=== PATIENT | male | born 1975 | race Caucasian/White ===

== ENCOUNTER → 2016-07-12 | Outpatient (CLI) | payer OTHER ==
--- NOTE | 2016-07-15 11:46 | REP ---
MRI of the left shoulder 07/12/2016 Indication: Complete rotator cuff tear or rupture of left shoulder, not specified as traumatic Comparison: Left shoulder series 06/15/2016 Technique: Sagittal oblique, coronal oblique and sagittal images were obtained through the left shoulder in multiple pulse sequences Findings: Mild narrowing of the glenohumeral joint with minimal spurring, subchondral cystic changes within the bony glenoid and the humeral head, as well as greater tuberosity are noted. Moderate hypertrophic and osteoarthritic changes are noted at acromioclavicular joint with extrinsic impression on the myotendinous junction region of the supraspinatus muscle/tendon. Small amount of focal increased signal is seen within few articular surface fibers within the distal posterior supraspinatus tendon, best seen on image 12 series 6. This is most compatible with minimal focal tendinopathy. The bicipital tendon is intact. There is no sub acromial fluid collection. There is a small sub coracoid fluid collection Impression: Mild osteoarthritic changes within the glenoid and acromioclavicular joint. Minimal focal tendinopathy involving articular surface fibers of the distal posterior supraspinatus tendon. No full-thickness supraspinatus tendon tear or retraction of fibers Signed by Carol Manriquez MD 07/15/2016 11:38 A
== END | disposition home or self-care (01) ==
LOC: M RAD 15:08
PROVIDERS: ATTEND Family Medicine Addiction Medicine
DX: M75.122 Complete rotator cuff tear or rupture of left shoulder, not specified as traumatic (principal); M19.012 Primary osteoarthritis, left shoulder

== ENCOUNTER 2016-10-20 13:42 | Emergency (ER) | payer OTHER ==
[~2016-10-20] VITALS: Ht 175.3 cm; Wt 102.1 kg
[2016-10-20] MEDS ORDERED: FLUO20CA8 PO (14:03)
[2016-10-20] MEDS ORDERED: SERO1TAB PO (14:03)
--- NOTE | 2016-10-20 14:36 | REP ---
Left foot four views: Mineralization and joint spaces are normal. There is no fracture or dislocation. There is a calcaneal Achilles spur. There are no calcifications or foreign bodies. Impression: Negative left foot except for a calcaneal Achilles spur. Signed by Robbie Irving MD 10/20/2016 02:27 P
[2016-10-20] MEDS ORDERED: INDOMETHACIN 25 MG CAP PO ONE (14:45)
[2016-10-20 15:08] LABS: BASO # 0.1 K/mm3 (0.0-0.2); BASO % 1.1 % (0.0-1.0); EOS # 0.2 K/mm3 (0.0-0.50); EOS % 2.7 % (0.0-3.0); LARGE UNSTAINED CELL # 0.2 K/mm3 (0.0-0.4); LARGE UNSTAINED CELL % 1.6 % (0.0-4.0); LYMPH # 2.1 K/mm3 (1.5-4.5); LYMPH % 21.4 % (24.0-44.0); MEAN CORPUSCULAR HEMOGLOBIN 30.1 pg (27.0-33.0); MEAN CORPUSCULAR HGB CONC 33.8 g/dl (32.0-36.5); MEAN CORPUSCULAR VOLUME 89.1 fl (80.0-96.0); MONO # 0.6 K/mm3 (0.0-0.8); MONO % 6.8 % (0.0-5.0); NEUTROPHILS % 66.4 % (36.0-66.0); PLATELET COUNT, AUTOMATED 261 k/mm3 (150-450); RED CELL DISTRIBUTION WIDTH 13.8 % (11.5-14.5); WHITE BLOOD COUNT 9.1 K/mm3 (4.0-10.0)
[2016-10-20 15:13] LABS: ANION GAP 6 MEQ/L (8-16); BLOOD UREA NITROGEN 11 MG/DL (7-18); CARBON DIOXIDE LEVEL 27 MEQ/L (21-32); CHLORIDE LEVEL 102 MEQ/L (98-107); CREATININE FOR GFR 0.97 MG/DL (0.70-1.30); GLOMERULAR FILTRATION RATE > 60.0 (>60); POTASSIUM SERUM 4.2 MEQ/L (3.5-5.1); SODIUM LEVEL 135 MEQ/L (136-145)
[2016-10-20 15:27] LABS: URIC ACID 8.5 MG/DL (3.5-7.2)
[2016-10-20 15:32] LABS: GLUCOSE, FASTING 211 MG/DL (70-105)
[2016-10-20 15:44] LABS: ERYTHROCYTE SEDIMENTATION RATE 8 mm/hr (0-15)
[2016-10-20] MEDS ORDERED: NORCO, ANEXSIA 5/325MG TABLET (HYDROcodone/ACETAMINOPHEN) PO ONE (16:30)
[2016-10-20] MEDS ORDERED: COLC1TAB13 PO (17:16)
[2016-10-20] MEDS ORDERED: NORC1TAB4 PO (17:16)
[2016-10-20] MEDS ORDERED: INDO50CA PO (17:16)
[2016-10-20 17:32] VITALS: BP 146/84
== END 2016-10-20 17:35 | disposition home or self-care (01) ==
LOC: M ED 15:18
DX: M10.9 Gout, unspecified (principal); R73.02 Impaired glucose tolerance (oral); M72.2 Plantar fascial fibromatosis; F17.200 Nicotine dependence, unspecified, uncomplicated

== ENCOUNTER 2017-01-05 06:15 | Emergency (ER) | payer OTHER ==
[~2017-01-05] VITALS: Ht 175.3 cm; Wt 109.1 kg
[~2017-01-05 06:15] MED LIST: COLC1TAB13 PO; FLUO20CA8 PO; INDO50CA PO; NORC1TAB4 PO; SERO1TAB PO
[2017-01-05] MEDS ORDERED: KETOROLAC 60 MG/2 ML VIAL (J1885) IM ONE (07:30)
[2017-01-05 07:58] LABS: MEAN CORPUSCULAR HEMOGLOBIN 30.4 pg (27.0-33.0); MEAN CORPUSCULAR HGB CONC 33.9 g/dl (32.0-36.5); MEAN CORPUSCULAR VOLUME 89.8 fl (80.0-96.0); WHITE BLOOD COUNT 12.1 K/mm3 (4.0-10.0)
[2017-01-05] MEDS ORDERED: PERCOCET 5MG/325MG TAB PO ONE (08:15)
--- NOTE | 2017-01-05 08:38 | REP ---
Clinical: Pain inflammatory arthritides. Technique: AP, lateral, bilateral oblique views of the left ankle. Findings: Moderate diffuse soft tissue swelling is appreciated along with cortical irregularity at the fibular and tibial tips. No subchondral lucencies or erosions are appreciated. No significant osteophyte formation noted. Lateral view demonstrates small calcaneal heal spur. No acute fracture dislocation. Impression: Minimal age-related degenerative change. Signed by Henok Shetty MD 01/05/2017 08:30 A
[2017-01-05 08:50] LABS: ANION GAP 6 MEQ/L (8-16); BLOOD UREA NITROGEN 13 MG/DL (7-18); CALCIUM LEVEL 8.3 MG/DL (8.5-10.1); CARBON DIOXIDE LEVEL 25 MEQ/L (21-32); CHLORIDE LEVEL 106 MEQ/L (98-107); CREATININE FOR GFR 0.98 MG/DL (0.70-1.30); GLOMERULAR FILTRATION RATE > 60.0 (>60); GLUCOSE, FASTING 108 MG/DL (70-105); POTASSIUM SERUM 4.2 MEQ/L (3.5-5.1); SODIUM LEVEL 137 MEQ/L (136-145); URIC ACID 8.3 MG/DL (3.5-7.2)
[2017-01-05] MEDS ORDERED: COLC1CAP PO (09:26)
[2017-01-05] MEDS ORDERED: NAPR500T PO (09:26)
[2017-01-05] MEDS ORDERED: COLCHICINE 0.6 MG TAB PO ONE (09:30)
[2017-01-05 09:34] VITALS: BP 122/81
== END 2017-01-05 09:38 | disposition home or self-care (01) ==
LOC: M ED 06:15
DX: M19.072 Primary osteoarthritis, left ankle and foot (principal); M10.072 Idiopathic gout, left ankle and foot; F32.9 Major depressive disorder, single episode, unspecified; F17.200 Nicotine dependence, unspecified, uncomplicated; Z90.49 Acquired absence of other specified parts of digestive tract; Z79.899 Other long term (current) drug therapy

== ENCOUNTER → 2017-09-29 | Outpatient (CLI) | payer OTHER ==
[2017-09-29 18:20] LABS: ESTIMATED AVERAGE GLUCOSE 134 MG/DL (60-110); HEMOGLOBIN A1c 6.3 %
== END ==
LOC: M LAB 15:43
DX: R20.0 Anesthesia of skin (principal); M51.37 Other intervertebral disc degeneration, lumbosacral region
CPT/HCPCS: 71046

== ENCOUNTER 2017-10-13 16:49 | Emergency (ER) | payer OTHER ==
[2017-10-13] MEDS ORDERED: GASTROGRAFIN SOLUTION 30ML (Q9963) As Ordered (19:39)
[2017-10-13] MEDS: NS 1,000 ML IV ×2 (19:50→21:38)
[2017-10-13 19:51] LABS: BASO # 0.1 10^3/uL (0.0-0.2); BASO % 0.8 % (0.0-1.0); EOS # 0.1 10^3/uL (0.0-0.50); EOS % 1.1 % (0.0-3.0); HEMATOCRIT 46.6 % (42.0-52.0); HEMOGLOBIN 15.6 g/dl (13.5-17.5); IMMATURE GRANULOCYTE % 0.4 % (0-3.0); LYMPH # 1.5 10^3/uL (1.5-4.5); LYMPH % 13.8 % (24.0-44.0); MEAN CORPUSCULAR HEMOGLOBIN 29.5 pg (27.0-33.0); MEAN CORPUSCULAR HGB CONC 33.5 g/dl (32.0-36.5); MEAN CORPUSCULAR VOLUME 88.3 fl (80.0-96.0); MONO # 0.9 10^3/uL (0.0-0.8); MONO % 8.2 % (0.0-5.0); NEUTROPHILS % 75.7 % (36.0-66.0); PLATELET COUNT, AUTOMATED 235 10^3/uL (150-450); RED BLOOD COUNT 5.28 10^6/uL (4.30-6.10); RED CELL DISTRIBUTION WIDTH 13.5 % (11.5-14.5); WHITE BLOOD COUNT 10.6 10^3/uL (4.0-10.0)
[2017-10-13] MEDS: MORPHINE 4 MG/ML 1ML VIAL/SYRINGE (J2270) IV ×2 (19:52→20:15)
[2017-10-13] MEDS: GASTROGRAFIN SOLUTION 30ML PO ×2 (19:52→20:19)
[2017-10-13 20:26] LABS: ALBUMIN 3.8 GM/DL (3.2-5.2); ALBUMIN/GLOBULIN RATIO 0.83 (1.00-1.93); ALKALINE PHOSPHATASE 116 U/L (45-117); ALT/SGPT 33 U/L (12-78); ANION GAP 9 MEQ/L (8-16); AST/SGOT 31 U/L (7-37); BILIRUBIN,DIRECT < 0.1 MG/DL (0.0-0.2); BILIRUBIN,TOTAL 0.5 MG/DL (0.2-1.0); BLOOD UREA NITROGEN 10 MG/DL (7-18); CARBON DIOXIDE LEVEL 25 MEQ/L (21-32); CHLORIDE LEVEL 104 MEQ/L (98-107); CREATININE FOR GFR 1.11 MG/DL (0.70-1.30); GLOMERULAR FILTRATION RATE > 60.0 (>60); GLUCOSE, FASTING 98 MG/DL (70-100); LIPASE 116 U/L (73-393); POTASSIUM SERUM 4.3 MEQ/L (3.5-5.1); SODIUM LEVEL 138 MEQ/L (136-145); TOTAL PROTEIN 8.4 GM/DL (6.4-8.2)
[2017-10-13] MEDS ORDERED: ISOVUE-370 76% 100ML VIAL (Q9967) As Ordered (20:45)
[2017-10-13 21:47] LABS: KETONE, URINE AUTO RFX NEGATIVE (NEGATIVE); LEUKOCYTE ESTERASE UR AUTO RFX NEGATIVE (NEGATIVE); MUCUS, URINE RFX SMALL (NEGATIVE); NITRITE, URINE AUTO RFX NEGATIVE (NEGATIVE); RBC, URINE AUTO RFX 1 /HPF (0-3); SPECIFIC GRAVITY UR AUTO RFX 1.024 (1.002-1.035); SQUAM EPITHELIAL CELL UR AURFX 0 /HPF (0-6); WBC, URINE AUTO RFX 0 /HPF (0-3)
[2017-10-13] MEDS: CIPROFLOXACIN 400 MG in APPROPRIATE DILUENT 1 EA IV (22:15)
[2017-10-13] MEDS: OXYCODONE/APAP 5MG/325MG(BULK FOR ED) 1 TABLET PO (23:30)
== END 2017-10-13 23:34 | disposition home or self-care (01) ==
LOC: M ED 16:49
DX: N49.2 Inflammatory disorders of scrotum (principal); M19.90 Unspecified osteoarthritis, unspecified site; M51.9 Unspecified thoracic, thoracolumbar and lumbosacral intervertebral disc disorder; M72.2 Plantar fascial fibromatosis; G62.9 Polyneuropathy, unspecified; F17.200 Nicotine dependence, unspecified, uncomplicated; Z79.899 Other long term (current) drug therapy
CPT/HCPCS: J2270

== ENCOUNTER → 2017-10-28 | Outpatient (CLI) | payer OTHER ==
[2017-10-28 09:45] LABS: ERYTHROCYTE SEDIMENTATION RATE 15 mm/hr (0-15)
[2017-10-28 10:01] LABS: C REACTIVE PROTEIN QUANTITATIV 0.83 MG/DL (0.00-0.30)
[2017-10-28 10:34] LABS: VITAMIN B12 LEVEL 209 PG/ML
[2017-10-28 10:35] LABS: FOLATE 5.4 NG/ML
[2017-10-28 11:51] LABS: CHLAMYDIA DNA AMPLIFICATION NEGATIVE (NEGATIVE); GC DNA AMPLIFICATION NEGATIVE (NEGATIVE)
== END ==
LOC: M LAB 08:46
DX: M46.1 Sacroiliitis, not elsewhere classified (principal); R41.89 Other symptoms and signs involving cognitive functions and awareness
CPT/HCPCS: 82746

== ENCOUNTER → 2017-10-31 | Outpatient (CLI) | payer OTHER, MEDICAID | LOC: M PAIN 09:15 | DX: M53.3 Sacrococcygeal disorders, not elsewhere classified (principal); M79.1 Myalgia; G89.29 Other chronic pain; F41.9 Anxiety disorder, unspecified; F25.9 Schizoaffective disorder, unspecified; R06.83 Snoring; F17.210 Nicotine dependence, cigarettes, uncomplicated; Z79.899 Other long term (current) drug therapy; Z87.820 Personal history of traumatic brain injury | CPT/HCPCS: G0463 ==

== ENCOUNTER → 2017-12-24 | Outpatient (CLI) | payer OTHER ==
[2017-12-24 10:57] LABS: BASO # 0.1 10^3/uL (0.0-0.2); BASO % 1.2 % (0.0-1.0); EOS # 0.2 10^3/uL (0.0-0.50); EOS % 3.1 % (0.0-3.0); HEMOGLOBIN 15.4 g/dl (13.5-17.5); IMMATURE GRANULOCYTE % 0.6 % (0-3.0); LYMPH # 1.8 10^3/uL (1.5-4.5); LYMPH % 22.6 % (24.0-44.0); MEAN CORPUSCULAR HEMOGLOBIN 30.6 pg (27.0-33.0); MEAN CORPUSCULAR VOLUME 87.5 fl (80.0-96.0); MONO # 0.8 10^3/uL (0.0-0.8); MONO % 9.8 % (0.0-5.0); NEUTROPHILS # 4.9 10^3/uL (1.8-7.7); NEUTROPHILS % 62.7 % (36.0-66.0); PLATELET COUNT, AUTOMATED 229 10^3/uL (150-450); RED BLOOD COUNT 5.03 10^6/uL (4.30-6.10); RED CELL DISTRIBUTION WIDTH 14.1 % (11.5-14.5); WHITE BLOOD COUNT 7.8 10^3/uL (4.0-10.0)
[2017-12-24 11:12] LABS: ESTIMATED AVERAGE GLUCOSE 131 MG/DL (60-110); HEMOGLOBIN A1c 6.2 %
[2017-12-24 11:14] LABS: ERYTHROCYTE SEDIMENTATION RATE 5 mm/hr (0-15)
[2017-12-24 11:15] LABS: POS COUNT POS FLAG
[2017-12-24 11:25] LABS: ALBUMIN 3.9 GM/DL (3.2-5.2); ALBUMIN/GLOBULIN RATIO 1.08 (1.00-1.93); ALKALINE PHOSPHATASE 95 U/L (45-117); ALT/SGPT 48 U/L (12-78); ANION GAP 5 MEQ/L (8-16); AST/SGOT 31 U/L (7-37); BILIRUBIN,TOTAL 0.3 MG/DL (0.2-1.0); BLOOD UREA NITROGEN 16 MG/DL (7-18); CALCIUM LEVEL 8.8 MG/DL (8.5-10.1); CARBON DIOXIDE LEVEL 28 MEQ/L (21-32); CHLORIDE LEVEL 105 MEQ/L (98-107); CREATININE FOR GFR 1.06 MG/DL (0.70-1.30); GLOMERULAR FILTRATION RATE > 60.0 (>60); GLUCOSE, FASTING 131 MG/DL (70-100); POTASSIUM SERUM 4.2 MEQ/L (3.5-5.1); RHEUMATOID FACTOR QUANT < 10.0 IU/ML (<15.0); SODIUM LEVEL 138 MEQ/L (136-145); TOTAL PROTEIN 7.5 GM/DL (6.4-8.2)
[2017-12-24 11:34] LABS: VITAMIN B12 LEVEL 195 PG/ML
[2017-12-24 11:46] LABS: FOLATE 9.3 NG/ML
== END ==
LOC: M LAB 09:57
DX: G62.9 Polyneuropathy, unspecified (principal)
CPT/HCPCS: 82525

== ENCOUNTER → 2018-01-01 | Outpatient (CLI) | payer OTHER, MEDICAID | LOC: M PAIN 13:50 | DX: M53.3 Sacrococcygeal disorders, not elsewhere classified (principal); M79.1 Myalgia; G89.29 Other chronic pain; F31.9 Bipolar disorder, unspecified; F41.9 Anxiety disorder, unspecified; F20.9 Schizophrenia, unspecified; F17.210 Nicotine dependence, cigarettes, uncomplicated; Z79.899 Other long term (current) drug therapy; Z91.81 History of falling; Z87.820 Personal history of traumatic brain injury; Z86.79 Personal history of other diseases of the circulatory system | CPT/HCPCS: G0463 ==

== ENCOUNTER → 2018-01-10 | Outpatient (CLI) | payer OTHER | LOC: M RAD 10:27 | DX: M53.3 Sacrococcygeal disorders, not elsewhere classified (principal); M51.26 Other intervertebral disc displacement, lumbar region | CPT/HCPCS: 72148 ==

== ENCOUNTER → 2018-01-29 | Outpatient (CLI) | payer OTHER, MEDICAID | LOC: M PAIN 13:45 | DX: M53.3 Sacrococcygeal disorders, not elsewhere classified (principal); M79.1 Myalgia; F41.9 Anxiety disorder, unspecified; F32.9 Major depressive disorder, single episode, unspecified; F17.210 Nicotine dependence, cigarettes, uncomplicated; Z79.899 Other long term (current) drug therapy | CPT/HCPCS: G0463 ==

== ENCOUNTER → 2018-02-09 | Outpatient (CLI) | payer OTHER, MEDICAID ==
[~2018-02-09] MED LIST changes: +BUPIVACAINE HCL 0.25% 30 ML VIAL As Ordered; -COLC1TAB13 PO; -FLUO20CA8 PO; -INDO50CA PO; +ISOVUE-M 300 61% 15ML VIAL (Q9967) As Ordered; +LIDOCAINE 1% SDV INJ 30 ML VIAL As Ordered; -NORC1TAB4 PO; -SERO1TAB PO; +TRIAMCINOLONE ACETONIDE SUSP 40 MG/ML VIAL (J3301) As Ordered; +diazePAM 5 MG TAB As Ordered; +oxyCODONE 5MG TAB As Ordered
== END ==
LOC: M PAIN 11:30
DX: G89.29 Other chronic pain (principal); M46.1 Sacroiliitis, not elsewhere classified; M53.88 Other specified dorsopathies, sacral and sacrococcygeal region; F31.9 Bipolar disorder, unspecified; F25.9 Schizoaffective disorder, unspecified; F41.9 Anxiety disorder, unspecified; E78.00 Pure hypercholesterolemia, unspecified; F17.200 Nicotine dependence, unspecified, uncomplicated; Z79.899 Other long term (current) drug therapy; Z87.820 Personal history of traumatic brain injury
CPT/HCPCS: J3301

== ENCOUNTER → 2018-02-18 | Outpatient (REF) | payer OTHER | LOC: M LAB REF 12:45 | DX: J02.9 Acute pharyngitis, unspecified (principal) ==

== ENCOUNTER → 2018-03-31 | Outpatient (CLI) | payer OTHER, MEDICAID | LOC: M PAIN 14:00 | DX: M53.3 Sacrococcygeal disorders, not elsewhere classified (principal); M79.18 Myalgia, other site; F31.9 Bipolar disorder, unspecified; F25.9 Schizoaffective disorder, unspecified; F41.9 Anxiety disorder, unspecified; Z79.899 Other long term (current) drug therapy; Z86.79 Personal history of other diseases of the circulatory system; Z87.820 Personal history of traumatic brain injury; Z87.891 Personal history of nicotine dependence | CPT/HCPCS: G0463 ==

== ENCOUNTER → 2018-04-20 | Outpatient (CLI) | payer OTHER, MEDICAID | LOC: M PAIN 10:00 | DX: G89.29 Other chronic pain (principal); M46.1 Sacroiliitis, not elsewhere classified; M53.88 Other specified dorsopathies, sacral and sacrococcygeal region; F31.9 Bipolar disorder, unspecified; F25.9 Schizoaffective disorder, unspecified; F41.9 Anxiety disorder, unspecified; E78.00 Pure hypercholesterolemia, unspecified; Z79.899 Other long term (current) drug therapy; Z87.820 Personal history of traumatic brain injury; Z87.891 Personal history of nicotine dependence | CPT/HCPCS: J3301 ==

== ENCOUNTER → 2018-05-18 | Outpatient (CLI) | payer OTHER, MEDICAID | LOC: M PAIN 15:15 | DX: M53.3 Sacrococcygeal disorders, not elsewhere classified (principal); M47.817 Spondylosis without myelopathy or radiculopathy, lumbosacral region; M79.10 Myalgia, unspecified site; F31.9 Bipolar disorder, unspecified; F41.9 Anxiety disorder, unspecified; Z79.899 Other long term (current) drug therapy; Z87.820 Personal history of traumatic brain injury | CPT/HCPCS: G0463 ==

== ENCOUNTER → 2018-06-16 | Outpatient (CLI) | payer OTHER, MEDICAID ==
[~2018-06-16] MED LIST changes: +BUPIVACAINE HCL 0.25% 10 ML VIAL As Ordered ONE; -BUPIVACAINE HCL 0.25% 30 ML VIAL As Ordered; +BUPIVACAINE HCL 0.25% 30 ML VIAL As Ordered ONE; +CIPR-249 PO; +COLC1CAP PO; +COLC1TAB13 PO; +FLUO20CA8 PO; +GABA-843 PO; +INDO50CA PO; -ISOVUE-M 300 61% 15ML VIAL (Q9967) As Ordered; -LIDOCAINE 1% SDV INJ 30 ML VIAL As Ordered; +MIRA3350 PO; +NAPR-49 PO; +NORC1TAB4 PO; +PROC30SU PR; +SERO1TAB PO; -TRIAMCINOLONE ACETONIDE SUSP 40 MG/ML VIAL (J3301) As Ordered; +TRIAMCINOLONE ACETONIDE SUSP 40 MG/ML VIAL (J3301) As Ordered ONE; -diazePAM 5 MG TAB As Ordered; +diazePAM 5 MG TAB As Ordered ONE; -oxyCODONE 5MG TAB As Ordered; +oxyCODONE 5MG TAB As Ordered ONE
--- NOTE | 2018-06-30 23:44 | ECWPNPC ---
PATIENT NAME: MATT MIRZA : 1975 GENDER: MALE VISIT DATE: 06/16/2018 DISCHARGE DATE: 06/16/18 1156 VISIT LOCKED DATE TIME: PHYSICIAN: WESLY GIRON MD RESOURCE: WESLY GIRON MD REASON FOR APPOINTMENT 1. TPI RIGHT LOW BACK HISTORY OF PRESENT ILLNESS HISTORY OF PRESENT ILLNESS: PAIN THE PATIENT DESCRIBES THE PAIN... FALL RISK SCREENING: SCREENING :NO FALLS IN THE PAST YEAR CURRENT MEDICATIONS TAKING IBUPROFEN 800 MG TABLET 1 TABLET WITH FOOD OR MILK NEEDED ORALLY THREE TIMES A DAY, NOTES: NOT LATELY TAKING GABAPENTIN 300 MG CAPSULE 1 CAPSULE ORALLY TID, NOTES: 06-16-18 0700 TAKING PROZAC 20 MG CAPSULE 1 CAPSULE ORALLY TID, NOTES: 06-16 0700 TAKING SEROQUEL 25 MG TABLET 1 TABLET ORALLY BID, NOTES: 06-16-18 0800 NOT-TAKING TIZANIDINE HCL 4 MG TABLET 1 TABLET NEEDED ORALLY THREE TIMES A DAY MEDICATION LIST REVIEWED AND RECONCILED WITH THE PATIENT PAST MEDICAL HISTORY SCHIZOPHRENIA ANXIETY DEPRESSION DDD BIPOLAR/ STRESS PANCREATITIS CONCUSSION HX HX BROKEN RIBS AND CRUSHED VERTEBRA HIGH CHOLESTEROL HX FRACTURED RIGHT ARM X 3 FRACTURED RIGHT ANKLE X 2 , LEFT X1 SONG BITE LEFT FOOT ALLERGIES N.K.D.A. SURGICAL HISTORY LEFT SHOULDER BROKEN JAW RIGHT WRIST GALLBLADDER REMOVAL RIGHT ANKLE LEFT ANKLE LEFT PECTORAL TISSUE REMOVAL FAMILY HISTORY FATHER: ALIVE, DIAGNOSED WITH HEART DISEASE, OTHER MOTHER: , DIAGNOSED WITH CANCER MATERNAL GRAND MOTHER: DIAGNOSED WITH CANCER 1 SON(S) , 4 DAUGHTER(S) - HEALTHY. FATHER HAS PARKINSONS, ALZHEIMERSMOM--LYMPHOMA. SOCIAL HISTORY GENERAL: TOBACCO USE ARE YOU A:FORMER SMOKER HOW LONG HAS IT BEEN SINCE YOU LAST SMOKED?< 1 MONTH ALCOHOL SCREENING DID YOU HAVE A DRINK CONTAINING ALCOHOL IN THE PAST YEAR?YES HOW OFTEN DID YOU HAVE A DRINK CONTAINING ALCOHOL IN THE PAST YEAR?MONTHLY OR LESS (1 POINT) HOW MANY DRINKS DID YOU HAVE ON A TYPICAL DAY WHEN YOU WERE DRINKING IN THE PAST YEAR?1 OR 2 (0 POINTS) HOW OFTEN DID YOU HAVE SIX OR MORE DRINKS ON ONE OCCASION IN THE PAST YEAR?NEVER (0 POINTS) POINTS1 INTERPRETATIONNEGATIVE RECREATIONAL DRUG USE DRUG USE?NO CAFFEINE CAFFEINE USE?YES SODA DAILY ANGLICAN [id number] NONE LANGUAGE LANGUAGES SPOKEN:IRAQI LEARNING BARRIERS / SPECIAL NEEDS BARRIERS TO LEARNING?NO HEARING IMPAIRED?YES CONSTANT RINGING IN RIGHT EAR VISION IMPAIRED?YES :CORRECTIVE LENSES COGNITIVELY IMPAIRED?NO READINESS TO LEARN?YES LEARNING PREFERENCES?NO LEARNING CAPABILITIES PRESENT?YES EMOTIONAL BARRIERS?NO SPECIAL DEVICES?NO MEMORIAL MARKER DESIGNER NEEDED?NO DOMESTIC VIOLENCE DO YOU FEEL SAFE IN YOUR ENVIRONMENT?YES MARITAL STATUS: . PAIN CLINIC PFS, CLERGY, PUBLIC HEALTH REFERRALS PFS REFERRAL NEEDED?NO CLERGY REFERRAL NEEDED?NO PUBLIC HEALTH REFERRAL NEEDED?NO WAS THE PROVIDER NOTIFIED OF ANY PERTINENT INFO? N/A HAS THE PATIENT BEEN EDUCATED REGARDING HIS/HER PLAN OF CARE?YES HAS THE PATIENT BEEN EDUCATED REGARDING PAIN, THE RISK FOR PAIN, THE IMPORTANCE OF EFFECTIVE PAIN MANAGEMENT, AND THE PAIN ASSESSMENT PROCESS?YES ADVANCE DIRECTIVE ADVANCE DIRECTIVE DISCUSSED WITH PATIENT:YES 04/20/18 PT DOES NOT HAVE ANY ADVANCED DIRECTIVES AND HE DECLINES INFORMATION ON HCP AT THIS TIME. AD 03/31/18 4025 REVIEWED WITH PT. AD. HOSPITALIZATION/MAJOR DIAGNOSTIC PROCEDURE HOSPITALIZED FOR KIDNEY STONES 4 TIMES LEFT PECTORAL TISSUE REMOVAL REVIEW OF SYSTEMS REVIEWED BY: PROVIDER: . CONSTITUTIONAL: ANY CHANGE IN YOUR MEDICAL CONDITION? NO . CHILLS NO . FEVER NO . INFECTION: DO YOU HAVE NEW INFECTIONS? NO . DO YOU HAVE HISTORY OF MRSA? NO . MUSCULOSKELETAL: ANY NEW PATTERNS OF PAIN OR NUMBNESS? NO . GASTROENTEROLOGY: ANY NEW CHANGE IN BOWEL CONTROL? NO . GENITOURINARY: ANY NEW CHANGE IN BLADDER CONTROL? NO . IS THERE A CHANCE YOU COULD BE ? NO . HEMATOLOGY/LYMPH: DO YOU TAKE ANY BLOOD THINNERS? (FOR EXAMPLE- COUMADIN, PLAVIX, AGGRENOX, PLATEL, PRADAXA, OR XARELTO) NO . WHEN WAS YOUR LAST DOSE? DATE: TIME: . NEUROLOGY: HAVE YOU FALLEN IN THE PAST 6 MONTHS? YES . ANY NEW EXTREMITY NUMBNESS OR WEAKNESS? NO . CARDIOLOGY: DO YOU HAVE A PACEMAKER OR DEFIBRILLATOR? NO . RESPIRATORY: HAVE YOU BEEN SICK IN THE PAST WEEK? NO . FEVER NO . FLU LIKE SYMPTOMS? NO . COUGH NO . INTEGUMENTARY: DO YOU HAVE ANY RASHES OR OPEN SORES? NO . ALLERGIC/IMMUNO: ARE YOU ALLERGIC TO SHELLFISH OR IV DYE? NO . ANY NEW ALLERGIES? NO . PSYCHIATRIC: DO YOU HAVE THOUGHTS OF HURTING YOURSELF OR SOMEONE ELSE? NO . ARE YOU ABUSED, NEGLECTED, OR IN AN UNSAFE ENVIRONMENT? NO . ENDOCRINOLOGY: ARE YOU DIABETIC? NO . OTHER: DO YOU NEED ANY PRESCRIPTIONS? NO . IF YES, PLEASE LIST: ____ . ANY NEW PROBLEMS WITH YOUR MEDICATIONS? NO . WHEN DID YOU LAST EAT? ____YESTERDAY . WHEN DID YOU LAST DRINK? ____700 THIS MORNING . WHAT DID YOU LAST DRINK? ____[place] . NAME OF PERSON DRIVING YOU HOME? ____[employer] . DO YOU HAVE ANY OTHER QUESTIONS OR CONCERNS NO . VITAL SIGNS WT 241.2 LBS, HT 69", BMI 35.62 INDEX, BP 130/85 MM HG, HR 86 /MIN, RR 18 /MIN, TEMP 96.7 F, OXYGEN SAT % 97%, NA INITIALS SC 10:25, REVIEWED BY: KG. ASSESSMENTS MYALGIA, OTHER SITE - M79.18 (PRIMARY) PROCEDURES PN TRIGGER POINT INJECTION WITH STEROIDS PRE PROCEDURE DIAGNOSIS 1. MYALGIA 2. PAIN AT BILATERAL LOW BACK AREA POST PROCEDURE DIAGNOSIS 1. MYALGIA 2. PAIN AT BILATERAL LOW BACK AREA PROCEDURE TRIGGER POINT INJECTION AT BILATERAL LOW BACK AREA SURGEON DR. WESLY GIRON MOBILE SECURITY SPECIALIST NONE ANESTHESIA LOCAL PRE PROCEDURE NOTE THE PATIENT HAS A HISTORY OF CHRONIC PAIN AT THE RIGHT AND LEFT LOW BACK AREA. I EVALUATE THE PATIENT AND REVIEWED THE CHART. THERE IS EVIDENCE OF BANDS OF TISSUE WITH RESTRICTION OF MOVEMENT AND PRESENCE OF TRIGGER POINT AT THE AFFECTED AREA. I WENT OVER THE RISKS, ALTERNATIVES, AND BENEFITS ASSOCIATED WITH THIS PROCEDURE. THE PATIENT WOULD LIKE TO PROCEED AND GIVE CONSENT TO PERFORMED THE PROCEDURE. THE PATIENT DENIES UNEXPLAINABLE WEIGHT LOSS, FEVER, CHILLS, OR NEW CHANGES IN URINARY OR BOWEL CONTROL DESCRIPTION OF PROCEDURE THE PATIENT WAS BROUGHT TO THE PROCEDURE ROOM AND PLACED IN THE SITTING POSITION. THE AREA WAS CLEANED WITH ALCOHOL. THE PROCEDURE WAS DONE USING ASEPTIC STERILE TECHNIQUE. I CHECKED LATERALITY AND THE LEVEL WHERE THE PROCEDURE WAS GOING TO BE PERFORMED WITH THE PATIENT AND THE SUPPORTING STAFF AT THE MOMENT OF THE TIME OUT IN THE PROCEDURE ROOM. USING A 25-GAUGE NEEDLE, TRIGGER POINTS WERE INJECTED AT THE RIGHT AND LEFT LOW BACK AREA WITH A TOTAL OF 40 ML OF BUPIVACAINE 0.25% AND KENALOG 40 MG. THERE WAS NO EVIDENCE OF BLOOD, PARESTHESIA OR CEREBROSPINAL FLUID DURING THE PROCEDURE. THE PATIENT WAS SENT TO THE RECOVERY ROOM. THE PATIENT WAS MOVING THE EXTREMITIES AND DOING WELL. THERE WAS NO COMPLICATION DURING THE PROCEDURE POST PROCEDURE NOTE THE PATIENT WILL BE SEEN IN A FOLLOW UP IN THE NEXT FEW WEEKS. INSTRUCTIONS WERE GIVEN, QUESTIONS WERE ANSWERED, AND THE PATIENT EXPRESSED UNDERSTANDING AND AGREES WITH THE PLAN. I, SANDHYA LIEBERMAN, DOCUMENTED THE ABOVE INFORMATION ACTING A SCRIBE FOR DR. GIRON. I HAVE REVIEWED THE ABOVE DOCUMENT, WRITTEN BY SANDHYA LIEBERMAN SCRIBAsuncion AND I VERIFY THAT IT IS ACCURATE PROCEDURE CODES 45510 INJ TRIGGER POINT / MUSCL DISPOSITION & COMMUNICATION FOLLOW UP 3 WEEKS ELECTRONICALLY SIGNED BY WESLY GIRON MD, MD ON 06/30/2018 AT 06:31 PM EST DISCLAIMER : THIS IS A VISIT SUMMARY EXTRACTED FROM THE [employer] CHART. IT IS NOT A COPY OF THE [employer] PROGRESS NOTE. EMILIO
== END ==
LOC: M PAIN 11:15
PROVIDERS: ATTEND Anesthesiology
DX: M79.18 Myalgia, other site (principal); F20.9 Schizophrenia, unspecified; F41.9 Anxiety disorder, unspecified; F31.9 Bipolar disorder, unspecified; Z90.49 Acquired absence of other specified parts of digestive tract; Z87.891 Personal history of nicotine dependence; Z87.81 Personal history of (healed) traumatic fracture; Z79.899 Other long term (current) drug therapy; Z87.442 Personal history of urinary calculi
CPT/HCPCS: 20552; J3301

== ENCOUNTER → 2018-07-16 | Outpatient (CLI) | payer OTHER, MEDICAID ==
[~2018-07-16] MED LIST changes: -BUPIVACAINE HCL 0.25% 10 ML VIAL As Ordered ONE; -BUPIVACAINE HCL 0.25% 30 ML VIAL As Ordered ONE; -NAPR-49 PO; +NAPR-50 PO; -TRIAMCINOLONE ACETONIDE SUSP 40 MG/ML VIAL (J3301) As Ordered ONE; -diazePAM 5 MG TAB As Ordered ONE; -oxyCODONE 5MG TAB As Ordered ONE
--- NOTE | 2018-07-31 01:43 | ECWPNPC ---
PATIENT NAME: MATT MIRZA : 1975 GENDER: MALE VISIT DATE: 07/16/2018 DISCHARGE DATE: 07/16/18 1247 VISIT LOCKED DATE TIME: PHYSICIAN: SHARRON OREILLY RESOURCE: SHARRON OREILLY REASON FOR APPOINTMENT 1. POST PROCEDURE HISTORY OF PRESENT ILLNESS HISTORY OF PRESENT ILLNESS: HERE FOR POST PROCEDURE F/U.HAD TPI LOW BACK ON 06-16-18.REPORTING NO IMPROVEMENT AND SOME AGGREVATION POST PROCEDURE.RATING PAIN VAS 7/10.CHIEF ARE OF PAIN IS RIGHT LOW BACK. PAIN THE PATIENT DESCRIBES THE PAIN... THE PATIENT DESCRIBES THE PAIN... FALL RISK SCREENING: SCREENING :NO FALLS IN THE PAST YEAR CURRENT MEDICATIONS TAKING IBUPROFEN 800 MG TABLET 1 TABLET WITH FOOD OR MILK NEEDED ORALLY THREE TIMES A DAY TAKING GABAPENTIN 300 MG CAPSULE 1 CAPSULE ORALLY TID TAKING PROZAC 20 MG CAPSULE 1 CAPSULE ORALLY TID TAKING SEROQUEL 25 MG TABLET 1 TABLET ORALLY BID NOT-TAKING TIZANIDINE HCL 4 MG TABLET 1 TABLET NEEDED ORALLY THREE TIMES A DAY MEDICATION LIST REVIEWED AND RECONCILED WITH THE PATIENT PAST MEDICAL HISTORY SCHIZOPHRENIA ANXIETY DEPRESSION DDD BIPOLAR/ STRESS PANCREATITIS CONCUSSION HX HX BROKEN RIBS AND CRUSHED VERTEBRA HIGH CHOLESTEROL HX FRACTURED RIGHT ARM X 3 FRACTURED RIGHT ANKLE X 2 , LEFT X1 SONG BITE LEFT FOOT ALLERGIES N.K.D.A. SURGICAL HISTORY LEFT SHOULDER BROKEN JAW RIGHT WRIST GALLBLADDER REMOVAL RIGHT ANKLE LEFT ANKLE LEFT PECTORAL TISSUE REMOVAL FAMILY HISTORY FATHER: ALIVE, DIAGNOSED WITH HEART DISEASE, OTHER MOTHER: , DIAGNOSED WITH CANCER MATERNAL GRAND MOTHER: DIAGNOSED WITH CANCER 1 SON(S) , 4 DAUGHTER(S) - HEALTHY. FATHER HAS PARKINSONS, ALZHEIMERSMOM--LYMPHOMA. SOCIAL HISTORY GENERAL: TOBACCO USE ARE YOU A:FORMER SMOKER HOW LONG HAS IT BEEN SINCE YOU LAST SMOKED?< 1 MONTH ALCOHOL SCREENING DID YOU HAVE A DRINK CONTAINING ALCOHOL IN THE PAST YEAR?YES HOW OFTEN DID YOU HAVE A DRINK CONTAINING ALCOHOL IN THE PAST YEAR?MONTHLY OR LESS (1 POINT) HOW MANY DRINKS DID YOU HAVE ON A TYPICAL DAY WHEN YOU WERE DRINKING IN THE PAST YEAR?1 OR 2 (0 POINTS) HOW OFTEN DID YOU HAVE SIX OR MORE DRINKS ON ONE OCCASION IN THE PAST YEAR?NEVER (0 POINTS) POINTS1 INTERPRETATIONNEGATIVE RECREATIONAL DRUG USE DRUG USE?NO CAFFEINE CAFFEINE USE?YES SODA DAILY PROTESTANT [id number] NONE LANGUAGE LANGUAGES SPOKEN:ROMANIAN LEARNING BARRIERS / SPECIAL NEEDS BARRIERS TO LEARNING?NO HEARING IMPAIRED?YES CONSTANT RINGING IN RIGHT EAR VISION IMPAIRED?YES :CORRECTIVE LENSES COGNITIVELY IMPAIRED?NO READINESS TO LEARN?YES LEARNING PREFERENCES?NO LEARNING CAPABILITIES PRESENT?YES EMOTIONAL BARRIERS?NO SPECIAL DEVICES?NO FACULTY HEAD NEEDED?NO DOMESTIC VIOLENCE DO YOU FEEL SAFE IN YOUR ENVIRONMENT?YES MARITAL STATUS: . PAIN CLINIC PFS, CLERGY, PUBLIC HEALTH REFERRALS PFS REFERRAL NEEDED?NO CLERGY REFERRAL NEEDED?NO PUBLIC HEALTH REFERRAL NEEDED?NO WAS THE PROVIDER NOTIFIED OF ANY PERTINENT INFO? N/A HAS THE PATIENT BEEN EDUCATED REGARDING HIS/HER PLAN OF CARE?YES HAS THE PATIENT BEEN EDUCATED REGARDING PAIN, THE RISK FOR PAIN, THE IMPORTANCE OF EFFECTIVE PAIN MANAGEMENT, AND THE PAIN ASSESSMENT PROCESS?YES ADVANCE DIRECTIVE ADVANCE DIRECTIVE DISCUSSED WITH PATIENT:YES PT DOES NOT HAVE ANY ADVANCED DIRECTIVES AND HE DECLINES INFORMATION ON HCP AT THIS TIME. 03/31/18 2915 REVIEWED WITH PT. AD. HOSPITALIZATION/MAJOR DIAGNOSTIC PROCEDURE HOSPITALIZED FOR KIDNEY STONES 4 TIMES LEFT PECTORAL TISSUE REMOVAL REVIEW OF SYSTEMS REVIEWED BY: PROVIDER: SHARRON RUDD . CONSTITUTIONAL: ANY CHANGE IN YOUR MEDICAL CONDITION? NO . CHILLS NO . FEVER NO . INFECTION: DO YOU HAVE NEW INFECTIONS? NO . DO YOU HAVE HISTORY OF MRSA? NO . MUSCULOSKELETAL: ANY NEW PATTERNS OF PAIN OR NUMBNESS? NO . GASTROENTEROLOGY: ANY NEW CHANGE IN BOWEL CONTROL? NO . GENITOURINARY: ANY NEW CHANGE IN BLADDER CONTROL? NO . IS THERE A CHANCE YOU COULD BE ? NO . HEMATOLOGY/LYMPH: DO YOU TAKE ANY BLOOD THINNERS? (FOR EXAMPLE- COUMADIN, PLAVIX, AGGRENOX, PLATEL, PRADAXA, OR XARELTO) NO . WHEN WAS YOUR LAST DOSE? DATE: TIME: . NEUROLOGY: HAVE YOU FALLEN IN THE PAST 12 MONTHS? NO . ANY NEW EXTREMITY NUMBNESS OR WEAKNESS? NO . CARDIOLOGY: DO YOU HAVE A PACEMAKER OR DEFIBRILLATOR? NO . RESPIRATORY: HAVE YOU BEEN SICK IN THE PAST WEEK? NO . FEVER NO . FLU LIKE SYMPTOMS? NO . COUGH NO . INTEGUMENTARY: DO YOU HAVE ANY RASHES OR OPEN SORES? NO . ALLERGIC/IMMUNO: ARE YOU ALLERGIC TO IV DYE? NO . ANY NEW ALLERGIES? NO . PSYCHIATRIC: DO YOU HAVE THOUGHTS OF HURTING YOURSELF OR SOMEONE ELSE? NO . ARE YOU ABUSED, NEGLECTED, OR IN AN UNSAFE ENVIRONMENT? NO . ENDOCRINOLOGY: ARE YOU DIABETIC? NO . OTHER: DO YOU NEED ANY PRESCRIPTIONS? NO . IF YES, PLEASE LIST: ____ . ANY NEW PROBLEMS WITH YOUR MEDICATIONS? NO . WHEN DID YOU LAST EAT? ____ . WHEN DID YOU LAST DRINK? ____ . WHAT DID YOU LAST DRINK? ____ . NAME OF PERSON DRIVING YOU HOME? ____ . DO YOU HAVE ANY OTHER QUESTIONS OR CONCERNS NO . VITAL SIGNS WT 245 LBS, HT 69", BMI 36.18 INDEX, BP 116/74 MM HG, HR 83 /MIN, RR 16 /MIN, TEMP 97.2 F, OXYGEN SAT % 96, REVIEWED BY: EM. EXAMINATION GENERAL EXAMINATION: GENERAL APPEARANCE:AWAKE,ALERT ,PLEAASANT . PSYCHAFFECT NORMAL . LUNGS:LUNG FRANKLIN ARE CLEAR TO AUSCULTATION BILATERALLY. GOOD MOVEMENT OF AIR . HEART:S1, S2 IN A REGULAR RATE AND RHYTHM. NO SIGNIFICANT MURMURS, RUBS OR GALLOPS NOTED . LUMBAR SACRAL SPINEPALPATION:TENDER OVER RIGHT L3/4-L4/5 LUMBAR FACETS WITH FACET LOADING. . 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 PROCEDURE CODES FA211 ESTABILISHED PATIENT [facility] FACILITY CHARGE DISPOSITION & COMMUNICATION FOLLOW UP POST (REASON: RIGHT L3/4-L4/5 DIAGNOSTIC BLOCK) ELECTRONICALLY SIGNED BY BLAIRE SMITH ON 07/30/2018 AT 03:04 PM EST DISCLAIMER : THIS IS A VISIT SUMMARY EXTRACTED FROM THE [employer] CHART. IT IS NOT A COPY OF THE [employer] PROGRESS NOTE. EMILIO
== END ==
LOC: M PAIN 11:45
PROVIDERS: ATTEND Nurse Practitioner Family
DX: M47.817 Spondylosis without myelopathy or radiculopathy, lumbosacral region (principal); F25.9 Schizoaffective disorder, unspecified; F41.9 Anxiety disorder, unspecified; F31.9 Bipolar disorder, unspecified; E66.01 Morbid (severe) obesity due to excess calories; Z68.36 Body mass index [BMI] 36.0-36.9, adult; Z79.899 Other long term (current) drug therapy; Z87.820 Personal history of traumatic brain injury; Z87.891 Personal history of nicotine dependence

== ENCOUNTER → 2018-07-16 | Outpatient (REF) | payer OTHER, MEDICAID ==
[2018-07-16 18:52] LABS: FOLATE 7.5 NG/ML; TOTAL 25(OH) VITAMIN D 24.8 NG/ML (30.0-100.0)
== END ==
LOC: M LABNEURO 17:19
PROVIDERS: ATTEND Physician Assistant Medical
DX: E55.9 Vitamin D deficiency, unspecified (principal); E53.8 Deficiency of other specified B group vitamins

== ENCOUNTER → 2018-07-17 | Outpatient (CLI) | payer OTHER, MEDICAID ==
[~2018-07-17] MED LIST changes: +BUPIVACAINE HCL 0.25% 30 ML VIAL As Ordered ONE; +ISOVUE-M 300 61% 15ML VIAL (Q9967) As Ordered ONE; +LIDOCAINE 1% SDV INJ 30 ML VIAL As Ordered ONE
--- NOTE | 2018-07-17 15:50 | REP ---
Partial lumbar spine series: Three views . History: Injection procedure for pain. 19 seconds of fluoroscopy time is reported. Findings: A sequence of three fluoroscopically obtained last image hold procedural spot radiographs of the lumbar spine document needle position and contrast injection associated with injection procedure. Electronically Signed by Glen Gonzáles MD 07/17/2018 03:42 P
--- NOTE | 2018-08-02 23:54 | ECWPNPC ---
PATIENT NAME: MATT MIRZA : 1975 GENDER: MALE VISIT DATE: 07/17/2018 DISCHARGE DATE: 07/17/18 1203 VISIT LOCKED DATE TIME: PHYSICIAN: WESLY GIRON MD RESOURCE: WESLY GIRON MD REASON FOR APPOINTMENT 1. RIGHT L5-S1 DIAGNOSTIC BLOCK HISTORY OF PRESENT ILLNESS HISTORY OF PRESENT ILLNESS: PAIN THE PATIENT DESCRIBES THE PAIN... FALL RISK SCREENING: SCREENING :NO FALLS IN THE PAST YEAR CURRENT MEDICATIONS TAKING IBUPROFEN 800 MG TABLET 1 TABLET WITH FOOD OR MILK NEEDED ORALLY THREE TIMES A DAY, NOTES: FEW DAYS AGO TAKING GABAPENTIN 300 MG CAPSULE 1 CAPSULE ORALLY TID, NOTES: 0700 TAKING PROZAC 20 MG CAPSULE 1 CAPSULE ORALLY TID, NOTES: 0700 TAKING SEROQUEL 25 MG TABLET 1 TABLET ORALLY BID, NOTES: 0700 NOT-TAKING TIZANIDINE HCL 4 MG TABLET 1 TABLET NEEDED ORALLY THREE TIMES A DAY MEDICATION LIST REVIEWED AND RECONCILED WITH THE PATIENT PAST MEDICAL HISTORY SCHIZOPHRENIA ANXIETY DEPRESSION DDD BIPOLAR/ STRESS PANCREATITIS CONCUSSION HX HX BROKEN RIBS AND CRUSHED VERTEBRA HIGH CHOLESTEROL HX FRACTURED RIGHT ARM X 3 FRACTURED RIGHT ANKLE X 2 , LEFT X1 SONG BITE LEFT FOOT ALLERGIES N.K.D.A. SURGICAL HISTORY LEFT SHOULDER BROKEN JAW RIGHT WRIST GALLBLADDER REMOVAL RIGHT ANKLE LEFT ANKLE LEFT PECTORAL TISSUE REMOVAL FAMILY HISTORY FATHER: ALIVE, DIAGNOSED WITH HEART DISEASE, OTHER MOTHER: , DIAGNOSED WITH CANCER MATERNAL GRAND MOTHER: DIAGNOSED WITH CANCER 1 SON(S) , 4 DAUGHTER(S) - HEALTHY. FATHER HAS PARKINSONS, ALZHEIMERSMOM--LYMPHOMA. SOCIAL HISTORY GENERAL: TOBACCO USE ARE YOU A:FORMER SMOKER HOW LONG HAS IT BEEN SINCE YOU LAST SMOKED?< 1 MONTH ALCOHOL SCREENING DID YOU HAVE A DRINK CONTAINING ALCOHOL IN THE PAST YEAR?YES HOW OFTEN DID YOU HAVE A DRINK CONTAINING ALCOHOL IN THE PAST YEAR?MONTHLY OR LESS (1 POINT) HOW MANY DRINKS DID YOU HAVE ON A TYPICAL DAY WHEN YOU WERE DRINKING IN THE PAST YEAR?1 OR 2 (0 POINTS) HOW OFTEN DID YOU HAVE SIX OR MORE DRINKS ON ONE OCCASION IN THE PAST YEAR?NEVER (0 POINTS) POINTS1 INTERPRETATIONNEGATIVE RECREATIONAL DRUG USE DRUG USE?NO CAFFEINE CAFFEINE USE?YES SODA DAILY LATTER DAY [id number] NONE LANGUAGE LANGUAGES SPOKEN:[place] LEARNING BARRIERS / SPECIAL NEEDS BARRIERS TO LEARNING?NO HEARING IMPAIRED?YES CONSTANT RINGING IN RIGHT EAR VISION IMPAIRED?YES :CORRECTIVE LENSES COGNITIVELY IMPAIRED?NO READINESS TO LEARN?YES LEARNING PREFERENCES?NO LEARNING CAPABILITIES PRESENT?YES EMOTIONAL BARRIERS?NO SPECIAL DEVICES?NO GRINDER OPERATOR EXTERNAL TOOL NEEDED?NO DOMESTIC VIOLENCE DO YOU FEEL SAFE IN YOUR ENVIRONMENT?YES MARITAL STATUS: . PAIN CLINIC PFS, CLERGY, PUBLIC HEALTH REFERRALS PFS REFERRAL NEEDED?NO CLERGY REFERRAL NEEDED?NO PUBLIC HEALTH REFERRAL NEEDED?NO WAS THE PROVIDER NOTIFIED OF ANY PERTINENT INFO? N/A HAS THE PATIENT BEEN EDUCATED REGARDING HIS/HER PLAN OF CARE?YES HAS THE PATIENT BEEN EDUCATED REGARDING PAIN, THE RISK FOR PAIN, THE IMPORTANCE OF EFFECTIVE PAIN MANAGEMENT, AND THE PAIN ASSESSMENT PROCESS?YES ADVANCE DIRECTIVE ADVANCE DIRECTIVE DISCUSSED WITH PATIENT:YES PT DOES NOT HAVE ANY ADVANCED DIRECTIVES AND HE DECLINES INFORMATION ON HCP AT THIS TIME. 03/31/18 1345 REVIEWED WITH PT. LYLEIEWED WITH PATIENT 07/17/18 1013 JS. HOSPITALIZATION/MAJOR DIAGNOSTIC PROCEDURE HOSPITALIZED FOR KIDNEY STONES 4 TIMES LEFT PECTORAL TISSUE REMOVAL REVIEW OF SYSTEMS REVIEWED BY: PROVIDER: . CONSTITUTIONAL: ANY CHANGE IN YOUR MEDICAL CONDITION? NO . CHILLS NO . FEVER NO . INFECTION: DO YOU HAVE NEW INFECTIONS? NO . DO YOU HAVE HISTORY OF MRSA? NO . MUSCULOSKELETAL: ANY NEW PATTERNS OF PAIN OR NUMBNESS? NO . GASTROENTEROLOGY: ANY NEW CHANGE IN BOWEL CONTROL? NO . GENITOURINARY: ANY NEW CHANGE IN BLADDER CONTROL? NO . IS THERE A CHANCE YOU COULD BE ? NO . HEMATOLOGY/LYMPH: DO YOU TAKE ANY BLOOD THINNERS? (FOR EXAMPLE- COUMADIN, PLAVIX, AGGRENOX, PLATEL, PRADAXA, OR XARELTO) NO . WHEN WAS YOUR LAST DOSE? DATE: TIME: . NEUROLOGY: HAVE YOU FALLEN IN THE PAST 12 MONTHS? NO . ANY NEW EXTREMITY NUMBNESS OR WEAKNESS? NO . CARDIOLOGY: DO YOU HAVE A PACEMAKER OR DEFIBRILLATOR? NO . RESPIRATORY: HAVE YOU BEEN SICK IN THE PAST WEEK? NO . FEVER NO . FLU LIKE SYMPTOMS? NO . COUGH NO . INTEGUMENTARY: DO YOU HAVE ANY RASHES OR OPEN SORES? NO . ALLERGIC/IMMUNO: ARE YOU ALLERGIC TO IV DYE? NO . ANY NEW ALLERGIES? NO . PSYCHIATRIC: DO YOU HAVE THOUGHTS OF HURTING YOURSELF OR SOMEONE ELSE? NO . ARE YOU ABUSED, NEGLECTED, OR IN AN UNSAFE ENVIRONMENT? NO . ENDOCRINOLOGY: ARE YOU DIABETIC? NO . OTHER: DO YOU NEED ANY PRESCRIPTIONS? NO . IF YES, PLEASE LIST: ____ . ANY NEW PROBLEMS WITH YOUR MEDICATIONS? NO . WHEN DID YOU LAST EAT? ____07/16/18 1500 . WHEN DID YOU LAST DRINK? ____07/17/18 0900 . WHAT DID YOU LAST DRINK? ____SPRITE . NAME OF PERSON DRIVING YOU HOME? ____[employer] . DO YOU HAVE ANY OTHER QUESTIONS OR CONCERNS NO . VITAL SIGNS WT 241.8 LBS, HT 69", BMI 35.70 INDEX, BP 116/80 MM HG, HR 99 /MIN, RR 16 /MIN, TEMP 98.7 F, OXYGEN SAT % 94%, SAFE IN ENV? (Y/N) YES, NA INITIALS AW 0932, REVIEWED BY: JS. ASSESSMENTS SPONDYLOSIS OF LUMBOSACRAL REGION WITHOUT MYELOPATHY OR RADICULOPATHY - M47.817 (PRIMARY) PROCEDURES PN LUMBAR FACET BLOCK DIAGNOSTIC PRE PROCEDURE DIAGNOSIS LUMBOSACRAL SPONDYLOSIS POST PROCEDURE DIAGNOSIS LUMBOSACRAL SPONDYLOSIS PROCEDURE RIGHT L5-S1 FACET BLOCK DIAGNOSTIC NUMBER [address] 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 I EVALUATED THE PATIENT AND REVIEWED THE CHART. I WENT OVER THE RISKS, ALTERNATIVES, AND BENEFITS ASSOCIATED WITH THIS PROCEDURE. THE PATIENT WOULD LIKE TO PROCEED AND GAVE CONSENT TO PERFORM THE PROCEDURE. AGREED WITH THE PATIENT WE ARE DOING THIS PROCEDURE TO DETERMINE IF THE PATIENT IS A CANDIDATE FOR A RADIOFREQUENCY ABLATION OF THE FACETS JOINTS. THE PATIENT DENIES UNEXPLAINABLE WEIGHT LOSS, FEVER, CHILLS, OR NEW CHANGES IN URINARY OR BOWEL CONTROL DESCRIPTION OF PROCEDURE THE PATIENT WAS BROUGHT TO THE PROCEDURE ROOM AND PLACED IN THE PRONE POSITION. THE LUMBOSACRAL AREA WAS CLEANED WITH CHLORAPREP SOLUTION AND DRAPED ASEPTICALLY. THE PROCEDURE WAS DONE UNDER STERILE CONDITIONS. I CHECKED LATERALITY AND THE LEVEL WHERE THE PROCEDURE WAS GOING TO BE PERFORMED WITH THE PATIENT AND THE SUPPORTING STAFF AT THE MOMENT OF THE TIME OUT IN THE PROCEDURE ROOM. UNDER FLUOROSCOPIC GUIDANCE, TARGETS WERE SELECTED AT THE INTERSECTION OF THE RIGHT TRANSVERSE PROCESS OF L5 AND ALA OF S1 WITH ITS RESPECTIVE SUPERIOR ARTICULAR PROCESS. LIDOCAINE WAS USED TO NUMB THE SKIN AND THE SUBCUTANEOUS TISSUE BELOW IT. SPINAL NEEDLE, 22-GAUGE WAS ADVANCED UNDER FLUOROSCOPIC GUIDANCE AND FOLLOWING PATIENT FEEDBACK UNTIL THE TARGETS WERE REACHED. POSITION OF THE NEEDLES WAS VERIFIED WITH AP AND LATERAL VIEWS. AFTER PROPER POSITION OF THE NEEDLES WAS ACHIEVED, ISOVUE-M DYE 30% 0.1 ML WAS INJECTED AT EACH SITE SHOWING ADEQUATE SPREAD OF THE DYE. THEN A SOLUTION OF 0.4 ML OF BUPIVACAINE 0.25% WAS INJECTED AT EACH SITE. THERE WAS NO EVIDENCE OF BLOOD, PARESTHESIA OR CEREBROSPINAL FLUID DURING THE PROCEDURE. THE PATIENT WAS SENT TO THE RECOVERY ROOM. THE PATIENT WAS MOVING THE EXTREMITIES AND DOING WELL. THERE WAS NO COMPLICATION DURING THE PROCEDURE. FLUOROSCOPY TIME WAS 19 SECONDS POST PROCEDURE NOTE THE PATIENT WILL DOCUMENT HIS PAIN LEVEL AND RESPONSE TO THIS PROCEDURE EVERY 30 MINUTES. THE PATIENT WILL BE SEEN IN A FOLLOW UP IN THE NEXT FEW WEEKS. FURTHER DETERMINATION FOR HIS CASE WILL BE DONE AT THE NEXT VISIT. INSTRUCTIONS WERE GIVEN, QUESTIONS WERE ANSWERED, AND THE PATIENT EXPRESSED UNDERSTANDING AND AGREED WITH THE PLAN. I, JORGE HATCH, DOCUMENTED THE ABOVE INFORMATION ACTING A SCRIBE FOR DR. GIRON. I HAVE REVIEWED THE ABOVE DOCUMENT, WRITTEN BY JORGE HATCH SCRIBE AND I VERIFY THAT IT IS ACCURATE. PROCEDURE CODES 6045F RADXPS IN END [id number] PXD [id number] INJ PARAVERT F JNT L/S 1 LEV, MODIFIERS: RT DISPOSITION & COMMUNICATION FOLLOW UP 3 WEEKS ELECTRONICALLY SIGNED BY WESLY GIRON MD, MD ON 08/02/2018 AT 05:59 PM EST DISCLAIMER : THIS IS A VISIT SUMMARY EXTRACTED FROM THE [employer] CHART. IT IS NOT A COPY OF THE [employer] PROGRESS NOTE. MTDD
== END ==
LOC: M PAIN 10:00
PROVIDERS: ATTEND Anesthesiology
DX: G89.29 Other chronic pain (principal); M47.817 Spondylosis without myelopathy or radiculopathy, lumbosacral region; F31.9 Bipolar disorder, unspecified; F25.9 Schizoaffective disorder, unspecified; F41.9 Anxiety disorder, unspecified; Z79.899 Other long term (current) drug therapy; Z87.891 Personal history of nicotine dependence; Z87.820 Personal history of traumatic brain injury
CPT/HCPCS: 64493; Q9967

== ENCOUNTER → 2018-08-04 | Outpatient (CLI) | payer OTHER, MEDICAID ==
[~2018-08-04] MED LIST changes: -BUPIVACAINE HCL 0.25% 30 ML VIAL As Ordered ONE; -ISOVUE-M 300 61% 15ML VIAL (Q9967) As Ordered ONE; -LIDOCAINE 1% SDV INJ 30 ML VIAL As Ordered ONE
--- NOTE | 2018-08-20 00:04 | ECWPNPC ---
PATIENT NAME: MATT MIRZA : 1975 GENDER: MALE VISIT DATE: 08/04/2018 DISCHARGE DATE: 08/04/18 1003 VISIT LOCKED DATE TIME: PHYSICIAN: SHARRON OREILLY RESOURCE: SHARRON OREILLY REASON FOR APPOINTMENT 1. POST PROCEDURE HISTORY OF PRESENT ILLNESS HISTORY OF PRESENT ILLNESS: HERE FOR POST PROCEDURE F/U.HAD RIGHT L5/S1 DX #1 ON 07-17-18.HOURLY PAIN DIARY REVIEVED.HAD >50%IMPROVEMENT X24HR POST.DISCUSSED #2DIAGNOSTIC AND RADIOFREQUENCY.RATING PAIN RIGHT LOW BACK 8/10 VAS. PAIN THE PATIENT DESCRIBES THE PAIN... FALL RISK SCREENING: SCREENING :NO FALLS IN THE PAST YEAR CURRENT MEDICATIONS TAKING IBUPROFEN 800 MG TABLET 1 TABLET WITH FOOD OR MILK NEEDED ORALLY THREE TIMES A DAY, NOTES: FEW DAYS AGO TAKING GABAPENTIN 300 MG CAPSULE 1 CAPSULE ORALLY TID, NOTES: 0700 TAKING PROZAC 20 MG CAPSULE 1 CAPSULE ORALLY TID, NOTES: 0700 TAKING SEROQUEL 25 MG TABLET 1 TABLET ORALLY BID, NOTES: 0700 NOT-TAKING TIZANIDINE HCL 4 MG TABLET 1 TABLET NEEDED ORALLY THREE TIMES A DAY MEDICATION LIST REVIEWED AND RECONCILED WITH THE PATIENT PAST MEDICAL HISTORY SCHIZOPHRENIA ANXIETY DEPRESSION DDD BIPOLAR/ STRESS PANCREATITIS CONCUSSION HX HX BROKEN RIBS AND CRUSHED VERTEBRA HIGH CHOLESTEROL HX FRACTURED RIGHT ARM X 3 FRACTURED RIGHT ANKLE X 2 , LEFT X1 SONG BITE LEFT FOOT FRACTURED MANDIBLE DIVERTICULITIS KIDNEY STONES WEST NILE VIRUS ALLERGIES N.K.D.A. SURGICAL HISTORY LEFT SHOULDER BROKEN JAW RIGHT WRIST GALLBLADDER REMOVAL 2014 RIGHT ANKLE LEFT ANKLE LEFT PECTORAL TISSUE REMOVAL FAMILY HISTORY FATHER: ALIVE 65 YRS, DIAGNOSED WITH HEART DISEASE, OTHER MOTHER: 43 YRS, DIAGNOSED WITH CANCER MATERNAL GRAND MOTHER: DIAGNOSED WITH CANCER 1 SON(S) , 4 DAUGHTER(S) - HEALTHY. FATHER HAS PARKINSONS, ALZHEIMERSMOM--LYMPHOMA. SOCIAL HISTORY GENERAL: TOBACCO USE ARE YOU A:FORMER SMOKER HOW LONG HAS IT BEEN SINCE YOU LAST SMOKED?6-12 MONTHS ALCOHOL SCREENING DID YOU HAVE A DRINK CONTAINING ALCOHOL IN THE PAST YEAR?YES HOW OFTEN DID YOU HAVE A DRINK CONTAINING ALCOHOL IN THE PAST YEAR?TWO TO FOUR TIMES A MONTH (2 POINTS) HOW MANY DRINKS DID YOU HAVE ON A TYPICAL DAY WHEN YOU WERE DRINKING IN THE PAST YEAR?3 OR 4 (1 POINT) HOW OFTEN DID YOU HAVE SIX OR MORE DRINKS ON ONE OCCASION IN THE PAST YEAR?NEVER (0 POINTS) POINTS3 INTERPRETATIONNEGATIVE RECREATIONAL DRUG USE DRUG USE?NO CAFFEINE CAFFEINE USE?YES SODA DAILY RESTORATION [id number] NONE LANGUAGE LANGUAGES SPOKEN:[place] LEARNING BARRIERS / SPECIAL NEEDS BARRIERS TO LEARNING?NO HEARING IMPAIRED?YES CONSTANT RINGING IN RIGHT EAR VISION IMPAIRED?YES GLASSES FOR READING :CORRECTIVE LENSES COGNITIVELY IMPAIRED?NO READINESS TO LEARN?YES LEARNING PREFERENCES?NO LEARNING CAPABILITIES PRESENT?YES EMOTIONAL BARRIERS?NO SPECIAL DEVICES?NO CHILD NUTRITION DIRECTOR NEEDED?NO DOMESTIC VIOLENCE DO YOU FEEL SAFE IN YOUR ENVIRONMENT?YES 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 MARITAL STATUS: . PAIN CLINIC PFS, CLERGY, PUBLIC HEALTH REFERRALS PFS REFERRAL NEEDED?NO CLERGY REFERRAL NEEDED?NO PUBLIC HEALTH REFERRAL NEEDED?NO WAS THE PROVIDER NOTIFIED OF ANY PERTINENT INFO? N/A HAS THE PATIENT BEEN EDUCATED REGARDING HIS/HER PLAN OF CARE?YES HAS THE PATIENT BEEN EDUCATED REGARDING PAIN, THE RISK FOR PAIN, THE IMPORTANCE OF EFFECTIVE PAIN MANAGEMENT, AND THE PAIN ASSESSMENT PROCESS?YES ADVANCE DIRECTIVE ADVANCE DIRECTIVE DISCUSSED WITH PATIENT:YES PT DOES NOT HAVE ANY ADVANCED DIRECTIVES AND HE DECLINES INFORMATION ON HCP AT THIS TIME. 03/31/18 1345 REVIEWED WITH PT. ADREVIEWED WITH PATIENT 07/17/18 1013 JS. HOSPITALIZATION/MAJOR DIAGNOSTIC PROCEDURE HOSPITALIZED FOR KIDNEY STONES 4 TIMES LEFT PECTORAL TISSUE REMOVAL DIVERTICULITIS 2011 REVIEW OF SYSTEMS REVIEWED BY: PROVIDER: SHARRON RUDD . CONSTITUTIONAL: ANY CHANGE IN YOUR MEDICAL CONDITION? NO . CHILLS NO . FEVER NO . INFECTION: DO YOU HAVE NEW INFECTIONS? NO . DO YOU HAVE HISTORY OF MRSA? NO . MUSCULOSKELETAL: ANY NEW PATTERNS OF PAIN OR NUMBNESS? NO . GASTROENTEROLOGY: ANY NEW CHANGE IN BOWEL CONTROL? NO . GENITOURINARY: ANY NEW CHANGE IN BLADDER CONTROL? NO . IS THERE A CHANCE YOU COULD BE ? NO . HEMATOLOGY/LYMPH: DO YOU TAKE ANY BLOOD THINNERS? (FOR EXAMPLE- COUMADIN, PLAVIX, AGGRENOX, PLATEL, PRADAXA, OR XARELTO) NO . WHEN WAS YOUR LAST DOSE? DATE: TIME: . NEUROLOGY: HAVE YOU FALLEN IN THE PAST 12 MONTHS? NO . ANY NEW EXTREMITY NUMBNESS OR WEAKNESS? NO . CARDIOLOGY: DO YOU HAVE A PACEMAKER OR DEFIBRILLATOR? NO . RESPIRATORY: HAVE YOU BEEN SICK IN THE PAST WEEK? NO . FEVER NO . FLU LIKE SYMPTOMS? NO . COUGH NO . INTEGUMENTARY: DO YOU HAVE ANY RASHES OR OPEN SORES? NO . ALLERGIC/IMMUNO: ARE YOU ALLERGIC TO IV DYE? NO . ANY NEW ALLERGIES? NO . PSYCHIATRIC: DO YOU HAVE THOUGHTS OF HURTING YOURSELF OR SOMEONE ELSE? NO . ARE YOU ABUSED, NEGLECTED, OR IN AN UNSAFE ENVIRONMENT? NO . ENDOCRINOLOGY: ARE YOU DIABETIC? NO . OTHER: DO YOU NEED ANY PRESCRIPTIONS? NO . IF YES, PLEASE LIST: ____ . ANY NEW PROBLEMS WITH YOUR MEDICATIONS? NO . WHEN DID YOU LAST EAT? ____ . WHEN DID YOU LAST DRINK? ____ . WHAT DID YOU LAST DRINK? ____ . NAME OF PERSON DRIVING YOU HOME? ____ . DO YOU HAVE ANY OTHER QUESTIONS OR CONCERNS NO . VITAL SIGNS WT 244 LBS, HT 69", BMI 36.03 INDEX, BP 116/74 MM HG, HR 82 /MIN, RR 16 /MIN, TEMP 98.7 F, OXYGEN SAT % 95%, NA INITIALS AW 0912, REVIEWED BY: LS. EXAMINATION GENERAL EXAMINATION: GENERAL APPEARANCE:AWAKE,ALERT ,PLEAASANT . PSYCHAFFECT NORMAL . LUNGS:LUNG FRANKLIN ARE CLEAR TO AUSCULTATION BILATERALLY. GOOD MOVEMENT OF AIR . HEART:S1, S2 IN A REGULAR RATE AND RHYTHM. NO SIGNIFICANT MURMURS, RUBS OR GALLOPS NOTED . LUMBAR SACRAL SPINEPALPATION:TENDER OVER RIGHT L3/4-L4/5 LUMBAR FACETS WITH FACET LOADING. . ASSESSMENTS SPONDYLOSIS OF LUMBOSACRAL REGION WITHOUT MYELOPATHY OR RADICULOPATHY - M47.817 (PRIMARY) TREATMENT SPONDYLOSIS OF LUMBOSACRAL REGION WITHOUT MYELOPATHY OR RADICULOPATHY NOTES: RIGHT L5/S1 DIAGNOSTIC #2. PREVENTIVE MEDICINE PAIN CLINIC TEACHING: PROCEDURE TEACHING DIAGNOSTIC FACET PROCEDURE REVIEWED WITH PT, PT REMINDED NOT TO TAKE IBUPROFEN AFTER MIDNIGHT PROCEDURE DAY. PT VERBALIZES UNDERSTANDING. LAS. PROCEDURE CODES [id number] ESTABILISHED PATIENT [facility] FACILITY CHARGE DISPOSITION & COMMUNICATION FOLLOW UP POST (REASON: RIGHT L5/S1 DIAGNOSTIC #2) ELECTRONICALLY SIGNED BY BLAIRE SMITH ON 08/19/2018 AT 02:08 PM EST DISCLAIMER : THIS IS A VISIT SUMMARY EXTRACTED FROM THE [facility] CHART. IT IS NOT A COPY OF THE [facility] PROGRESS NOTE. MTDD
== END ==
LOC: M PAIN 09:00
PROVIDERS: ATTEND Nurse Practitioner Family
DX: M47.817 Spondylosis without myelopathy or radiculopathy, lumbosacral region (principal); F20.9 Schizophrenia, unspecified; F41.9 Anxiety disorder, unspecified; F31.9 Bipolar disorder, unspecified; Z87.81 Personal history of (healed) traumatic fracture; Z87.891 Personal history of nicotine dependence; Z79.899 Other long term (current) drug therapy

== ENCOUNTER → 2018-08-06 | Outpatient (CLI) | payer OTHER, MEDICAID ==
[~2018-08-06] MED LIST changes: +BUPIVACAINE HCL 0.25% 30 ML VIAL As Ordered ONE; +ISOVUE-M 300 61% 15ML VIAL (Q9967) As Ordered ONE; +LIDOCAINE 1% SDV INJ 30 ML VIAL As Ordered ONE
--- NOTE | 2018-08-06 16:27 | REP ---
Partial lumbar spine series: Four views . History: Injection procedure for pain. 15 seconds of fluoroscopy time is reported. Findings: A sequence of four fluoroscopically obtained last image hold procedural spot radiographs of the lumbar spine document needle position and contrast injection associated with injection procedure. Electronically Signed by Glen Gonzáles MD 08/06/2018 04:18 P
--- NOTE | 2018-08-15 23:20 | ECWPNPC ---
PATIENT NAME: MATT MIRZA : 1975 GENDER: MALE VISIT DATE: 08/06/2018 DISCHARGE DATE: 08/06/18 1230 VISIT LOCKED DATE TIME: PHYSICIAN: WESLY GIRON MD RESOURCE: WESLY GIRON MD REASON FOR APPOINTMENT 1. RIGHT L5/S1 DIAGNOSTIC #2 HISTORY OF PRESENT ILLNESS HISTORY OF PRESENT ILLNESS: PAIN THE PATIENT DESCRIBES THE PAIN... FALL RISK SCREENING: SCREENING :NO FALLS IN THE PAST YEAR CURRENT MEDICATIONS TAKING IBUPROFEN 800 MG TABLET 1 TABLET WITH FOOD OR MILK NEEDED ORALLY THREE TIMES A DAY, NOTES: FEW DAYS AGO TAKING GABAPENTIN 300 MG CAPSULE 1 CAPSULE ORALLY TID, NOTES: 69908/06/18 TAKING PROZAC 20 MG CAPSULE 1 CAPSULE ORALLY TID, NOTES: 69908/06/18 TAKING SEROQUEL 25 MG TABLET 1 TABLET ORALLY BID, NOTES: 69908/06/18 NOT-TAKING TIZANIDINE HCL 4 MG TABLET 1 TABLET NEEDED ORALLY THREE TIMES A DAY MEDICATION LIST REVIEWED AND RECONCILED WITH THE PATIENT PAST MEDICAL HISTORY SCHIZOPHRENIA ANXIETY DEPRESSION DDD BIPOLAR/ STRESS PANCREATITIS CONCUSSION HX HX BROKEN RIBS AND CRUSHED VERTEBRA HIGH CHOLESTEROL HX FRACTURED RIGHT ARM X 3 FRACTURED RIGHT ANKLE X 2 , LEFT X1 SONG BITE LEFT FOOT FRACTURED MANDIBLE DIVERTICULITIS KIDNEY STONES WEST NILE VIRUS ALLERGIES N.K.D.A. SURGICAL HISTORY LEFT SHOULDER BROKEN JAW RIGHT WRIST GALLBLADDER REMOVAL 2014 RIGHT ANKLE LEFT ANKLE LEFT PECTORAL TISSUE REMOVAL FAMILY HISTORY FATHER: ALIVE 65 YRS, DIAGNOSED WITH HEART DISEASE, OTHER MOTHER: 43 YRS, DIAGNOSED WITH CANCER MATERNAL GRAND MOTHER: DIAGNOSED WITH CANCER 1 SON(S) , 4 DAUGHTER(S) - HEALTHY. FATHER HAS PARKINSONS, ALZHEIMERSMOM--LYMPHOMA. SOCIAL HISTORY GENERAL: TOBACCO USE ARE YOU A:FORMER SMOKER HOW LONG HAS IT BEEN SINCE YOU LAST SMOKED?6-12 MONTHS ALCOHOL SCREENING DID YOU HAVE A DRINK CONTAINING ALCOHOL IN THE PAST YEAR?YES HOW OFTEN DID YOU HAVE SIX OR MORE DRINKS ON ONE OCCASION IN THE PAST YEAR?NEVER (0 POINTS) POINTS3 INTERPRETATIONNEGATIVE HOW OFTEN DID YOU HAVE A DRINK CONTAINING ALCOHOL IN THE PAST YEAR?TWO TO FOUR TIMES A MONTH (2 POINTS) HOW MANY DRINKS DID YOU HAVE ON A TYPICAL DAY WHEN YOU WERE DRINKING IN THE PAST YEAR?3 OR 4 (1 POINT) RECREATIONAL DRUG USE DRUG USE?NO CAFFEINE CAFFEINE USE?YES SODA DAILY YAZIDI [id number] NONE LANGUAGE LANGUAGES SPOKEN:BANGLADESHI LEARNING BARRIERS / SPECIAL NEEDS BARRIERS TO LEARNING?NO HEARING IMPAIRED?YES CONSTANT RINGING IN RIGHT EAR VISION IMPAIRED?YES GLASSES FOR READING :CORRECTIVE LENSES COGNITIVELY IMPAIRED?NO READINESS TO LEARN?YES LEARNING PREFERENCES?NO LEARNING CAPABILITIES PRESENT?YES EMOTIONAL BARRIERS?NO SPECIAL DEVICES?NO LICENSED REACTOR OPERATOR NEEDED?NO DOMESTIC VIOLENCE DO YOU FEEL SAFE IN YOUR ENVIRONMENT?YES 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 MARITAL STATUS: . PAIN CLINIC PFS, CLERGY, PUBLIC HEALTH REFERRALS PFS REFERRAL NEEDED?NO CLERGY REFERRAL NEEDED?NO PUBLIC HEALTH REFERRAL NEEDED?NO WAS THE PROVIDER NOTIFIED OF ANY PERTINENT INFO? N/A HAS THE PATIENT BEEN EDUCATED REGARDING HIS/HER PLAN OF CARE?YES HAS THE PATIENT BEEN EDUCATED REGARDING PAIN, THE RISK FOR PAIN, THE IMPORTANCE OF EFFECTIVE PAIN MANAGEMENT, AND THE PAIN ASSESSMENT PROCESS?YES ADVANCE DIRECTIVE ADVANCE DIRECTIVE DISCUSSED WITH PATIENT:YES PT DOES NOT HAVE ANY ADVANCED DIRECTIVES AND HE DECLINES INFORMATION ON HCP OR ASSISTANCE AT THIS TIME. 03/31/18 1345 REVIEWED WITH PT. ADREVIEWED WITH PATIENT 07/17/18 1013 JSREVIEWED WITH PATIENT 08/06/18 1107 LAS. HOSPITALIZATION/MAJOR DIAGNOSTIC PROCEDURE HOSPITALIZED FOR KIDNEY STONES 4 TIMES LEFT PECTORAL TISSUE REMOVAL DIVERTICULITIS 2011 REVIEW OF SYSTEMS REVIEWED BY: PROVIDER: . CONSTITUTIONAL: ANY CHANGE IN YOUR MEDICAL CONDITION? NO . CHILLS NO . FEVER NO . INFECTION: DO YOU HAVE NEW INFECTIONS? NO . DO YOU HAVE HISTORY OF MRSA? NO . MUSCULOSKELETAL: ANY NEW PATTERNS OF PAIN OR NUMBNESS? NO . GASTROENTEROLOGY: ANY NEW CHANGE IN BOWEL CONTROL? NO . GENITOURINARY: ANY NEW CHANGE IN BLADDER CONTROL? NO . IS THERE A CHANCE YOU COULD BE ? NO . HEMATOLOGY/LYMPH: DO YOU TAKE ANY BLOOD THINNERS? (FOR EXAMPLE- COUMADIN, PLAVIX, AGGRENOX, PLATEL, PRADAXA, OR XARELTO) NO . WHEN WAS YOUR LAST DOSE? DATE: TIME: . NEUROLOGY: HAVE YOU FALLEN IN THE PAST 12 MONTHS? NO . ANY NEW EXTREMITY NUMBNESS OR WEAKNESS? NO . CARDIOLOGY: DO YOU HAVE A PACEMAKER OR DEFIBRILLATOR? NO . RESPIRATORY: HAVE YOU BEEN SICK IN THE PAST WEEK? NO . FEVER NO . FLU LIKE SYMPTOMS? NO . COUGH NO . INTEGUMENTARY: DO YOU HAVE ANY RASHES OR OPEN SORES? NO . ALLERGIC/IMMUNO: ARE YOU ALLERGIC TO IV DYE? NO . ANY NEW ALLERGIES? NO . PSYCHIATRIC: DO YOU HAVE THOUGHTS OF HURTING YOURSELF OR SOMEONE ELSE? NO . ARE YOU ABUSED, NEGLECTED, OR IN AN UNSAFE ENVIRONMENT? NO . ENDOCRINOLOGY: ARE YOU DIABETIC? NO . OTHER: DO YOU NEED ANY PRESCRIPTIONS? NO . IF YES, PLEASE LIST: ____ . ANY NEW PROBLEMS WITH YOUR MEDICATIONS? NO . WHEN DID YOU LAST EAT? ____08/05/18 1800 . WHEN DID YOU LAST DRINK? ____08/05/18 1800 . WHAT DID YOU LAST DRINK? ____TEA . NAME OF PERSON DRIVING YOU HOME? ____JANINA MIRZA . DO YOU HAVE ANY OTHER QUESTIONS OR CONCERNS NO . VITAL SIGNS WT 239.4 LBS, HT 69", BMI 35.35 INDEX, BP 117/85 MM HG, HR 85 /MIN, RR 18 /MIN, TEMP 97.4 F, OXYGEN SAT % 98%, NA INITIALS SC 11:02. ASSESSMENTS SPONDYLOSIS OF LUMBOSACRAL REGION WITHOUT MYELOPATHY OR RADICULOPATHY - M47.817 (PRIMARY) PROCEDURES PN LUMBAR FACET BLOCK DIAGNOSTIC PRE PROCEDURE DIAGNOSIS LUMBOSACRAL SPONDYLOSIS POST PROCEDURE DIAGNOSIS LUMBOSACRAL SPONDYLOSIS PROCEDURE RIGHT L5-S1 FACET BLOCK DIAGNOSTIC NUMBER [address] WESLY GIRON MINING PROFESSIONALS NONE ANESTHESIA LOCAL PRE PROCEDURE NOTE THE PATIENT WITH HISTORY OF CHRONIC LOW BACK PAIN. I EVALUATED THE PATIENT AND REVIEWED THE CHART. I WENT OVER THE RISKS, ALTERNATIVES, AND BENEFITS ASSOCIATED WITH THIS PROCEDURE. THE PATIENT WOULD LIKE TO PROCEED AND GAVE CONSENT TO PERFORM THE PROCEDURE. AGREED WITH THE PATIENT WE ARE DOING THIS PROCEDURE TO DETERMINE IF THE PATIENT IS A CANDIDATE FOR A RADIOFREQUENCY ABLATION OF THE FACETS JOINTS. THE PATIENT DENIES UNEXPLAINABLE WEIGHT LOSS, FEVER, CHILLS, OR NEW CHANGES IN URINARY OR BOWEL CONTROL DESCRIPTION OF PROCEDURE THE PATIENT WAS BROUGHT TO THE PROCEDURE ROOM AND PLACED IN THE PRONE POSITION. THE LUMBOSACRAL AREA WAS CLEANED WITH CHLORAPREP SOLUTION AND DRAPED ASEPTICALLY. THE PROCEDURE WAS DONE UNDER STERILE CONDITIONS. I CHECKED LATERALITY AND THE LEVEL WHERE THE PROCEDURE WAS GOING TO BE PERFORMED WITH THE PATIENT AND THE SUPPORTING STAFF AT THE MOMENT OF THE TIME OUT IN THE PROCEDURE ROOM. UNDER FLUOROSCOPIC GUIDANCE, TARGETS WERE SELECTED AT THE INTERSECTION OF THE RIGHT TRANSVERSE PROCESS OF L5 AND ALA OF S1 WITH ITS RESPECTIVE SUPERIOR ARTICULAR PROCESS. LIDOCAINE WAS USED TO NUMB THE SKIN AND THE SUBCUTANEOUS TISSUE BELOW IT. SPINAL NEEDLE, 22-GAUGE WAS ADVANCED UNDER FLUOROSCOPIC GUIDANCE AND FOLLOWING PATIENT FEEDBACK UNTIL THE TARGETS WERE REACHED. POSITION OF THE NEEDLES WAS VERIFIED WITH AP AND LATERAL VIEWS. AFTER PROPER POSITION OF THE NEEDLES WAS ACHIEVED, ISOVUE-M DYE 30% 0.1 ML WAS INJECTED AT EACH SITE SHOWING ADEQUATE SPREAD OF THE DYE. THEN A SOLUTION OF 0.4 ML OF BUPIVACAINE 0.25% WAS INJECTED AT EACH SITE. THERE WAS NO EVIDENCE OF BLOOD, PARESTHESIA OR CEREBROSPINAL FLUID DURING THE PROCEDURE. THE PATIENT WAS SENT TO THE RECOVERY ROOM. THE PATIENT WAS MOVING THE EXTREMITIES AND DOING WELL. THERE WAS NO COMPLICATION DURING THE PROCEDURE. FLUOROSCOPY TIME WAS 15 SECONDS POST PROCEDURE NOTE THE PATIENT WILL DOCUMENT HIS PAIN LEVEL AND RESPONSE TO THIS PROCEDURE EVERY 30 MINUTES. THE PATIENT WILL BE SEEN IN A FOLLOW UP IN THE NEXT FEW WEEKS. FURTHER DETERMINATION FOR HIS CASE WILL BE DONE AT THE NEXT VISIT. INSTRUCTIONS WERE GIVEN, QUESTIONS WERE ANSWERED, AND THE PATIENT EXPRESSED UNDERSTANDING AND AGREED WITH THE PLAN. I, JORGE HATCH, DOCUMENTED THE ABOVE INFORMATION ACTING A SCRIBE FOR DR. GIRON. I HAVE REVIEWED THE ABOVE DOCUMENT, WRITTEN BY JORGE HATCH SCRIBAsuncion AND I VERIFY THAT IT IS ACCURATE. DIAGNOSTIC IMAGING [facility] FACET BLOCK (PAIN)[id number] PROCEDURE CODES 6045F RADXPS IN END [id number] PXD 52651 INJ PARAVERT F JNT L/S 1 LEV, MODIFIERS: RT DISPOSITION & COMMUNICATION FOLLOW UP 3 WEEKS ELECTRONICALLY SIGNED BY WESLY GIRON MD, MD ON 08/15/2018 AT 07:31 PM EST DISCLAIMER : THIS IS A VISIT SUMMARY EXTRACTED FROM THE [employer] CHART. IT IS NOT A COPY OF THE [employer] PROGRESS NOTE. MTDD
== END ==
LOC: M PAIN 11:30
PROVIDERS: ATTEND Anesthesiology
DX: M47.817 Spondylosis without myelopathy or radiculopathy, lumbosacral region (principal); F20.9 Schizophrenia, unspecified; F41.9 Anxiety disorder, unspecified; F32.9 Major depressive disorder, single episode, unspecified; K57.90 Diverticulosis of intestine, part unspecified, without perforation or abscess without bleeding; Z87.81 Personal history of (healed) traumatic fracture; Z87.442 Personal history of urinary calculi; Z79.899 Other long term (current) drug therapy
CPT/HCPCS: 64493; Q9967

== ENCOUNTER → 2018-08-26 | Outpatient (REF) | payer OTHER, MEDICAID ==
[~2018-08-26] MED LIST changes: -BUPIVACAINE HCL 0.25% 30 ML VIAL As Ordered ONE; -ISOVUE-M 300 61% 15ML VIAL (Q9967) As Ordered ONE; -LIDOCAINE 1% SDV INJ 30 ML VIAL As Ordered ONE
[2018-08-26 13:32] LABS: FOLATE 7.1 NG/ML (>5.4); TOTAL 25(OH) VITAMIN D 34.2 NG/ML (30.0-100.0)
== END ==
LOC: M LABNEURO 10:22
PROVIDERS: ATTEND Physician Assistant Medical
DX: E55.9 Vitamin D deficiency, unspecified (principal); E53.8 Deficiency of other specified B group vitamins

== ENCOUNTER → 2018-09-29 | Outpatient (CLI) | payer OTHER, MEDICAID ==
[~2018-09-29] MED LIST changes: -NAPR-50 PO; +NAPR-837 PO; -NORC1TAB4 PO; +NORC1TAB7 PO
--- NOTE | 2018-10-09 02:16 | ECWPNPC ---
PATIENT NAME: MATT MIRZA : 1975 GENDER: MALE VISIT DATE: 09/29/2018 DISCHARGE DATE: 09/29/18 1038 VISIT LOCKED DATE TIME: PHYSICIAN: SHARRON OREILLY RESOURCE: SHARRON OREILLY REASON FOR APPOINTMENT 1. POST PROC HISTORY OF PRESENT ILLNESS HISTORY OF PRESENT ILLNESS: HERE FOR POST PROCEDURE F/U.HAD RIGHT L5/S1 DX #2 ON 07-17-18.HOURLY PAIN DIARY REVIEWED.HAD >50%IMPROVEMENT X24HR POST.DISCUSSED RADIOFREQUENCY.RATING PAIN RIGHT LOW BACK 4/10 VAS. PAIN THE PATIENT DESCRIBES THE PAIN... THE PATIENT DESCRIBES THE PAIN... FALL RISK SCREENING: SCREENING :NO FALLS REPORTED IN THE LAST YEAR CURRENT MEDICATIONS TAKING IBUPROFEN 800 MG TABLET 1 TABLET WITH FOOD OR MILK NEEDED ORALLY THREE TIMES A DAY TAKING GABAPENTIN 300 MG CAPSULE 1 CAPSULE ORALLY TID TAKING PROZAC 20 MG CAPSULE 1 CAPSULE ORALLY TID TAKING SEROQUEL 25 MG TABLET 1 TABLET ORALLY BID NOT-TAKING TIZANIDINE HCL 4 MG TABLET 1 TABLET NEEDED ORALLY THREE TIMES A DAY MEDICATION LIST REVIEWED AND RECONCILED WITH THE PATIENT PAST MEDICAL HISTORY SCHIZOPHRENIA ANXIETY DEPRESSION DDD BIPOLAR/ STRESS PANCREATITIS CONCUSSION HX HX BROKEN RIBS AND CRUSHED VERTEBRA HIGH CHOLESTEROL HX FRACTURED RIGHT ARM X 3 FRACTURED RIGHT ANKLE X 2 , LEFT X1 SONG BITE LEFT FOOT FRACTURED MANDIBLE DIVERTICULITIS KIDNEY STONES WEST NILE VIRUS ALLERGIES N.K.D.A. SURGICAL HISTORY LEFT SHOULDER BROKEN JAW RIGHT WRIST GALLBLADDER REMOVAL 2014 RIGHT ANKLE LEFT ANKLE LEFT PECTORAL TISSUE REMOVAL FAMILY HISTORY FATHER: ALIVE 65 YRS, DIAGNOSED WITH HEART DISEASE, OTHER MOTHER: 43 YRS, CANCER MATERNAL GRAND MOTHER: CANCER 1 SON(S) , 4 DAUGHTER(S) - HEALTHY. FATHER HAS PARKINSONS, ALZHEIMERS\\NMOM--LYMPHOMA. SOCIAL HISTORY GENERAL: TOBACCO USE ARE YOU A:FORMER SMOKER HOW LONG HAS IT BEEN SINCE YOU LAST SMOKED?6-12 MONTHS ALCOHOL SCREENING DID YOU HAVE A DRINK CONTAINING ALCOHOL IN THE PAST YEAR?YES HOW OFTEN DID YOU HAVE SIX OR MORE DRINKS ON ONE OCCASION IN THE PAST YEAR?NEVER (0 POINTS) POINTS3 INTERPRETATIONNEGATIVE HOW OFTEN DID YOU HAVE A DRINK CONTAINING ALCOHOL IN THE PAST YEAR?TWO TO FOUR TIMES A MONTH (2 POINTS) HOW MANY DRINKS DID YOU HAVE ON A TYPICAL DAY WHEN YOU WERE DRINKING IN THE PAST YEAR?3 OR 4 (1 POINT) RECREATIONAL DRUG USE DRUG USE?NO CAFFEINE CAFFEINE USE?YES SODA DAILY WORSHIP [id number] NONE LANGUAGE LANGUAGES SPOKEN:MACEDONIAN LEARNING BARRIERS / SPECIAL NEEDS BARRIERS TO LEARNING?NO HEARING IMPAIRED?YES CONSTANT RINGING IN RIGHT EAR VISION IMPAIRED?YES GLASSES FOR READING :CORRECTIVE LENSES COGNITIVELY IMPAIRED?NO READINESS TO LEARN?YES LEARNING PREFERENCES?NO LEARNING CAPABILITIES PRESENT?YES EMOTIONAL BARRIERS?NO SPECIAL DEVICES?NO CASHIER OR CHECKER STOCK CLERK NEEDED?NO DOMESTIC VIOLENCE DO YOU FEEL SAFE IN YOUR ENVIRONMENT?YES 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 MARITAL STATUS: . PAIN CLINIC PFS, CLERGY, PUBLIC HEALTH REFERRALS PFS REFERRAL NEEDED?NO CLERGY REFERRAL NEEDED?NO PUBLIC HEALTH REFERRAL NEEDED?NO WAS THE PROVIDER NOTIFIED OF ANY PERTINENT INFO? N/A HAS THE PATIENT BEEN EDUCATED REGARDING HIS/HER PLAN OF CARE?YES HAS THE PATIENT BEEN EDUCATED REGARDING PAIN, THE RISK FOR PAIN, THE IMPORTANCE OF EFFECTIVE PAIN MANAGEMENT, AND THE PAIN ASSESSMENT PROCESS?YES ADVANCE DIRECTIVE ADVANCE DIRECTIVE DISCUSSED WITH PATIENT:YES PT DOES NOT HAVE ANY ADVANCED DIRECTIVES AND HE DECLINES INFORMATION ON HCP OR ASSISTANCE AT THIS TIME. 03/31/18 1345 REVIEWED WITH PT. ADREVIEWED WITH PATIENT 07/17/18 1013 JSREVIEWED WITH PATIENT 08/06/18 1107 LAS. HOSPITALIZATION/MAJOR DIAGNOSTIC PROCEDURE HOSPITALIZED FOR KIDNEY STONES 4 TIMES LEFT PECTORAL TISSUE REMOVAL DIVERTICULITIS 2011 REVIEW OF SYSTEMS REVIEWED BY: PROVIDER: SHARRON RUDD . CONSTITUTIONAL: ANY CHANGE IN YOUR MEDICAL CONDITION? NO . CHILLS NO . FEVER NO . INFECTION: DO YOU HAVE NEW INFECTIONS? NO . DO YOU HAVE HISTORY OF MRSA? NO . MUSCULOSKELETAL: ANY NEW PATTERNS OF PAIN OR NUMBNESS? NO . GASTROENTEROLOGY: ANY NEW CHANGE IN BOWEL CONTROL? NO . GENITOURINARY: ANY NEW CHANGE IN BLADDER CONTROL? NO . IS THERE A CHANCE YOU COULD BE ? NO . HEMATOLOGY/LYMPH: DO YOU TAKE ANY BLOOD THINNERS? (FOR EXAMPLE- COUMADIN, PLAVIX, AGGRENOX, PLATEL, PRADAXA, OR XARELTO) NO . WHEN WAS YOUR LAST DOSE? DATE: TIME: . NEUROLOGY: HAVE YOU FALLEN IN THE PAST 12 MONTHS? NO . ANY NEW EXTREMITY NUMBNESS OR WEAKNESS? NO . CARDIOLOGY: DO YOU HAVE A PACEMAKER OR DEFIBRILLATOR? NO . RESPIRATORY: HAVE YOU BEEN SICK IN THE PAST WEEK? NO . FEVER NO . FLU LIKE SYMPTOMS? NO . COUGH NO . INTEGUMENTARY: DO YOU HAVE ANY RASHES OR OPEN SORES? NO . ALLERGIC/IMMUNO: ARE YOU ALLERGIC TO IV DYE? NO . ANY NEW ALLERGIES? NO . PSYCHIATRIC: DO YOU HAVE THOUGHTS OF HURTING YOURSELF OR SOMEONE ELSE? NO . ARE YOU ABUSED, NEGLECTED, OR IN AN UNSAFE ENVIRONMENT? NO . ENDOCRINOLOGY: ARE YOU DIABETIC? NO . OTHER: DO YOU NEED ANY PRESCRIPTIONS? NO . IF YES, PLEASE LIST: ____ . ANY NEW PROBLEMS WITH YOUR MEDICATIONS? NO . WHEN DID YOU LAST EAT? ____ . WHEN DID YOU LAST DRINK? ____ . WHAT DID YOU LAST DRINK? ____ . NAME OF PERSON DRIVING YOU HOME? ____ . DO YOU HAVE ANY OTHER QUESTIONS OR CONCERNS NO . VITAL SIGNS WT 247.8 LBS, HT 69", BMI 36.59 INDEX, BP 112/79 MM HG, HR 89 /MIN, RR 18 /MIN, TEMP 97.8 F, OXYGEN SAT % 99%, NA INITIALS AW 1012, REVIEWED BY: EM. EXAMINATION GENERAL EXAMINATION: GENERAL APPEARANCE:AWAKE,ALERT ,PLEAASANT . PSYCHAFFECT NORMAL . LUNGS:LUNG FRANKLIN ARE CLEAR TO AUSCULTATION BILATERALLY. GOOD MOVEMENT OF AIR . HEART:S1, S2 IN A REGULAR RATE AND RHYTHM. NO SIGNIFICANT MURMURS, RUBS OR GALLOPS NOTED . LUMBAR SACRAL SPINEPALPATION:TENDER OVER RIGHT L3/4-L4/5 LUMBAR FACETS WITH FACET LOADING. . 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 09/29/18 VD. DISPOSITION & COMMUNICATION FOLLOW UP POST (REASON: RIGHT L5/S1 RF) ELECTRONICALLY SIGNED BY BLAIRE SMITH ON 10/08/2018 AT 04:12 PM EDT DISCLAIMER : THIS IS A VISIT SUMMARY EXTRACTED FROM THE [facility] CHART. IT IS NOT A COPY OF THE [facility] PROGRESS NOTE. SARAHID
== END ==
LOC: M PAIN 09:30
PROVIDERS: ATTEND Nurse Practitioner Family
DX: M47.817 Spondylosis without myelopathy or radiculopathy, lumbosacral region (principal); F25.9 Schizoaffective disorder, unspecified; F41.9 Anxiety disorder, unspecified; F31.9 Bipolar disorder, unspecified; Z87.81 Personal history of (healed) traumatic fracture; Z87.442 Personal history of urinary calculi; Z87.891 Personal history of nicotine dependence; Z90.49 Acquired absence of other specified parts of digestive tract; Z79.899 Other long term (current) drug therapy; Z86.19 Personal history of other infectious and parasitic diseases

== ENCOUNTER → 2018-10-21 | Outpatient (CLI) | payer OTHER, MEDICAID ==
[~2018-10-21] MED LIST changes: +BUPIVACAINE HCL 0.25% 30 ML VIAL As Ordered ONE; -INDO50CA PO; +INDO50CA11 PO; +LIDOCAINE 1% SDV INJ 30 ML VIAL As Ordered ONE; +TRIAMCINOLONE ACETONIDE SUSP 40 MG/ML VIAL (J3301) As Ordered ONE
--- NOTE | 2018-10-21 15:55 | REP ---
Partial lumbar spine series: Three views . History: Injection procedure for pain. 36 seconds of fluoroscopy time is reported. Findings: A sequence of three fluoroscopically obtained last image hold procedural spot radiographs of the lumbar spine document needle position and contrast injection associated with injection procedure. Electronically Signed by Glen Gonzáles MD 10/21/2018 03:46 P
--- NOTE | 2018-11-09 00:41 | ECWPNPC ---
PATIENT NAME: MATT MIRZA : 1975 GENDER: MALE VISIT DATE: 10/21/2018 DISCHARGE DATE: 10/21/18 1308 VISIT LOCKED DATE TIME: PHYSICIAN: WESLY GIRON MD RESOURCE: WESLY GIRON MD REASON FOR APPOINTMENT 1. RIGHT L5/S1 RF HISTORY OF PRESENT ILLNESS HISTORY OF PRESENT ILLNESS: PAIN THE PATIENT DESCRIBES THE PAIN... FALL RISK SCREENING: SCREENING :NO FALLS REPORTED IN THE LAST YEAR CURRENT MEDICATIONS TAKING IBUPROFEN 800 MG TABLET 1 TABLET WITH FOOD OR MILK NEEDED ORALLY THREE TIMES A DAY, NOTES: 10/19/18 TAKING GABAPENTIN 300 MG CAPSULE 1 CAPSULE ORALLY TID, NOTES: 10/21/18 AM TAKING PROZAC 20 MG CAPSULE 1 CAPSULE ORALLY TID, NOTES: 10/21/18 AM TAKING SEROQUEL 25 MG TABLET 1 TABLET ORALLY BID, NOTES: 10/21/18 AM NOT-TAKING TIZANIDINE HCL 4 MG TABLET 1 TABLET NEEDED ORALLY THREE TIMES A DAY MEDICATION LIST REVIEWED AND RECONCILED WITH THE PATIENT PAST MEDICAL HISTORY SCHIZOPHRENIA ANXIETY DEPRESSION DDD BIPOLAR/ STRESS PANCREATITIS CONCUSSION HX HX BROKEN RIBS AND CRUSHED VERTEBRA HIGH CHOLESTEROL HX FRACTURED RIGHT ARM X 3 FRACTURED RIGHT ANKLE X 2 , LEFT X1 SONG BITE LEFT FOOT FRACTURED MANDIBLE DIVERTICULITIS KIDNEY STONES WEST NILE VIRUS ALLERGIES N.K.D.A. SURGICAL HISTORY LEFT SHOULDER BROKEN JAW RIGHT WRIST GALLBLADDER REMOVAL 2014 RIGHT ANKLE LEFT ANKLE LEFT PECTORAL TISSUE REMOVAL FAMILY HISTORY FATHER: ALIVE 65 YRS, DIAGNOSED WITH HEART DISEASE, OTHER MOTHER: 43 YRS, CANCER MATERNAL GRAND MOTHER: CANCER 1 SON(S) , 4 DAUGHTER(S) - HEALTHY. FATHER HAS PARKINSONS, ALZHEIMERS\\\\NMOM--LYMPHOMA. SOCIAL HISTORY GENERAL: TOBACCO USE ARE YOU A:FORMER SMOKER HOW LONG HAS IT BEEN SINCE YOU LAST SMOKED?6-12 MONTHS DIET: REGULAR. LANGUAGE LANGUAGES SPOKEN:[place]ATVIAN DOMESTIC VIOLENCE DO YOU FEEL SAFE IN YOUR ENVIRONMENT?YES RECREATIONAL DRUG USE DRUG USE?NO EXERCISE: NO REGULAR EXERCISE, DOES CARE FOR WOOD STOVE AND HOUSEWORK. LEARNING BARRIERS / SPECIAL NEEDS BARRIERS TO LEARNING?NO HEARING IMPAIRED?YES CONSTANT RINGING IN RIGHT EAR VISION IMPAIRED?YES GLASSES FOR READING :CORRECTIVE LENSES COGNITIVELY IMPAIRED?NO READINESS TO LEARN?YES LEARNING PREFERENCES?NO LEARNING CAPABILITIES PRESENT?YES EMOTIONAL BARRIERS?NO SPECIAL DEVICES?NO BOARD CERTIFIED FAMILY PHYSICIAN NEEDED?NO PAIN CLINIC PFS, CLERGY, PUBLIC HEALTH REFERRALS PFS REFERRAL NEEDED?NO CLERGY REFERRAL NEEDED?NO PUBLIC HEALTH REFERRAL NEEDED?NO WAS THE PROVIDER NOTIFIED OF ANY PERTINENT INFO? N/A HAS THE PATIENT BEEN EDUCATED REGARDING HIS/HER PLAN OF CARE?YES HAS THE PATIENT BEEN EDUCATED REGARDING PAIN, THE RISK FOR PAIN, THE IMPORTANCE OF EFFECTIVE PAIN MANAGEMENT, AND THE PAIN ASSESSMENT PROCESS?YES CAFFEINE CAFFEINE USE?YES SODA DAILY ADVANCE DIRECTIVE ADVANCE DIRECTIVE DISCUSSED WITH PATIENT:YES PT DOES NOT HAVE ANY ADVANCED DIRECTIVES AND HE DECLINES INFORMATION ON HCP OR ASSISTANCE AT THIS TIME. PENTECOSTAL [id number] NONE MARITAL STATUS: . ALCOHOL SCREENING DID YOU HAVE A DRINK CONTAINING ALCOHOL IN THE PAST YEAR?YES HOW OFTEN DID YOU HAVE SIX OR MORE DRINKS ON ONE OCCASION IN THE PAST YEAR?NEVER (0 POINTS) POINTS3 INTERPRETATIONNEGATIVE HOW OFTEN DID YOU HAVE A DRINK CONTAINING ALCOHOL IN THE PAST YEAR?TWO TO FOUR TIMES A MONTH (2 POINTS) HOW MANY DRINKS DID YOU HAVE ON A TYPICAL DAY WHEN YOU WERE DRINKING IN THE PAST YEAR?3 OR 4 (1 POINT) OCCUPATION: [employer]. 03/31/18 1345 REVIEWED WITH PT. ADREVIEWED WITH PATIENT 07/17/18 1013 JSREVIEWED WITH PATIENT 08/06/18 1107 LAS. HOSPITALIZATION/MAJOR DIAGNOSTIC PROCEDURE HOSPITALIZED FOR KIDNEY STONES 4 TIMES LEFT PECTORAL TISSUE REMOVAL DIVERTICULITIS 2011 REVIEW OF SYSTEMS REVIEWED BY: PROVIDER: . CONSTITUTIONAL: ANY CHANGE IN YOUR MEDICAL CONDITION? NO . CHILLS NO . FEVER NO . INFECTION: DO YOU HAVE NEW INFECTIONS? NO . DO YOU HAVE HISTORY OF MRSA? NO . MUSCULOSKELETAL: ANY NEW PATTERNS OF PAIN OR NUMBNESS? NO . GASTROENTEROLOGY: ANY NEW CHANGE IN BOWEL CONTROL? NO . GENITOURINARY: ANY NEW CHANGE IN BLADDER CONTROL? NO . IS THERE A CHANCE YOU COULD BE ? NO . HEMATOLOGY/LYMPH: DO YOU TAKE ANY BLOOD THINNERS? (FOR EXAMPLE- COUMADIN, PLAVIX, AGGRENOX, PLATEL, PRADAXA, OR XARELTO) NO . WHEN WAS YOUR LAST DOSE? DATE: TIME: . NEUROLOGY: HAVE YOU FALLEN IN THE PAST 12 MONTHS? NO . ANY NEW EXTREMITY NUMBNESS OR WEAKNESS? NO . CARDIOLOGY: DO YOU HAVE A PACEMAKER OR DEFIBRILLATOR? NO . RESPIRATORY: HAVE YOU BEEN SICK IN THE PAST WEEK? NO . FEVER NO . FLU LIKE SYMPTOMS? NO . COUGH NO . INTEGUMENTARY: DO YOU HAVE ANY RASHES OR OPEN SORES? NO . ALLERGIC/IMMUNO: ARE YOU ALLERGIC TO IV DYE? NO . ANY NEW ALLERGIES? NO . PSYCHIATRIC: DO YOU HAVE THOUGHTS OF HURTING YOURSELF OR SOMEONE ELSE? NO . ARE YOU ABUSED, NEGLECTED, OR IN AN UNSAFE ENVIRONMENT? NO . ENDOCRINOLOGY: ARE YOU DIABETIC? NO . OTHER: DO YOU NEED ANY PRESCRIPTIONS? NO . IF YES, PLEASE LIST: ____ . ANY NEW PROBLEMS WITH YOUR MEDICATIONS? NO . WHEN DID YOU LAST EAT? 10/20/18 PM . WHEN DID YOU LAST DRINK? 10/21/18 AM . WHAT DID YOU LAST DRINK? WATER . NAME OF PERSON DRIVING YOU HOME? JANINA . DO YOU HAVE ANY OTHER QUESTIONS OR CONCERNS NO . VITAL SIGNS WT 243 LBS, HT 69", BMI 35.88 INDEX, BP 123/83 MM HG, HR 84 /MIN, RR 18 /MIN, TEMP 96.7 F, OXYGEN SAT % 98%, NA INITIALS AW 0949, REVIEWED BY: EM. ASSESSMENTS SPONDYLOSIS OF LUMBOSACRAL REGION WITHOUT MYELOPATHY OR RADICULOPATHY - M47.817 (PRIMARY) TREATMENT SPONDYLOSIS OF LUMBOSACRAL REGION WITHOUT MYELOPATHY OR RADICULOPATHY SMC FACET BLOCK (PAIN)[id number] PROCEDURES PN RADIOFREQUENCY PRE PROCEDURE DIAGNOSES 1. LUMBAR SPONDYLOSIS. 2. LUMBOSACRAL SPONDYLOSIS POST PROCEDURE DIAGNOSES 1. LUMBAR SPONDYLOSIS. 2. LUMBOSACRAL SPONDYLOSIS PROCEDURE RIGHT L5-S1 LUMBAR FACET RADIOFREQUENCY SURGEON DR. WESLY GIRON TECHNICIAN TEST SYSTEMS NONE ANESTHESIA LOCAL PRE PROCEDURE REPORT THE PATIENT HAS HISTORY OF CHRONIC LOW BACK PAIN. I EVALUATED THE PATIENT AND REVIEWED THE CHART. I WENT OVER THE RISKS, ALTERNATIVES, AND BENEFITS ASSOCIATED WITH THIS PROCEDURE. THE PATIENT WOULD LIKE TO PROCEED AND GIVES CONSENT TO PERFORMED THE PROCEDURE. THE PATIENT DENIES UNEXPLAINABLE WEIGHT LOSS, FEVER, CHILLS, OR NEW CHANGES IN URINARY OR BOWEL CONTROL DESCRIPTION OF PROCEDURE THE PATIENT WAS BROUGHT TO THE PROCEDURE ROOM AND PLACED IN THE PRONE POSITION. THE LUMBOSACRAL AREA WAS CLEANED WITH CHLORAPREP SOLUTION AND DRAPED ASEPTICALLY. THE PROCEDURE WAS DONE UNDER STERILE CONDITIONS. I CHECKED LATERALITY AND THE LEVEL WHERE THE PROCEDURE WAS GOING TO BE PERFORMED WITH THE PATIENT AND THE SUPPORTING STAFF AT THE MOMENT OF THE TIME OUT IN THE PROCEDURE ROOM. UNDER FLUOROSCOPIC GUIDANCE, TARGETS WERE SELECTED AT THE INTERSECTION OF THE RIGHT TRANSVERSE PROCESS OF L5 AND ALA OF S1 WITH ITS RESPECTIVE SUPERIOR ARTICULAR PROCESS. LIDOCAINE WAS USED TO NUMB THE SKIN AND THE SUBCUTANEOUS TISSUE BELOW IT. RADIOFREQUENCY NEEDLES 22-GAUGE 15 CM LONG WITH 10 MM ACTIVE CURVE TIP WERE ADVANCED UNDER FLUOROSCOPIC GUIDANCE AND FOLLOWING PATIENT FEEDBACK UNTIL THE TARGET AREA WAS REACHED. POSITION OF THE NEEDLES WAS VERIFIED WITH AP AND LATERAL VIEWS. AFTER PROPER POSITION OF THE NEEDLE WAS ACHIEVED, WE WORKED WITH THE RIGHT SELECTED MEDIAN BRANCHES OF L4 AND THE DORSAL RAMI OF L5. WE MEASURED THE CORRESPONDING IMPEDANCES, SENSORY STIMULATION AND MOTOR RESPONSES INDICATED IN THE RADIOFREQUENCY WORKSHEET. POSITION OF THE NEEDLES WAS VERIFIED AGAIN WITH AP AND LATERAL VIEWS. LIDOCAINE 1%, 2 ML, WAS INJECTED AT EACH LEVEL. RADIOFREQUENCY WAS DONE AT EACH LEVEL AT 80 DEGREES FOR 90 SECONDS. AFTER RADIOFREQUENCY WAS DONE, THE PATIENT RECEIVED BUPIVACAINE 0.125% 1 CC WITH KENALOG 5 MG AT EACH SITE. THERE WAS NO EVIDENCE OF BLOOD, PARESTHESIA OR CEREBROSPINAL FLUID DURING THE PROCEDURE. THE PATIENT WAS SENT TO THE RECOVERY ROOM. THE PATIENT WAS MOVING THE EXTREMITIES AND DOING WELL. THERE WAS NO COMPLICATION DURING THE PROCEDURE. FLUOROSCOPY TIME WAS 36 SECONDS POST PROCEDURE NOTE THE PATIENT WILL BE SEEN IN A FOLLOW UP IN THE NEXT FEW WEEKS. INSTRUCTIONS WERE GIVEN, QUESTIONS WERE ANSWERED, AND THE PATIENT EXPRESSED UNDERSTANDING AND AGREES WITH THE PLAN. I, YAIR GILES, DOCUMENTED THE ABOVE INFORMATION ACTING A SCRIBE FOR DR. GIRON. I HAVE REVIEWED THE ABOVE DOCUMENT, WRITTEN BY YAIR GILES SCRIBAsuncion AND I VERIFY THAT IT IS ACCURATE. PROCEDURE CODES 6045F RADXPS IN END [id number] PXD [id number] DESTROY LUMB/SAC FACET JNT, MODIFIERS: RT DISPOSITION & COMMUNICATION FOLLOW UP 3 WEEKS ELECTRONICALLY SIGNED BY WESLY GIRON MD, MD ON 11/08/2018 AT 03:28 PM EDT DISCLAIMER : THIS IS A VISIT SUMMARY EXTRACTED FROM THE [facility] CHART. IT IS NOT A COPY OF THE [facility] PROGRESS NOTE. MTDD
== END ==
LOC: M PAIN 10:00
PROVIDERS: ATTEND Anesthesiology
DX: G89.29 Other chronic pain (principal); M47.817 Spondylosis without myelopathy or radiculopathy, lumbosacral region; Z79.899 Other long term (current) drug therapy; Z86.19 Personal history of other infectious and parasitic diseases; Z86.73 Personal history of transient ischemic attack (TIA), and cerebral infarction without residual deficits; Z86.59 Personal history of other mental and behavioral disorders; Z87.891 Personal history of nicotine dependence
CPT/HCPCS: 64635; J3301

== ENCOUNTER → 2018-11-19 | Outpatient (REF) | payer OTHER, MEDICAID ==
[~2018-11-19] MED LIST changes: -BUPIVACAINE HCL 0.25% 30 ML VIAL As Ordered ONE; -LIDOCAINE 1% SDV INJ 30 ML VIAL As Ordered ONE; -TRIAMCINOLONE ACETONIDE SUSP 40 MG/ML VIAL (J3301) As Ordered ONE
[2018-11-19 17:59] LABS: ALBUMIN 3.8 GM/DL (3.2-5.2); ALT/SGPT 66 U/L (12-78); BILIRUBIN,TOTAL 0.7 MG/DL (0.2-1.0); BLOOD UREA NITROGEN 24 MG/DL (7-18); CALCIUM LEVEL 8.5 MG/DL (8.5-10.1); CARBON DIOXIDE LEVEL 27 MEQ/L (21-32); CHLORIDE LEVEL 101 MEQ/L (98-107); CHOLESTEROL LEVEL 341 MG/DL (<200); CHOLESTEROL RISK RATIO 9.742 (<5); CREATININE FOR GFR 1.13 MG/DL (0.70-1.30); GLOMERULAR FILTRATION RATE > 60.0 (>60); GLUCOSE, FASTING 206 MG/DL (70-100); HDL CHOLESTEROL 35 MG/DL (>40); LDL CHOLESTEROL 237 MG/DL (<100); NON-HDL-C 306 MG/DL; POTASSIUM SERUM 3.7 MEQ/L (3.5-5.1); SODIUM LEVEL 135 MEQ/L (136-145); THYROID STIMULATING HORMONE 0.852 uIU/ML (0.358-3.740); TOTAL PROTEIN 7.5 GM/DL (6.4-8.2); TRIGLYCERIDES LEVEL 344 MG/DL (<150)
== END ==
LOC: M LAB REF 16:38
PROVIDERS: ATTEND Family Medicine Addiction Medicine
DX: E66.09 Other obesity due to excess calories (principal); Z68.35 Body mass index [BMI] 35.0-35.9, adult

== ENCOUNTER → 2019-04-27 | Outpatient (REF) | payer OTHER, MEDICAID ==
[~2019-04-27] MED LIST changes: -INDO50CA11 PO; +INDO50CA91 PO
[2019-04-27 13:41] LABS: BASO # 0.1 10^3/uL (0.0-0.2); BASO % 0.9 % (0.0-1.0); EOS # 0.3 10^3/uL (0.0-0.5); EOS % 3.5 % (0.0-3.0); HEMATOCRIT 45.1 % (42.0-52.0); HEMOGLOBIN 14.9 g/dl (13.5-17.5); LYMPH % 22.5 % (24.0-44.0); MEAN CORPUSCULAR HEMOGLOBIN 30.8 pg (27.0-33.0); MEAN CORPUSCULAR VOLUME 93.2 fl (80.0-96.0); MONO # 0.7 10^3/uL (0.0-0.8); MONO % 7.2 % (0.0-5.0); NEUTROPHILS # 5.9 10^3/uL (1.5-8.5); NEUTROPHILS % 65.2 % (36.0-66.0); PLATELET COUNT, AUTOMATED 283 10^3/uL (150-450); RED BLOOD COUNT 4.84 10^6/uL (4.30-6.10)
[2019-04-27 14:10] LABS: ALBUMIN 3.8 GM/DL (3.2-5.2); ALT/SGPT 47 U/L (12-78); BILIRUBIN,TOTAL 0.5 MG/DL (0.2-1.0); BLOOD UREA NITROGEN 13 MG/DL (7-18); CALCIUM LEVEL 8.6 MG/DL (8.5-10.1); CARBON DIOXIDE LEVEL 26 MEQ/L (21-32); CHLORIDE LEVEL 103 MEQ/L (98-107); CHOLESTEROL LEVEL 266 MG/DL (<200); CREATININE FOR GFR 1.07 MG/DL (0.70-1.30); FREE T4 0.83 NG/DL (0.76-1.46); GLOMERULAR FILTRATION RATE > 60.0 (>60); GLUCOSE, FASTING 152 MG/DL (70-100); HDL CHOLESTEROL 33 MG/DL (>40); NON-HDL-C 233 MG/DL; POTASSIUM SERUM 4.3 MEQ/L (3.5-5.1); SODIUM LEVEL 137 MEQ/L (136-145); TOTAL PROTEIN 7.1 GM/DL (6.4-8.2); TRIGLYCERIDES LEVEL 568 MG/DL (<150)
[2019-04-27 14:12] LABS: TOTAL 25(OH) VITAMIN D 23.4 NG/ML (30.0-100.0)
[2019-04-27 15:26] LABS: HEMOGLOBIN A1c 6.2 %
== END ==
LOC: M LAB REF 12:40
PROVIDERS: ATTEND Family Medicine
DX: Z13.228 Encounter for screening for other metabolic disorders (principal); M25.50 Pain in unspecified joint

== ENCOUNTER → 2019-05-03 | Outpatient (CLI) | payer OTHER, MEDICAID ==
--- NOTE | 2019-05-19 01:06 | ECWPNPC ---
PATIENT NAME: MATT MIRZA : 1975 GENDER: MALE VISIT DATE: 05/03/2019 DISCHARGE DATE: 05/03/19 1358 VISIT LOCKED DATE TIME: PHYSICIAN: SHARRON OREILLY RESOURCE: SHARRON OREILLY REASON FOR APPOINTMENT 1. POST RF HISTORY OF PRESENT ILLNESS HISTORY OF PRESENT ILLNESS: HERE FOR POST PROCEDURE F/U .HAD RIGHT RF ON 09/2018.REPORTYING SIGNIFICANT REDUCTION IN PAIN X 3 MONTHS UNTIL PAIN GRADUALLY RETURNED.PAIN IS LOCATED RIGHT LOWER BACK WITH RADIATION INTO RIGHT THIGH.PAIN IN THIS AREA HAS BEEN RANGING 8-10/10 VAS OVER THE PAST MONTH.DISCUSSED TREATMENT OPTIONS. PAIN THE PATIENT DESCRIBES THE PAIN... FALL RISK SCREENING: SCREENING :NO FALLS REPORTED IN THE LAST YEAR CURRENT MEDICATIONS TAKING GABAPENTIN 300 MG CAPSULE 1 CAPSULE ORALLY TID TAKING PROZAC 20 MG CAPSULE 1 CAPSULE ORALLY TID TAKING SEROQUEL 25 MG TABLET 1 TABLET ORALLY BID TAKING IBUPROFEN 600 MG TABLET 1 TABLET WITH FOOD OR MILK NEEDED ORALLY THREE TIMES A DAY NOT-TAKING TIZANIDINE HCL 4 MG TABLET 1 TABLET NEEDED ORALLY THREE TIMES A DAY MEDICATION LIST REVIEWED AND RECONCILED WITH THE PATIENT PAST MEDICAL HISTORY SCHIZOPHRENIA ANXIETY DEPRESSION DDD BIPOLAR/ STRESS PANCREATITIS CONCUSSION HX HX BROKEN RIBS AND CRUSHED VERTEBRA HIGH CHOLESTEROL HX FRACTURED RIGHT ARM X 3 FRACTURED RIGHT ANKLE X 2 , LEFT X1 SONG BITE LEFT FOOT FRACTURED MANDIBLE DIVERTICULITIS KIDNEY STONES WEST NILE VIRUS ALLERGIES N.K.D.A. SURGICAL HISTORY LEFT SHOULDER BROKEN JAW RIGHT WRIST GALLBLADDER REMOVAL 2014 RIGHT ANKLE LEFT ANKLE LEFT PECTORAL TISSUE REMOVAL FAMILY HISTORY FATHER: ALIVE 65 YRS, DIAGNOSED WITH UNSPECIFIED HEART DISEASE, OTHER SPECIFIED CONDITIONS INFLUENCING HEALTH STATUS MOTHER: 43 YRS, OTHER MALIGNANT NEOPLASM OF UNSPECIFIED SITE MATERNAL GRAND MOTHER: OTHER MALIGNANT NEOPLASM OF UNSPECIFIED SITE 1 SON(S) , 4 DAUGHTER(S) - HEALTHY. FATHER HAS PARKINSONS, ALZHEIMERS\\\\NMOM--LYMPHOMA. SOCIAL HISTORY GENERAL: TOBACCO USE ARE YOU A:FORMER SMOKER HOW LONG HAS IT BEEN SINCE YOU LAST SMOKED?6-12 MONTHS DIET: REGULAR. LANGUAGE LANGUAGES SPOKEN:ALBANIAN DOMESTIC VIOLENCE DO YOU FEEL SAFE IN YOUR ENVIRONMENT?YES RECREATIONAL DRUG USE DRUG USE?NO EXERCISE: NO REGULAR EXERCISE, DOES CARE FOR WOOD STOVE AND HOUSEWORK. LEARNING BARRIERS / SPECIAL NEEDS BARRIERS TO LEARNING?NO HEARING IMPAIRED?YES CONSTANT RINGING IN RIGHT EAR VISION IMPAIRED?YES GLASSES FOR READING COGNITIVELY IMPAIRED?NO :CORRECTIVE LENSES READINESS TO LEARN?YES LEARNING PREFERENCES?NO LEARNING CAPABILITIES PRESENT?YES EMOTIONAL BARRIERS?NO SPECIAL DEVICES?NO CORPORATE COMMUNICATIONS SPECIALIST NEEDED?NO PAIN CLINIC PFS, CLERGY, PUBLIC HEALTH REFERRALS PFS REFERRAL NEEDED?NO CLERGY REFERRAL NEEDED?NO PUBLIC HEALTH REFERRAL NEEDED?NO WAS THE PROVIDER NOTIFIED OF ANY PERTINENT INFO? N/A HAS THE PATIENT BEEN EDUCATED REGARDING HIS/HER PLAN OF CARE?YES HAS THE PATIENT BEEN EDUCATED REGARDING PAIN, THE RISK FOR PAIN, THE IMPORTANCE OF EFFECTIVE PAIN MANAGEMENT, AND THE PAIN ASSESSMENT PROCESS?YES LATEX QUESTIONNAIRE LATEX ALLERGY : HAVE YOU EVER DEVELOPED ANY TYPE OF REACTION AFTER HANDLING LATEX PRODUCTS SUCH RUBBER GLOVES, CONDOMS, DIAPHRAGMS, BALLOONS, SOCKS, OR UNDERWEAR?NO LATEX ALLERGY : HAVE YOU EVER DEVELOPED ANY TYPE OF REACTION DURING OR AFTER DENTAL APPOINTMENT, VAGINAL/RECTAL EXAMINATION, SURGICAL PROCEDURE, OR ANY OTHER EXPOSURE?NO LATEX RISK : HAVE YOU EVER HAD ANY DIFFICULTY BREATHING OR HIVES AFTER EATING OR HANDLING ANY FRUITS, OR VEGETABLES; SUCH KIWI, BANANAS, STONE FRUITS, OR CHESTNUTSNO LATEX RISK : DO YOU HAVE A PREVIOUS PERSONAL HISTORY OF MORE THAN NINE SURGERIES, SPINA BIFIDA, OR REPEATED CATHERIZATIONS? NO LATEX RISK : ARE YOU FREQUENTLY EXPOSED TO LATEX PRODUCTS IN YOUR OCCUPATION?NO DATE ASKED : 05/03/2019 CAFFEINE CAFFEINE USE?YES SODA DAILY ADVANCE DIRECTIVE ADVANCE DIRECTIVE DISCUSSED WITH PATIENT:YES PT DOES NOT HAVE ANY ADVANCED DIRECTIVES AND HE DECLINES INFORMATION ON HCP OR ASSISTANCE AT THIS TIME. ISLAM [id number] NONE MARITAL STATUS: . ALCOHOL SCREENING DID YOU HAVE A DRINK CONTAINING ALCOHOL IN THE PAST YEAR?YES HOW OFTEN DID YOU HAVE SIX OR MORE DRINKS ON ONE OCCASION IN THE PAST YEAR?NEVER (0 POINTS) HOW MANY DRINKS DID YOU HAVE ON A TYPICAL DAY WHEN YOU WERE DRINKING IN THE PAST YEAR?3 OR 4 (1 POINT) HOW OFTEN DID YOU HAVE A DRINK CONTAINING ALCOHOL IN THE PAST YEAR?TWO TO FOUR TIMES A MONTH (2 POINTS) POINTS3 INTERPRETATIONNEGATIVE OCCUPATION: [employer], [employer]. 03/31/18 1345 REVIEWED WITH PT. ADREVIEWED WITH PATIENT 07/17/18 1013 JSREVIEWED WITH PATIENT 08/06/18 1107 LASREVIEWED WITH PATIENT 05/03/19 1327 JS. HOSPITALIZATION/MAJOR DIAGNOSTIC PROCEDURE HOSPITALIZED FOR KIDNEY STONES 4 TIMES LEFT PECTORAL TISSUE REMOVAL DIVERTICULITIS 2010, 2011 REVIEW OF SYSTEMS REVIEWED BY: PROVIDER: SHARRON RUDD . CONSTITUTIONAL: ANY CHANGE IN YOUR MEDICAL CONDITION? NO . CHILLS NO . FEVER NO . INFECTION: DO YOU HAVE NEW INFECTIONS? NO . DO YOU HAVE HISTORY OF MRSA? NO . MUSCULOSKELETAL: ANY NEW PATTERNS OF PAIN OR NUMBNESS? NO . GASTROENTEROLOGY: ANY NEW CHANGE IN BOWEL CONTROL? NO . GENITOURINARY: ANY NEW CHANGE IN BLADDER CONTROL? NO . IS THERE A CHANCE YOU COULD BE ? NO . HEMATOLOGY/LYMPH: DO YOU TAKE ANY BLOOD THINNERS? (FOR EXAMPLE- COUMADIN, PLAVIX, AGGRENOX, PLATEL, PRADAXA, OR XARELTO) NO . WHEN WAS YOUR LAST DOSE? DATE: TIME: . NEUROLOGY: HAVE YOU FALLEN IN THE PAST 12 MONTHS? NO . ANY NEW EXTREMITY NUMBNESS OR WEAKNESS? NO . CARDIOLOGY: DO YOU HAVE A PACEMAKER OR DEFIBRILLATOR? NO . RESPIRATORY: HAVE YOU BEEN SICK IN THE PAST WEEK? NO . FEVER NO . FLU LIKE SYMPTOMS? NO . COUGH NO . INTEGUMENTARY: DO YOU HAVE ANY RASHES OR OPEN SORES? NO . ALLERGIC/IMMUNO: ARE YOU ALLERGIC TO IV DYE? NO . ANY NEW ALLERGIES? NO . PSYCHIATRIC: DO YOU HAVE THOUGHTS OF HURTING YOURSELF OR SOMEONE ELSE? NO . ARE YOU ABUSED, NEGLECTED, OR IN AN UNSAFE ENVIRONMENT? NO . ENDOCRINOLOGY: ARE YOU DIABETIC? NO . OTHER: DO YOU NEED ANY PRESCRIPTIONS? NO . IF YES, PLEASE LIST: ____ . ANY NEW PROBLEMS WITH YOUR MEDICATIONS? NO . WHEN DID YOU LAST EAT? ____ . WHEN DID YOU LAST DRINK? ____ . WHAT DID YOU LAST DRINK? ____ . NAME OF PERSON DRIVING YOU HOME? ____ . DO YOU HAVE ANY OTHER QUESTIONS OR CONCERNS NO . VITAL SIGNS WT 232.2 LBS, HT 69", BMI 34.29 INDEX, BP 119/79 MM HG, HR 71 /MIN, RR 18 /MIN, TEMP 97.8 F, OXYGEN SAT % 96%, SAFE IN ENV? (Y/N) YES, NA INITIALS CT 13:26, REVIEWED BY: DEVYN. EXAMINATION GENERAL EXAMINATION: GENERALAWAKE,ALERT ,PLEAASANT . PSYCHAFFECT NORMAL . LUNGS:LUNG FRANKLIN ARE CLEAR TO AUSCULTATION BILATERALLY. GOOD MOVEMENT OF AIR . HEART:S1, S2 IN A REGULAR RATE AND RHYTHM. NO SIGNIFICANT MURMURS, RUBS OR GALLOPS NOTED . LUMBAR SACRAL SPINEPALPATION:TENDER OVER RIGHT L3/4-L4/5 LUMBAR FACETS WITH FACET LOADING. . ASSESSMENTS SPONDYLOSIS OF LUMBOSACRAL REGION WITHOUT MYELOPATHY OR RADICULOPATHY - M47.817 (PRIMARY) TREATMENT SPONDYLOSIS OF LUMBOSACRAL REGION WITHOUT MYELOPATHY OR RADICULOPATHY NOTES: REPEAT RIGHT L3/4-L4/5 RF. PREVENTIVE MEDICINE PAIN CLINIC TEACHING: PROCEDURE TEACHING REVIEWED INFORMATION ON RADIOFREQUENCY PROCEDURE WITH PATIENT. ALSO REVIEWED PRE-RPOCEDURE INSTRUCTIONS. PATIENT VERBALIZED AN UNDERSTANDING. HERIBERTO SOLARES 05/03/2019 1:58:18 PM > . PROCEDURE CODES FA211 ESTABILISHED PATIENT [facility] FACILITY CHARGE DISPOSITION & COMMUNICATION FOLLOW UP POST (REASON: REPEAT RIGHT L3/4-L4/5 RF) ELECTRONICALLY SIGNED BY BLAIRE SMITH ON 05/18/2019 AT 09:20 AM EST DISCLAIMER : THIS IS A VISIT SUMMARY EXTRACTED FROM THE [employer] CHART. IT IS NOT A COPY OF THE [employer] PROGRESS NOTE. EMILIO
== END ==
LOC: M PAIN 13:15
PROVIDERS: ATTEND Nurse Practitioner Family
DX: M47.817 Spondylosis without myelopathy or radiculopathy, lumbosacral region (principal); Z86.59 Personal history of other mental and behavioral disorders; Z87.891 Personal history of nicotine dependence; Z79.899 Other long term (current) drug therapy

== ENCOUNTER → 2019-07-05 | Outpatient (CLI) | payer OTHER, MEDICAID ==
[~2019-07-05] MED LIST changes: +BUPIVACAINE HCL 0.25% 30 ML VIAL As Ordered ONE; +FLUO20CA20 PO; -FLUO20CA8 PO; +ISOVUE-M 300 61% 15ML VIAL (Q9967) As Ordered ONE; +LIDOCAINE 1% SDV INJ 30 ML VIAL As Ordered ONE
--- NOTE | 2019-07-05 16:06 | REP ---
Partial lumbar spine series: To views . History: Injection procedure for pain. 19 seconds of fluoroscopy time is reported. Findings: A sequence of two fluoroscopically obtained last image hold procedural spot radiographs of the lumbar spine document needle position and contrast injection associated with injection procedure. Electronically Signed by Glen Gonzáles MD 07/05/2019 03:58 P
--- NOTE | 2019-07-14 05:00 | ECWPNPC ---
PATIENT NAME: MATT MIRZA : 1975 GENDER: MALE VISIT DATE: 07/05/2019 DISCHARGE DATE: 07/05/19 1606 VISIT LOCKED DATE TIME: PHYSICIAN: WESLY GIRON MD RESOURCE: WESLY GIRON MD REASON FOR APPOINTMENT 1. RIGHT L5-S1 DIAGNOSTIC FACET #2 HISTORY OF PRESENT ILLNESS HISTORY OF PRESENT ILLNESS: PAIN THE PATIENT DESCRIBES THE PAIN... FALL RISK SCREENING: SCREENING :NO FALLS REPORTED IN THE LAST YEAR CURRENT MEDICATIONS TAKING GABAPENTIN 300 MG CAPSULE 1 CAPSULE ORALLY TID, NOTES: 07/05/19629 TAKING PROZAC 20 MG CAPSULE 1 CAPSULE ORALLY TID, NOTES: 07/05/19629 TAKING SEROQUEL 100 MG TABLET 1 TABLET ORALLY BID, NOTES: 07/05/19629 TAKING IBUPROFEN 600 MG TABLET 1 TABLET WITH FOOD OR MILK NEEDED ORALLY THREE TIMES A DAY, NOTES: NONE IN A FEW DAYS NOT-TAKING TIZANIDINE HCL 4 MG TABLET 1 TABLET NEEDED ORALLY THREE TIMES A DAY MEDICATION LIST REVIEWED AND RECONCILED WITH THE PATIENT PAST MEDICAL HISTORY SCHIZOPHRENIA ANXIETY DEPRESSION DDD BIPOLAR/ STRESS PANCREATITIS CONCUSSION HX HX BROKEN RIBS AND CRUSHED VERTEBRA HIGH CHOLESTEROL HX FRACTURED RIGHT ARM X 3 FRACTURED RIGHT ANKLE X 2 , LEFT X1 SONG BITE LEFT FOOT FRACTURED MANDIBLE DIVERTICULITIS KIDNEY STONES WEST NILE VIRUS ALLERGIES N.K.D.A. SURGICAL HISTORY LEFT SHOULDER BROKEN JAW RIGHT WRIST GALLBLADDER REMOVAL 2014 RIGHT ANKLE LEFT ANKLE LEFT PECTORAL TISSUE REMOVAL FAMILY HISTORY FATHER: ALIVE 66 YRS, DIAGNOSED WITH UNSPECIFIED HEART DISEASE, OTHER SPECIFIED CONDITIONS INFLUENCING HEALTH STATUS MOTHER: 43 YRS, OTHER MALIGNANT NEOPLASM OF UNSPECIFIED SITE MATERNAL GRAND MOTHER: OTHER MALIGNANT NEOPLASM OF UNSPECIFIED SITE 1 SON(S) , 4 DAUGHTER(S) - HEALTHY. FATHER HAS PARKINSONS, ALZHEIMERS\\\\NMOM--LYMPHOMA. SOCIAL HISTORY GENERAL: TOBACCO USE ARE YOU A:FORMER SMOKER HOW LONG HAS IT BEEN SINCE YOU LAST SMOKED?6-12 MONTHS DIET: REGULAR. LANGUAGE LANGUAGES SPOKEN:SAMMARINESE DOMESTIC VIOLENCE DO YOU FEEL SAFE IN YOUR ENVIRONMENT?YES RECREATIONAL DRUG USE DRUG USE?NO EXERCISE: NO REGULAR EXERCISE, DOES CARE FOR WOOD STOVE AND HOUSEWORK. LEARNING BARRIERS / SPECIAL NEEDS BARRIERS TO LEARNING?NO HEARING IMPAIRED?YES CONSTANT RINGING IN RIGHT EAR VISION IMPAIRED?YES GLASSES FOR READING COGNITIVELY IMPAIRED?NO :CORRECTIVE LENSES READINESS TO LEARN?YES LEARNING PREFERENCES?NO LEARNING CAPABILITIES PRESENT?YES EMOTIONAL BARRIERS?NO SPECIAL DEVICES?NO STRAPPING MACHINE TENDER NEEDED?NO PAIN CLINIC PFS, CLERGY, PUBLIC HEALTH REFERRALS PFS REFERRAL NEEDED?NO CLERGY REFERRAL NEEDED?NO PUBLIC HEALTH REFERRAL NEEDED?NO WAS THE PROVIDER NOTIFIED OF ANY PERTINENT INFO? N/A HAS THE PATIENT BEEN EDUCATED REGARDING HIS/HER PLAN OF CARE?YES HAS THE PATIENT BEEN EDUCATED REGARDING PAIN, THE RISK FOR PAIN, THE IMPORTANCE OF EFFECTIVE PAIN MANAGEMENT, AND THE PAIN ASSESSMENT PROCESS?YES LATEX QUESTIONNAIRE LATEX ALLERGY : HAVE YOU EVER DEVELOPED ANY TYPE OF REACTION AFTER HANDLING LATEX PRODUCTS SUCH RUBBER GLOVES, CONDOMS, DIAPHRAGMS, BALLOONS, SOCKS, OR UNDERWEAR?NO LATEX ALLERGY : HAVE YOU EVER DEVELOPED ANY TYPE OF REACTION DURING OR AFTER DENTAL APPOINTMENT, VAGINAL/RECTAL EXAMINATION, SURGICAL PROCEDURE, OR ANY OTHER EXPOSURE?NO DATE ASKED : 05/03/2019 LATEX RISK : HAVE YOU EVER HAD ANY DIFFICULTY BREATHING OR HIVES AFTER EATING OR HANDLING ANY FRUITS, OR VEGETABLES; SUCH KIWI, BANANAS, STONE FRUITS, OR CHESTNUTSNO LATEX RISK : DO YOU HAVE A PREVIOUS PERSONAL HISTORY OF MORE THAN NINE SURGERIES, SPINA BIFIDA, OR REPEATED CATHERIZATIONS? NO LATEX RISK : ARE YOU FREQUENTLY EXPOSED TO LATEX PRODUCTS IN YOUR OCCUPATION?NO CAFFEINE CAFFEINE USE?YES SODA DAILY ADVANCE DIRECTIVE ADVANCE DIRECTIVE DISCUSSED WITH PATIENT:YES PT DOES NOT HAVE ANY ADVANCED DIRECTIVES AND HE DECLINES INFORMATION ON HCP OR ASSISTANCE AT THIS TIME. 07/05/19 YAZIDI [id number] NONE MARITAL STATUS: . ALCOHOL SCREENING DID YOU HAVE A DRINK CONTAINING ALCOHOL IN THE PAST YEAR?YES HOW OFTEN DID YOU HAVE SIX OR MORE DRINKS ON ONE OCCASION IN THE PAST YEAR?NEVER (0 POINTS) HOW MANY DRINKS DID YOU HAVE ON A TYPICAL DAY WHEN YOU WERE DRINKING IN THE PAST YEAR?3 OR 4 (1 POINT) HOW OFTEN DID YOU HAVE A DRINK CONTAINING ALCOHOL IN THE PAST YEAR?TWO TO FOUR TIMES A MONTH (2 POINTS) POINTS3 INTERPRETATIONNEGATIVE OCCUPATION: [employer], [employer]. 03/31/18 1345 REVIEWED WITH PT. ADREVIEWED WITH PATIENT 07/17/18 1013 JSREVIEWED WITH PATIENT 08/06/18 1107 LASREVIEWED WITH PATIENT 05/03/19 1327 JSREVIEWED WITH PATIENT 07/05/19 1422 BV. HOSPITALIZATION/MAJOR DIAGNOSTIC PROCEDURE HOSPITALIZED FOR KIDNEY STONES 4 TIMES LEFT PECTORAL TISSUE REMOVAL DIVERTICULITIS 2011, 2012 REVIEW OF SYSTEMS REVIEWED BY: PROVIDER: . CONSTITUTIONAL: ANY CHANGE IN YOUR MEDICAL CONDITION? NO . CHILLS NO . FEVER NO . INFECTION: DO YOU HAVE NEW INFECTIONS? NO . DO YOU HAVE HISTORY OF MRSA? NO . MUSCULOSKELETAL: ANY NEW PATTERNS OF PAIN OR NUMBNESS? NO . GASTROENTEROLOGY: ANY NEW CHANGE IN BOWEL CONTROL? NO . GENITOURINARY: ANY NEW CHANGE IN BLADDER CONTROL? NO . IS THERE A CHANCE YOU COULD BE ? NO . HEMATOLOGY/LYMPH: DO YOU TAKE ANY BLOOD THINNERS? (FOR EXAMPLE- COUMADIN, PLAVIX, AGGRENOX, PLATEL, PRADAXA, OR XARELTO) NO . WHEN WAS YOUR LAST DOSE? DATE: TIME: . NEUROLOGY: HAVE YOU FALLEN IN THE PAST 12 MONTHS? NO . ANY NEW EXTREMITY NUMBNESS OR WEAKNESS? NO . CARDIOLOGY: DO YOU HAVE A PACEMAKER OR DEFIBRILLATOR? NO . RESPIRATORY: HAVE YOU BEEN SICK IN THE PAST WEEK? NO . FEVER NO . FLU LIKE SYMPTOMS? NO . COUGH NO . INTEGUMENTARY: DO YOU HAVE ANY RASHES OR OPEN SORES? NO . ALLERGIC/IMMUNO: ARE YOU ALLERGIC TO IV DYE? NO . ANY NEW ALLERGIES? NO . PSYCHIATRIC: DO YOU HAVE THOUGHTS OF HURTING YOURSELF OR SOMEONE ELSE? NO . ARE YOU ABUSED, NEGLECTED, OR IN AN UNSAFE ENVIRONMENT? NO . ENDOCRINOLOGY: ARE YOU DIABETIC? NO . OTHER: DO YOU NEED ANY PRESCRIPTIONS? NO . IF YES, PLEASE LIST: ____ . ANY NEW PROBLEMS WITH YOUR MEDICATIONS? NO . WHEN DID YOU LAST EAT? 07/05/19629 . WHEN DID YOU LAST DRINK? 07/06/19629 . WHAT DID YOU LAST DRINK? MILK . NAME OF PERSON DRIVING YOU HOME? JANINA . DO YOU HAVE ANY OTHER QUESTIONS OR CONCERNS NO . VITAL SIGNS WT 239.6 LBS, HT 69", BMI 35.38 INDEX, BP 125/81 MM HG, HR 70 /MIN, RR 18 /MIN, TEMP 97.0 F, OXYGEN SAT % 98%, NA INITIALS AW 1321, REVIEWED BY: BV. ASSESSMENTS SPONDYLOSIS OF LUMBOSACRAL REGION WITHOUT MYELOPATHY OR RADICULOPATHY - M47.817 (PRIMARY) TREATMENT SPONDYLOSIS OF LUMBOSACRAL REGION WITHOUT MYELOPATHY OR RADICULOPATHY SMC FACET BLOCK (PAIN)[id number] PROCEDURES PN LUMBAR FACET BLOCK DIAGNOSTIC PRE PROCEDURE DIAGNOSIS LUMBOSACRAL SPONDYLOSIS POST PROCEDURE DIAGNOSIS LUMBOSACRAL SPONDYLOSIS PROCEDURE RIGHT L5-S1 FACET BLOCK DIAGNOSTIC NUMBER [address] WESLY GIRON MANAGER AGRICULTURE NONE ANESTHESIA LOCAL PRE PROCEDURE NOTE THE PATIENT WITH HISTORY OF CHRONIC LOW BACK PAIN. I EVALUATED THE PATIENT AND REVIEWED THE CHART. I WENT OVER THE RISKS, ALTERNATIVES, AND BENEFITS ASSOCIATED WITH THIS PROCEDURE. THE PATIENT WOULD LIKE TO PROCEED AND GAVE CONSENT TO PERFORM THE PROCEDURE. AGREED WITH THE PATIENT WE ARE DOING THIS PROCEDURE TO DETERMINE IF THE PATIENT IS A CANDIDATE FOR A RADIOFREQUENCY ABLATION OF THE FACETS JOINTS. THE PATIENT DENIES UNEXPLAINABLE WEIGHT LOSS, FEVER, CHILLS, OR NEW CHANGES IN URINARY OR BOWEL CONTROL DESCRIPTION OF PROCEDURE THE PATIENT WAS BROUGHT TO THE PROCEDURE ROOM AND PLACED IN THE PRONE POSITION. THE LUMBOSACRAL AREA WAS CLEANED WITH CHLORAPREP SOLUTION AND DRAPED ASEPTICALLY. THE PROCEDURE WAS DONE UNDER STERILE CONDITIONS. I CHECKED LATERALITY AND THE LEVEL WHERE THE PROCEDURE WAS GOING TO BE PERFORMED WITH THE PATIENT AND THE SUPPORTING STAFF AT THE MOMENT OF THE TIME OUT IN THE PROCEDURE ROOM. UNDER FLUOROSCOPIC GUIDANCE, TARGETS WERE SELECTED AT THE INTERSECTION OF THE RIGHT TRANSVERSE PROCESS OF L4, L5 AND ALA OF S1 WITH ITS RESPECTIVE SUPERIOR ARTICULAR PROCESS. LIDOCAINE WAS USED TO NUMB THE SKIN AND THE SUBCUTANEOUS TISSUE BELOW IT. SPINAL NEEDLE, 22-GAUGE WAS ADVANCED UNDER FLUOROSCOPIC GUIDANCE AND FOLLOWING PATIENT FEEDBACK UNTIL THE TARGETS WERE REACHED. POSITION OF THE NEEDLES WAS VERIFIED WITH AP AND LATERAL VIEWS. AFTER PROPER POSITION OF THE NEEDLES WAS ACHIEVED, ISOVUE-M DYE 30% 0.1 ML WAS INJECTED AT EACH SITE SHOWING ADEQUATE SPREAD OF THE DYE. THEN A SOLUTION OF 0.4 ML OF BUPIVACAINE 0.25% WAS INJECTED AT EACH SITE. THERE WAS NO EVIDENCE OF BLOOD, PARESTHESIA OR CEREBROSPINAL FLUID DURING THE PROCEDURE. THE PATIENT WAS SENT TO THE RECOVERY ROOM. THE PATIENT WAS MOVING THE EXTREMITIES AND DOING WELL. THERE WAS NO COMPLICATION DURING THE PROCEDURE. FLUOROSCOPY TIME WAS 19 SECONDS POST PROCEDURE NOTE THE PATIENT WILL DOCUMENT HIS PAIN LEVEL AND RESPONSE TO THIS PROCEDURE EVERY 30 MINUTES. THE PATIENT WILL BE SEEN IN A FOLLOW UP IN THE NEXT FEW WEEKS. FURTHER DETERMINATION FOR HIS CASE WILL BE DONE AT THE NEXT VISIT. INSTRUCTIONS WERE GIVEN, QUESTIONS WERE ANSWERED, AND THE PATIENT EXPRESSED UNDERSTANDING AND AGREED WITH THE PLAN. I, YAIR GILES, DOCUMENTED THE ABOVE INFORMATION ACTING A SCRIBE FOR DR. GIRON. I HAVE REVIEWED THE ABOVE DOCUMENT, WRITTEN BY YAIR VIGIL AND I VERIFY THAT IT IS ACCURATE. PROCEDURE CODES 25853 INJ PARAVERT F JNT L/S 1 LEV, MODIFIERS: RT 6045F RADXPS IN END [id number] PXD DISPOSITION & COMMUNICATION FOLLOW UP 3 WEEKS ELECTRONICALLY SIGNED BY WESLY GIRON MD, ON 07/13/2019 AT 09:23 AM EST DISCLAIMER : THIS IS A VISIT SUMMARY EXTRACTED FROM THE [employer] CHART. IT IS NOT A COPY OF THE [employer] PROGRESS NOTE. SARAHID
== END ==
LOC: M PAIN 13:00
PROVIDERS: ATTEND Anesthesiology
DX: M47.817 Spondylosis without myelopathy or radiculopathy, lumbosacral region (principal); Z86.59 Personal history of other mental and behavioral disorders; Z87.891 Personal history of nicotine dependence; Z79.899 Other long term (current) drug therapy
CPT/HCPCS: 64493; Q9967

== ENCOUNTER → 2019-07-19 | Outpatient (CLI) | payer OTHER, MEDICAID ==
[~2019-07-19] MED LIST changes: -BUPIVACAINE HCL 0.25% 30 ML VIAL As Ordered ONE; -ISOVUE-M 300 61% 15ML VIAL (Q9967) As Ordered ONE; -LIDOCAINE 1% SDV INJ 30 ML VIAL As Ordered ONE
--- NOTE | 2019-08-04 02:14 | ECWPNPC ---
PATIENT NAME: MATT MIRZA : 1975 GENDER: MALE VISIT DATE: 07/19/2019 DISCHARGE DATE: 07/19/19 1136 VISIT LOCKED DATE TIME: PHYSICIAN: SHARRON OREILLY RESOURCE: SHARRON OREILLY REASON FOR APPOINTMENT 1. POST DIAGNOSTIC #2 HISTORY OF PRESENT ILLNESS HISTORY OF PRESENT ILLNESS: HERE FOR POST PROCEDURE FOLLOW-UP. HAD RIGHT L5-S1 DIAGNOSTIC FACET #2 ON 07/05/2019. REPORTING 80% REDUCTION IN RIGHT LOW BACK PAIN FOR 6-10 HOURS POSTPROCEDURE. TODAY HE IS COMPLAINING OF SIGNIFICANT RIGHT LOW BACK PAIN. RATING PAIN INTENSITY 7/10 VAS. DESCRIBES PAIN CONTINUOUS, ACHING AND TENDER. REPORTING EPISODES OF NIGHTTIME AWAKENING DUE TO PAIN. PAIN THE PATIENT DESCRIBES THE PAIN... FALL RISK SCREENING: SCREENING :NO FALLS REPORTED IN THE LAST YEAR CURRENT MEDICATIONS TAKING GABAPENTIN 300 MG CAPSULE 1 CAPSULE ORALLY TID TAKING PROZAC 20 MG CAPSULE 1 CAPSULE ORALLY TID TAKING SEROQUEL 100 MG TABLET 1 TABLET ORALLY BID TAKING IBUPROFEN 600 MG TABLET 1 TABLET WITH FOOD OR MILK NEEDED ORALLY THREE TIMES A DAY TAKING TIZANIDINE HCL 4 MG TABLET 1 TABLET NEEDED ORALLY THREE TIMES A DAY MEDICATION LIST REVIEWED AND RECONCILED WITH THE PATIENT PAST MEDICAL HISTORY SCHIZOPHRENIA ANXIETY DEPRESSION DDD BIPOLAR/ STRESS PANCREATITIS CONCUSSION HX HX BROKEN RIBS AND CRUSHED VERTEBRA HIGH CHOLESTEROL HX FRACTURED RIGHT ARM X 3 FRACTURED RIGHT ANKLE X 2 , LEFT X1 SONG BITE LEFT FOOT FRACTURED MANDIBLE DIVERTICULITIS KIDNEY STONES WEST NILE VIRUS ALLERGIES N.K.D.A. SURGICAL HISTORY LEFT SHOULDER BROKEN JAW RIGHT WRIST GALLBLADDER REMOVAL 2014 RIGHT ANKLE LEFT ANKLE LEFT PECTORAL TISSUE REMOVAL FAMILY HISTORY FATHER: ALIVE 66 YRS, DIAGNOSED WITH UNSPECIFIED HEART DISEASE, OTHER SPECIFIED CONDITIONS INFLUENCING HEALTH STATUS MOTHER: 43 YRS, OTHER MALIGNANT NEOPLASM OF UNSPECIFIED SITE MATERNAL GRAND MOTHER: OTHER MALIGNANT NEOPLASM OF UNSPECIFIED SITE 1 SON(S) , 4 DAUGHTER(S) - HEALTHY. FATHER HAS PARKINSONS, ALZHEIMERS\\\\NMOM--LYMPHOMA. SOCIAL HISTORY GENERAL: TOBACCO USE ARE YOU A:FORMER SMOKER HOW LONG HAS IT BEEN SINCE YOU LAST SMOKED?6-12 MONTHS DIET: REGULAR. LANGUAGE LANGUAGES SPOKEN:[place]ELUGU DOMESTIC VIOLENCE DO YOU FEEL SAFE IN YOUR ENVIRONMENT?YES RECREATIONAL DRUG USE DRUG USE?NO EXERCISE: NO REGULAR EXERCISE, DOES CARE FOR WOOD STOVE AND HOUSEWORK. LEARNING BARRIERS / SPECIAL NEEDS BARRIERS TO LEARNING?NO HEARING IMPAIRED?YES CONSTANT RINGING IN RIGHT EAR VISION IMPAIRED?YES GLASSES FOR READING COGNITIVELY IMPAIRED?NO :CORRECTIVE LENSES READINESS TO LEARN?YES LEARNING PREFERENCES?NO LEARNING CAPABILITIES PRESENT?YES EMOTIONAL BARRIERS?NO SPECIAL DEVICES?NO FINANCIAL AGENT NEEDED?NO PAIN CLINIC PFS, CLERGY, PUBLIC HEALTH REFERRALS PFS REFERRAL NEEDED?NO CLERGY REFERRAL NEEDED?NO PUBLIC HEALTH REFERRAL NEEDED?NO WAS THE PROVIDER NOTIFIED OF ANY PERTINENT INFO? N/A HAS THE PATIENT BEEN EDUCATED REGARDING HIS/HER PLAN OF CARE?YES HAS THE PATIENT BEEN EDUCATED REGARDING PAIN, THE RISK FOR PAIN, THE IMPORTANCE OF EFFECTIVE PAIN MANAGEMENT, AND THE PAIN ASSESSMENT PROCESS?YES LATEX QUESTIONNAIRE LATEX ALLERGY : HAVE YOU EVER DEVELOPED ANY TYPE OF REACTION AFTER HANDLING LATEX PRODUCTS SUCH RUBBER GLOVES, CONDOMS, DIAPHRAGMS, BALLOONS, SOCKS, OR UNDERWEAR?NO LATEX ALLERGY : HAVE YOU EVER DEVELOPED ANY TYPE OF REACTION DURING OR AFTER DENTAL APPOINTMENT, VAGINAL/RECTAL EXAMINATION, SURGICAL PROCEDURE, OR ANY OTHER EXPOSURE?NO LATEX RISK : HAVE YOU EVER HAD ANY DIFFICULTY BREATHING OR HIVES AFTER EATING OR HANDLING ANY FRUITS, OR VEGETABLES; SUCH KIWI, BANANAS, STONE FRUITS, OR CHESTNUTSNO LATEX RISK : DO YOU HAVE A PREVIOUS PERSONAL HISTORY OF MORE THAN NINE SURGERIES, SPINA BIFIDA, OR REPEATED CATHERIZATIONS? NO LATEX RISK : ARE YOU FREQUENTLY EXPOSED TO LATEX PRODUCTS IN YOUR OCCUPATION?NO DATE ASKED : 05/03/2019 CAFFEINE CAFFEINE USE?YES SODA DAILY ADVANCE DIRECTIVE ADVANCE DIRECTIVE DISCUSSED WITH PATIENT:YES 07/19/2019 PT DOES NOT HAVE ANY ADVANCED DIRECTIVES AND HE DECLINES INFORMATION ON HCP OR ASSISTANCE AT THIS TIME. JS WORSHIP [id number] NONE MARITAL STATUS: . ALCOHOL SCREENING DID YOU HAVE A DRINK CONTAINING ALCOHOL IN THE PAST YEAR?YES HOW OFTEN DID YOU HAVE SIX OR MORE DRINKS ON ONE OCCASION IN THE PAST YEAR?NEVER (0 POINTS) HOW MANY DRINKS DID YOU HAVE ON A TYPICAL DAY WHEN YOU WERE DRINKING IN THE PAST YEAR?3 OR 4 (1 POINT) HOW OFTEN DID YOU HAVE A DRINK CONTAINING ALCOHOL IN THE PAST YEAR?TWO TO FOUR TIMES A MONTH (2 POINTS) POINTS3 INTERPRETATIONNEGATIVE OCCUPATION: [employer], [employer]. 03/31/18 1345 REVIEWED WITH PT. ADREVIEWED WITH PATIENT 07/17/18 1013 JSREVIEWED WITH PATIENT 08/06/18 1107 LASREVIEWED WITH PATIENT 05/03/19 1327 JSREVIEWED WITH PATIENT 07/05/19 1422 BVREVIEWED WITH PATIENT 07/19/2019 1034 JS. HOSPITALIZATION/MAJOR DIAGNOSTIC PROCEDURE HOSPITALIZED FOR KIDNEY STONES 4 TIMES LEFT PECTORAL TISSUE REMOVAL DIVERTICULITIS 2010, 2011 REVIEW OF SYSTEMS REVIEWED BY: PROVIDER: SHARRON RUDD . CONSTITUTIONAL: ANY CHANGE IN YOUR MEDICAL CONDITION? NO . CHILLS NO . FEVER NO . INFECTION: DO YOU HAVE NEW INFECTIONS? NO . DO YOU HAVE HISTORY OF MRSA? NO . MUSCULOSKELETAL: ANY NEW PATTERNS OF PAIN OR NUMBNESS? NO . GASTROENTEROLOGY: ANY NEW CHANGE IN BOWEL CONTROL? NO . GENITOURINARY: ANY NEW CHANGE IN BLADDER CONTROL? NO . IS THERE A CHANCE YOU COULD BE ? NO . HEMATOLOGY/LYMPH: DO YOU TAKE ANY BLOOD THINNERS? (FOR EXAMPLE- COUMADIN, PLAVIX, AGGRENOX, PLATEL, PRADAXA, OR XARELTO) NO . WHEN WAS YOUR LAST DOSE? DATE: TIME: . NEUROLOGY: HAVE YOU FALLEN IN THE PAST 12 MONTHS? YES, STATES FALL DUE TO SLIPPING ON THE ICE, PATIENT SORE AFTER. STATES NO MAJOR INJURIES, NO ED VISIT . ANY NEW EXTREMITY NUMBNESS OR WEAKNESS? NO . CARDIOLOGY: DO YOU HAVE A PACEMAKER OR DEFIBRILLATOR? NO . RESPIRATORY: HAVE YOU BEEN SICK IN THE PAST WEEK? NO . FEVER NO . FLU LIKE SYMPTOMS? NO . COUGH NO . INTEGUMENTARY: DO YOU HAVE ANY RASHES OR OPEN SORES? NO . ALLERGIC/IMMUNO: ARE YOU ALLERGIC TO IV DYE? NO . ANY NEW ALLERGIES? NO . PSYCHIATRIC: DO YOU HAVE THOUGHTS OF HURTING YOURSELF OR SOMEONE ELSE? NO . ARE YOU ABUSED, NEGLECTED, OR IN AN UNSAFE ENVIRONMENT? NO . ENDOCRINOLOGY: ARE YOU DIABETIC? NO . OTHER: DO YOU NEED ANY PRESCRIPTIONS? NO . IF YES, PLEASE LIST: ____ . ANY NEW PROBLEMS WITH YOUR MEDICATIONS? NO . WHEN DID YOU LAST EAT? ____ . WHEN DID YOU LAST DRINK? ____ . WHAT DID YOU LAST DRINK? ____ . NAME OF PERSON DRIVING YOU HOME? ____ . DO YOU HAVE ANY OTHER QUESTIONS OR CONCERNS NO . VITAL SIGNS WT 248.8 LBS, HT 69", BMI 36.74 INDEX, BP 112/74 MM HG, HR 78 /MIN, RR 18 /MIN, TEMP 97.1 F, OXYGEN SAT % 98%, SAFE IN ENV? (Y/N) YES, REVIEWED BY: DEVYN. EXAMINATION GENERAL EXAMINATION: GENERALAWAKE,ALERT ,PLEAASANT . PSYCHAFFECT NORMAL . LUNGS:LUNG FRANKLIN ARE CLEAR TO AUSCULTATION BILATERALLY. GOOD MOVEMENT OF AIR . HEART:S1, S2 IN A REGULAR RATE AND RHYTHM. NO SIGNIFICANT MURMURS, RUBS OR GALLOPS NOTED . LUMBAR:PALPATION:TENDER OVER RIGHT L3/4-L4/5 LUMBAR FACETS WITH FACET LOADING. . ASSESSMENTS SPONDYLOSIS OF LUMBOSACRAL REGION WITHOUT MYELOPATHY OR RADICULOPATHY - M47.817 (PRIMARY) TREATMENT SPONDYLOSIS OF LUMBOSACRAL REGION WITHOUT MYELOPATHY OR RADICULOPATHY NOTES: RIGHT L5-S1 RADIOFREQUENCY. PREVENTIVE MEDICINE PAIN CLINIC TEACHING: PROCEDURE TEACHING REVIEWED INFORMATION ON RADIOFREQUENCY PROCEDURE WITH PATIENT. ALSO REVIEWED PRE-PROCEDURE INSTRUCTIONS. PATIENT VERBALIZED AN UNDERSTANDING. HERIBERTO SOLARES 07/19/2019 3:15:34 PM > . PROCEDURE CODES FA211 ESTABILISHED PATIENT [facility] FAC[facility] CHARGE DISPOSITION & COMMUNICATION FOLLOW UP POSTPROCEDURE (REASON: RIGHT L5-S1 RADIOFREQUENCY) ELECTRONICALLY SIGNED BY BLAIRE SMITH ON 08/03/2019 AT 08:52 AM EST DISCLAIMER : THIS IS A VISIT SUMMARY EXTRACTED FROM THE [employer] CHART. IT IS NOT A COPY OF THE [employer] PROGRESS NOTE. EMILIO
== END ==
LOC: M PAIN 10:15
PROVIDERS: ATTEND Nurse Practitioner Family
DX: M47.817 Spondylosis without myelopathy or radiculopathy, lumbosacral region (principal); Z86.59 Personal history of other mental and behavioral disorders; Z87.891 Personal history of nicotine dependence; Z79.899 Other long term (current) drug therapy

== ENCOUNTER → 2019-07-23 | Outpatient (REF) | payer OTHER, MEDICAID ==
[2019-07-23 13:47] LABS: HEMOGLOBIN A1c 6.7 %
[2019-07-23 13:57] LABS: ALBUMIN 3.8 GM/DL (3.2-5.2); ALT/SGPT 112 U/L (12-78); BILIRUBIN,TOTAL 0.3 MG/DL (0.2-1.0); BLOOD UREA NITROGEN 8 MG/DL (7-18); CALCIUM LEVEL 8.6 MG/DL (8.5-10.1); CARBON DIOXIDE LEVEL 29 MEQ/L (21-32); CHLORIDE LEVEL 103 MEQ/L (98-107); CHOLESTEROL LEVEL 366 MG/DL (<200); CHOLESTEROL RISK RATIO 11.806 (<5); CREATININE FOR GFR 0.95 MG/DL (0.70-1.30); GLOMERULAR FILTRATION RATE > 60.0 (>60); GLUCOSE, FASTING 146 MG/DL (70-100); HDL CHOLESTEROL 31 MG/DL (>40); NON-HDL-C 335 MG/DL; POTASSIUM SERUM 4.3 MEQ/L (3.5-5.1); SODIUM LEVEL 138 MEQ/L (136-145); TOTAL PROTEIN 7.3 GM/DL (6.4-8.2); TRIGLYCERIDES LEVEL 888 MG/DL (<150)
== END ==
LOC: M LAB REF 12:17
PROVIDERS: ATTEND Family Medicine
DX: R73.03 Prediabetes (principal)

== ENCOUNTER → 2019-08-04 | Outpatient (REF) | payer OTHER, MEDICAID ==
[2019-08-04 14:13] LABS: RHEUMATOID FACTOR QUANT < 10.0 IU/ML (<15.0)
[2019-08-04 14:25] LABS: TOTAL 25(OH) VITAMIN D 18.4 NG/ML (30.0-100.0)
[2019-08-05 14:07] LABS: ANTINUCLEAR ANTIBODIES DIRECT Negative (Negative)
== END ==
LOC: M LABDRAW1 11:10
PROVIDERS: ATTEND Physician Assistant Medical
DX: E55.9 Vitamin D deficiency, unspecified (principal); M25.539 Pain in unspecified wrist

== ENCOUNTER → 2019-09-15 | Outpatient (CLI) | payer OTHER, MEDICAID ==
[~2019-09-15] MED LIST changes: +BUPIVACAINE HCL 0.25% 30 ML VIAL As Ordered ONE; +ISOVUE-M 300 61% 15ML VIAL (Q9967) As Ordered ONE; +LIDOCAINE 1% SDV INJ 30 ML VIAL As Ordered ONE; +TRIAMCINOLONE ACETONIDE SUSP 40 MG/ML VIAL (J3301) As Ordered ONE
--- NOTE | 2019-09-15 12:14 | REP ---
C-ARM VIEWS LUMBOSACRAL JUNCTION: Three C-arm views of the lumbosacral junction performed during injection performed by Dr. Balderrama. [place] are seen along the lumbosacral junction region. 50 seconds of fluoroscopy time utilized. Electronically Signed by Robbie Aguilar MD 09/15/2019 03:19 P
--- NOTE | 2019-09-24 04:13 | ECWPNPC ---
PATIENT NAME: MATT MIRZA : 1975 GENDER: MALE VISIT DATE: 09/15/2019 DISCHARGE DATE: 09/15/19 1204 VISIT LOCKED DATE TIME: PHYSICIAN: WESLY GIRON MD RESOURCE: WESLY GIRON MD REASON FOR APPOINTMENT 1. RIGHT L5-S1 RADIOFREQUENCY HISTORY OF PRESENT ILLNESS HISTORY OF PRESENT ILLNESS: PAIN THE PATIENT DESCRIBES THE PAIN... FALL RISK SCREENING: SCREENING :NO FALLS REPORTED IN THE LAST YEAR CURRENT MEDICATIONS TAKING GABAPENTIN 300 MG CAPSULE 1 CAPSULE ORALLY TID, NOTES: 09-15-19699 TAKING PROZAC 20 MG CAPSULE 1 CAPSULE ORALLY TID, NOTES: 09-15-19699 TAKING SEROQUEL 100 MG TABLET 1 TABLET ORALLY BID, NOTES: 09-14-192099 TAKING IBUPROFEN 600 MG TABLET 1 TABLET WITH FOOD OR MILK NEEDED ORALLY THREE TIMES A DAY, NOTES: NOT LATELY TAKING TIZANIDINE HCL 4 MG TABLET 1 TABLET NEEDED ORALLY THREE TIMES A DAY, NOTES: NEEDED 09-15-19699 MEDICATION LIST REVIEWED AND RECONCILED WITH THE PATIENT PAST MEDICAL HISTORY SCHIZOPHRENIA ANXIETY DEPRESSION DDD BIPOLAR/ STRESS PANCREATITIS CONCUSSION HX HX BROKEN RIBS AND CRUSHED VERTEBRA HIGH CHOLESTEROL HX FRACTURED RIGHT ARM X 3 FRACTURED RIGHT ANKLE X 2 , LEFT X1 SONG BITE LEFT FOOT FRACTURED MANDIBLE DIVERTICULITIS KIDNEY STONES WEST NILE VIRUS ALLERGIES N.K.D.A. SURGICAL HISTORY LEFT SHOULDER BROKEN JAW RIGHT WRIST GALLBLADDER REMOVAL 2015 RIGHT ANKLE LEFT ANKLE LEFT PECTORAL TISSUE REMOVAL FAMILY HISTORY FATHER: ALIVE 66 YRS, DIAGNOSED WITH UNSPECIFIED HEART DISEASE, OTHER SPECIFIED CONDITIONS INFLUENCING HEALTH STATUS MOTHER: 43 YRS, OTHER MALIGNANT NEOPLASM OF UNSPECIFIED SITE MATERNAL GRAND MOTHER: OTHER MALIGNANT NEOPLASM OF UNSPECIFIED SITE 1 SON(S) , 4 DAUGHTER(S) - HEALTHY. FATHER HAS PARKINSONS, ALZHEIMERS\\\\NMOM--LYMPHOMA. SOCIAL HISTORY GENERAL: TOBACCO USE ARE YOU A:FORMER SMOKER HOW LONG HAS IT BEEN SINCE YOU LAST SMOKED?6-12 MONTHS DIET: REGULAR. 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 LEARNING BARRIERS / SPECIAL NEEDS BARRIERS TO LEARNING?NO HEARING IMPAIRED?YES CONSTANT RINGING IN RIGHT EAR VISION IMPAIRED?YES GLASSES FOR READING COGNITIVELY IMPAIRED?NO :CORRECTIVE LENSES READINESS TO LEARN?YES LEARNING PREFERENCES?NO LEARNING CAPABILITIES PRESENT?YES EMOTIONAL BARRIERS?NO SPECIAL DEVICES?NO HEAD OF QUALITY NEEDED?NO PAIN CLINIC PFS, CLERGY, PUBLIC HEALTH REFERRALS PFS REFERRAL NEEDED?NO CLERGY REFERRAL NEEDED?NO PUBLIC HEALTH REFERRAL NEEDED?NO WAS THE PROVIDER NOTIFIED OF ANY PERTINENT INFO? N/A HAS THE PATIENT BEEN EDUCATED REGARDING HIS/HER PLAN OF CARE?YES HAS THE PATIENT BEEN EDUCATED REGARDING PAIN, THE RISK FOR PAIN, THE IMPORTANCE OF EFFECTIVE PAIN MANAGEMENT, AND THE PAIN ASSESSMENT PROCESS?YES LATEX QUESTIONNAIRE LATEX ALLERGY : HAVE YOU EVER DEVELOPED ANY TYPE OF REACTION AFTER HANDLING LATEX PRODUCTS SUCH RUBBER GLOVES, CONDOMS, DIAPHRAGMS, BALLOONS, SOCKS, OR UNDERWEAR?NO LATEX ALLERGY : HAVE YOU EVER DEVELOPED ANY TYPE OF REACTION DURING OR AFTER DENTAL APPOINTMENT, VAGINAL/RECTAL EXAMINATION, SURGICAL PROCEDURE, OR ANY OTHER EXPOSURE?NO DATE ASKED : 05/03/2019 LATEX RISK : HAVE YOU EVER HAD ANY DIFFICULTY BREATHING OR HIVES AFTER EATING OR HANDLING ANY FRUITS, OR VEGETABLES; SUCH KIWI, BANANAS, STONE FRUITS, OR CHESTNUTSNO LATEX RISK : DO YOU HAVE A PREVIOUS PERSONAL HISTORY OF MORE THAN NINE SURGERIES, SPINA BIFIDA, OR REPEATED CATHERIZATIONS? NO LATEX RISK : ARE YOU FREQUENTLY EXPOSED TO LATEX PRODUCTS IN YOUR OCCUPATION?NO CAFFEINE CAFFEINE USE?YES SODA DAILY ADVANCE DIRECTIVE ADVANCE DIRECTIVE DISCUSSED WITH PATIENT:YES 07/19/2019 PT DOES NOT HAVE ANY ADVANCED DIRECTIVES AND HE DECLINES INFORMATION ON HCP OR ASSISTANCE AT THIS TIME. JS BUDDHISM [id number] NONE MARITAL STATUS: . 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 03/31/18 1345 REVIEWED WITH PT. ADREVIEWED WITH PATIENT 07/17/18 1013 JSREVIEWED WITH PATIENT 08/06/18 1107 LASREVIEWED WITH PATIENT 05/03/19 1327 JSREVIEWED WITH PATIENT 07/05/19 1422 BVREVIEWED WITH PATIENT 07/19/2019 1034 JS. HOSPITALIZATION/MAJOR DIAGNOSTIC PROCEDURE HOSPITALIZED FOR KIDNEY STONES 4 TIMES LEFT PECTORAL TISSUE REMOVAL DIVERTICULITIS 2010, 2011 REVIEW OF SYSTEMS REVIEWED BY: PROVIDER: . CONSTITUTIONAL: ANY CHANGE IN YOUR MEDICAL CONDITION? NO . CHILLS NO . FEVER NO . INFECTION: DO YOU HAVE NEW INFECTIONS? NO . DO YOU HAVE HISTORY OF MRSA? NO . MUSCULOSKELETAL: ANY NEW PATTERNS OF PAIN OR NUMBNESS? NO . GASTROENTEROLOGY: ANY NEW CHANGE IN BOWEL CONTROL? NO . GENITOURINARY: ANY NEW CHANGE IN BLADDER CONTROL? NO . IS THERE A CHANCE YOU COULD BE ? NO . HEMATOLOGY/LYMPH: DO YOU TAKE ANY BLOOD THINNERS? (FOR EXAMPLE- COUMADIN, PLAVIX, AGGRENOX, PLATEL, PRADAXA, OR XARELTO) NO . WHEN WAS YOUR LAST DOSE? DATE: TIME: . NEUROLOGY: HAVE YOU FALLEN IN THE PAST 12 MONTHS? NO . ANY NEW EXTREMITY NUMBNESS OR WEAKNESS? NO . CARDIOLOGY: DO YOU HAVE A PACEMAKER OR DEFIBRILLATOR? NO . RESPIRATORY: HAVE YOU BEEN SICK IN THE PAST WEEK? NO . FEVER NO . FLU LIKE SYMPTOMS? NO . COUGH NO . INTEGUMENTARY: DO YOU HAVE ANY RASHES OR OPEN SORES? NO . ALLERGIC/IMMUNO: ARE YOU ALLERGIC TO IV DYE? NO . ANY NEW ALLERGIES? NO . PSYCHIATRIC: DO YOU HAVE THOUGHTS OF HURTING YOURSELF OR SOMEONE ELSE? NO . ARE YOU ABUSED, NEGLECTED, OR IN AN UNSAFE ENVIRONMENT? NO . ENDOCRINOLOGY: ARE YOU DIABETIC? NO . OTHER: DO YOU NEED ANY PRESCRIPTIONS? NO . IF YES, PLEASE LIST: ____ . ANY NEW PROBLEMS WITH YOUR MEDICATIONS? NO . WHEN DID YOU LAST EAT? 09/14/19 . WHEN DID YOU LAST DRINK? 09/14/19 . WHAT DID YOU LAST DRINK? [place] . NAME OF PERSON DRIVING YOU HOME? JANINA YUKI . DO YOU HAVE ANY OTHER QUESTIONS OR CONCERNS NO . VITAL SIGNS WT 238 LBS, HT 69", BMI 35.14 INDEX, BP 118/81 MM HG, HR 88 /MIN, RR 16 /MIN, TEMP 97.5 F, OXYGEN SAT % 95, SAFE IN ENV? (Y/N) Y, REVIEWED BY: EM. ASSESSMENTS SPONDYLOSIS OF LUMBOSACRAL REGION WITHOUT MYELOPATHY OR RADICULOPATHY - M47.817 (PRIMARY) TREATMENT SPONDYLOSIS OF LUMBOSACRAL REGION WITHOUT MYELOPATHY OR RADICULOPATHY SMC FACET BLOCK (PAIN)[id number] PROCEDURES PN RADIOFREQUENCY PRE PROCEDURE DIAGNOSES 1. LUMBAR SPONDYLOSIS. 2. LUMBOSACRAL SPONDYLOSIS POST PROCEDURE DIAGNOSES 1. LUMBAR SPONDYLOSIS. 2. LUMBOSACRAL SPONDYLOSIS PROCEDURE RIGHT L5-S1 LUMBAR FACET RADIOFREQUENCY SURGEON DR. WESLY GIRON CANDY MAKER NONE ANESTHESIA LOCAL PRE PROCEDURE REPORT THE PATIENT HAS HISTORY OF CHRONIC LOW BACK PAIN. I EVALUATED THE PATIENT AND REVIEWED THE CHART. I WENT OVER THE RISKS, ALTERNATIVES, AND BENEFITS ASSOCIATED WITH THIS PROCEDURE. THE PATIENT WOULD LIKE TO PROCEED AND GIVE CONSENT TO PERFORMED THE PROCEDURE. THE PATIENT DENIES UNEXPLAINABLE WEIGHT LOSS, FEVER, CHILLS, OR NEW CHANGES IN URINARY OR BOWEL CONTROL DESCRIPTION OF PROCEDURE THE PATIENT WAS BROUGHT TO THE PROCEDURE ROOM AND PLACED IN THE PRONE POSITION. THE LUMBOSACRAL AREA WAS CLEANED WITH CHLORAPREP SOLUTION AND DRAPED ASEPTICALLY. THE PROCEDURE WAS DONE UNDER STERILE CONDITIONS. I CHECKED LATERALITY AND THE LEVEL WHERE THE PROCEDURE WAS GOING TO BE PERFORMED WITH THE PATIENT AND THE SUPPORTING STAFF AT THE MOMENT OF THE TIME OUT IN THE PROCEDURE ROOM. UNDER FLUOROSCOPIC GUIDANCE, TARGETS WERE SELECTED AT THE INTERSECTION OF THE RIGHT TRANSVERSE PROCESS OF L4, L5 AND ALA OF S1 WITH ITS RESPECTIVE SUPERIOR ARTICULAR PROCESS. LIDOCAINE WAS USED TO NUMB THE SKIN AND THE SUBCUTANEOUS TISSUE BELOW IT. RADIOFREQUENCY NEEDLES 22-GAUGE 15 CM LONG WITH 10 MM ACTIVE CURVE TIP WERE ADVANCED UNDER FLUOROSCOPIC GUIDANCE AND FOLLOWING PATIENT FEEDBACK UNTIL THE TARGET AREA WAS REACHED. POSITION OF THE NEEDLES WAS VERIFIED WITH AP AND LATERAL VIEWS. AFTER PROPER POSITION OF THE NEEDLE WAS ACHIEVED, WE WORKED WITH THE RIGHT SELECTED MEDIAN BRANCHES OF L3, L4 AND THE DORSAL RAMI OF L5. WE MEASURED THE CORRESPONDING IMPEDANCES, SENSORY STIMULATION AND MOTOR RESPONSES INDICATED IN THE RADIOFREQUENCY WORKSHEET. POSITION OF THE NEEDLES WAS VERIFIED AGAIN WITH AP AND LATERAL VIEWS. LIDOCAINE 1%, 2 ML, WAS INJECTED AT EACH LEVEL. RADIOFREQUENCY WAS DONE AT EACH LEVEL AT 80 DEGREES FOR 90 SECONDS. AFTER RADIOFREQUENCY WAS DONE, THE PATIENT RECEIVED BUPIVACAINE 0.125% 1 CC WITH KENALOG 5 MG AT EACH SITE. THERE WAS NO EVIDENCE OF BLOOD, PARESTHESIA OR CEREBROSPINAL FLUID DURING THE PROCEDURE. THE PATIENT WAS SENT TO THE RECOVERY ROOM. THE PATIENT WAS MOVING THE EXTREMITIES AND DOING WELL. THERE WAS NO COMPLICATION DURING THE PROCEDURE. FLUOROSCOPY TIME WAS 52 SECONDS POST PROCEDURE NOTE THE PATIENT WILL BE SEEN IN A FOLLOW UP IN THE NEXT FEW WEEKS. I AM LOOKING FOR LONG LASTING PAIN RELIEF FOR THE PATIENT WITH THIS PROCEDURE. INSTRUCTIONS WERE GIVEN, QUESTIONS WERE ANSWERED, AND THE PATIENT EXPRESSED UNDERSTANDING AND AGREES WITH THE PLAN. I, YAIR GILES, DOCUMENTED THE ABOVE INFORMATION ACTING A SCRIBE FOR DR. GIRON. I HAVE REVIEWED THE ABOVE DOCUMENT, WRITTEN BY YAIR GILES SCRIBE AND I VERIFY THAT IT IS ACCURATE. PROCEDURE CODES 34845 DESTROY LUMB/SAC FACET JNT, MODIFIERS: RT 6045F RADXPS IN END [id number] PXD DISPOSITION & COMMUNICATION FOLLOW UP 3 WEEKS ELECTRONICALLY SIGNED BY WESLY GIRON MD, MD ON 09/23/2019 AT 12:38 PM EDT DISCLAIMER : THIS IS A VISIT SUMMARY EXTRACTED FROM THE [employer] CHART. IT IS NOT A COPY OF THE [employer] PROGRESS NOTE. EMILIO
== END ==
LOC: M PAIN 10:00
PROVIDERS: ATTEND Anesthesiology
DX: M47.817 Spondylosis without myelopathy or radiculopathy, lumbosacral region (principal)
CPT/HCPCS: 64635; J3301; Q9967

== ENCOUNTER → 2019-09-30 | Outpatient (CLI) | payer OTHER ==
[~2019-09-30] MED LIST changes: -BUPIVACAINE HCL 0.25% 30 ML VIAL As Ordered ONE; -ISOVUE-M 300 61% 15ML VIAL (Q9967) As Ordered ONE; -LIDOCAINE 1% SDV INJ 30 ML VIAL As Ordered ONE; -TRIAMCINOLONE ACETONIDE SUSP 40 MG/ML VIAL (J3301) As Ordered ONE
--- NOTE | 2019-09-30 16:55 | REP ---
RIGHT WRIST, FOUR VIEWS: There is no evidence of an acute fracture, dislocation or intrinsic bone disease. The joint spaces are unremarkable. IMPRESSION: No fracture or dislocation. Electronically Signed by Robbie Aguilar MD 10/01/2019 09:35 A
== END ==
LOC: M RAD 14:53
PROVIDERS: ATTEND Physician Assistant
DX: M25.531 Pain in right wrist (principal)

== ENCOUNTER → 2019-10-01 | Outpatient (CLI) | payer OTHER, MEDICAID ==
[~2019-10-01] MED LIST changes: +ESCI10TA2; +METF-791 PO; +NORT10CA2; +ROPI0.5T3; +TIZA2TA
== END ==
LOC: M PAIN 11:00
PROVIDERS: ATTEND Nurse Practitioner Family
DX: M47.817 Spondylosis without myelopathy or radiculopathy, lumbosacral region (principal); Z79.899 Other long term (current) drug therapy; Z87.891 Personal history of nicotine dependence

== ENCOUNTER 2019-10-05 18:18 | Emergency (ER) | payer MEDICAID, OTHER ==
[~2019-10-05] VITALS: Ht 175.3 cm; Wt 102.3 kg
[~2019-10-05 18:18] MED LIST changes: -ESCI10TA2; -METF-791 PO; -NORT10CA2; -ROPI0.5T3; -TIZA2TA
[2019-10-05 19:24] LABS: BASO # 0.1 10^3/uL (0.0-0.2); BASO % 0.9 % (0.0-1.0); EOS # 0.2 10^3/uL (0.0-0.5); EOS % 2.3 % (0.0-3.0); HEMATOCRIT 46.5 % (42.0-52.0); HEMOGLOBIN 16.5 g/dl (13.5-17.5); LYMPH # 2.2 10^3/uL (1.5-5.0); LYMPH % 24.7 % (24.0-44.0); MEAN CORPUSCULAR HEMOGLOBIN 30.7 pg (27.0-33.0); MEAN CORPUSCULAR HGB CONC 35.5 g/dl (32.0-36.5); MEAN CORPUSCULAR VOLUME 86.6 fl (80.0-96.0); MONO # 0.5 10^3/uL (0.0-0.8); MONO % 5.9 % (0.0-5.0); NEUTROPHILS # 5.8 10^3/uL (1.5-8.5); PLATELET COUNT, AUTOMATED 289 10^3/uL (150-450); RED BLOOD COUNT 5.37 10^6/uL (4.30-6.10); WHITE BLOOD COUNT 8.8 10^3/uL (4.0-10.0)
[2019-10-05 19:43] LABS: HEMOGLOBIN A1c 11.9 %
[2019-10-05 19:45] LABS: OSMOLALITY SERUM 297 MOSM/KG (275-295)
[2019-10-05 19:51] LABS: ACETONE/KETONE 13.72 MG/DL (<2.81); ALT/SGPT 107 U/L (12-78); BILIRUBIN,DIRECT < 0.1 MG/DL (0.0-0.2); BILIRUBIN,TOTAL 0.5 MG/DL (0.2-1.0); BLOOD UREA NITROGEN 18 MG/DL (7-18); CALCIUM LEVEL 9.1 MG/DL (8.5-10.1); CARBON DIOXIDE LEVEL 26 MEQ/L (21-32); CHLORIDE LEVEL 97 MEQ/L (98-107); CREATININE FOR GFR 0.91 MG/DL (0.70-1.30); GLOMERULAR FILTRATION RATE > 60.0 (>60); GLUCOSE, FASTING 343 MG/DL (70-100); LIPASE 145 U/L (73-393); MAGNESIUM LEVEL 2.5 MG/DL (1.8-2.4); POTASSIUM SERUM 4.3 MEQ/L (3.5-5.1); SODIUM LEVEL 130 MEQ/L (136-145); TOTAL PROTEIN 7.9 GM/DL (6.4-8.2)
[2019-10-05] MEDS ORDERED: NORT10CA2 (19:51)
[2019-10-05] MEDS ORDERED: ESCI10TA2 (19:51)
[2019-10-05] MEDS ORDERED: ROPI0.5T3 (19:51)
[2019-10-05] MEDS ORDERED: TIZA2TA (19:51)
[2019-10-05] MEDS ORDERED: METF-791 PO (20:15)
[2019-10-05 20:24] VITALS: BP 132/92
--- NOTE | 2019-10-06 10:37 | ECGEPIP ---
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
== END 2019-10-05 20:31 | disposition home or self-care (01) ==
LOC: M ED 18:18
DX: E11.65 Type 2 diabetes mellitus with hyperglycemia (principal); M45.9 Ankylosing spondylitis of unspecified sites in spine; M10.9 Gout, unspecified; F32.9 Major depressive disorder, single episode, unspecified; Z83.3 Family history of diabetes mellitus; Z79.899 Other long term (current) drug therapy

== ENCOUNTER → 2019-11-11 | Outpatient (REF) | payer OTHER ==
[~2019-11-11] MED LIST changes: +COLC0.6T47 PO; -COLC1TAB13 PO; +EPIP0.3I2 IM; +ESCI10TA16; +ESCI20TA16; +FLOM0.4C39 PO; +GABA-282 PO; -GABA-843 PO; +GABA800T4; +KETO10TAB PO; +KLON0.5T PO; +METF-838 PO; +NORT10CA2; +PRED20TA PO; +ROPI0.5T3; +TIZA2TA; +VITA50005
[2019-11-11 14:40] LABS: HEMOGLOBIN A1c 10.2 %
== END ==
LOC: M LAB REF 12:05
PROVIDERS: ATTEND Physician Assistant
DX: E11.9 Type 2 diabetes mellitus without complications (principal)

== ENCOUNTER 2020-01-12 23:11 | Emergency (ER) | payer MEDICAID, OTHER ==
[~2020-01-12] VITALS: Ht 175.3 cm; Wt 104.5 kg
[~2020-01-12 23:11] MED LIST changes: -COLC0.6T47 PO; +COLC1TAB13 PO; -EPIP0.3I2 IM; -ESCI10TA16; +ESCI10TA2; -ESCI20TA16; -FLOM0.4C39 PO; -GABA-282 PO; +GABA-843 PO; -GABA800T4; -KETO10TAB PO; -KLON0.5T PO; -PRED20TA PO; -VITA50005
[2020-01-12] MEDS ORDERED: NS 1,000 ML IV ONE (23:30)
[2020-01-12] MEDS ORDERED: KETOROLAC 30 MG/ML 1ML VIAL IV ONE (23:30)
[2020-01-13 00:08] LABS: BASO # 0.1 10^3/uL (0.0-0.2); BASO % 0.9 % (0.0-1.0); EOS # 0.2 10^3/uL (0.0-0.5); EOS % 1.9 % (0.0-3.0); HEMATOCRIT 44.5 % (42.0-52.0); HEMOGLOBIN 14.8 g/dl (13.5-17.5); LYMPH # 2.3 10^3/uL (1.5-5.0); LYMPH % 23.5 % (24.0-44.0); MEAN CORPUSCULAR HEMOGLOBIN 30.3 pg (27.0-33.0); MEAN CORPUSCULAR HGB CONC 33.3 g/dl (32.0-36.5); MONO # 0.8 10^3/uL (0.0-0.8); MONO % 7.8 % (0.0-5.0); NEUTROPHILS # 6.3 10^3/uL (1.5-8.5); NEUTROPHILS % 64.8 % (36.0-66.0); PLATELET COUNT, AUTOMATED 316 10^3/uL (150-450); RED BLOOD COUNT 4.89 10^6/uL (4.30-6.10); WHITE BLOOD COUNT 9.7 10^3/uL (4.0-10.0)
[2020-01-13 00:45] LABS: ALBUMIN 4.1 GM/DL (3.2-5.2); ALT/SGPT 101 U/L (12-78); BILIRUBIN,DIRECT < 0.1 MG/DL (0.0-0.2); BILIRUBIN,TOTAL 0.4 MG/DL (0.2-1.0); LIPASE 108 U/L (73-393); TOTAL PROTEIN 8.1 GM/DL (6.4-8.2)
[2020-01-13 01:28] LABS: BLOOD UREA NITROGEN 17 MG/DL (7-18); CALCIUM LEVEL 9.6 MG/DL (8.5-10.1); CARBON DIOXIDE LEVEL 25 MEQ/L (21-32); CHLORIDE LEVEL 106 MEQ/L (98-107); CREATININE FOR GFR 1.22 MG/DL (0.70-1.30); GLOMERULAR FILTRATION RATE > 60.0 (>60); GLUCOSE, FASTING 120 MG/DL (70-100); POTASSIUM SERUM 3.7 MEQ/L (3.5-5.1); SODIUM LEVEL 141 MEQ/L (136-145)
--- NOTE | 2020-01-13 01:57 | REPVR ---
PROCEDURE INFORMATION: Exam: CT Abdomen And Pelvis Without Contrast Exam date and time: 01/13/2020 1:09 AM Age: 44 years old Clinical indication: Abdominal pain; Flank; Right; Additional info: R flank pain HX of kidney stone TECHNIQUE: Imaging protocol: Computed tomography of the abdomen and pelvis without contrast. Radiation optimization: All CT scans at this facility use at least one of these dose optimization techniques: automated exposure control; mA and/or kV adjustment per patient size (includes targeted exams where dose is matched to clinical indication); or iterative reconstruction. COMPARISON: CT ABD/PEL W/IV ORAL CONTRAS 10/13/2017 9:03 PM FINDINGS: Liver: Normal. No mass. Gallbladder and bile ducts: There has been prior cholecystectomy. No biliary duct dilation. Pancreas: Normal. No ductal dilation. Spleen: Normal. No splenomegaly. Adrenals: Normal. No mass. Kidneys and ureters: Mild right hydronephrosis with obstructing 2 mm distal right ureteral stone approximately 1 cm above the ureterovesical junction. No hydronephrosis on the left. Nonobstructing calyceal stone in the right kidney. No renal masses. Stomach and bowel: There is colonic diverticulosis without evidence of diverticulitis. The small bowel is unremarkable. Appendix: No evidence of appendicitis. Intraperitoneal space: Unremarkable. No free air. No significant fluid collection. Vasculature: Unremarkable. No abdominal aortic aneurysm. Lymph nodes: Unremarkable. No enlarged lymph nodes. Bladder: Unremarkable as visualized. Reproductive: Unremarkable as visualized. Bones/joints: There are degenerative changes in the spine and pelvis. Soft tissues: Unremarkable. IMPRESSION: 1. Mild right hydronephrosis with obstructing 2 mm distal right ureteral calculus. 2. Nonobstructing calyceal stone in the right kidney. 3. Colonic diverticulosis without evidence of diverticulitis. Electronically signed by: Armin Villarreal On 01/13/2020 01:57:38 AM
[2020-01-13] MEDS ORDERED: KETO10TAB PO (02:00)
[2020-01-13] MEDS ORDERED: FLOM0.4C39 PO (02:00)
[2020-01-13 02:17] VITALS: BP 128/78
== END 2020-01-13 02:50 | disposition home or self-care (01) ==
LOC: M ED 23:11
DX: N20.1 Calculus of ureter (principal); N20.0 Calculus of kidney; N13.39 Other hydronephrosis; E11.9 Type 2 diabetes mellitus without complications; Z79.84 Long term (current) use of oral hypoglycemic drugs; Z79.899 Other long term (current) drug therapy
CPT/HCPCS: 74176; 80048; 80076; 81001; 83690; 85025; 96361; 96374; 99284; J1885

== ENCOUNTER 2020-04-12 20:26 | Emergency (ER) | payer OTHER ==
[~2020-04-12] VITALS: Ht 175.3 cm; Wt 100.2 kg
[~2020-04-12 20:26] MED LIST changes: +FLOM0.4C39 PO; +KETO10TAB PO
[2020-04-12] MEDS ORDERED: NORT10CA2 (20:36)
[2020-04-12] MEDS ORDERED: GABA800T4 (20:36)
[2020-04-12] MEDS ORDERED: ACETAMINOPHEN 500 MG TAB PO ONE (22:30)
[2020-04-12] MEDS ORDERED: predniSONE 20 MG TAB PO ONE (22:30)
[2020-04-12] MEDS ORDERED: PRED20TA PO (22:42)
[2020-04-12] MEDS ORDERED: EPIP0.3I2 IM (22:45)
[2020-04-12 22:50] VITALS: BP 149/75
== END 2020-04-12 22:59 | disposition home or self-care (01) ==
LOC: M ED 20:26
DX: T63.441A Toxic effect of venom of bees, accidental (unintentional), initial encounter (principal); Y92.89 Other specified places as the place of occurrence of the external cause; L29.9 Pruritus, unspecified; R21 Rash and other nonspecific skin eruption; E11.9 Type 2 diabetes mellitus without complications; F32.9 Major depressive disorder, single episode, unspecified; F41.9 Anxiety disorder, unspecified; F20.9 Schizophrenia, unspecified; M72.2 Plantar fascial fibromatosis; Z79.899 Other long term (current) drug therapy; Z91.030 Bee allergy status

== ENCOUNTER → 2020-04-20 | Outpatient (REF) | payer OTHER, MEDICAID ==
[~2020-04-20] MED LIST changes: +EPIP0.3I2 IM; +GABA800T4; +PRED20TA PO
[2020-04-20 12:22] LABS: BASO # 0.1 10^3/uL (0.0-0.2); BASO % 0.9 % (0.0-1.0); EOS # 0.3 10^3/uL (0.0-0.5); EOS % 2.8 % (0.0-3.0); HEMATOCRIT 47.5 % (42.0-52.0); LYMPH # 2.8 10^3/uL (1.5-5.0); LYMPH % 25.6 % (24.0-44.0); MEAN CORPUSCULAR HEMOGLOBIN 31.3 pg (27.0-33.0); MEAN CORPUSCULAR HGB CONC 33.7 g/dl (32.0-36.5); MEAN CORPUSCULAR VOLUME 92.8 fl (80.0-96.0); MONO % 9.4 % (0.0-5.0); NEUTROPHILS # 6.5 10^3/uL (1.5-8.5); NEUTROPHILS % 59.3 % (36.0-66.0); PLATELET COUNT, AUTOMATED 309 10^3/uL (150-450); RED BLOOD COUNT 5.12 10^6/uL (4.30-6.10)
[2020-04-20 12:50] LABS: ALT/SGPT 60 U/L (12-78); BILIRUBIN,TOTAL 0.4 MG/DL (0.2-1.0); BLOOD UREA NITROGEN 12 MG/DL (7-18); CALCIUM LEVEL 9.3 MG/DL (8.5-10.1); CARBON DIOXIDE LEVEL 29 MEQ/L (21-32); CHLORIDE LEVEL 102 MEQ/L (98-107); CHOLESTEROL LEVEL 309 MG/DL (<200); CHOLESTEROL RISK RATIO 6.306 (<5); CREATININE FOR GFR 1.04 MG/DL (0.70-1.30); FREE T4 0.85 NG/DL (0.76-1.46); GLOMERULAR FILTRATION RATE > 60.0 (>60); GLUCOSE, FASTING 145 MG/DL (70-100); HDL CHOLESTEROL 49 MG/DL (>40); NON-HDL-C 260 MG/DL; POTASSIUM SERUM 5.5 MEQ/L (3.5-5.1); SODIUM LEVEL 137 MEQ/L (136-145); TOTAL PROTEIN 7.3 GM/DL (6.4-8.2); TRIGLYCERIDES LEVEL 1092 MG/DL (<150)
[2020-04-20 13:04] LABS: HEMOGLOBIN A1c 5.8 %
== END ==
LOC: M LAB REF 11:29
PROVIDERS: ATTEND Physician Assistant
DX: F41.1 Generalized anxiety disorder (principal); E11.9 Type 2 diabetes mellitus without complications; E78.1 Pure hyperglyceridemia

== ENCOUNTER → 2020-05-02 | Outpatient (CLI) | payer OTHER ==
[~2020-05-02] MED LIST changes: +ISOVUE-370 76% 100ML VIAL As Ordered ONE; +PROHANCE 279.3MG/ML 15ML VIAL As Ordered ONE
--- NOTE | 2020-05-02 10:59 | REP ---
INDICATION: RT MEDIAL ANKLE PAIN FILE ROOM. COMPARISON: 12/13/2015 TECHNIQUE: Four views FINDINGS: There are small ossific densities adjacent to distal tip of the lateral malleolus that are smoothly marginated, consistent with old avulsion. No talar dome osteochondral defect. Mortise joint preserved. The distal tibia and fibular without fracture focal lesion or plantar and Achilles insertional spurs unchanged. Subtalar joints intact. Talonavicular and calcaneocuboid joints normal. Visualized tarsal bones and articulations unremarkable. Minor soft tissue swelling anterior to the ankle on the lateral view IMPRESSION: 1. A small ossific densities with sharply marginated appearance consistent with old avulsions at the inferior margin ankle mortise joint laterally near the distal fibula. 2. Plantar and Achilles insertional spurs. 3. No fracture, acute avulsion or focal bone lesion. <Electronically signed by Roger Suárez > 05/02/20 1053
== END ==
LOC: M RAD 09:37
PROVIDERS: ATTEND Physician Assistant Medical
DX: M25.572 Pain in left ankle and joints of left foot (principal); M77.32 Calcaneal spur, left foot

== ENCOUNTER → 2020-05-12 | Outpatient (REF) | payer OTHER ==
[~2020-05-12] MED LIST changes: -ISOVUE-370 76% 100ML VIAL As Ordered ONE; -PROHANCE 279.3MG/ML 15ML VIAL As Ordered ONE
[2020-05-12 18:46] LABS: MAU/CREAT RATIO 9.3 MCG/MG (0.0-30.0)
== END ==
LOC: M LAB REF 16:57
PROVIDERS: ATTEND Physician Assistant
DX: E87.5 Hyperkalemia (principal)

== ENCOUNTER 2020-06-21 16:04 | Emergency (ER) | payer OTHER ==
[~2020-06-21] VITALS: Ht 175.3 cm; Wt 105.0 kg
[~2020-06-21 16:04] MED LIST changes: +COLC0.6T47 PO; -COLC1TAB13 PO
[2020-06-21] MEDS ORDERED: ESCI20TA (16:12)
[2020-06-21] MEDS ORDERED: MORPHINE 4 MG/ML 1ML VIAL/SYRINGE (J2270) IV ONE ×2 (16:30→20:15)
[2020-06-21 16:51] LABS: BASO # 0.1 10^3/uL (0.0-0.2); BASO % 0.8 % (0.0-1.0); EOS # 0.2 10^3/uL (0.0-0.5); EOS % 2.1 % (0.0-3.0); HEMATOCRIT 44.4 % (42.0-52.0); HEMOGLOBIN 14.5 g/dl (13.5-17.5); LYMPH # 1.9 10^3/uL (1.5-5.0); LYMPH % 20.8 % (24.0-44.0); MEAN CORPUSCULAR HEMOGLOBIN 30.5 pg (27.0-33.0); MEAN CORPUSCULAR HGB CONC 32.7 g/dl (32.0-36.5); MEAN CORPUSCULAR VOLUME 93.3 fl (80.0-96.0); MONO # 0.8 10^3/uL (0.0-0.8); MONO % 8.8 % (0.0-5.0); NEUTROPHILS # 6.1 10^3/uL (1.5-8.5); NEUTROPHILS % 67.1 % (36.0-66.0); PLATELET COUNT, AUTOMATED 265 10^3/uL (150-450); RED BLOOD COUNT 4.76 10^6/uL (4.30-6.10)
[2020-06-21 17:26] LABS: BLOOD UREA NITROGEN 13 MG/DL (7-18); CALCIUM LEVEL 9.7 MG/DL (8.5-10.1); CARBON DIOXIDE LEVEL 27 MEQ/L (21-32); CHLORIDE LEVEL 103 MEQ/L (98-107); CREATININE FOR GFR 1.13 MG/DL (0.70-1.30); GLOMERULAR FILTRATION RATE > 60.0 (>60); GLUCOSE, FASTING 98 MG/DL (70-100); POTASSIUM SERUM 4.5 MEQ/L (3.5-5.1); SODIUM LEVEL 137 MEQ/L (136-145)
[2020-06-21 17:27] LABS: ALBUMIN 4.3 GM/DL (3.2-5.2); ALT/SGPT 94 U/L (12-78); BILIRUBIN,DIRECT < 0.1 MG/DL (0.0-0.2); BILIRUBIN,TOTAL 0.3 MG/DL (0.2-1.0); LIPASE 79 U/L (73-393); TOTAL PROTEIN 7.9 GM/DL (6.4-8.2)
[2020-06-21] MEDS ORDERED: KETOROLAC 30 MG/ML 1ML VIAL IV ONE (17:30)
--- NOTE | 2020-06-21 17:33 | REPVR ---
PROCEDURE INFORMATION: Exam: CT Abdomen And Pelvis Without Contrast Exam date and time: 06/21/2020 5:06 PM Age: 44 years old Clinical indication: Abdominal pain; Additional info: R flank pain, urinary retention, HX stones TECHNIQUE: Imaging protocol: Computed tomography of the abdomen and pelvis without contrast. Radiation optimization: All CT scans at this facility use at least one of these dose optimization techniques: automated exposure control; mA and/or kV adjustment per patient size (includes targeted exams where dose is matched to clinical indication); or iterative reconstruction. COMPARISON: CT ABD PELVIS W/O CONTRAST 01/13/2020 1:11 AM FINDINGS: Liver: Unremarkable. No mass. Gallbladder and bile ducts: Status post cholecystectomy. Normal caliber common bile duct. Pancreas: Unremarkable. No ductal dilation. Spleen: Unremarkable. No splenomegaly. Adrenal glands: Normal. No mass. Kidneys and ureters: Nonobstructing stone measuring 6 mm within the right kidney upper pole. The right and left kidneys are otherwise unremarkable. No stone within either ureter. No hydronephrosis. Stomach and bowel: Mild diverticulosis of the sigmoid colon. No diverticulitis. The stomach and small bowel are unremarkable. Appendix: No evidence of appendicitis. Intraperitoneal space: No free air. No significant fluid collection. Vasculature: Unremarkable. No abdominal aortic aneurysm. Lymph nodes: No enlarged lymph nodes. Urinary bladder: Unremarkable as visualized. Reproductive: Unremarkable as visualized. Bones/joints: Bilateral femoral head osteonecrosis without subchondral bone collapse. Osteoarthritis of both hip joints. Mild degenerative spondylosis of the lower thoracic and lumbar spine. Soft tissues: Unremarkable. IMPRESSION: 1. Right nephrolithiasis. 2. Mild diverticulosis of the sigmoid colon. 3. 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 Electronically signed by: Shawn Delgadillo On 06/21/2020 17:33:16 PM
[2020-06-21] MEDS ORDERED: NS 1,000 ML IV ONE (17:45)
[2020-06-21] MEDS ORDERED: CIPROFLOXACIN 500MG TABLET PO ONE (20:15)
[2020-06-21] MEDS ORDERED: CIPR-249 PO (20:27)
[2020-06-21 20:32] VITALS: BP 148/99
--- NOTE | 2020-06-23 14:07 | ED PDOC ---
Post-Departure Follow-Up radiology repor tfaxed to Kristy Ramirez MD Jun 23, 2020 14:07
== END 2020-06-21 21:00 | disposition home or self-care (01) ==
LOC: M ED 16:04
DX: N41.0 Acute prostatitis (principal); R10.9 Unspecified abdominal pain; N48.89 Other specified disorders of penis; R30.0 Dysuria; E11.9 Type 2 diabetes mellitus without complications; M10.9 Gout, unspecified; Z79.899 Other long term (current) drug therapy; Z79.84 Long term (current) use of oral hypoglycemic drugs; Z91.030 Bee allergy status; Z87.39 Personal history of other diseases of the musculoskeletal system and connective tissue
CPT/HCPCS: 74176; 80048; 80076; 81001; 83690; 84153; 85025; 96374; 96375; 96376; 99284; J1885; J2270

== ENCOUNTER 2020-07-11 13:24 | Emergency (ER) | payer OTHER ==
[~2020-07-11] VITALS: Ht 175.3 cm; Wt 104.4 kg
[~2020-07-11 13:24] MED LIST changes: +ESCI10TA16; -ESCI10TA2; +ESCI20TA16; +GABA-282 PO; -GABA-843 PO
--- OUTSIDE RECORDS SUMMARY | 2020-07-11 13:31 | CCD | Continuity of Care Document ---
Author Author Rodolfo LINK MD Organization Unknown Address [address] [place] [id number] Phone [phone] Care Team Providers Care Clinical Resource Nurse Name Role Phone Beverly Rogers RPA AUTM [phone] Rosalba Ramirez PSYCHIATRIC TECH AUTM Problems Active Problems Provider Date Adult health examination Onset: 09/23/19 19 Bilateral inflammation of sacroiliac joint Onset: 10/27/2017 Bilateral plantar fasciitis Onset: 09/29 Body mass index 30+ - obesity Onset: 08/2018 Carious exposure of pulp Onset: 06/10/20 18 Chronic back pain Onset: 09/29/2017 Degeneration of intervertebral disc Onse t: 03/13/2016 Adult health examination Onset: 08/30/19 16 Full thickness rotator cuff tear Onset: 06/18/2016 Generalized anxiety disorder Onset: 07/2015 Impaired cognition Onset: 10/27/2017 Loss of teeth due to extraction Onset: 0 07/22/2016 Moderate recurrent major depression Onse t: 08/30/2015 Numbness of toe Onset: 09/29/2017 Obesity Onset: 10/30/2018 Olecranon bursitis Onset: 08/30/2015 Passive smoker Onset: 09/17/2016 Peripheral nerve disease Onset: 10/28/19 18 Pleuritic pain Onset: 09/29/2017 Preventive procedure Onset: 08/30/2015 Schizophrenia Onset: 08/30/2015 Shoulder pain Onset: 07/16/2016 Tobacco user Onset: 08/30/2015 Injury of tendon of the rotator cuff of shoulder Onset: 10/10/2015 Social History Type Date Description Comments Sex Unknown ETOH Use Denies alcohol use Tobacco Use Start: Unknown End: Unknown Patient is a former smoker Allergies, Adverse Reactions, Alerts Active Allergies Reaction Severity Comments Date Tramadol 06/26/2016 Tramadol Hydrochloride Hives Mild 11/24 Inactive Allergies NKDA 06/26/2016 Medications Active Medications SIG Qnty Indications Ordering Provide r Date Gabapentin 800mg Tablets Gabapentin 800 MG Caps Unknown 09/22/2018 Prozac Capsules 1 by mouth e very day Unknown Seroquel 100mg Tablets Unknown Immunizations CPT Code Status Date Vaccine Lot # [id number] Refused 08/30/2015 Tetanus, Diphthe lissette Toxoids/Acellular Pertussis Vaccine 7 Or > [id number] Refused 08/30/2015 Influenza Virus Split 3 Yrs And Above Dosage Vital Signs Date Vital Result Comment 05/20/2019 1:20pm Body Temperature 98.7 F Height 69 inches 5'9" Weight 230.00 lb BMI (Body Mass Index) 34.0 kg/m2 11/19/2018 10:35am Height 70 inches Weight 246.12 lb BMI (Body Mass Index) 35.44 kg/m2 Results Description No Information Available Procedures Date Code Description Status 07/06/2020 24933 X-Ray Foot Complete Completed 07/06/2020 44237 X-Ray Foot Complete Completed 07/06/2020 45237 X-Ray Ankle Complete Completed Medical Devices Description No Information Available Encounters Description No Information Available Assessments Date Code Description Provider 07/06/2020 M72.2 Plantar fascial fibromatosis Ning ally Link MD 07/06/2020 M76.61 Achilles tendinitis, right leg N kendall Link MD 07/06/2020 M76.62 Achilles tendinitis, left leg Na catalina Link MD 07/06/2020 S90.01xA Contusion of right ankle, initia l encounter Bibi Link MD Plan of Treatment 07/06/2020 - Bibi Link MD* M72.2 Plantar fascial fibromatosis * M76.61 Achilles tendinitis, right leg * M76.62 Achilles tendinitis, left leg * S90.01xA Contusion of right ankle, initial encounter* New Xrays:* Right Ankle MRI, Ordered: 07/06/20 * Follow up:* with [facility] for rt ankle mri results [facility] BOOK IT Functional Status Description No Information Available Mental Status Description No Information Available Referrals Description No Information Available
--- OUTSIDE RECORDS SUMMARY | 2020-07-11 13:32 | CCD ---
Author Author [facility] Address Unknown Phone Unavailable Support Name Relationship Address Phone [employer] Next Of Kin [address] [place] [address] Shen FATIMA, Shanon Next Of Kin [address] [place] [address] Aviva FATIMA, Kobi Next Of Kin [address] [place] [address] REQUESTED, NONE Next Of Kin [address] [place] [address] JEFFCONCRT Next Of Kin [address] [place] [address] ISIS CONCRETE Next Of Kin [address] [address] Ric FATIMA, Courtney Next Of Kin [address] [place], [place] [phone] Gus RUDD, Brianne Next Of Kin [address] [place] [address] [address] [place] [address] NAVEED[employer] PAVING EXCAVATING Next Of Kin [address] [place] [address] UE Next Of Kin Unknown Unavailable JANINA MIRZA Next Of Kin [address] [place] [address] ALICIA U[place] [address] REQUESTED, NONE ECON [address] [place] [address] Unavailable Care Team Providers Care Explosives Engineer Name Role Phone SERGIO NASHIN RPA-C Unavailable Unavailable NASH, SERGIO BINH RPA-C Unavailable Unavailable NSAH, SERGIO BINH RPA-C Unavailable Unavailable NASH, SERGIO BINH RPA-C Unavailable Unavailable NASH, SERGIO BINH RPA-C Unavailable Unavailable NASH, SERGIO BINH RPA-C Unavailable Unavailable NASH, SERGIO BINH RPA-C Unavailable Unavailable NASH, SERGIO BINH RPA-C Unavailable Unavailable NASH, SERGIO BINH RPA-C Unavailable Unavailable NASH, SERGIO BINH RPA-C Unavailable Unavailable NASH, SERGIO BINH RPA-C Unavailable Unavailable NASH, SERGIO BINH RPA-C Unavailable Unavailable NASH, SERGIO BINH RPA-C Unavailable Unavailable NASH, SERGIO BINH RPA-C Unavailable Unavailable NASH, SERGIO BINH RPA-C Unavailable Unavailable NASH, SERGIO BINH RPA-C Unavailable Unavailable NASH, SERGIO BINH RPA-C Unavailable Unavailable NASH, SERGIO BINH RPA-C Unavailable Unavailable NASH, SERGIO BINH RPA-C Unavailable Unavailable NASH, SERGIO BINH RPA-C Unavailable Unavailable NASH, SERGIO BINH RPA-C Unavailable Unavailable NASH, SERGIO BINH RPA-C Unavailable Unavailable NASH, SERGIO BINH RPA-C Unavailable Unavailable NASH, SERGIO BINH RPA-C Unavailable Unavailable NASH, SERGIO BINH RPA-C Unavailable Unavailable NASH, SERGIO BINH RPA-C Unavailable Unavailable NASH, SERGIO BINH RPA-C Unavailable Unavailable NASH, SERGIO BINH RPA-C Unavailable Unavailable NASH, SERGIO BINH RPA-C Unavailable Unavailable NASH, SERGIO BINH RPA-C Unavailable Unavailable NASH, SERGIO BINH RPA-C Unavailable Unavailable NASH, SERGIO BINH RPA-C Unavailable Unavailable NASH, SERGIO BINH RPA-C Unavailable Unavailable NASH, SERGIO BINH RPA-C Unavailable Unavailable NASH, SERGIO BINH RPA-C Unavailable Unavailable NASH, SERGIO BINH RPA-C Unavailable Unavailable NASH, SERGIO BINH RPA-C Unavailable Unavailable NASH, SERGIO BINH RPA-C Unavailable Unavailable Juan Carlos Chicas MD Unavailable Unavailable Juan Carlos Chicas MD Unavailable Unavailable Juan Carlos Chicas MD Unavailable Unavailable Juan Carlos Chicas MD Unavailable Unavailable Juan Carlos Chicas MD Unavailable Unavailable Juan Carlos Chicas MD Unavailable Unavailable Juan Carlos Chicas MD Unavailable Unavailable Juan Carlos Chicas MD Unavailable Unavailable Juan Carlos Chicas MD Unavailable Unavailable Juan Carlos Chicas MD Unavailable Unavailable Juan Carlos Chicas MD Unavailable Unavailable Juan Carlos Chicas MD Unavailable Unavailable Juan Carlos Chicas MD Unavailable Unavailable Juan Carlos Chicas MD Unavailable Unavailable Juan Carlos Chicas MD Unavailable Unavailable Juan Carlos Chicas MD Unavailable Unavailable Juan Carlos Chicas MD Unavailable Unavailable Juan Carlos Chicas MD Unavailable Unavailable Juan Carlos Chicas MD Unavailable Unavailable Juan Carlos Chicas MD Unavailable Unavailable Juan Carlos Chicas MD Unavailable Unavailable Juan Carlos Chicas MD Unavailable Unavailable Juan Carlos Chicas MD Unavailable Unavailable Juan Cralos Chicas MD Unavailable Unavailable Juan Carlos Chicas MD Unavailable Unavailable Juan Carlos Chicas MD Unavailable Unavailable Juan Carlos Chicas MD Unavailable Unavailable Juan Carlos Chicas MD Unavailable Unavailable Juan Carlos Chicas MD Unavailable Unavailable Juan Carlos Chicas MD Unavailable Unavailable Juan Carlos Chicas MD Unavailable Unavailable Juan Carlos Chicas MD Unavailable Unavailable Juan Carlos Chicas MD Unavailable Unavailable Juan Carlos Chicas MD Unavailable Unavailable Juan Carlos Chicas MD Unavailable Unavailable Juan Carlos Chicas MD Unavailable Unavailable Juan Carlos Chicas MD Unavailable Unavailable Juan Carlos Chicas MD Unavailable Unavailable Juan Carlos Chicas MD Unavailable Unavailable Juan Carlos Chicas MD Unavailable Unavailable Juan Carlos Chicas MD Unavailable Unavailable Juan Carlos Chicas MD Unavailable Unavailable Juan Carlos Chicas MD Unavailable Unavailable Juan Carlos Chicas MD Unavailable Unavailable Juan Carlos Chicas MD Unavailable Unavailable Juan Carlos Chicas MD Unavailable Unavailable Juan Carlos Chicas MD Unavailable Unavailable Juan Carlos Chicas MD Unavailable Unavailable Juan Carlos Chicas MD Unavailable Unavailable Juan Carlos Chicas MD Unavailable Unavailable Juan Carlos Chicas MD Unavailable Unavailable Juan Carlos Chicas MD Unavailable Unavailable Juan Carlos Chicas MD Unavailable Unavailable Juan Carlos Chicas MD Unavailable Unavailable Juan Carlos Chicas MD Unavailable Unavailable Juan Carlos Chicas MD Unavailable Unavailable Juan Carlos Chicas MD Unavailable Unavailable Juan Carlos Chicas MD Unavailable Unavailable Juan Carlos Chicas MD Unavailable Unavailable Juan Carlos Chicas MD Unavailable Unavailable Juan Carlos Chicas MD Unavailable Unavailable Juan Carlos Chicas MD Unavailable Unavailable Juan Carlos Chicas MD Unavailable Unavailable Juan Carlos Chicas MD Unavailable Unavailable Juan Carlos Chicas MD Unavailable Unavailable Juan Carlos Chicas MD Unavailable Unavailable Juan Carlos Chicas MD Unavailable Unavailable Juan Carlos Chicas MD Unavailable Unavailable Juan Carlos Chicas MD Unavailable Unavailable Juan Carlos Chicas MD Unavailable Unavailable Juan Carlos Chicas MD Unavailable Unavailable Juan Carlos Chicas MD Unavailable Unavailable Juan Carlos Chicas MD Unavailable Unavailable Juan Carlos Chicas MD Unavailable Unavailable Juan Carlos Chicas MD Unavailable Unavailable Juan Carlos Chicas MD Unavailable Unavailable Juan Carlos Chicas MD Unavailable Unavailable Juan Carlos Chicas MD Unavailable Unavailable Juan Carlos Chicas MD Unavailable Unavailable Juan Carlos Chicas MD Unavailable Unavailable Juan Carlos Chicas MD Unavailable Unavailable Juan Carlos Chicas MD Unavailable Unavailable Juan Carlos Chicas MD Unavailable Unavailable Juan Carlos Chicas MD Unavailable Unavailable Juan Carlos Chicas MD Unavailable Unavailable Juan Carlos Chicas MD Unavailable Unavailable Juan Carlos Chicas MD Unavailable Unavailable Juan Carlos Chicas MD Unavailable Unavailable Juan Carlos Chicas MD Unavailable Unavailable Trickey, J Beverly PA Unavailable Unavailable Trickey, J Beverly PA Unavailable Unavailable Trickey, J Beverly PA Unavailable Unavailable Trickey, J Beverly PA Unavailable Unavailable Trickey, J Beverly PA Unavailable Unavailable Trickey, J Beverly PA Unavailable Unavailable Trickey, J Beverly PA Unavailable Unavailable Trickey, J Beverly PA Unavailable Unavailable Trickey, J Beverly PA Unavailable Unavailable Trickey, J Beverly PA Unavailable Unavailable Trickey, J Beverly PA Unavailable Unavailable Trickey, J Beverly PA Unavailable Unavailable Trickey, J Beverly PA Unavailable Unavailable Trickey, J Beverly PA Unavailable Unavailable Trickey, J Beverly PA Unavailable Unavailable Trickey, J Beverly PA Unavailable Unavailable Trickey, J Beverly PA Unavailable Unavailable Trickey, J Beverly PA Unavailable Unavailable Trickey, J Beverly PA Unavailable Unavailable Trickey, J Beverly PA Unavailable Unavailable Trickey, J Beverly PA Unavailable Unavailable Trickey, J Beverly PA Unavailable Unavailable Trickey, J Beverly PA Unavailable Unavailable Trickey, J Beverly PA Unavailable Unavailable Trickey, J Beverly PA Unavailable Unavailable Trickey, J Beverly PA Unavailable Unavailable Trickey, J Beverly PA Unavailable Unavailable Trickey, J Beverly PA Unavailable Unavailable Trickey, J Beverly PA Unavailable Unavailable Trickey, J Beverly PA Unavailable Unavailable Trickey, J Beverly PA Unavailable Unavailable Trickey, J Beverly PA Unavailable Unavailable Trickey, J Beverly PA Unavailable Unavailable Trickey, J Beverly PA Unavailable Unavailable Trickey, J Beverly PA Unavailable Unavailable Trickey, J Beverly PA Unavailable Unavailable Trickey, J Beverly PA Unavailable Unavailable Trickey, J Beverly PA Unavailable Unavailable Trickey, J Beverly PA Unavailable Unavailable Trickey, J Beverly PA Unavailable Unavailable Trickey, J Beverly PA Unavailable Unavailable Trickey, J Beverly PA Unavailable Unavailable Trickey, J Beverly PA Unavailable Unavailable Trickey, J Beverly PA Unavailable Unavailable Trickey, J Beverly PA Unavailable Unavailable Trickey, J Beverly PA Unavailable Unavailable Trickey, J Beverly PA Unavailable Unavailable Trickey, J Beverly PA Unavailable Unavailable Trickey, J Beverly PA Unavailable Unavailable Trickey, J Beverly PA Unavailable Unavailable Trickey, J Beverly PA Unavailable Unavailable Trickey, J Beverly PA Unavailable Unavailable Brittney GOTTI MD Unavailable Unavailable Brittney GOTTI MD Unavailable Unavailable Brittney GOTTI MD Unavailable Unavailable Brittney GOTTI MD Unavailable Unavailable Brittney GOTTI MD Unavailable Unavailable Brittney GOTTI MD Unavailable Unavailable Brittney GOTTI MD Unavailable Unavailable Brittney GOTTI MD Unavailable Unavailable Brittney GOTTI MD Unavailable Unavailable Brittney GOTTI MD Unavailable Unavailable Brittney GOTTI MD Unavailable Unavailable Brittney GOTTI MD Unavailable Unavailable Brittney GOTTI MD Unavailable Unavailable Brittney GOTTI MD Unavailable Unavailable Brittney GOTTI MD Unavailable Unavailable Brittney GOTTI MD Unavailable Unavailable Brittney GOTTI MD Unavailable Unavailable Brittney GOTTI MD Unavailable Unavailable Brittney GOTTI MD Unavailable Unavailable Brittney GOTTI MD Unavailable Unavailable Brittney GOTTI MD Unavailable Unavailable Brittney GOTTI MD Unavailable Unavailable Brittney GOTTI MD Unavailable Unavailable Brittney GOTTI MD Unavailable Unavailable Brittney GOTTI MD Unavailable Unavailable Brittney GOTTI MD Unavailable Unavailable Brittney GOTTI MD Unavailable Unavailable Brittney GOTTI MD Unavailable Unavailable Brittney GOTTI MD Unavailable Unavailable Brittney GOTTI MD Unavailable Unavailable Brittney GOTTI MD Unavailable Unavailable Brittney GOTTI MD Unavailable Unavailable Brittney GOTTI MD Unavailable Unavailable Brittney GOTTI MD Unavailable Unavailable Brittney GOTTI MD Unavailable Unavailable Brittney GOTTI MD Unavailable Unavailable Brittney GOTTI MD Unavailable Unavailable Brittney GOTTI MD Unavailable Unavailable Brittney GOTTI MD Unavailable Unavailable Brittney GOTTI MD Unavailable Unavailable Brittney GOTTI MD Unavailable Unavailable Brittney GOTTI MD Unavailable Unavailable Brittney GOTTI MD Unavailable Unavailable Brittney GOTTI MD Unavailable Unavailable Brittney GOTTI MD Unavailable Unavailable Brittney GOTTI MD Unavailable Unavailable Brittney GOTTI MD Unavailable Unavailable Brittney GOTTI MD Unavailable Unavailable Brittney GOTTI MD Unavailable Unavailable Brittney GOTTI MD Unavailable Unavailable Brittney GOTTI MD Unavailable Unavailable Brittney GOTTI MD Unavailable Unavailable Brittney GOTTI MD Unavailable Unavailable Brittney GOTTI MD Unavailable Unavailable Brittney GOTTI MD Unavailable Unavailable Brittney GOTTI MD Unavailable Unavailable Brittney GOTTI MD Unavailable Unavailable Brittney GOTTI MD Unavailable Unavailable Brittney GOTTI MD Unavailable Unavailable Brittney GOTTI MD Unavailable Unavailable Brittney GOTTI MD Unavailable Unavailable Brittney GOTTI MD Unavailable Unavailable Brittney GOTTI MD Unavailable Unavailable Brittney GOTTI MD Unavailable Unavailable Brittney GOTTI MD Unavailable Unavailable Brittney GOTTI MD Unavailable Unavailable Brittney GOTTI MD Unavailable Unavailable Brittney GOTTI MD Unavailable Unavailable Brittney GOTTI MD Unavailable Unavailable Brittney GOTTI MD Unavailable Unavailable Brittney GOTTI MD Unavailable Unavailable Brittney GOTTI MD Unavailable Unavailable Brittney GOTTI MD Unavailable Unavailable Brittney GOTTI MD Unavailable Unavailable Brittney GOTTI MD Unavailable Unavailable Brittney GOTTI MD Unavailable Unavailable Brittney GOTTI MD Unavailable Unavailable Brittney GOTTI MD Unavailable Unavailable Brittney GOTTI MD Unavailable Unavailable Brittney GOTTI MD Unavailable Unavailable Brittney GOTTI MD Unavailable Unavailable Brittney GOTTI MD Unavailable Unavailable Brittney GOTTI MD Unavailable Unavailable NASH, SERGIO BINH RPA-C Unavailable Unavailable NASH, SERGIO BINH RPA-C Unavailable Unavailable NASH, SERGIO BINH RPA-C Unavailable Unavailable NASH, SERGIO BINH RPA-C Unavailable Unavailable NASH, SERGIO BINH RPA-C Unavailable Unavailable NASH, SERGIO BINH RPA-C Unavailable Unavailable NASH, SERGIO BINH RPA-C Unavailable Unavailable NASH, SERGIO BINH RPA-C Unavailable Unavailable NASH, SERGIO BINH RPA-C Unavailable Unavailable NASH, SERGOI BINH RPA-C Unavailable Unavailable NASH, SERGIO BINH RPA-C Unavailable Unavailable NASH, SERGIO BINH RPA-C Unavailable Unavailable NASH, SERGIO BINH RPA-C Unavailable Unavailable NASH, SERGIO BINH RPA-C Unavailable Unavailable NASH, SERGIO BINH RPA-C Unavailable Unavailable NASH, SERGIO BINH RPA-C Unavailable Unavailable NASH, SERGIO BINH RPA-C Unavailable Unavailable NASH, SERGIO BINH RPA-C Unavailable Unavailable NASH, SERGIO BINH RPA-C Unavailable Unavailable NASH, SERGIO BINH RPA-C Unavailable Unavailable NASH, SERGIO BINH RPA-C Unavailable Unavailable NASH, SERGIO BINH RPA-C Unavailable Unavailable NASH, SERGIO BINH RPA-C Unavailable Unavailable NASH, SERGIO BINH RPA-C Unavailable Unavailable NASH, SERIGO BINH RPA-C Unavailable Unavailable NASH, SERGIO BINH RPA-C Unavailable Unavailable NASH, SERGIO BINH RPA-C Unavailable Unavailable NASH, SERGIO BINH RPA-C Unavailable Unavailable NASH, SERGIO BINH RPA-C Unavailable Unavailable NASH, SERGIO BINH RPA-C Unavailable Unavailable NASH, SERGIO BINH RPA-C Unavailable Unavailable NASH, SERGIO BINH RPA-C Unavailable Unavailable NASH, SERGIO BINH RPA-C Unavailable Unavailable NASH, SERGIO BINH RPA-C Unavailable Unavailable NASH, SERGIO BINH RPA-C Unavailable Unavailable NASH, SERGIO BINH RPA-C Unavailable Unavailable NASH, SERGIO BINH RPA-C Unavailable Unavailable NASH, SERGIO BINH RPA-C Unavailable Unavailable Chan, Bonnie MACHINE PLASTER MIXER Unavailable Unavailable Chan, Bonnie MACHINE PLASTER MIXER Unavailable Unavailable Chan, Bonnie MACHINE PLASTER MIXER Unavailable Unavailable Chan, Bonnie MACHINE PLASTER MIXER Unavailable Unavailable Chan, Bonnie MACHINE PLASTER MIXER Unavailable Unavailable Chan, Bonnie MACHINE PLASTER MIXER Unavailable Unavailable Chan, Bonnie MACHINE PLASTER MIXER Unavailable Unavailable Chan, Bonnie MACHINE PLASTER MIXER Unavailable Unavailable Chan, Bonnie MACHINE PLASTER MIXER Unavailable Unavailable Chan, Bonnie MACHINE PLASTER MIXER Unavailable Unavailable Chan, Bonnie MACHINE PLASTER MIXER Unavailable Unavailable [facility], RFROST NASH PA BINH Unavailable Unavailable Re-disclosure Warning The records that you are about to access may contain information from federally-assisted alcohol or drug abuse programs. If such information is present, then the following federally mandated warning applies: This information has been disclosed to you from records protected by federal confidentiality rules (42 CFR part 2). The federal rules prohibit you from making any further disclosure of this information unless further disclosure is expressly permitted by the written consent of the person to whom it pertains or as otherwise permitted by 42 CFR part 2. A general authorization for the release of medical or other information is NOT sufficient for this purpose. The Federal rules restrict any use of the information to criminally investigate or prosecute any alcohol or drug abuse patient.The records that you are about to access may contain highly sensitive health information, the redisclosure of which is protected by Article 27-F of the [facility] Public Health law. If you continue you may have access to information: Regarding HIV / AIDS; Provided by facilities licensed or operated by the [facility] Office of Mental Health; or Provided by the [facility] Office for People With Developmental Disabilities. If such information is present, then the following [facility] mandated warning applies: This information has been disclosed to you from confidential records which are protected by state law. State law prohibits you from making any further disclosure of this information without the specific written consent of the person to whom it pertains, or as otherwise permitted by law. Any unauthorized further disclosure in violation of state law may result in a fine or long-term sentence or both. A general authorization for the release of medical or other information is NOT sufficient authorization for further disc losure. Allergies and Adverse Reactions Type Description Substance Reaction Status Data Source(s ) Drug Allergy NKDA NKDA MEDENT ([facility], [facility]) Family History Family Member Name Family Member Gender Family Member Status Date o f Status Description Data Source(s) Unknown Unknown Problem [facility] ([facility] Unknown Unknown Problem [facility] ([facility]) Unknown Female Problem [facility]ENT ([facility] ) Encounters Encounter Providers Location Date Indications Data Source(s ) NIC Sandy: [address], [place] [address], Ph. Attender: BINH LUCERO [facility] Medical 06/12/2020 12:00:00 AM EST [facility] ([facility]) KIRAN SandyC: [address], [place] [address], Ph. Attender: BINH LUCERO [facility] Medical 06/12/2020 12:00:00 AM EST SAM[facility]THA ([facility]) KIRAN SandyC: [address], [place] [address], Ph. Attender: BINH BECKC [facility] Medical 05/12/2020 12:00:00 AM EST SAM[facility]THA ([facility]) Binh Nash RPA-C: [address], [place] [address], Ph. Attender: BINH NASH RPA-C [facility] Medical 05/12/2020 12:00:00 AM EST [facility]TH[facility] ([facility]) Binh Nash RPA-C: [address], [place] [address], Ph. Attender: BINH NASH RPA-C [facility] Medical 05/12/2020 12:00:00 AM EST [facility]TH[facility] ([facility]) Outpatient Attender: Beverly Rogers [place] Main office - [facility] 05/02/2020 08:00:00 AM EST MEDENT ([facility], ) Binh Nash RPA-C: [address], [address], [place] [address], Ph. Attender: BINH NASH RPA-C [facility] Medical 04/27/2020 12:00:00 AM EDT SAMANTHA ([facility]) Binh Nash RPA-C: [address], [place] [address], Ph. Attender: BINH NASH RPA-C [facility] Medical 04/27/2020 12:00:00 AM EDT SAMANTHA ([facility]) Binh Nash RPA-C: [address], [place] [address], Ph. Attender: BINH NASH RPA-C [facility] Medical 04/27/2020 12:00:00 AM EDT SAMANTHA ([facility]) Binh Nash RPA-C: [address], [place] [address], Ph. Attender: BINH NASH RPA-C [facility] Medical 04/27/2020 12:00:00 AM EDT [facility]THA ([facility]) Kobi Chicas MD: [address] [place] [address], Ph. Attender: Kobi Chicas MD [facility] Medical 04/20/2020 12:00:00 AM EDT SAMANTHA ([facility]) Kobi Chicas MD: [address] [place] [address], Ph. Attender: Kobi Chicas MD [facility] Medical 04/20/2020 12:00:00 AM EDT SAMANTHA ([facility]) Kobi Chicas MD: [address] [place] [address], Ph. Attender: Kobi Chicas MD [facility] Medical 04/20/2020 12:00:00 AM EDT SAMANTHA ([facility]) Kobi Chicas MD: [address] [place] [address], Ph. Attender: Kobi Chicas MD [facility] Medical 04/20/2020 12:00:00 AM EDT SAMANTHA ([facility]) Outpatient Attender: OVIDIO LOUISE [facility] 03/30 12:27:01 PM EDT [facility] Outpatient Attender: OVIDIO LOU[facility] 09/2019 08:31:00 AM EDT [facility] Outpatient Attender: Beverly ELDER Main [facility] 01/31/2020 02:00:00 PM EDT [facility] Outpatient Attender: BINH BECKC [facility] 01/18/2020 12:00:35 AM EDT [facility] Outpatient Attender: BINH DUNCAN LUCERO [facility] 01/17/2020 09:34:02 AM EDT [facility] Outpatient Attender: OVIDIO NASH [facility] 12/29 09:09:02 AM EDT [facility] Outpatient Attender: BINH DUNCAN LUCERO [facility] 01/17/2020 09:09:01 AM EDT [facility] Outpatient Attender: OVIDIO NASH JAEL BINH [facility] 12/28 11:12:00 AM EDT [facility] Outpatient Attender: [facility]IO NASH [facility] 12/28 04:53:01 PM EDT [facility] Outpatient Attender: OVIDIO NASH [facility] 06/2019 03:31:00 PM EDT [facility] Outpatient Attender: OVIDIO NASH JAEL LOU[facility] 11/28 11:39:59 AM EDT [facility] Outpatient Attender: BINH DUNCAN LUCERO [facility] 12/07/2019 05:08:00 PM EDT [facility] Outpatient Attender: OVIDIO NASH JAEL BINH [facility] 02/2020 05:08:00 PM EDT [facility] [address] [address] 12/01/2019 12:00:00 AM EDT eC ([facility]) Outpatient Attender: OVIDIO NASH JAEL BINH [facility] 10/28 09:06:01 AM EDT [facility] Outpatient Attender: OVIDIO NASH JAEL LOUISE [facility] 09/29 09:59:02 AM EDT [facility]patient 10/13/2019 04:43:00 AM EDT Replaced By [facility] Outpatient Attender: SHANON GOTTI MD 10/08/2019 08:55:59 A M EDT [facility] Outpatient Attender: SHANON GOTTI MD 10/06/2019 04:02:01 P M EDT [facility] [address] [place] [address] 10/01/2019 12:00:00 AM EDT eCW1 ([facility]) Outpatient Attender: SHANON GOTTI MD 09/30/2019 02:26:01 P M EDT [facility] Outpatient Attender: SHANON GOTTI MD FP 09/30/2019 02:25:00 P M EDT [facility] Outpatient Attender: SHANON GOTTI MD 09/24/2019 04:35:00 P M EDT [facility] Outpatient Attender: Bonnie farmer 09/23/2019 10:45:00 AM EDT MEDENT ([facility], [facility]) [facility] [address] [place] [id number] 09/15/2019 12:00:00 AM EDT eCW1 ([facility]) Outpatient Attender: SHANON GOTTI MD 09/06/2019 12:11:00 P [facility] Outpatient Attender: SHANON GOTTI MD FP 2019 02:07:00 P [facility] Outpatient Attender: SHANON GOTTI MD FP 08/26/2019 01:44:02 P [facility] Outpatient Attender: SHANON GOTTI MD 08/23/2019 04:02:00 P [facility] Outpatient Attender: SHANON GOTTI MD FP 08/18/2019 10:34:03 [facility] [facility] Outpatient Attender: SHANON GOTTI MD FP 08/18/2019 10:34:01 A [facility] Outpatient Attender: SHANON GOTTI MD FP 08/11/2019 12:50:01 P [facility] Outpatient Attender: SHANON GOTTI MD FP 08/10/2019 09:12:00 A [facility] Outpatient Attender: SHANON GOTTI MD FP 08/10/2019 09:11:02 A [facility] Outpatient Attender: SHANON GOTTI MD FP 08/05/2019 11:36:06 A [facility] Outpatient Attender: SHANON GOTTI MD FP 08/05/2019 11:36:03 A [facility] Outpatient Attender: SHANON GOTTI MD FP 08/05/2019 11:12:01 A [facility] Outpatient Attender: SHANON GOTTI MD FP 08/04/2019 01:06:00 P [facility] Outpatient Attender: Beverly ELDER [facility] 08/04/2019 09:30:00 AM EST MEDENT ([facility], ) Outpatient Attender: SHANON GOTTI MD FP 08/04/2019 09:23:01 A [facility] Outpatient Attender: SHANON GOTTI MD 07/23/2019 09:29:47 A [facility] Outpatient Attender: SHANON GOTTI MD 07/21/2019 03:18:03 P [facility] [address] [place] [id number] 07/19/2019 12:00:00 AM EST [facility]CW[facility] Outpatient 07/18/2019 09:01:00 PM EST Replaced By [facility] [address] [place] [phone] 07/05/2019 12:00:00 AM EST eCW1 ([facility] [address] [place] [phone] 06/28/2019 12:00:00 AM EST eCW1 [facility] Outpatient Attender: SHANON GOTTI MD 06/19/2019 06:10:16 A [facility] Outpatient Attender: SHANON GOTTI MD 06/19/2019 06:10:12 A [facility] Outpatient Attender: SHANON GOTTI MD FP 06/18/2019 05:02:00 P [facility] Outpatient Attender: SHANON GOTTI MD FP 06/18/2019 01:57:00 P [facility] Outpatient Attender: SHANON GOTTI MD FP 06/18/2019 01:56:01 P [facility] Outpatient Attender: SHANON GOTTI MD FP 06/04/2019 09:40:21 A [facility] Immunizations Vaccine Date Status Description Data Source(s) New in 2011. IIV4 04/27/2020 10:30:00 AM EDT completed 0.5 mL [facility] ([facility]) New in 2011. IIV4 04/27/2020 10:30:00 AM EDT completed 0.5 mL [facility] ([facility]) New in 2011. IIV4 04/27/2020 10:30:00 AM EDT completed 0.5 mL [facility] ([facility]) New in 2011. IIV4 04/27/2020 10:30:00 AM EDT completed 0.5 mL [facility] ([facility]) Medications Medication Brand Name Start Date Product Form Dose Route Admi nistrative Instructions Pharmacy Instructions Status Indications Reaction Description Data Source(s) Gemfibrozil 600 MG Oral Tablet gemfibrozil 600 mg tabl et gemfibrozil 600 mg tablet 06/12/2020 12:00:00 AM EST completed gemfibrozil 600 MG Oral Tablet [facility] ([facility]) Gemfibrozil 600 MG Oral Tablet gemfibrozil 600 mg tabl et gemfibrozil 600 mg tablet 06/12/2020 12:00:00 AM EST completed gemfibrozil 600 MG Oral Tablet [facility] ([facility]) Xray Right Ankle 05/02/2020 12:00:00 AM EST a ctive MEDENT ([facility]) Xray Right Ankle 05/02/2020 12:00:00 AM EST a ctive [facility] ([facility]) Nortriptyline 10 MG Oral Capsule Nortriptyline HCL 02/20/2020 12:00 :00 AM EDT active [facility] ([facility]) 10 mg 12/15/2019 12:00:00 AM EDT capsule 60 TAKE ONE CAPSULE BY MOUTH TWICE A DAY TAKE ONE CAPSULE BY MOUTH TWICE A DAY SOLD: 12/15/2019 [facility] Nystatin 644220 UNT/ML Oral Suspension Nystatin 09/23/2019 12:00:00 AM EDT active MEDENT ([facility]) Nortriptyline 10 MG Oral Capsule [Pamelor] Pamelor 08/05/2019 12:00:00 AM EST ORAL active MEDENT ([facility]) ropinirole 0.5 MG Oral Tablet Ropinirole HCL 08/04/2019 12:00:[address] ORAL active MED[facility] ([facility] ropinirole 0.25 MG Oral Tablet Ropinirole HCL 05/04/2019 12:00:00 AM EST ORAL completed [facility] ([facility]) Acetaminophen 325 MG / Oxycodone Hydroch loride 5 MG Oral Tablet oxycodone- acetaminophen 5 mg-325 mg tablet oxycodone-acetaminophen 5 mg-325 mg tablet completed acetaminop hen 325 MG / oxycodone hydrochloride 5 MG Oral Tablet [facility] ([facility]) Ciprofloxacin 500 MG Oral Tablet ciprofl oxacin 500 mg tablet TAKE ONE TABLET BY MOUTH EVERY 12 HOURS FOR 7 DAYS ciprofloxacin 500 mg tablet TAKE ONE TAB LET BY MOUTH EVERY 12 HOURS FOR 7 DAYS comple efrain ciprofloxacin 500 MG Oral Tablet [facility] ([facility]) Prednisone 20 MG Oral Tablet prednisone 20 mg tablet prednisone 20 mg tablet completed prednisone 20 MG Oral Tablet [facility] ([facility]) ropinirole 0.25 MG Oral Tablet ropinirole 0.25 mg tabl et ropinirole 0.25 mg tablet completed ropinirole 0.25 MG Oral Tablet [facility] ([facility]) Acetaminophen 325 MG / Oxycodone Hydroch loride 5 MG Oral Tablet oxycodone- acetaminophen 5 mg-325 mg tablet oxycodone-acetaminophen 5 mg-325 mg tablet completed acetaminop hen 325 MG / oxycodone hydrochloride 5 MG Oral Tablet [facility] ([facility]) Tamsulosin hydrochloride 0.4 MG Oral Capsule tamsulosi n 0.4 mg capsule tamsulosin 0.4 mg capsule completed tamsulosin hydrochloride 0.4 MG Oral Capsule [facility] ([facility]) ropinirole 0.25 MG Oral Tablet ropinirole 0.25 mg tabl et ropinirole 0.25 mg tablet completed ropinirole 0.25 MG Oral Tablet [facility] ([facility]) Nystatin [id number] UNT/ML Oral Suspension nystatin 100,00 0 unit/mL oral suspension nystatin 100,000 unit/mL oral suspension completed nystatin 738319 UNT/ML Oral Suspension [facility] ([facility]) Ketorolac Tromethamine 10 MG Oral Tablet ketorolac 10 mg tablet ketorolac 10 mg tablet completed ketorolac trome thamine 10 MG Oral Tablet [facility] ([facility]) Chantix Starting Month Box 0.5 mg (11)-1 mg (42) tablets in dose pack [id number] completed Chantix Starti ng Month Box 0.5 mg (11)-1 mg (42) tablets in dose pack [facility] ([facility]) Ergocalciferol 76223 UNT Oral Capsule Vi tamin D2 1,250 mcg (50,000 unit) capsule Vitamin D2 1,250 mcg (50,000 unit) capsule completed ergocalciferol 1.25 MG Oral Capsule [facility] ([facility]) Prednisone 10 MG Oral Tablet prednisone 10 mg tablet prednisone 10 mg tablet completed prednisone 10 MG Oral Tablet [facility] ([facility]) Escitalopram 10 MG Oral Tablet escitalop kennedi 10 mg tablet TAKE ONE TABLET BY MOUTH EVERY DAY escitalopram 10 mg tablet TAKE ONE TABLET BY MOUTH EVERY DAY completed escitalopram 1 0 MG Oral Tablet [facility] ([facility]) Prednisone 20 MG Oral Tablet prednisone 20 mg tablet prednisone 20 mg tablet completed prednisone 20 MG Oral Tablet [facility] ([facility]) Prednisone 10 MG Oral Tablet prednisone 10 mg tablet prednisone 10 mg tablet completed prednisone 10 MG Oral Tablet [facility] ([facility]) Prednisone 20 MG Oral Tablet prednisone 20 mg tablet prednisone 20 mg tablet completed prednisone 20 MG Oral Tablet [facility] ([facility]) Chantix Starting Month Box 0.5 mg (11)-1 mg (42) tablets in dose pack 126257 completed Chantix Starti ng Month Box 0.5 mg (11)-1 mg (42) tablets in dose pack [facility] ([facility]) Metronidazole 500 MG Oral Tablet metronidazole 500 mg tablet metronidazole 500 mg tablet completed metronidazol e 500 MG Oral Tablet [facility] ([facility]) Acetaminophen 325 MG / Oxycodone Hydroch loride 5 MG Oral Tablet oxycodone- acetaminophen 5 mg-325 mg tablet oxycodone-acetaminophen 5 mg-325 mg tablet completed acetaminop hen 325 MG / oxycodone hydrochloride 5 MG Oral Tablet [facility] ([facility]) Chantix Starting Month Box 0.5 mg (11)-1 mg (42) tablets in dose pack 441686 completed Chantix Starti ng Month Box 0.5 mg (11)-1 mg (42) tablets in dose pack [facility] ([facility]) Ergocalciferol 03196 UNT Oral Capsule Vi tamin D2 1,250 mcg (50,000 unit) capsule Vitamin D2 1,250 mcg (50,000 unit) capsule completed ergocalciferol 1.25 MG Oral Capsule [facility] ([facility]) Fluoxetine 20 MG Oral Capsule fluoxetine 20 mg capsule fluox etine 20 mg capsule completed fluoxetine 20 MG Oral Capsule [facility] ([facility]) Escitalopram 10 MG Oral Tablet escitalop kennedi 10 mg tablet Take 1 tablet every day by oral route for 30 days. escitalopram 10 mg tablet Take 1 tablet every day by oral route for 30 days. 1 completed escitalopram 10 MG Oral Tablet [facility] ([facility]) Prednisone 10 MG Oral Tablet prednisone 10 mg tablet prednisone 10 mg tablet completed prednisone 10 MG Oral Tablet [facility] ([facility]) Fluoxetine 20 MG Oral Capsule fluoxetine 20 mg capsule fluox etine 20 mg capsule completed fluoxetine 20 MG Oral Capsule [facility] ([facility]) Fluoxetine 20 MG Oral Capsule fluoxetine 20 mg capsule fluox etine 20 mg capsule completed fluoxetine 20 MG Oral Capsule [facility] ([facility]) Metronidazole 500 MG Oral Tablet metronidazole 500 mg tablet metronidazole 500 mg tablet completed metronidazol e 500 MG Oral Tablet [facility] ([facility]) varenicline 1 MG Oral Tablet Chantix Continuing Month Box 1 mg tablet Chantix Continuing Month Box 1 mg tablet compl eted varenicline 1 MG Oral Tablet [facility] ([facility]) Fluoxetine 20 MG Oral Capsule fluoxetine 20 mg capsule fluox etine 20 mg capsule completed fluoxetine 20 MG Oral Capsule [facility] ([facility]) Ergocalciferol 76790 UNT Oral Capsule Vi tamin D2 1,250 mcg (50,000 unit) capsule Vitamin D2 1,250 mcg (50,000 unit) capsule completed ergocalciferol 1.25 MG Oral Capsule [facility] ([facility]) Nystatin 821057 UNT/ML Oral Suspension nystatin 100,00 0 unit/mL oral suspension nystatin 100,000 unit/mL oral suspension completed nystatin 730263 UNT/ML Oral Suspension [facility] ([facility]) Nystatin 008203 UNT/ML Oral Suspension nystatin 100,00 0 unit/mL oral suspension nystatin 100,000 unit/mL oral suspension completed nystatin 758112 UNT/ML Oral Suspension [facility] ([facility]) Chantix Starting Month Box 0.5 mg (11)-1 mg (42) tablets in dose pack 297396 completed Chantix Starti ng Month Box 0.5 mg (11)-1 mg (42) tablets in dose pack [facility] ([facility]) Prednisone 10 MG Oral Tablet prednisone 10 mg tablet prednisone 10 mg tablet completed prednisone 10 MG Oral Tablet [place] ([facility]) ropinirole 0.25 MG Oral Tablet ropinirole 0.25 mg tabl et ropinirole 0.25 mg tablet completed ropinirole 0.25 MG Oral Tablet [place] ([facility]) gabapentin 600 MG Oral Tablet gabapentin 600 mg tablet gabap entin 600 mg tablet completed gabapentin 600 MG Oral Tablet [place] ([facility]) Ergocalciferol 99672 UNT Oral Capsule Vi tamin D2 1,250 mcg (50,000 unit) capsule Vitamin D2 1,250 mcg (50,000 unit) capsule completed ergocalciferol 1.25 MG Oral Capsule [place] ([facility]) gabapentin 600 MG Oral Tablet gabapentin 600 mg tablet gabap entin 600 mg tablet completed gabapentin 600 MG Oral Tablet [place] ([facility]) Escitalopram 10 MG Oral Tablet escitalop kennedi 10 mg tablet TAKE ONE TABLET BY MOUTH EVERY DAY escitalopram 10 mg tablet TAKE ONE TABLET BY MOUTH EVERY DAY completed escitalopram 1 0 MG Oral Tablet [place] ([facility]) ropinirole 0.25 MG Oral Tablet ropinirole 0.25 mg tabl et ropinirole 0.25 mg tablet completed ropinirole 0.25 MG Oral Tablet [place] ([facility]) Prednisone 20 MG Oral Tablet prednisone 20 mg tablet prednisone 20 mg tablet completed prednisone 20 MG Oral Tablet [place] ([facility]) Gemfibrozil 600 MG Oral Tablet gemfibrozil 600 mg tabl et gemfibrozil 600 mg tablet completed gemfibrozil 600 MG Oral Tablet [place] ([facility]) gabapentin 600 MG Oral Tablet gabapentin 600 mg tablet gabap entin 600 mg tablet completed gabapentin 600 MG Oral Tablet [facility] ([facility]) varenicline 1 MG Oral Tablet Chantix Continuing Month Box 1 mg tablet Chantix Continuing Month Box 1 mg tablet compl eted varenicline 1 MG Oral Tablet [facility] ([facility]) varenicline 1 MG Oral Tablet Chantix Continuing Month Box 1 mg tablet Chantix Continuing Month Box 1 mg tablet compl eted varenicline 1 MG Oral Tablet [facility] ([facility]) Nystatin 311656 UNT/ML Oral Suspension nystatin 100,00 0 unit/mL oral suspension nystatin 100,000 unit/mL oral suspension completed nystatin 110799 UNT/ML Oral Suspension [facility] ([facility]) Gemfibrozil 600 MG Oral Tablet gemfibrozil 600 mg tabl et gemfibrozil 600 mg tablet completed gemfibrozil 600 MG Oral Tablet [facility] ([facility]) Ketorolac Tromethamine 10 MG Oral Tablet ketorolac 10 mg tablet ketorolac 10 mg tablet completed ketorolac trome thamine 10 MG Oral Tablet [facility] ([facility]) gabapentin 600 MG Oral Tablet gabapentin 600 mg tablet gabap entin 600 mg tablet completed gabapentin 600 MG Oral Tablet [facility] ([facility]) Ciprofloxacin 500 MG Oral Tablet ciprofl oxacin 500 mg tablet TAKE ONE TABLET BY MOUTH EVERY 12 HOURS FOR 7 DAYS ciprofloxacin 500 mg tablet TAKE ONE TAB LET BY MOUTH EVERY 12 HOURS FOR 7 DAYS comple efrain ciprofloxacin 500 MG Oral Tablet [facility] ([facility]) varenicline 1 MG Oral Tablet Chantix Continuing Month Box 1 mg tablet Chantix Continuing Month Box 1 mg tablet compl eted varenicline 1 MG Oral Tablet [facility] ([facility]) Tamsulosin hydrochloride 0.4 MG Oral Capsule tamsulosi n 0.4 mg capsule tamsulosin 0.4 mg capsule completed tamsulosin hydrochloride 0.4 MG Oral Capsule [facility] ([facility]) Acetaminophen 325 MG / Oxycodone Hydroch loride 5 MG Oral Tablet oxycodone- acetaminophen 5 mg-325 mg tablet oxycodone-acetaminophen 5 mg-325 mg tablet completed acetaminop hen 325 MG / oxycodone hydrochloride 5 MG Oral Tablet [facility] ([facility]) Insurance Providers Payer name Policy type / Coverage type Policy ID Covered alliance party ID Covered alliance party's relationship to masters Policy Masters Plan Information [facility] MCDO [id number] SP [id number] [facility] O [id number] S [id number] EMEDNY [id number] SP [id number] [employer] COMMUNITY PLAN MCDHMO [id number] SP [id number] MEDICAID [id number] SP [id number] Medicaid S [id number] S [id number] Managed Care - [facility] Community Plan P [id number] S [id number] Medicaid S [id number] S [id number] MEDICAID M [id number] S [id number] Managed Care - [facility] Community Plan P [id number] S [id number] [facility] Organization (HMO) [id number] Self [id number] [facility]-Medicaid [id number] ANS-Medicaid [id number] Managed Care - Community Plan [facility] P [id number] S [id number] ANSI-Medicaid [id number] ANSI-Medicaid [id number] ANSI-Medicaid [id number] ANSI-Medicaid [id number] Medicaid S [id number] S [id number] [facility] Plan [facility] Commercial [id number] Self [id number] ANSI-Medicaid [id number] ANSI-Medicaid [id number] ANSI-Medicaid [id number] ANSI-Medicaid [id number] ANSI-Medicaid [id number] ANSI-Medicaid [id number] Managed Care - Community Plan [facility] [id number] S [id number] ANSI-Medicaid [id number] ANSI-Medicaid [id number] ANSI-Medicaid [id number] ANSI-Medicaid [id number] [facility] Commercial [id number] Self [id number] ANSI-Medicaid [id number] ANSI-Medicaid [id number] ANSI-Medicaid [id number] ANSI-Medicaid [id number] ANSI-Medicaid [id number] ANSI-Medicaid [id number] ANSI-Medicaid [id number] ANSI-Medicaid [id number] [facility] Organization (HMO) [id number] Self [id number] ANSI-Medicaid [id number] ANSI-Medicaid [id number] ANSI-Medicaid [id number] ANSI-Medicaid [id number] ANSI-Medicaid [id number] ANSI-Medicaid [id number] ANSI-Medicaid [id number] ANSI-Medicaid [id number] [facility] Health Maintenance Organization (HMO) [id number] Self [id number] Community Plan - [facility] Commercial [id number] Self [id number] [facility] [id number] SP [id number] [facility] [id number] SP [id number] Managed Care - Community Plan [facility] P [id number] S [id number] Medicaid S [id number] S [id number] [facility] Health Maintenance Organization (HMO) [id number] Self [id number] [employer] [facility] Maintenance Organization (HMO) [id number] Self [id number] [facility] Health Maintenance Organization (HMO) [id number] Self [id number] [facility] Organization (HMO) Self [facility] Community Plan Commercial Self [employer] COMMUNITY PLAN MCDO [id number] SP [id number] [employer] COMMUNITY PLAN MCDO [id number] SP [id number] [facility] O [id number] S [id number] Medicaid Dental P [id number] S [id number] Problems, Conditions, and Diagnoses Code Display Name Description Problem Type Effective Dates Data Source(s) 592.0 Calculus of kidney Calculus of kidney 0 09:32:28 AM EDT [facility] 68571628 Kidney stone Kidney Stone Problem 01/17/2020 12:00:00 A M EDT [place] ([facility]) 42737964 Kidney stone Kidney Stone Problem 01/17/2020 12:00:00 A M EDT [place] ([facility]) 025690712 Clinical finding Clinical Finding Problem 01/17/2020 12 :00:00 AM EDT [place] ([facility]) 171187106 Clinical finding Clinical Finding Problem 01/17/2020 12 :00:00 AM EDT [place] ([facility]) G54.0 Brachial plexus disorders Left thoracic outlet syndrom e 09/30/2019 02:24:08 PM EDT [facility] 719.43 Pain in right wrist Pain in right wrist 020 01:42:43 PM [facility] E78.1 Pure hyperglyceridemia Familial hypertriglyceridemia 08/26/2019 01:42:43 PM [facility] 82779727 Type 2 diabetes mellitus without complic ations Type 2 diabetes mellitus without complications 08/26/2019 01:42:43 PM EST [facility] 922507810 Pure hyperglyceridemia Pure Hyperglyceridemia Problem 08/26/2019 12:00:00 AM EST [facility] ([facility]) 135282008 Pure hyperglyceridemia Pure Hyperglyceridemia Problem 08/26/2019 12:00:00 AM LESLEI [facility] ([facility]) 728797441 Pure hyperglyceridemia Pure Hyperglyceridemia Problem 08/26/2019 12:00:00 AM EST [facility] ([facility]) 085909343 Pure hyperglyceridemia Pure Hyperglyceridemia Problem 08/26/2019 12:00:00 AM EST [facility] ([facility]) 521.00 Dental caries Dental caries 08/05/2019 11:35:20 AM EST [facility] 252766791 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 Secondary to Dental Caries Problem 08/05/2019 12:00:00 AM EST A [facility] ([facility]) 977334531 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 Secondary to Dental Caries Problem 08/05/2019 12:00:00 AM EST A [facility] ([facility]) 804648116 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 Secondary to Dental Caries Problem 08/05/2019 12:00:00 AM EST [facility] ([facility]) 747503177 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 Secondary to Dental Caries Problem 08/05/2019 12:00:00 AM EST [facility] ([facility]) 907235265 Type 2 diabetes mellitus without complic ation Type 2 Diabetes Mellitus without Complication Problem 06/18/2019 12:00:00 AM EST [facility] ([facility]) 204213834 Type 2 diabetes mellitus without complic ation Type 2 Diabetes Mellitus without Complication Problem 06/18/2019 12:00:00 AM EST [facility] ([facility]) 896035682 Type 2 diabetes mellitus without complic ation Type 2 Diabetes Mellitus without Complication Problem 06/18/2019 12:00:00 AM EST [facility] ([facility]) 535888613 Type 2 diabetes mellitus without complic ation Type 2 Diabetes Mellitus without Complication Problem 06/18/2019 12:00:00 AM EST [facility] ([facility]) [id number] Influenza vaccine needed Influenza Vaccine Needed Pro blem 05/04/2019 12:00:00 AM EST - 06/12/2020 12:00:00 AM EST [facility] ([facility]) [id number] Influenza vaccine needed Influenza Vaccine Needed Pro blem 05/04/2019 12:00:00 AM EST - 06/12/2020 12:00:00 AM EST [facility] ([facility]) 717244780 SNOMED CT Concept SNOMED CT Concept Problem 08/29 12:00:00 AM EST - 04/27/2020 12:00:00 AM EDT [facility] System er) [id number] Procedure by method Procedure by Method Problem 0 08/30/2015 12:00:00 AM EST - 04/27/2020 12:00:00 AM EDT SAMANTHA ([facility] er) [id number] Tobacco user Tobacco User Problem 08/30/2015 12:0 0:00 AM EST - 06/12/2020 12:00:00 AM EST SAMANTHA ([facility] er) [id number] SNOMED CT Concept SNOMED CT Concept Problem 08/29 12:00:00 AM EST - 04/27/2020 12:00:00 AM EDT SAMANTHA ([facility] er) [id number] Procedure by method Procedure by Method Problem 0 08/30/2015 12:00:00 AM EST - 04/27/2020 12:00:00 AM EDT SAMANTHA ([facility] er) [id number] Tobacco user Tobacco User Problem 08/30/2015 12:0 0:00 AM EST - 06/12/2020 12:00:00 AM EST SAMANTHA ([facility] er) [id number] SNOMED CT Concept SNOMED CT Concept Problem 08/29 12:00:00 AM EST - 04/27/2020 12:00:00 AM EDT SAMANTHA ([facility] er) [id number] Procedure by method Procedure by Method Problem 0 08/30/2015 12:00:00 AM EST - 04/27/2020 12:00:00 AM EDT SAMANTHA ([facility] er) [id number] SNOMED CT Concept SNOMED CT Concept Problem 08/29 12:00:00 AM EST - 04/27/2020 12:00:00 AM EDT SAMANTHA ([facility] er) [id number] Procedure by method Procedure by Method Problem 0 08/30/2015 12:00:00 AM EST - 04/27/2020 12:00:00 AM EDT SAMANTHA ([facility] er) Surgeries/Procedures Procedure Description Date Indications Data Source(s) RADEX ANKLE COMPLETE MINIMUM 3 VIEWS 07/06/2020 12:00: 00 AM EST MEDENT ([facility] ) RADEX FOOT COMPLETE MINIMUM 3 VIEWS 07/06/2020 12:00:0 0 AM EST MEDENT ([facility] ) RADEX FOOT COMPLETE MINIMUM 3 VIEWS 07/06/2020 12:00:0 0 AM EST [facility] ([facility] ) MRI SPINAL CANAL LUMBAR W/O CONTRAST MATERIAL 02/05/20 12:00:00 AM EDT MEDENT ([facility], ) MRI SPINAL CANAL LUMBAR W/O CONTRAST MATERIAL 02/05/20 12:00:00 AM EDT MEDENT ([facility], ) PHYSICIAN TELEPHONE EVALUATION 11-20 MIN 10/01/2019 12 :00:00 AM EDT eCW1 ([facility]) DESTROY LUMB/SAC FACET JNT 09/15/2019 12:00:00 AM EDT eCW1 ([facility]) RADXPS IN END [id number] 09/15/2019 12:00:00 AM ED T eCW1 ([facility]) Needle electromyography, each extremity, with related paraspinal areas, when performed, done with nerve conduction, amplitude and latency/velocity study; complete, five or more muscles studied, innervated by three or more nerves or four or more spinal levels (list separately in addition to the code for primary procedure). 08/05/2019 12:00:00 AM EST MEDEN T ([facility], ) Needle electromyography, each extremity, with related paraspinal areas, when performed, done with nerve conduction, amplitude and latency/velocity study; complete, five or more muscles studied, innervated by three or more nerves or four or more spinal levels (list separately in addition to the code for primary procedure). 08/05/2019 12:00:00 AM EST MEDEN T ([facility], ) [id number] Nerve conduction studies 13 or more studies NEW 201208/05/2019 12:00:00 AM EST MEDENT ([facility], ) ESTABILISHED PATIENT [facility] FACILITY CHARGE 020 12:00:00 AM EST eCW1 ([facility]) INJ PARAVERT F JNT L/S 1 LEV 07/05/2019 12:00:00 AM ES T eCW1 ([facility]) RADEX FOOT COMPLETE MINIMUM 3 VIEWS 05/20/2019 12:00:0 0 AM EST MEDENT ([facility] ) Results ID Date Data Source [id number] 05/12/2020 10:05:00 AM EST SAMANTHA ([facility]) Name Value Range Interpretation Code Description Data Shannon rce(s) Supporting Document(s) creatinine, urine 225.0 mg/dL normal Creatinine, Urine SAMANTHA ([facility]) sohail/creat ratio 9.3 mcg/mg 0.0-30.0 normal Sohail/creat Ratio ATHE NA ([facility]) malb urine siemens 21.0 mg/L normal Malb Urine Martin SINGH ([facility]) ID Date Data Source [id number] 05/12/2020 10:05:00 AM EST SAMANTHA ([facility]) Name Value Range Interpretation Code Description Data Shannon rce(s) Supporting Document(s) creatinine, urine 225.0 mg/dL normal Creatinine, Urine SAMANTHA ([facility]) malb urine siemens 21.0 mg/L normal Malb Urine Siemen s SAMANTHA ([facility]) sohail/creat ratio 9.3 mcg/mg 0.0-30.0 normal Sohail/creat Ratio ATHE NA ([facility]) ID Date Data Source [id number] 05/12/2020 10:02:00 AM EST SAMANTHA ([facility]) Name Value Range Interpretation Code Description Data Shannon rce(s) Supporting Document(s) potassium serum 4.8 mEq/L 3.5-5.1 normal Potassium Serum ATHE NA ([facility]) ID Date Data Source [id number] 05/12/2020 10:02:00 AM EST SAMANTHA ([facility]) Name Value Range Interpretation Code Description Data Shannon rce(s) Supporting Document(s) potassium serum 4.8 mEq/L 3.5-5.1 normal Potassium Serum ATHE ([facility]) ID Date Data Source [id number] 04/20/2020 09:10:00 AM EDT SAMANTHA ([facility]) Name Value Range Interpretation Code Description Data Shannon rce(s) Supporting Document(s) estimated average glucose 120 mg/dL 60-110 Above high norm al Estimated Average Glucose SAMANTHA ([facility]) Hemoglobin A1c/Hemoglobin.total in Blood 5.8 % normal Hemoglobin a1C SAMANTHA ([facility]) ID Date Data Source [id number] 04/20/2020 09:10:00 AM EDT SAMANTHA ([facility]) Name Value Range Interpretation Code Description Data Shannon rce(s) Supporting Document(s) thyroid stimulating hormone 1.560 uIU/mL 0.358-3.740 normal Thyroid Stimulating Hormone SAMANTHA ([facility]) free T4 0.85 NG/dL 0.76-1.46 normal Free T4 SAMANTHA ([facility]) ID Date Data Source [id number] 04/20/2020 09:10:00 AM EDT SAMANTHA ([facility]) Name Value Range Interpretation Code Description Data Shannon rce(s) Supporting Document(s) triglycerides level 1092 mg/dL <150 Above high normal Triglycer ides Level SAMANTHA ([facility]) cholesterol risk ratio <5 Above high normal Choles terol Risk Ratio SAMANTHA ([facility]) cholesterol level 309 mg/dL <200 Above high normal Cholesterol Level SAMANTHA ([facility]) non-HDL-C 260 mg/dL normal Non-hdl-c SAMANTHA ([facility]) HDL cholesterol 49 mg/dL >40 normal HDL Cholesterol ATHE NA ([facility]) ID Date Data Source [id number] 04/20/2020 09:10:00 AM EDT SAMANTHA ([facility]) Name Value Range Interpretation Code Description Data Shannon rce(s) Supporting Document(s) blood urea nitrogen 12 mg/dL 7-18 normal Blood Urea Nitro gen SAMANTHA ([facility]) glucose, fasting 145 mg/dL 70-100 Above high normal Glucose, Fas ting SAMANTHA ([facility]) glomerular filtration rate > 60.0 >60 normal Glomerula r Filtration Rate SAMANTHA ([facility]) potassium serum 5.5 mEq/L 3.5-5.1 Above high normal Potassium Ser um SAMANTHA ([facility]) sodium level 137 mEq/L 136-145 normal Sodium Level SAMANTHA (No [facility]) creatinine for GFR 1.04 mg/dL 0.70-1.30 normal Creatinine for GF R SAMANTHA ([facility]) carbon dioxide level 29 mEq/L 21-32 normal Carbon Dioxide Level [place] ([facility]) chloride level 102 mEq/L 98-107 normal Chloride Level [place] ([facility]) anion gap 6 mEq/L 8-16 Below low normal Anion Gap [place] ( [facility]) calcium level 9.3 mg/dL 8.5-10.1 normal Calcium Level SAMANTHA ( [facility]) alkaline phosphatase 79 U/L 45-117 normal Alkaline Phosph atase SAMANTHA ([facility]) total protein 7.3 gm/dL 6.4-8.2 normal Total Protein SAMANTHA ( [facility]) AST/SGOT 32 U/L 7-37 normal AST/SGOT [place] ([facility]) bilirubin,total 0.4 mg/dL 0.2-1.0 normal Bilirubin,total ATHE NA ([facility]) ALT/SGPT 60 U/L 12-78 normal ALT/SGPT SAMANTHA ([facility]) albumin 4.0 gm/dL 3.2-5.2 normal Albumin SAMANTHA ([facility]) albumin/globulin ratio normal Albumin/globu andria Ratio [place] ([facility]) ID Date Data Source [id number] 04/20/2020 09:10:00 AM EDT [facility]) Name Value Range Interpretation Code Description Data Shannon rce(s) Supporting Document(s) white blood count 11.0 10 4.0-10.0 Above high normal White Blood Count SAMANTHA ([facility]) hematocrit 47.5 % 42.0-52.0 normal Hematocrit SAMANTHA ([facility]) red blood count 5.12 10 4.30-6.10 normal Red Blood Count ATHE ([facility]) hemoglobin 16.0 g/dL 13.5-17.5 normal Hemoglobin SAMANTHA ([facility]) mean corpuscular hemoglobin 31.3 pg 27.0-33.0 normal Mean Corpuscular Hemoglobin SAMANTHA ([facility]) mean corpuscular HGB conc 33.7 g/dL 32.0-36.5 normal Mean Corpu scular HGB Conc SAMANTHA ([facility]) mean corpuscular volume 92.8 fL 80.0-96.0 normal Mean Corpusc ular Volume SAMANTHA ([facility]) red cell distribution width 13.4 % 11.5-14.5 normal Red Cell Distribution Width SAMANTAH ([facility]) platelet count, automated 309 10 150-450 normal Platelet C ount, Automated SAMANTHA ([facility]) lymph % 25.6 % 24.0-44.0 normal Lymph % [place] ([facility]) neutrophils % 59.3 % 36.0-66.0 normal Neutrophils % [place] ( [facility]) immature granulocyte % 2.0 % 0-3.0 normal Immature Gran ulocyte % SAMANHTA ([facility]) eos % 2.8 % 0.0-3.0 normal Eos % SAMANTHA ([facility]) baso % 0.9 % 0.0-1.0 normal Baso % [place] ([facility]) mono % 9.4 % 0.0-5.0 Above high normal Sanders % SAMANTHA ([facility]) neutrophils # 6.5 10 1.5-8.5 normal Neutrophils # SAMANTHA ( [facility]) nucleated red blood cell % 0.0 % 0-0 normal Nucleated Red Blood Cell % SAMANTHA ([facility]) lymph # 2.8 10 1.5-5.0 normal Lymph # SAMANTHA ([facility]) mono # 1.0 10 0.0-0.8 Above high normal Sanders # SAMANTHA ([facility]) baso # 0.1 10 0.0-0.2 normal Baso # SAMANTHA ([facility]) eos # 0.3 10 0.0-0.5 normal Eos # SAMANTHA ([facility]) ID Date Data Source [id number] 04/20/2020 09:10:00 AM EDT SAMANTHA ([facility]) Name Value Range Interpretation Code Description Data Shannon rce(s) Supporting Document(s) Hemoglobin A1c/Hemoglobin.total in Blood 5.8 % normal Hemoglobin a1C SAMANTHA ([facility]) estimated average glucose 120 mg/dL 60-110 Above high norm al Estimated Average Glucose [place] ([facility]) ID Date Data Source [id number] 04/20/2020 09:10:00 AM EDT SAMANTHA ([facility]) Name Value Range Interpretation Code Description Data Shannon rce(s) Supporting Document(s) thyroid stimulating hormone 1.560 uIU/mL 0.358-3.740 normal Thyroid Stimulating Hormone SAMANTHA ([facility]) free T4 0.85 NG/dL 0.76-1.46 normal Free T4 [place] ([facility]) ID Date Data Source [id number] 04/20/2020 09:10:00 AM EDT SAMANTHA ([facility]) Name Value Range Interpretation Code Description Data Shannon rce(s) Supporting Document(s) triglycerides level 1092 mg/dL <150 Above high normal Triglycer ides Level SAMANTHA ([facility]) cholesterol risk ratio <5 Above high normal Choles terol Risk Ratio SAMANTHA ([facility]) cholesterol level 309 mg/dL <200 Above high normal Cholesterol Level SAMANTHA ([facility]) non-HDL-C 260 mg/dL normal Non-hdl-c SAMANTHA ([facility]) HDL cholesterol 49 mg/dL >40 normal HDL Cholesterol ATHE NA ([facility]) ID Date Data Source [id number] 04/20/2020 09:10:00 AM EDT SAMANTHA ([facility]) Name Value Range Interpretation Code Description Data Shannon rce(s) Supporting Document(s) blood urea nitrogen 12 mg/dL 7-18 normal Blood Urea Nitro gen SAMANTHA ([facility]) glucose, fasting 145 mg/dL 70-100 Above high normal Glucose, Fas ting SAMANTHA ([facility]) sodium level 137 mEq/L 136-145 normal Sodium Level SAMANHTA (No [facility]) creatinine for GFR 1.04 mg/dL 0.70-1.30 normal Creatinine for GF R [place] ([facility]) glomerular filtration rate > 60.0 >60 normal Glomerula r Filtration Rate SAMANTHA ([facility]) chloride level 102 mEq/L 98-107 normal Chloride Level [place] ([facility]) potassium serum 5.5 mEq/L 3.5-5.1 Above high normal Potassium Ser um SAMANTHA ([facility]) carbon dioxide level 29 mEq/L 21-32 normal Carbon Dioxide Level SAMANTHA ([facility]) anion gap 6 mEq/L 8-16 Below low normal Anion Gap SAMANTHA ( [facility]) ALT/SGPT 60 U/L 12-78 normal ALT/SGPT [place] ([facility]) calcium level 9.3 mg/dL 8.5-10.1 normal Calcium Level SAMANTHA ( [facility]) AST/SGOT 32 U/L 7-37 normal AST/SGOT SAMANTHA ([facility]) alkaline phosphatase 79 U/L 45-117 normal Alkaline Phosph atase SAMANTHA ([facility]) bilirubin,total 0.4 mg/dL 0.2-1.0 normal Bilirubin,total ATHE ([facility]) total protein 7.3 gm/dL 6.4-8.2 normal Total Protein SAMANTHA ( [facility]) albumin 4.0 gm/dL 3.2-5.2 normal Albumin SAMANTHA ([facility]) albumin/globulin ratio normal Albumin/globu andria Ratio SAMANTHA ([facility]) ID Date Data Source [id number] 04/20/2020 09:10:00 AM EDT SAMANTHA ([facility]) Name Value Range Interpretation Code Description Data Shannon rce(s) Supporting Document(s) white blood count 11.0 10 4.0-10.0 Above high normal White Blood Count SAMANTHA ([facility]) hemoglobin 16.0 g/dL 13.5-17.5 normal Hemoglobin SAMANTHA ([facility]) hematocrit 47.5 % 42.0-52.0 normal Hematocrit SAMANTHA ([facility]) red blood count 5.12 10 4.30-6.10 normal Red Blood Count ATHE ([facility]) mean corpuscular volume 92.8 fL 80.0-96.0 normal Mean Corpusc ular Volume SAMANTHA ([facility]) mean corpuscular hemoglobin 31.3 pg 27.0-33.0 normal Mean Corpuscular Hemoglobin SAMANTHA ([facility]) mean corpuscular HGB conc 33.7 g/dL 32.0-36.5 normal Mean Corpu scular HGB Conc SAMANTHA ([facility]) neutrophils % 59.3 % 36.0-66.0 normal Neutrophils % SAMANTHA ( [facility]) platelet count, automated 309 10 150-450 normal Platelet C ount, Automated SAMANTHA ([facility]) red cell distribution width 13.4 % 11.5-14.5 normal Red Cell Distribution Width SAMANTHA ([facility]) lymph % 25.6 % 24.0-44.0 normal Lymph % SAMANTHA ([facility]) mono % 9.4 % 0.0-5.0 Above high normal [place] % SAMANTHA ([facility]) eos % 2.8 % 0.0-3.0 normal Eos % SAMANTHA ([facility]) baso % 0.9 % 0.0-1.0 normal Baso % SAMANTHA ([facility]) neutrophils # 6.5 10 1.5-8.5 normal Neutrophils # SAMANTHA ( [facility]) immature granulocyte % 2.0 % 0-3.0 normal Immature Gran ulocyte % SAMANTHA ([facility]) nucleated red blood cell % 0.0 % 0-0 normal Nucleated Red Blood Cell % SAMANTHA ([facility]) lymph # 2.8 10 1.5-5.0 normal Lymph # SAMANTHA ([facility]) eos # 0.3 10 0.0-0.5 normal Eos # SAMANTHA ([facility]) baso # 0.1 10 0.0-0.2 normal Baso # SAMANTHA ([facility]) mono # 1.0 10 0.0-0.8 Above high normal [place] # SAMANTHA ([facility]) ID Date Data Source [id number] 04/20/2020 09:10:00 AM EDT [facility]) Name Value Range Interpretation Code Description Data Shannon rce(s) Supporting Document(s) Hemoglobin A1c/Hemoglobin.total in Blood 5.8 % normal Hemoglobin a1C SAMANTHA ([facility]) estimated average glucose 120 mg/dL 60-110 Above high norm al Estimated Average Glucose [place] ([facility]) ID Date Data Source [id number] 04/20/2020 09:10:00 AM EDT [facility]) Name Value Range Interpretation Code Description Data Shannon rce(s) Supporting Document(s) thyroid stimulating hormone 1.560 uIU/mL 0.358-3.740 normal Thyroid Stimulating Hormone [place] ([facility]) free T4 0.85 NG/dL 0.76-1.46 normal Free T4 [place] ([facility]) ID Date Data Source [id number] 04/20/2020 09:10:00 AM EDT [facility]) Name Value Range Interpretation Code Description Data Shannon rce(s) Supporting Document(s) cholesterol level 309 mg/dL <200 Above high normal Cholesterol Level SAMANTHA ([facility]) triglycerides level 1092 mg/dL <150 Above high normal Triglycer ides Level [place] ([facility]) non-HDL-C 260 mg/dL normal Non-hdl-c SAMANTHA ([facility]) HDL cholesterol 49 mg/dL >40 normal HDL Cholesterol ATHE NA ([facility]) cholesterol risk ratio <5 Above high normal Choles terol Risk Ratio SAMANTHA ([facility]) ID Date Data Source [id number] 04/20/2020 09:10:00 AM EDT SAMANTHA ([facility]) Name Value Range Interpretation Code Description Data Shannon rce(s) Supporting Document(s) creatinine for GFR 1.04 mg/dL 0.70-1.30 normal Creatinine for GF R SAMANTHA ([facility]) blood urea nitrogen 12 mg/dL 7-18 normal Blood Urea Nitro gen SAMANTHA ([facility]) glucose, fasting 145 mg/dL 70-100 Above high normal Glucose, Fas ting SAMANTHA ([facility]) glomerular filtration rate > 60.0 >60 normal Glomerula r Filtration Rate SAMANTHA ([facility]) sodium level 137 mEq/L 136-145 normal Sodium Level SAMANTHA (No [facility]) chloride level 102 mEq/L 98-107 normal Chloride Level SAMANTHA ([facility]) carbon dioxide level 29 mEq/L 21-32 normal Carbon Dioxide Level [place] ([facility]) potassium serum 5.5 mEq/L 3.5-5.1 Above high normal Potassium Ser um SAMANTHA ([facility]) anion gap 6 mEq/L 8-16 Below low normal Anion Gap SAMANTHA ( [facility]) AST/SGOT 32 U/L 7-37 normal AST/SGOT SAMANTHA ([facility]) calcium level 9.3 mg/dL 8.5-10.1 normal Calcium Level SAMANTHA ( [facility]) ALT/SGPT 60 U/L 12-78 normal ALT/SGPT [place] ([facility]) total protein 7.3 gm/dL 6.4-8.2 normal Total Protein SAMANTHA ( [facility]) alkaline phosphatase 79 U/L 45-117 normal Alkaline Phosph atase [place] ([facility]) bilirubin,total 0.4 mg/dL 0.2-1.0 normal Bilirubin,total ATHE ([facility]) albumin 4.0 gm/dL 3.2-5.2 normal Albumin SAMANTHA ([facility]) albumin/globulin ratio normal Albumin/globu andria Ratio [place] ([facility]) ID Date Data Source [id number] 04/20/2020 09:10:00 AM EDT [place] ([facility]) Name Value Range Interpretation Code Description Data Shannon rce(s) Supporting Document(s) red blood count 5.12 10 4.30-6.10 normal Red Blood Count ATHE ([facility]) white blood count 11.0 10 4.0-10.0 Above high normal White Blood Count [place] ([facility]) hematocrit 47.5 % 42.0-52.0 normal Hematocrit [place] ([facility]) hemoglobin 16.0 g/dL 13.5-17.5 normal Hemoglobin [place] ([facility]) mean corpuscular volume 92.8 fL 80.0-96.0 normal Mean Corpusc ular Volume [place] ([facility]) mean corpuscular hemoglobin 31.3 pg 27.0-33.0 normal Mean Corpuscular Hemoglobin [place] ([facility]) platelet count, automated 309 10 150-450 normal Platelet C ount, Automated [place] ([facility]) red cell distribution width 13.4 % 11.5-14.5 normal Red Cell Distribution Width SAMANTHA ([facility]) mean corpuscular HGB conc 33.7 g/dL 32.0-36.5 normal Mean Corpu scular HGB Conc SAMANTHA ([facility]) lymph % 25.6 % 24.0-44.0 normal Lymph % [place] ([facility]) mono % 9.4 % 0.0-5.0 Above high normal [place] % [place] ([facility]) neutrophils % 59.3 % 36.0-66.0 normal Neutrophils % [facility]) eos % 2.8 % 0.0-3.0 normal Eos % SAMANTHA ([facility]) neutrophils # 6.5 10 1.5-8.5 normal Neutrophils # SAMANTHA ( [facility]) nucleated red blood cell % 0.0 % 0-0 normal Nucleated Red Blood Cell % SAMANTHA ([facility]) immature granulocyte % 2.0 % 0-3.0 normal Immature Gran ulocyte % SAMANTHA ([facility]) baso % 0.9 % 0.0-1.0 normal Baso % SAMANTHA ([facility]) lymph # 2.8 10 1.5-5.0 normal Lymph # SAMANTHA ([facility]) mono # 1.0 10 0.0-0.8 Above high normal [place] # SAMANTHA ([facility]) baso # 0.1 10 0.0-0.2 normal Baso # [facility]ANTHA ([facility]) eos # 0.3 10 0.0-0.5 normal Eos # SAMANTHA ([facility]) ID Date Data Source [id number] 04/20/2020 09:10:00 AM EDT SAMANTHA ([facility]) Name Value Range Interpretation Code Description Data Shannon rce(s) Supporting Document(s) estimated average glucose 120 mg/dL 60-110 Above high norm al Estimated Average Glucose [place] ([facility]) Hemoglobin A1c/Hemoglobin.total in Blood 5.8 % normal Hemoglobin a1C [place] ([facility]) ID Date Data Source [id number] 04/20/2020 09:10:00 AM EDT SAMANTHA ([facility]) Name Value Range Interpretation Code Description Data Shannon rce(s) Supporting Document(s) free T4 0.85 NG/dL 0.76-1.46 normal Free T4 SAMANTHA ([facility]) thyroid stimulating hormone 1.560 uIU/mL 0.358-3.740 normal Thyroid Stimulating Hormone [place] ([facility]) ID Date Data Source [id number] 04/20/2020 09:10:00 AM EDT SAMANTHA ([facility]) Name Value Range Interpretation Code Description Data Shannon rce(s) Supporting Document(s) non-HDL-C 260 mg/dL normal Non-hdl-c SAMANTHA ([facility]) cholesterol level 309 mg/dL <200 Above high normal Cholesterol Level SAMANTHA ([facility]) HDL cholesterol 49 mg/dL >40 normal HDL Cholesterol ATHE NA ([facility]) triglycerides level 1092 mg/dL <150 Above high normal Triglycer ides Level SAMANTHA ([facility]) cholesterol risk ratio <5 Above high normal Choles terol Risk Ratio SAMANTHA ([facility]) ID Date Data Source [id number] 04/20/2020 09:10:00 AM EDT [place] ([facility]) Name Value Range Interpretation Code Description Data Shannon rce(s) Supporting Document(s) glucose, fasting 145 mg/dL 70-100 Above high normal Glucose, Fas ting SAMANTHA ([facility]) sodium level 137 mEq/L 136-145 normal Sodium Level SAMANTHA (No [facility]) glomerular filtration rate > 60.0 >60 normal Glomerula r Filtration Rate SAMANTHA ([facility]) blood urea nitrogen 12 mg/dL 7-18 normal Blood Urea Nitro gen SAMANTHA ([facility]) creatinine for GFR 1.04 mg/dL 0.70-1.30 normal Creatinine for GF R SAMANTHA ([facility]) potassium serum 5.5 mEq/L 3.5-5.1 Above high normal Potassium Ser um SAMANTHA ([facility]) chloride level 102 mEq/L 98-107 normal Chloride Level SAMANTHA ([facility]) anion gap 6 mEq/L 8-16 Below low normal Anion Gap SAMANTHA ( [facility]) carbon dioxide level 29 mEq/L 21-32 normal Carbon Dioxide Level SAMANTHA ([facility]) calcium level 9.3 mg/dL 8.5-10.1 normal Calcium Level SAMANTHA ( [facility]) ALT/SGPT 60 U/L 12-78 normal ALT/SGPT SAMANTHA ([facility]) AST/SGOT 32 U/L 7-37 normal AST/SGOT SAMANTHA ([facility]) bilirubin,total 0.4 mg/dL 0.2-1.0 normal Bilirubin,total ATHE NA ([facility]) alkaline phosphatase 79 U/L 45-117 normal Alkaline Phosph atase SAMANTHA ([facility]) albumin 4.0 gm/dL 3.2-5.2 normal Albumin SAMANTHA ([facility]) albumin/globulin ratio normal Albumin/globu andria Ratio SAMANTHA ([facility]) total protein 7.3 gm/dL 6.4-8.2 normal Total Protein SAMANTHA ( [facility]) ID Date Data Source [id number] 04/20/2020 09:10:00 AM EDT [place] ([facility]) Name Value Range Interpretation Code Description Data Shannon rce(s) Supporting Document(s) white blood count 11.0 10 4.0-10.0 Above high normal White Blood Count SAMANTHA ([facility]) red blood count 5.12 10 4.30-6.10 normal Red Blood Count ATHE ([facility]) hematocrit 47.5 % 42.0-52.0 normal Hematocrit SAMANTHA ([facility]) mean corpuscular volume 92.8 fL 80.0-96.0 normal Mean Corpusc ular Volume SAMANTHA ([facility]) hemoglobin 16.0 g/dL 13.5-17.5 normal Hemoglobin SAMANTHA ([facility]) mean corpuscular hemoglobin 31.3 pg 27.0-33.0 normal Mean Corpuscular Hemoglobin SAMANTHA ([facility]) platelet count, automated 309 10 150-450 normal Platelet C ount, Automated SAMANTHA ([facility]) red cell distribution width 13.4 % 11.5-14.5 normal Red Cell Distribution Width SAMANTHA ([facility]) mean corpuscular HGB conc 33.7 g/dL 32.0-36.5 normal Mean Corpu scular HGB Conc SAMANTHA ([facility]) eos % 2.8 % 0.0-3.0 normal Eos % SAMANTHA ([facility]) neutrophils % 59.3 % 36.0-66.0 normal Neutrophils % SAMANTHA ( [facility]) lymph % 25.6 % 24.0-44.0 normal Lymph % [place] ([facility]) mono % 9.4 % 0.0-5.0 Above high normal Sanders % [place] ([facility]) immature granulocyte % 2.0 % 0-3.0 normal Immature Gran ulocyte % [place] ([facility]) neutrophils # 6.5 10 1.5-8.5 normal Neutrophils # [place] ( [facility]) baso % 0.9 % 0.0-1.0 normal Baso % [place] ([facility]) nucleated red blood cell % 0.0 % 0-0 normal Nucleated Red Blood Cell % [place] ([facility]) baso # 0.1 10 0.0-0.2 normal Baso # [place] ([facility]) lymph # 2.8 10 1.5-5.0 normal Lymph # [place] ([facility]) eos # 0.3 10 0.0-0.5 normal Eos # [place] ([facility]) mono # 1.0 10 0.0-0.8 Above high normal Sanders # [place] ([facility]) ID Date Data Source [id number] 01/17/2020 08:53:33 AM EDT [facility] Measurements & CalculationsHeight: 70 inches (5 ft. 10 in.) 177.80 cm Weight: 222 pounds 100.91 kg Body Mass Index (BMI): 31.97BMI Interpretation: ObeseBody Surface Area (BSA): 2.18Weight Management Education Done (Nutrition/Physical Activity)Vital SignsTemperature: 97.4F 36.33C tympanic Pulse Rate: 65 beats/minuteRespiratory Rate: 18 respirations/minuteBlood Pressure: 131/85 left arm sitting automaticO2 Saturation: 99% Vital Signs performed by: Cris Rebollar LPN, January 17, 2020 8:53 AMInitial Intake Information From: patientRoom #: 2Smoking, Tobacco, Vaping or Smoke Exposure StatusSmoke Status: former smokerTobacco Use: NoDo you vape? NoPassive Smoke Exposure: YesPassive Smoke Exposure comments: outsideHealthcare HistorySince your last office visit...Have you been admitted to the hospital? NoHave you been to an emergency room (ER) or urgent care clinic? Yes - Kidney stones- SMCEmergency room (ER) or urgent care date reported today: 01/13/2020Have you seen another healthcare provider? Yes - pain clinicHave you seen a dentist? Yes - NCFHCIntake performed by: Cris Rebollar LPN, January 17, 2020 8:56 AMRate Your HealthIn general, would you say your health is? GoodPain AssessmentAre you currently having any pain which... You would like your provider to address? No Affects your activity level? NoDepression Screening - PHQ-2Over the last two weeks, have you... Had little interest or pleasure in doing things? Not at all Been feeling down, depressed, or hopeless? Not at all PHQ-2 Score: 0Anxiety Screening - ROMÁN-2Over the last two weeks, have you been... Feeling nervous, anxious, or on edge? Not at all Unable to stop or control worrying? Not at all ROMÁN-2 Score: 0Food InsecurityWithin the past year...Did you worry whether your food would run out before you got money to buy more? NoWas there a time when the food you bought didn't last and you didn't have money to get more? NoPRAPARE Sociodemographic Characteristics Race: White Ethnicity: Not or Preferred Language: EnglishFamily and Home Address: [address] [place] [address] What is your housing situation today? I have housing Are you worried about losing your housing? NoMoney and Resources What is the highest level of school that you have finished? high school graduate Employed? Yes Your current work situation? [employer] Insurance: Managed Care - [facility] Community PlanIn the past year, have you or any family members you live with been unable to get any of the following when it was really needed? Denies Insecurity: food, utilities, clothing, director child development center, phone, legal services, otherWithin the past year did you worry whether your food would run out before you got money to buy more? NoWithin the past year was there a time when the food you bought didn't last and you didn't have money to get more? NoIn the past year, have you had trouble affording costs associated with health insurance (such as deductibles, co-payments, etc.)? NoScreening, Brief Intervention, & Referral to Treatment (SBIRT)Pre-Screening Questions How many times have you have 5 or more drinks in a day? 0How many times have you used an illegal drug or used a prescription medication for a non-medical reason? 0Performed by: Cris Rebollar LPN, January 17, 2020 8:57 AMPatient History Medical History:Bipolar disorder/stressSchizophreniaAnxietyDepressionBlack spot on brainDDDPancreatitisConcussion hx (13)Broken ribs (3)Crushed vertabrae (3)Surgical History:Left shoulder rotator cuff2 broken jawRight armGallbladderRight AnkleLeft AnkleFamily History:Father- ParkinsonsFH- MIFH- CAMother- Lymphoma CACancer - Breast (Maternal Grandmother)MD - male - under age 55 (Father)Social/Personal History: Chief Complaintannual examHistory of Present Illness (HPI)44 yo male pt presents for an annual exam. Pt was seen at [facility] ER 4 days ago for kidney stones. Feels no relief from Ketorolac from the ER, has been taking every 6 hrs. No other complaints. Hasn't seen any stone passage, but can't strain his urine at work. HPI performed by: Binh ELDER, January 17, 2020 9:13 AMTransitions of Care InboundProblem ReviewProblem List was reviewed and/or updated during this visit.Medication Reconciliation & ReviewMedication List was reviewed and/or updated during this visit, including review of any pnln-qif-pnqndkz medications, herbal therapies, and/or supplements.Allergy ReviewAllergy List was reviewed and/or updated during this visit.Adult Preventive CareLabs/Meds/Other Counseling-Nutrition and Physical Activity:BMI Interpretation: Obese (01/17/2020) Counseling: Done (01/17/2020) Physical Activity: Done (01/17/2020)Review of Systems General: Denies chills, dizziness, fatigue, fever, headache. Eyes: Denies blurring of vision, double vision. Ears/Nose/Throat: Denies earache, decreased hearing, nasal congestion, sore throat, swollen glands. Cardiovascular: Denies chest pain, palpitations, feeling faint. Respiratory: Denies cough, difficulty breathing, shortness of breath. Gastrointestinal: Complains of pain or discomfort. Denies nausea, vomiting, diarrhea, constipation, blood in stool, black or tarry stools. Genitourinary: Complains of see HPI. Denies urinary incontinence, pain with urination, burning with urination, urinary frequency, incomplete emptying, blood in urine. Musculoskeletal: Complains of see HPI, back pain. Denies recent injury. Skin: Denies rash, redness, suspicious lesions. Neurologic: Denies weakness, numbness/tingling, feeling faint. Psychiatric: Denies depression, anxiety. Physical ExamGeneral Appearance: well nourished, well hydrated, no acute distress, appears uncomfortable due to pain, frequently shifting position in chair and on exam tableEyes, External: conjunctivae and lids normal, EOMIExternal Ears: normal, no lesions or deformitiesHearing: grossly intactOtoscopy: canals clear, tympanic membranes intact, no fluid, light reflex intact bilaterallyExternal Nose: normal, no lesions or deformitiesNasal: mucosa, septum, and turbinates normal, nares patentLips/Teeth/Gums: no gingival inflammation, no labial lesionsPharynx: tongue normal, posterior pharynx without erythema or exudate, no thrush/aphthous ulcerNeck: supple, no masses, trachea midline, full range of motion of neckThyroid: no nodules, masses, tenderness, or enlargementRespiratory, Auscultation: clear to auscultation bilaterally; no rales, rhonchi, or wheezesCardiovascular, Auscultation: S1, S2 audible; no murmur, rub, or gallop; RRRPeripheral Circulation: no clubbing, cyanosis, edema, or varicositiesAbdomen: soft, generalized b/l flank wrapping toward RLQ/LLQ pain, no rebound or guarding, no masses, bowel sounds normalGait & Station: normalBack: limited ROM secondary to painSkin, Inspection: no rashes, lesions, or ulcerationsOrientation: oriented to time, place, and personMood & Affect: no depression, anxiety, or agitationJudgment & Insight: intactCare Management Plan Transitions of CareInboundRate Your HealthIn general, would you say your health is? GoodAssessment & Plan Problems:Added: Calculus of kidney (ICD-592.0) (ICD10- N20.0) Assessment: Instructions: Contiue Flomax, refill sent. Call your urologist today to schedule an ER follow-up. Short course or narcotic pain medication sent today and written off work for 3 days. The medication you were prescribed today is a controlled substance. We have reviewed alternative treatment options and agree this is the most appropriate treatment at this time. We reviewed risks of taking this medication, including but not limited to: addiction, sedation, overdose. Taking more than prescribed or taking with another controlled substance can result in overdose or , no drinking alcohol, no driving/operating heavy machinery while taking this medication. Keep out of the reach of childrenAssessed:Type 2 diabetes mellitus without complications (GIR31-V67.9) Assessment: Instructions: Significantly improved with an A1c of 6.6, great control and currently at goal. Keep up the same management and great effort! Continue current Metformin, call when you need refills.Other specified polyneuropathies (IBJ47-Z13.89) Assessment: Instructions: Continue gabapentin as prescribed.Familial hypertriglyceridemia (ICD-272.1) (DSD48-H66.1) Assessment: Instructions: Significant improvement with Gemfibrozil, remains elevated and LDL above goal. Continue low fat diet, avoid fried and greasy food. Repeat fasting labs in 3 months.Schizophrenia (ICD- 295.90) (FTZ01-T15.9) Assessment: Instructions: Continue current Seroquel, moods stable and controlled. Refills sent today.Encounter for general adult medical examination with abnormal findings (ICD-V70.0) (BBD34-B38.01) Assessment: Instructions: Recommend annual medical appointments. Recommend routine dental and vision care. Recommend influenza vaccines annually and tetanus boosters every 10 years.Removed:Pain in right wrist (ICD-719.43) (UQI93-B67.531), Left thoracic outlet syndrome (PWF20-X71.0), Pleuritic pain (ICD-786.52) (JJV58-I61.1)Patient Instructions/Care Plan: Type 2 diabetes mellitus without complications: Significantly improved with an A1c of 6.6, great control and currently at goal. Keep up the same management and great effort! Continue current Metformin, call when you need refills.Other specified polyneuropathies: Continue gabapentin as prescribed.Familial hypertriglyceridemia: Significant improvement with Gemfibrozil, remains elevated and LDL above goal. Continue low fat diet, avoid fried and greasy food. Repeat fasting labs in 3 months.Calculus of kidney: Contiue Flomax, refill sent. Call your urologist today to schedule an ER follow-up. Short course or narcotic pain medication sent today and written off work for 3 days. The medication you were prescribed today is a controlled substance. We have reviewed alternative treatment options and agree this is the most appropriate treatment at this time. We reviewed risks of taking this medication, including but not limited to: addiction, sedation, overdose. Taking more than prescribed or taking with another controlled substance can result in overdose or , no drinking alcohol, no driving/operating heavy machinery while taking this medication. Keep out of the reach of childrenSchizophrenia: Continue current Seroquel, moods stable and controlled. Refills sent today.Encounter for general adult medical examination with abnormal findings: Recommend annual medical appointments. Recommend routine dental and vision care. Recommend influenza vaccines annually and tetanus boosters every 10 years. Plan developed in collaboration with patient and/or familyMedications:PERCOCET 5-325 MG ORAL TABLETFLOMAX 0.4 MG ORAL CAPSULEMETFORMIN HCL ER 500 MG ORAL TABLET EXTENDED RELEASE 24 HOURALCOHOL PREP 70 % PADGEMFIBROZIL 600 MG ORAL TABLETLEXAPRO 10 MG ORAL TABLETGABAPENTIN 600 MG ORAL TABLETSEROQUEL 100 MG ORAL TABLETMedication Changes:Refilled:METFOR MIN HCL ER 500 MG ORAL TABLET EXTENDED RELEASE 24 HOUR-Take 2 tablets po BID Qty: 120[Tablet] Refills: 5 Method: ElectronicGEMFIBROZIL 600 MG ORAL TABLET-Take 1 tablet by mouth twice daily, 30 minutes before breakfast and dinner Qty: 60[Tablet] Refills: 5 Method: ElectronicSEROQUEL 100 MG ORAL TABLET-One po bid. Qty: 60[Tablet] Refills: 3 Method: ElectronicNew Prescription:FLOMAX 0.4 MG ORAL CAPSULE-one tablet by mouth daily Qty: 14[Capsule] Refills: 0 Method: ElectronicPERCOCET 5-325 MG ORAL TABLET-Take 1 tablet po q 6 hrs prn severe pain; MDD 4 tablets Qty: 12[Tablet] Refills: 0 Method: ElectronicRemoved:PREGABALIN 50 MG ORAL CAPSULE-1 po tid prn nerve pain- may increase weekly by 50 mg to max of 300 mg per day, IBUPROFEN 800 MG ORAL TABLETAllergies:* BEE STINGS (Critical)TRAMADOL HCL (TRAMADOL HCL TABS) (Mild)* GARLIC (Mild)Orders:COMP METABOLIC PANEL [CPT-72688] CBC W/DIFF [CPT- 69393] HgBA1c [CPT-44862] LIPID PANEL [CPT-97576] Vitamin D 250H Unspecified [CPT-78517] URINE MICROALBUMIN - QUANTIATIVE [CPT-80855] Preventive, Est, (40- 64) [CPT-77400] Follow-Up Return to clinic: in 90 days for follow upAdditional Follow-Up: T2DM, lipidsClinical Visit Summary CompletedMedications:PERCOCET 5- 325 MG ORAL TABLET (OXYCODONE-ACETAMINOPHEN) Take 1 tablet po q 6 hrs prn severe pain; MDD 4 tablets #12[Tablet] x 0 Route:ORAL Entered and Authorized by: Binh ELDER Method used: Electronically to [facility] (retail) [address] [place] [address] Note to Pharmacy: Route: ORAL; Indications: CALCULUS OF KIDNEY RxID: [id number] 100 MG ORAL TABLET (QUETIAPINE FUMARATE) One po bid. #60[Tablet] x 3 Route:ORAL Entered and Authorized by: Binh ELDER Method used: Electronically to [facility] (retail) [address] [place] [address] Note to Pharmacy: Route: ORAL; Indications: SCHIZOPHRENIA RxID: [id number] 600 MG ORAL TABLET (GEMFIBROZIL) Take 1 tablet by mouth twice daily, 30 minutes before breakfast and dinner #60[Tablet] x 5 Route:ORAL Entered and Authorized by: Binh ELDER Method used: Electronically to [facility] (retail) [address] [place] [address] Fax: Note to Pharmacy: Route: ORAL; Indications: FAMILIAL HYPERTRIGLYCERIDEMIA RxID: [id number] HCL ER 500 MG ORAL TABLET EXTENDED RELEASE 24 HOUR (METFORMIN HCL) Take 2 tablets po BID #120[Tablet] x 5 Route:ORAL Entered and Authorized by: Binh ELDER Method used: Electronically to [facility] (retail) [address] [place] [address] Note to Pharmacy: Route: ORAL; RxID: [id number] 0.4 MG ORAL CAPSULE (TAMSULOSIN HCL) one tablet by mouth daily #14[Capsule] x 0 Entered and Authorized by: Binh ELDER Method used: Electronically to [facility] (retail) [address] [place] [address] Note to Pharmacy: Route: ORAL; RxID: [id number] signed by Binh ELDER on 02/01/2020 at 8:30 AM Name Value Range Interpretation Code Description Data Shannon rce(s) Supporting Document(s) ID Date Data Source [id number] 01/10/2020 04:34:30 PM EDT [facility] Labs In-House Blood TestsDate/Time Colle cted: January 10, 2020 4:35 PMDate/Time Received: January 10, 2020 4:35 PMTest Result Reference Range Normal ValueComments: collected blood from patient left Paul Hernandez LPN, January 10, 2020 4:37 PMAssessment & Plan Orders:[id number] - Venipuncture [CPT- 16075] [id number] Vst-Est Level I [CPT-35417] Name Value Range Interpretation Code Description Data Shannon rce(s) Supporting Document(s) ID Date Data Source [id number] 01/10/2020 04:15:00 PM EDT [facility] Name Value Range Interpretation Code Description Data Shannon rce(s) Supporting Document(s) BG FASTING 94 mg/dL 70-100 N [facility] ID Date Data Source [id number] 01/10/2020 04:15:00 PM EDT [facility] Name Value Range Interpretation Code Description Data Shannon rce(s) Supporting Document(s) HCT 44.8 % 42.0-52.0 N [facility] HGB 14.5 g/dL 13.5-17.5 [facility] MCH 32.4 G/DL pg 32.0-36.5 [facility] MCHC 30.3 PG % 27.0-33.0 [facility] PLATELETS 312 10 10*3/mm3 150-450 N [facility] RBC 4.79 10 10*6/mm3 4.30-6.10 [facility] RDW 14.3 % 11.5-14.5 [facility] WBC TOTAL 9.4 4.0-10.0 N [facility] ID Date Data Source [id number] 01/10/2020 04:15:00 PM EDT [facility] Name Value Range Interpretation Code Description Data Shannon rce(s) Supporting Document(s) HGBA1C 6.6 % N [facility] ID Date Data Source [id number] 11/11/2019 08:00:41 AM EDT [facility] In-House Blood TestsDate/Time Colle cted: November 11, 2019 8:01 AMTest Result Reference Range Normal ValueComments: blood draw done in office, taken from left ac, tolerated well.Dinora Karma, November 11, 2019 8:01 AMAssessment & Plan Orders:[id number] Vst-Est Level I [CPT-31821] [id number] - Venipuncture [CPT-36873] Name Value Range Interpretation Code Description Data Shannon rce(s) Supporting Document(s) ID Date Data Source [id number] 11/11/2019 07:55:00 AM EDT [facility] Name Value Range Interpretation Code Description Data Shannon rce(s) Supporting Document(s) HGBA1C 10.2 % N [facility] ID Date Data Source [id number] 10/21/2019 12:49:13 PM EDT [facility] Measurements & CalculationsHeight: 70 inches (5 ft. 10 in.) 177.80 cm Weight: 226 pounds 6 oz. 102.90 kg Body Mass Index (BMI): 32.60BMI Interpretation: ObeseBody Surface Area (BSA): 2.20Weight Management Education Done (Nutrition/Physical Activity)Vital SignsTemperature: 96.0F tympanic Pulse Rate: 96 beats/minuteRespiratory Rate: 18 respirations/minuteBlood Pressure: 131/85 left arm sitting automaticO2 Saturation: 97% room airVital Signs performed by: Loren Pennington LPN, October 21, 2019 12:57 PMInitial Intake Information from: patientRoom #: 1Smoking, Tobacco, Vaping or Smoke Exposure StatusSmoke Status: former smokerTobacco Use: NoDo you vape? NoPassive Smoke Exposure: YesPassive Smoke Exposure comments: outsideHealthcare HistorySince your last office visit...Have you been admitted to the hospital? NoHave you been to an emergency room (ER) or urgent care clinic? Yes - ER DMEmergency room (ER) or urgent care date reported today: 10/05/2019Have you seen another healthcare provider? Yes - Pain clinicHave you seen a dentist? Yes - NCFHDRate Your HealthIn general, would you say your health is? FairPain AssessmentAre you currently having any pain which... You would like your provider to address? Yes Affects your activity level? NoDepression Screening - PHQ-2Over the last two weeks, have you... Had little interest or pleasure in doing things? Not at all Been feeling down, depressed, or hopeless? Not at all PHQ-2 Score: 0Infectious Disease / Travel ScreeningRecent travel for you or any close contacts? NoHave you had any close contact with anyone diagnosed with or under investigation for COVID-19 (coronavirus)? NoHave you had any of the following symptoms recently? Fever? NoRespiratory symptoms: cough, cold, congestion, shortness of breath, difficulty breathing? NoPain AssessmentPain ScaleNumeric Rating Scale: 6 / 10Location: left shoulderDuration: monthCha racter/Quality: aching, sharp and dullIs the pain radiating? NoScreening, Brief Intervention, & Referral to Treatment (SBIRT)Pre-Screening Questions How many times have you have 5 or more drinks in a day? 0How many times have you used an illegal drug or used a prescription medication for a non-medical reason? 0Performed by: Loren Pennington LPN, October 21, 2019 12:53 PMPatient History Medical History:Bipolar disorder/stressSchizophreniaAnxietyDepressionBlack spot on brainDDDPancreatitisConcussion hx (13)Broken ribs (3)Crushed vertabrae (3)Surgical History:Left shoulder rotator cuff2 broken jawRight armGallbladderRight AnkleLeft AnkleFamily History:Father- ParkinsonsFH- MIFH- CAMother- Lymphoma CACancer - Breast (Maternal Grandmother)MD - male - under age 55 (Father)Social/Personal History: Chief ComplaintDM follow upHistory of Present Illness (HPI)44 yo male here for T2DM follow up.Pt has gone from Mountain Dew to Mountain Dew Zero. Has a small bowl of Honey Nut Cheerios, has significantly cut his portion sizes down. PT reports he is checking his sugars intermittently but not consistently. Due for diabetic foot exam today. Retinavue at last visit was negative for diabetic retinopathy b/l.HPI performed by: Binh ELDER, October 21, 2019 1:01 PMTransitions of Care InboundProblem ReviewProblem List was reviewed and/or updated during this visit.Medication Reconciliation & ReviewMedication List was reviewed and/or updated during this visit, including review of any eejg-llj-jprymse medications, herbal therapies, and/or supplements.Allergy ReviewAllergy List was reviewed and/or updated during this visit.Adult Preventive CareProvider Calculated and Reviewed all Clinical Protocols for patient today. Labs/Meds/Other Counseling-Nutrition and Physical Activity:BMI Interpretation: Obese (10/21/2019) Counseling: Done (10/21/2019) Physical Activity: Done (10/21/2019)Review of Systems General: Denies loss of appetite, chills, dizziness, fatigue, fever. Cardiovascular: Denies chest pain, palpitations, feeling faint. Respiratory: Denies cough, difficulty breathing, shortness of breath. Gastrointestinal: Denies nausea, vomiting, diarrhea, pain or discomfort. Skin: Denies rash, redness, itching. Neurologic: Denies weakness, numbness/tingling, feeling faint. Endocrine: Denies excessive thirst, excessive hunger, excessive urination. Physical ExamGeneral Appearance: well nourished, well hydrated, no acute distressEyes, External: conjunctivae and lids normal, EOMIRespiratory, Auscultation: clear to auscultation bilaterally; no rales, rhonchi, or wheezesCardiovascular, Auscultation: S1, S2 audible; no murmur, rub, or gallop; RRRDorsalis Pedis Pulse, Right: 2+Dorsalis Pedis Pulse, Left: 2+Peripheral Circulation: no clubbing, cyanosis, edema, or varicositiesAbdomen: soft, non-tender, no masses, bowel sounds normalGait & Station: normalFoot Inspection, Right: normal examFoot Inspection, Left: normal examSkin, Inspection: no rashes, lesions, or ulcerationsMonofilament, Right: sensory intactMonofilament, Left: sensory intactOrientation: oriented to time, place, and personMood & Affect: no depression, anxiety, or agitationJudgment & Insight: intactCare Management Plan Transitions of CareInboundRate Your HealthIn general, would you say your health is? FairAssessment & Plan Problems:Assessed:Type 2 diabetes mellitus without complications (QCB43-Y21.9) Assessment: Given A1c order for today at outside facility. Instructions: Continue Metformin as prescribed. Recommend low carbohydrate diet: reduce pasta, bread, potatoes, rice. If you do eat carbohydrates, better choices are whole wheat and brown rice products. Recommend portion control and avoidance of soda and sugary foods. Increase physical activity and monitor weight. Recommend annual evaluation of eye and foot health, either here or with a specialist office. Monitor blood sugars at home and call with any concerns.Familial hypertriglyceridemia (ICD-272.1) (JQU79-G98.1) Assessment: Instructions: Fasting labs have been ordered for you today. When labs are drawn, please ensure that you have had nothing to eat or drink for 8-10 hours prior to the blood drawn. Water or black coffee is OK to have before the blood draw.Patient Instructions/Care Plan: Type 2 diabetes mellitus without complications: Continue Metformin as prescribed. Recommend low carbohydrate diet: reduce pasta, bread, potatoes, rice. If you do eat carbohydrates, better choices are whole wheat and brown rice products. Recommend portion control and avoidance of soda and sugary foods. Increase physical activity and monitor weig ht. Recommend annual evaluation of eye and foot health, either here or with a specialist office. Monitor blood sugars at home and call with any concerns.Familial hypertriglyceridemia: Fasting labs have been ordered for you today. When labs are drawn, please ensure that you have had nothing to eat or drink for 8-10 hours prior to the blood drawn. Water or black coffee is OK to have before the blood draw. Plan developed in collaboration with patient and/or familyMedications:METFORMIN HCL ER 500 MG ORAL TABLET EXTENDED RELEASE 24 HOURALCOHOL PREP 70 % PADBLOOD GLUCOSE TEST IN VITRO STRIPLANC ETSBLOOD GLUCOSE MONITOR SYSTEM W/DEVICE KITGEMFIBROZIL 600 MG ORAL TABLETLEXAPRO 10 MG ORAL TABLETPREGABALIN 50 MG ORAL CAPSULEIBUPROFEN 800 MG ORAL TABLETGABAPENTIN 600 MG ORAL TABLETSEROQUEL 100 MG ORAL TABLETMedication Changes:New Prescription:METFORMIN HCL ER 500 MG ORAL TABLET EXTENDED RELEASE 24 HOUR-Take 2 tablets po BID Qty: 120[Tablet] Refills: 2 Method: ElectronicRemoved:PREDNISONE 10 MG ORAL TABLET-40mg po QD, decrease by 10mg q3d Qty: 30[Tablet] Refills: 0, CHANTIX CONTINUING MONTH JEFF 1 MG ORAL TABLET-uad- begin after starter pack completedAllergies:* BEE STINGS (Critical)TRAMADOL HCL (TRAMADOL HCL TABS) (Mild)* GARLIC (Mild)Orders:HgBA1c [CPT-93978] COMP METABOLIC PANEL [CPT-59300] CBC W/DIFF [CPT-36360] HgBA1c [CPT-14603] LIPID PANEL [CPT-40049] Adult - Ofc Vst, EST, Level III [CPT-93525] Follow-Up Return to clinic: in 90 days for follow upAdditional Follow-Up: [id number] Visit Summary Completed Name Value Range Interpretation Code Description Data Shannon rce(s) Supporting Document(s) ID Date Data Source [id number] 09/30/2019 01:25:37 PM EDT [facility] Measurements & CalculationsHeight: 70 inches (5 ft. 10 in.) 177.80 cm Weight: 243 pounds 110.45 kg Body Mass Index (BMI): 34.99BMI Interpretation: ObeseBody Surface Area (BSA): 2.27Weight Management Education Done (Nutrition/Physical Activity)Vital SignsTemperature: 97.9F oral Pulse Rate: 87 beats/minuteRespiratory Rate: 18 respirations/minuteBlood Pressure: 129/95 left arm sitting automaticO2 Saturation: 97% room airVital Signs performed by: Will Peter MA, September 30, 2019 1:39 PMInitial Intake Information from: patientRoom #: 13Smoking, Tobacco, Vaping or Smoke Exposure StatusSmoke Status: former smokerTobacco Use: NoDo you vape? NoPassive Smoke Exposure: YesHealthcare HistorySince your last office visit...Have you been admitted to the hospital? NoHave you been to an emergency room (ER) or urgent care clinic? [facility] re date reported today: 09/21/2019Have you seen another healthcare provider? Yes - pain clinicHave you seen a dentist? Yes - NCFHDIntake performed by: Will Peter MA, September 30, 2019 1:29 PMRate Your HealthIn general, would you say your health is? FairPain AssessmentAre you currently having any pain which... You would like your provider to address? Yes Affects your activity level? YesDepression Screening - PHQ-2Over the last two weeks, have you... Had little interest or pleasure in doing things? Not at all Been feeling down, depressed, or hopeless? Not at all PHQ-2 Score: 0Anxiety Screening - ROMÁN-2Over the last two weeks, have you been... Feeling nervous, anxious, or on edge? Not at all Unable to stop or control worrying? Not at all ROMÁN-2 Score: 0Food InsecurityWithin the past year...Did you worry whether your food would run out before you got money to buy more? NoWas there a time when the food you bought didn't last and you didn't have money to get more? NoInfectious Disease / Travel ScreeningRecent travel for you or any close contacts? NoHave you had any close contact with anyone diagnosed with or under investigation for COVID-19 (coronavirus)? NoHave you had any of the following symptoms recently? Fever? NoRespiratory symptoms: cough, cold, congestion, shortness of breath, difficulty breathing? NoPain AssessmentPain ScaleNumeric Rating Scale: 6 / 10Location: left shoulder Duration: 4-7 daysFrequency: DailyCharacter/Quality: aching, sharp and dullIs the pain radiating? NoScreening, Brief Intervention, & Referral to Treatment (SBIRT)Pre-Screening Questions How many times have you have 5 or more drinks in a day? 0How many times have you used an illegal drug or used a prescription medication for a non-medical reason? 0Performed by: Will Peter MA, September 30, 2019 1:31 PMPatient History Medical History:Bipolar disorder/stressSchizophreniaAnxietyDepressionBlack spot on brainDDDPancreatitisConcussion hx (13)Broken ribs (3)Crushed vertabrae (3)Surgical History:Left shoulder rotator cuff2 broken jawRight armGallbladderRight AnkleLeft AnkleFamily History:Father- ParkinsonsFH- MIFH- CAMother- Lymphoma CACancer - Breast (Maternal Grandmother)MD - male - under age 55 (Father)Social/Personal History: Chief Complaintleft shoulder pain RM 13History of Present Illness (HPI)44 yr old male Pt here today with complaints of left shoulder pain. Pt states that he has had issues with this shoulder in the past. Pt states that his pain is localized in the shouder only. Pt states that he see's pain managment for back and hip pain. I, Travis Ji MA, am scribing for, and in the presence of, Cleveland Harrison, DO pt has shoulder pain for four days. pt tried to move a refridgerator about four days ago, pt tried to carry it down stairs and across the drivewayDO manipulated pt's shoulder.. DO will send in prednisone to knock out inflamation in pt's shoulder. Transitions of Care InboundProblem ReviewProblem List was reviewed and/or updated during this visit.Medication Reconciliation & ReviewMedication List was reviewed and/or updated during this visit, including review of any jfms-ykt-kanbmml medications, herbal therapies, and/or supplements.Allergy ReviewAllergy List was reviewed and/or updated during this visit.Adult Preventive CareProvider Calculated and Reviewed all Clinical Protocols for patient today. Labs/Meds/Other Counseling-Nutrition and Physical Activity:BMI Interpretation: Obese (09/30/2019) Counseling: Done (09/30/2019) Physical Activity: Done (09/30/2019)Review of Systems General: Denies loss of appetite, chills, dizziness, fatigue, fever, continued fever, headache, feeling ill, sweats, night sweats, sleep disturbances, weight loss. Cardiovascular: Denies chest pain, palpitations, feeling faint, trouble breathing w/exertion, SOB upon lying down, SOB at night, peripheral edema, elevated blood pressure, decreased heart rate. Respiratory: Denies cough, difficulty breathing, shortness of breath, excessive sputum, coughing up blood, wheezing, chest pain. Musculoskeletal: Complains of back pain, joint pain, muscle cramps. Physical ExamGeneral Appearance: well nourished, well hydrated, no acute distressRespiratory, Auscultation: clear to auscultation bilaterally; no rales, rhonchi, or wheezesRespiratory, Effort: no intercostal retractions or use of accessory musclesCardiovascular, Auscultation: S1, S2 audible; no murmur, rub, or gallop; RRRGait & Station: normalUpper Extremity, Left: spasm left 1st rib, severlely limited ROM, yash in abduction, neg straight arm testOrientation: oriented to time, place, and personMood & Affect: no depression, anxiety, or agitationJudgment & Insight: intactCare Management Plan Transitions of CareInboundRate Your HealthIn general, would you say your health is? FairAssessment & Plan Problems:Added: Left thoracic outlet syndrome (THU91-Q66.0)Assessment not SavedLeft thoracic outlet syndrome (ICD10- G54.0): OMT done w/reliefstart steroid pulsecont. tizanidineMedications:PREDNISONE 10 MG ORAL TABLETGEMFIBROZIL 600 MG ORAL TABLETCHANTIX CONTINUING MONTH JEFF 1 MG ORAL TABLETLEXAPRO 10 MG ORAL TABLETPREGABALIN 50 MG ORAL CAPSULEIBUPROFEN 800 MG ORAL TABLETGABAPENTIN 600 MG ORAL TABLETSEROQUEL 100 MG ORAL TABLETMedication Changes:New Prescription:PREDNISONE 10 MG ORAL TABLET-40mg po QD, decrease by 10mg q3d Qty: 30[Tablet] Refills: 0 Method: ElectronicAllergies:* BEE STINGS (Critical)TRAMADOL HCL (TRAMADOL HCL TABS) (Mild)* GARLIC (Mild)Orders:Adult - Ofc Vst, EST, Level III [CPT-89784] Medications:PREDNISONE 10 MG ORAL TABLET (PREDNISONE) 40mg po QD, decrease by 10mg q3d #30[Tablet] x 0 Route:ORAL Entered and Authorized by: Cleveland Harrison DO Method used: Electronically to [facility] (retail) [address] [place] [address] Note to Pharmacy: Route: ORAL; RxID: [id number] signed by Cleveland Harrison DO on 09/30/2019 at 2:24 PM Name Value Range Interpretation Code Description Data Shannon rce(s) Supporting Document(s) ID Date Data Source [id number] 08/26/2019 12:55:10 PM EST [facility] Measurements & CalculationsHeight: 70 inches (5 ft. 10 in.) 177.80 cm Weight: 251 pounds 114.09 kg Body Mass Index (BMI): 36.14BMI Interpretation: ObeseBody Surface Area (BSA): 2.30Vital SignsTemperature: 97.8FPulse Rate: 81 beats/minuteRespiratory Rate: 18 respirations/minuteBlood Pressure: 124/85 right arm sitting automaticO2 Saturation: 98% room airVital Signs performed by: Loren Pennington LPN, August 26, 2019 1:02 PMVital Signs performed by: Binh ELDER, August 26, 2019 1:17 PMInitial Intake Information from: patientRoom #: 8Smoking, Tobacco, Vaping or Smoke Exposure StatusSmoke Status: former smokerTobacco Use: NoDo you vape? NoPassive Smoke Exposure: YesPassive Smoke Exposure comments: outsideHealthcare HistorySince your last office visit...Have you been admitted to the hospital? NoHave you been to an emergency room (ER) or urgent care clinic? NoHave you seen another healthcare provider? Yes - pain clinicHave you seen a dentist? Yes - NCFHDRate Your HealthIn general, would you say your health is? GoodPain AssessmentAre you currently having any pain which... You would like your provider to address? Yes Affects your activity level? YesDepression Screening - PHQ-2Over the last two weeks, have you... Had little interest or pleasure in doing things? Not at all Been feeling down, depressed, or hopeless? Not at all PHQ-2 Score: 0Anxiety Screening - ROMÁN-2Over the last two weeks, have you been... Feeling nervous, anxious, or on edge? Not at all Unable to stop or control worrying? Not at all ROMÁN-2 Score: 0Infectious Disease / Travel ScreeningRecent travel for you, your family, and/or any sexual partners? NoPain AssessmentPain ScaleNumeric Rating Scale: 7 / 10Location: hip and backDuration: 3 daysCharacter/Quality: sharp. hard sharpIs the pain radiating? NoScreening, Brief Intervention, & Referral to Treatment (SBIRT)Pre-Screening Questions How many times have you have 5 or more drinks in a day? 0How many times have you used an illegal drug or used a prescription medication for a non-medical reason? 0Performed by: Loren Pennington LPN, August 26, 2019 12:58 PMPatient History Medical History:Bipolar disorder/stressSchizophreniaAnxietyDepressionBlack spot on brainDDDPancreatitisConcussion hx (13)Broken ribs (3)Crushed vertabrae (3)Surgical History:Left shoulder rotator cuff2 broken jawRight armGallbladderRight AnkleLeft AnkleFamily History:Father- ParkinsonsFH- MIFH- CAMother- Lymphoma CACancer - Breast (Maternal Grandmother)MD - male - under age 55 (Father)Social/Personal History: Chief ComplaintlabsHistory of Present Illness (HPI)43 yo male here to review labs. Pt had labs drawn 07/23/19. Pt is a new type 2 diiabetic with an A1c of 6.7. Pt also has significantly elevated triglycerides and somewhat elevated ALT/AST. Pt states his right wrist has been broken 4 times and about a week ago his wrist started aching and swelling. Pt states he can hear it popping.HPI performed by: Binh ELDER, August 26, 2019 1:17 PMTransitions of Care InboundProvider Calculated and Reviewed all Clinical Protocols for patient today. Review of Systems General: Denies chills, dizziness, fatigue, fever, feeling ill. Cardiovascular: Denies chest pain, palpitations, feeling faint. Respiratory: Denies cough, difficulty breathing, shortness of breath. Gastrointestinal: Denies nausea, vomiting, diarrhea, pain or discomfort. Musculoskeletal: Complains of see HPI, joint pain, joint swelling, muscle aches. Denies recent injury. Neurologic: Denies weakness, num bness/tingling, feeling faint. Physical ExamGeneral Appearance: well nourished, well hydrated, no acute distress, obese maleEyes, External: conjunctivae and lids normal, EOMIRespiratory, Auscultation: clear to auscultation bilaterally; no rales, rhonchi, or wheezesCardiovascular, Auscultation: S1, S2 audible; no murmur, rub, or gallop; RRRPeripheral Circulation: no clubbing, cyanosis, edema, or varicositiesAbdomen: soft, non-tender, no masses, bowel sounds normalGait & Station: normalUpper Extremity, Right: normal ROM and strength, no joint enlargement or tenderness, no notable bony abnormalityUpper Extremity, Left: normal ROM and strength, no joint enlargement or tendernessSkin, Inspection: no rashes, lesions, or ulcerationsOrientation: oriented to time, place, and personMood & Affect: no depression, anxiety, or agitationJudgment & Insight: intactCare Management Plan Transitions of CareInboundRate Your HealthIn general, would you say your health is? GoodAssessment & Plan Problems:Added: Familial hypertriglyceridemia (ICD-272.1) (WWO09-R73.1) Assessment: Instructions: Start gemfibrozil once daily. Low fat diet. Recommend healthy lifestyle modification. Encourage portion control, healthy food choices, and increasing routine physical activity. Recommendation is for 150 minutes throughout the week of cardiovascular exercise.Pain in right wrist (ICD-719.43) (ZGE39-Z00.531) Assessment: Instructions: Xray and ortho referral. Recommend wrist brace when active to prevent further injury.Changed:From: Dx of Prediabetes (ICD- 790.29) (FRV36-X49.03) To: Type 2 diabetes mellitus without complications (UBC09-D23.9)Assessed:Type 2 diabetes mellitus without complications (ICD10- E11.9) Assessment: Eye exam done today, defer foot exam until next visit. Instructions: New diagnosis. Recommend low carbohydrate diet: reduce pasta, bread, potatoes, rice. If you do eat carbohydrates, better choices are whole wheat and brown rice products. Recommend portion control and avoidance of soda and sugary foods. Increase physical activity and monitor weight. Recommend annual evaluation of eye and foot health, either here or with a specialist office. Monitor blood sugars at home and call with any concerns.Removed:Pain in unspecified joint (NGL07-C73.50), Encounter for screening for other metabolic disorders (AIH14-X82.228), Metabolic syndrome X (ICD-277.7) (XEJ80-Y59.81)Ass essment not Saved Type 2 diabetes mellitus without complications (ICD10- E11.9): Patient Instructions/Care Plan: Type 2 diabetes mellitus without complications: New diagnosis. Recommend low carbohydrate diet: reduce pasta, bread, potatoes, rice. If you do eat carbohydrates, better choices are whole wheat and brown rice products. Recommend portion control and avoidance of soda and sugary foods. Increase physical activity and monitor weight. Recommend annual evaluation of eye and foot health, either here or with a specialist office. Monitor blood sugars at home and call with any concerns.Familial hypertriglyceridemia: Start gemfibrozil once daily. Low fat diet. Recommend healthy lifestyle modification. Encourage portion control, healthy food choices, and increasing routine physical activity. Recommendation is for 150 minutes throughout the week of cardiovascular exercise.Pain in right wrist: Xray and ortho referral. Recommend wrist brace when active to prevent further injury. Plan developed in collaboration with patient and/or familyMedication Changes:New Prescription:GEMFIBROZIL 600 MG ORAL TABLET-Take 1 tablet by mouth twice daily, 30 minutes before breakfast and dinner Qty: 60[Tablet] Refills: 5 Method: ElectronicRemoved:CHANTIX STARTING MONTH JEFF 0.5 MG X 11 & 1 MG X 42 ORAL TABLET-uad Qty: 1[Tablet] Refills: 0Orders:X-Ray - Wrist, complete, minimum of 3 views [CPT-97895] Adult - Ofc Vst, EST, Level III [CPT-00722] Follow-Up Return to clinic: in 90 days for follow upAdditional Follow-Up: T2DM, lipidsClinical Visit Summary CompletedMedications:GEMFIBROZIL 600 MG ORAL TABLET (GEMFIBROZIL) Take 1 tablet by mouth twice daily, 30 minutes before breakfast and dinner #60[Tablet] x 5 Route:ORAL Entered and Authorized by: Binh ELDER Method used: Electronically to [facility] (retail) [address] [place] [address] Note to Pharmacy: Route: ORAL; Indications: FAMILIAL HYPERTRIGLYCERIDEMIA RxID: [id number] CHANTIX STARTING MONTH JEFF 0.5 MG X 11 & 1 MG X 42 ORAL TABLET (VARENICLINE TARTRATE) uad #1[Tablet] x 0 Route:ORAL Entered by: Binh ELDER Authorized by: Shanon Gotti MD Method used: Electronically to [facility] (retail) [address] [place] [address] Fax: RxID: [id number]] Name Value Range Interpretation Code Description Data Shannon rce(s) Supporting Document(s) ID Date Data Source [id number] 08/05/2019 10:33:49 AM [facility] Current Problems: Dental caries (ICD-521 .00) (EFY34-G81.9)Prediabetes (ICD- 790.29) (IBM97-A82.03)Vaccination (ICD-V05.9) (XZB04-Q16)Other specified polyneuropathies (UBZ19-V07.89)Pain in unspecified joint (TIU75-C71.50)Encounter for screening for other metabolic disorders (FDS33-Q72.228)Metabolic syndrome X (ICD-277.7) (PHE19-O97.81)BMI 35.0-35.9 (ICD-V85.35) (DYU07-F13.35)Obesity (ICD- 278.00) (QPF83-A24.09)Encounter for general adult medical examination with abnormal findings (ICD-V70.0) (MYT07-R60.01)DENTAL CARIES EXTENDING INTO PULP (ICD-521.03) (SCT54-Q82.63)Peripheral neuropathy (ICD-356.9) (ICD10- G60.9)Impaired cognition (ICD-294.9) (KGN77-P62.89)Bilateral inflammation of sacroiliac joint (QAU12-E64.1)Bilateral plantar fasciitis (EFL46-L13.2)Chronic back pain (ICD-724.5) (KUJ33-D32.9)Pleuritic pain (ICD-786.52) (ICD10- R07.1)Numbness of toe (ICD-782.0) (XSY26-G41.0)Passive smoke exposure (ICD- V15.89) (ZLV88-W89.22)Teeth extraction (ICD-525.10) (TCB82-F78.499)Shoulder pain, left (ICD-719.41) (WXT46-P91.512)Complete rotator cuff tear or rupture of left shoulder, not specified as traumatic (ICD-727.61) (ICD10- M75.122)Degenerative disc disease (ICD-722.6) (JZK17-S63.80)Unspecified injury of muscle(s) and tendon(s) of the rotator cuff of right shoulder, initial encounter (ICD-959.2) (WJN68-X62.001A)Preventative health care (ICD-V70.0) (DSO38-O14.00)General Adult Medical Exam WITH Abnormal Findings (over 18) (ICD- V70.0) (DLQ07-W22.01)Bursitis of left olecranon bursa (ICD-726.33) (ICD10- M70.22)ANXIETY DISORDER, GENERALIZED (ICD-300.02) (ZBA83-W18.1)Depression, major, recurrent, moderate (ICD-296.32) (BBP88-I35.1)Schizophrenia (ICD-295.90) (GMH48-X06.9)Tobacco use (ICD-305.1) (XRC08-O88.0)Problem list reviewed during this update.Current Medications: CHANTIX STARTING MONTH JEFF 0.5 MG X 11 & 1 MG X 42 ORAL TABLET (VARENICLINE TARTRATE) uad; Route: ORALCHANTIX CONTINUING MONTH JEFF 1 MG ORAL TABLET (VARENICLINE TARTRATE) uad- begin after starter pack completed; Route: ORALLEXAPRO 10 MG ORAL TABLET (ESCITALOPRAM OXALATE) 1 po qday; Route: ORALPREGABALIN 50 MG ORAL CAPSULE (PREGABALIN) 1 po tid prn nerve pain- may increase weekly by 50 mg to max of 300 mg per day; Route: ORALIBUPROFEN 800 MG ORAL TABLET (IBUPROFEN) ; Route: ORALGABAPENTIN 600 MG ORAL TABLET (GABAPENTIN) 1 po qid prn severe neuropathic pain; Route: ORALSEROQUEL 100 MG ORAL TABLET (QUETIAPINE FUMARATE) One po bid.; Route: ORALMedication list reviewed during this update.Current Allergies: * BEE STINGS (Critical)TRAMADOL HCL (TRAMADOL HCL TABS) (Mild)* GARLIC (Mild)Allergy list reviewed during this update. Dental Chart: Procedures:Type - CDT Code - Description B - (D0220) Intraoral, periapical, first radiographic image on Tooth # 3 (Performed by Ada Vasquez DMD) B - (D0140) Limited oral evaluation - problem focused on Tooth # 3 (Performed by Ada Vasquez DMD) [facility] no historyProphy 1 per 6 month periodchild through age 12adult 13+next availExam 1 per 6 month periodnext availFl2 1 per 6 month periodthrough age 20next availBwx 4 films per 6 month periodnext availPanorex 1 every 3 yearsnext avail Sealants every 5 yearsage 5-15Pre authorization needed for perio with charting and fmx Chart Notes:shreyas (Aug 05 2019 11:35AM): S: CC:I need to get a referral for a tooth to be pulled. It is infected pretty good, Giving me a head ache"O: RMHx (- ) Per pt. HPI: [address]: 8 BP: 127/86 P:81 Pa of #3, BWX of 3A: DDS recommends , Try Filling , RCT or EXT. , DX: POOR [place] caries, gingavitis, perio Pt doesn't brush due to the well water he doesn't trust the water so mainly just mouthw ashP:Refer to Os . Patient wants the tooth pulled.Informed Pt about new pain management policy of the clinic regarding about narcotic,told pt to alternate Ibuprophen 600- 800mg and tylenol 500mg every 4 to 6 hrs for pain when neededAssisted By:PD NV: P/Ada Garner DMD by shreyas (08/05/2019 11:35 AM): Tooth Notes and Watches:- Tooth 3 Note: Referred to Ada Yeager DMD by jaydon (08/05/2019 11:03 AM): Assessment & Plan Problems:Added: Dental caries (ICD- 521.00) (IGB74-F69.9)Medications:CHANTIX STARTING MONTH JEFF 0.5 MG X 11 & 1 MG X 42 ORAL TABLETCHANTIX CONTINUING MONTH JEFF 1 MG ORAL TABLETLEXAPRO 10 MG ORAL TABLETPREGABALIN 50 MG ORAL CAPSULEIBUPROFEN 800 MG ORAL TABLETGABAPENTIN 600 MG ORAL TABLETSEROQUEL 100 MG ORAL TABLETAllergies:* BEE STINGS (Critical)TRAMADOL HCL (TRAMADOL HCL TABS) (Mild)* GARLIC (Mild)Orders:Oral Surgery Referral [CPT- 92245] Name Value Range Interpretation Code Description Data Shannon rce(s) Supporting Document(s) ID Date Data Source [id number] 08/04/2019 11:11:00 AM EST MEDENT ([facility], ) Name Value Range Interpretation Code Description Data Shannon rce(s) Supporting Document(s) Antinuclear Antibodies Direct Laboratory test result MEDENT ([facility], ) Performed at: [facility] [id number] [place]ach[place] Marker: Lesley Martinez MD, Phone: [phone] ID Date Data Source [id number] 08/04/2019 11:11:00 AM EST MEDENT ([facility], ) Name Value Range Interpretation Code Description Data Shannon rce(s) Supporting Document(s) Calcidiol [Mass/volume] in Serum or Plasma 18.4 ng/mL 30.0-100.0 MEDENT ([facility], ) Erythrocyte sedimentation rate by 2H Westergren method 17 mm/hr 0-1 5 MEDENT ([facility], ) Rheumatoid factor [Units/volume] in Serum or Plasma Laboratory test result MEDENT ([facility], ) ID Date Data Source [id number] 07/23/2019 08:07:[address] [facility] In-House Blood TestsDate/Time Colle cted: July 23, 2019 8:07 AMTest Result Reference Range Normal ValueComments: blood draw done in offcie done in the right ac tolertaed well Tarik Arana MA, July 23, 2019 8:07 AMAssessment & Plan Orders:[id number] Vst-Est Level I [CPT-53360] 24000 - Venipuncture [CPT-48439] Name Value Range Interpretation Code Description Data Shannon rce(s) Supporting Document(s) ID Date Data Source [id number] 07/23/2019 08:05:00 AM EST [facility] Name Value Range Interpretation Code Description Data Shannon rce(s) Supporting Document(s) HGBA1C 6.7 % N [facility] ID Date Data Source [id number] 07/23/2019 08:05:00 AM [facility] Name Value Range Interpretation Code Description Data Shannon rce(s) Supporting Document(s) BG FASTING 146 mg/dL 70-100 H [facility] ID Date Data Source [id number] 06/18/2019 05:08:28 PM [facility] Measurements & CalculationsHeight: 70 inches (5 ft. 10 in.) 177.80 cm Weight: 244 pounds 6 oz. 111.08 kg Body Mass Index (BMI): 35.19BMI Interpretation: ObeseBody Surface Area (BSA): 2.27Weight Management Education Done (Nutrition/Physical Activity)Vital SignsTemperature: 96.6FPulse Rate: 106 beats/minuteRespiratory Rate: 17 respirations/minuteBlood Pressure: 111/70 O2 Saturation: 96% Vital Signs performed by: Mariama Spring MA, June 18, 2019 5:15 PMInitial Intake Information from: patientRoom #: 13Infectious Disease- Travel Have you or your sexual partner travelled outside of the country recently? NoSmoking, Tobacco or Smoke Exposure StatusSmoke Status: former smokerTobacco Use: NoPassive Smoke Exposure: YesHealthcare HistorySince your last office visit...Have you been admitted to the hospital? NoHave you been to an emergency room (ER) or urgent care clinic? NoHave you seen another healthcare provider? Yes - paiin clinicHave you seen a dentist? YesIntake performed by: Mariama Spring MA, June 18, 2019 5:10 PMRate Your HealthIn general, would you say your health is? GoodPain AssessmentAre you currently having any pain which... You would like your provider to address? Yes Affects your activity level? YesPain AssessmentPain ScaleNumeric Rating Scale: 3 / 10Location: feetFrequency: DailyCharacter/Quality: burningIs the pain radiating? NoScreening, Brief Intervention, & Referral to Treatment (SBIRT)Pre-Screening Questions How many times have you have 5 or more drinks in a day? 0How many times have you used an illegal drug or used a prescription medication for a non- medical reason? 0Performed by: Mariama Spring MA, June 18, 2019 5:11 PMPatient History Medical History:Bipolar disorder/stressSchizophreniaAnxietyDepressionBlack spot on brainDDDPancreatitisConcussion hx (13)Broken ribs (3)Crushed vertabrae (3)Surgical History:Left shoulder rotator cuff2 broken jawRight armGal lbladderRight AnkleLeft AnkleFamily History:Father- ParkinsonsFH- MIFH- CAMother- Lymphoma CACancer - Breast (Maternal Grandmother)MD - male - under age 55 (Father)Social/Personal History: Smoking Status: former smokerChief Complaintfeet painHistory of Present Illness (HPI)pt states Rx has improved his foot pain 4/10 pain level, 8/10 in severity, worse with Lyrica for neuropathic pain, better with rest, non- radiating not asocieated with weaknees.+ anxiety,shizophrenia, interested in seeing Dr.. Enrique- 8/10 in severity, worse wtih stress, better with rest, non- radiaitng, not assoc with SI/ HI/ d eluiions+ tobcco use- wants to try ChantixWants flu vaccine+ prediabetes, 8/10 in severity, worse with poor diet, better with compliance, non- radiating not associated with cardiac sx'sTransitions of Care InboundProblem ReviewProblem List was reviewed and/or updated during this visit.Medication Reconciliation & ReviewMedication List was reviewed and/or updated during this visit, including review of any mvzg-sin-orwibha medications, herbal therapies, and/or supplements.Allergy ReviewAllergy List was reviewed and/or updated during this visit.Adult Preventive CareProvider Calculated and Reviewed all Clinical Protocols for patient today. Labs/Meds/Other Counseling-Nutrition and Physical Activity:BMI Interpretation: Obese (06/18/2019) Counseling: Done (06/18/2019) Physical Activity: Done (06/18/2019)Review of Systems General: GEN: No night sweats, weight loss, fevers, chillsEyes: No vision changesEars: No hearing lossNose: No sinus painThroat: No sore throatResp: No sob, wheezingCV: No c hest painGI: No abdominal painGU: No dysuria, urinary frequencyMusculoskeletal: + myalgias, arthralgiasNeuro: No BLANDON, unilateral paresthesias, weaknessLympatics: No Lymph node swellingEndocrine: No polydipsia, polyuriaPhysical ExamGeneral Appearance: well nourished, well hydrated, no acute distressEyes, External: conjunctivae and lids normal, EOMIExternal Ears: normal, no lesions or deformitiesHearing: grossly intactOtoscopy: canals clear, tympanic membranes intact, no fluid, light reflex intact bilaterallyExternal Nose: normal, no lesions or deformitiesNasal: mucosa, septum, and turbinates normal, nares patentLips/Teeth/Gums: normal dentition, no gingival inflammation, no labial lesionsPharynx: tongue normal, posterior pharynx without erythema or exudate, no thrush/aphthous ulcerRespiratory, Auscultation: clear to auscultation bilaterally; no rales, rhonchi, or wheezesRespiratory, Effort: no intercostal retractions or use of accessory musclesCardiovascular, Auscultation: S1, S2 audible; no murmur, rub, or gallop; RRRPeripheral Circulation: no clubbing, cyanosis, edema, or varicositiesAbdomen: soft, non-tender, no masses, bowel sounds normalGait & Station: normalSkin, Inspection: no rashes, lesions, or ulcerationsOrientation: oriented to time, place, and personMood & Affect: Psychiatric exam: Appearance: Neat, well groomed, tiredAffect: WorriedMood: AnxiousThought content: No SI/ HI/ delusionThought processes: Organized,Judgement: FairInsight: FairJudgment & Insight: intactCare Management Plan Transitions of CareInboundRate Your HealthIn general, would you say your health is? GoodAssessment & Plan Problems:Added: Prediabetes (ICD-790.29) (USX09-T82.03) Assessment: Instructions: Counseled on 1800 nicole ADA, low cholesterol, low salt diets,exercise. Counseled on GLP-1 medication, risks and benefits. Patient has no family hisotry of medullary thyroid cancer/ MEN syndromes and wishes to proceed. Patient education and training completed/ scheduled. All questions answeredAssessed:Other specified polyneuropathies (YKU89-F92.89) Assessment: Instructions: Counseled patient on all diagnoses/ treatments. Return to clinic/ ER for any worsening symptoms o r concernsLyrica working well at 3 a dayANXIETY DISORDER, GENERALIZED (ICD- 300.02) (YGH80-Q02.1) Assessment: Instructions: Counseled patient on all diagnoses/ treatments. Return to clinic/ ER for any worsening symptoms or concernsbegin LexaproTobacco use (ICD-305.1) (BEA06-H90.0) Assessment: Instructions: Counseled on tobacco cessation for 10 min.Begin ChantixSchizophrenia (ICD-295.90) (BBP58-B60.9) Assessment: Instructions: Counseled patient on all diagnoses/ treatments. Return to clinic/ ER for any worsening symptoms or concernsRef to TelepsychiatryVaccination (ICD-V05.9) ([id number]) Assessment: Instructions: Counseled patient on all diagnoses/ treatments. Return to clinic/ ER for any worsening symptoms or concernsflu vaccine givenPatient Instructions/Care Plan: Other specified polyneuropathies: Counseled patient on all diagnoses/ treatments. Return to clinic/ ER for any worsening symptoms or concernsLyrica working well at 3 a dayANXIETY DISORDER- GENERALIZED: Counseled patient on all diagnoses/ treatments. Return to clinic/ ER for any worsening symptoms or concernsbegin LexaproTobacco use: Counseled on tobacco cessation for 10 min.Begin ChantixSchizophrenia: Counseled patient on all diagnoses/ treatments. Return to clinic/ ER for any worsening symptoms or concernsRef to TelepsychiatryVaccination: Counseled patient on all diagnoses/ treatments. Return to clinic/ ER for any worsening symptoms or concernsflu vaccine givenPrediabetes: Counseled on 1800 nicole ADA, low cholesterol, low salt diets,exercise. Counseled on GLP-1 medication, risks and benefits. Patient has no family hisotry of medullary thyroid cancer/ MEN syndromes and wishes to proceed. Patient education and training completed/ scheduled. All questions answered Plan developed in collaboration with patient and/or familyMedications:CHANTIX STARTING MONTH JEFF 0.5 MG X 11 & 1 MG X 42 ORAL TABLETCHANTIX CONTINUING MONTH JEFF 1 MG ORAL TABLETLEXAPRO 10 MG ORAL TABLETPREGABALIN 50 MG ORAL CAPSULEIBUPROFEN 800 MG ORAL TABLETGABAPENTIN 600 MG ORAL TABLETSEROQUEL 100 MG ORAL TABLETMedication Changes:New Prescription:LEXAPRO 10 MG ORAL TABLET-1 po qday Qty: 30[Tablet] Refills: 5 Method: ElectronicCHANTIX CONTINUING MONTH JEFF 1 MG ORAL TABLET-uad- begin after starter pack completed Qty: 1[Tablet] Refills: 5 Method: ElectronicCHANTIX STARTING MONTH JEFF 0.5 MG X 11 & 1 MG X 42 ORAL TABLET-uad Qty: 1[Tablet] Refills: 0 Method: ElectronicRemoved:FLUOXETINE HCL 60 MG ORAL TABLET-take one tablet once daily Qty: 30[Tablet] Refills: 5Allergies:* BEE STINGS (Critical)TRAMADOL HCL (TRAMADOL HCL TABS) (Mild)* GARLIC (Mild)Orders:Adult - Ofc Vst, EST, Level IV [CPT-86777] Telepsychiatry Consult [CPT-67346] LIPID PANEL [CPT-13237] HgBA1c [CPT-82867] COMP METABOLIC PANEL [CPT-26038] Follow-Up Return to clinic: in 30 days for f/uAdditional Follow-Up: Counseled patient on all diagnoses/ treatments. Return to clinic/ ER for any worsening symptoms or concernsClinical Visit Summary Declined Name Value Range Interpretation Code Description Data Shannon rce(s) Supporting Document(s) Procedure Vital Signs ID Date Data Source UNK Name Value Range Interpretation Code Description Data Source(s) Body height 70 [in_i] 70 [in_i] SAMANTHA ([facility]) Body height 70 [in_i] 70 [in_i] SAMANTHA ([facility]) Body weight 3602 [oz_av] 3602 [oz_av] SAMANTHA ([facility]) Systolic blood pressure 119 mm[Hg] 119 mm[Hg] [facility] ([facility]) Body mass index (BMI) [Ratio] 32.3 kg/m2 32.3 k g/m2 SAMANTHA ([facility]) Body height 70 [in_i] 70 [in_i] SAMANTHA ([facility]) Diastolic blood pressure 80 mm[Hg] 80 mm[Hg] SAMANTHA ([facility]) Body weight 3602 [oz_av] 3602 [oz_av] SAMANTHA ([facility]) Systolic blood pressure 119 mm[Hg] 119 mm[Hg] [facility] ([facility]) Body mass index (BMI) [Ratio] 32.3 kg/m2 32.3 k g/m2 SAMANTHA ([facility]) Body height 70 [in_i] 70 [in_i] SAMANTHA ([facility]) Diastolic blood pressure 80 mm[Hg] 80 mm[Hg] SAMANTHA ([facility]) Body weight 3602 [oz_av] 3602 [oz_av] SAMANTHA ([facility]) Systolic blood pressure 119 mm[Hg] 119 mm[Hg] [facility] ([facility]) Body mass index (BMI) [Ratio] 32.3 kg/m2 32.3 k g/m2 SAMANTHA ([facility]) Body height 70 [in_i] 70 [in_i] SAMANTHA ([facility]) Diastolic blood pressure 80 mm[Hg] 80 mm[Hg] SAMANTHA ([facility]) Body weight 3602 [oz_av] 3602 [oz_av] SAMANTHA ([facility]) Systolic blood pressure 119 mm[Hg] 119 mm[Hg] [facility] Body mass index (BMI) [Ratio] 32.3 kg/m2 32.3 k g/m2 SAMANTHA ([facility]) Body height 70 [in_i] 70 [in_i] SAMANTHA ([facility]) Diastolic blood pressure 80 mm[Hg] 80 mm[Hg] SAMANTHA ([facility]) Respiratory rate 16 /min 16 /min MED[facility] ( [facility] ) Heart rate 80 /min 80 /min MED[facility] ([facility] ) Diastolic blood pressure 84 mm[Hg] 84 mm[Hg] MED[facility] ([facility] ) Systolic blood pressure 120 mm[Hg] 120 mm[Hg] M EDENT ([facility] ) Body weight 220.00 [lb_av] 220.00 [lb_av] MEDEN T ([facility] ) Respiratory rate 16 /min 16 /min MED[facility] ( [facility] ) Heart rate 80 /min 80 /min MED[facility] ([facility] ) Diastolic blood pressure 84 mm[Hg] 84 mm[Hg] MED[facility] ([facility] ) Systolic blood pressure 120 mm[Hg] 120 mm[Hg] M EDENT ([facility] ) Body weight 3552 [oz_av] 3552 [oz_av] SAMANTHA ([facility]) Systolic blood pressure 131 mm[Hg] 131 mm[Hg] A THENA ([facility]) Body height 70 [in_i] 70 [in_i] SAMANTHA ([facility]) Diastolic blood pressure 85 mm[Hg] 85 mm[Hg] SAMANTHA ([facility]) Body weight 3552 [oz_av] 3552 [oz_av] SAMANTHA ([facility]) Systolic blood pressure 131 mm[Hg] 131 mm[Hg] A THENA ([facility]) Body height 70 [in_i] 70 [in_i] SAMANTHA ([facility]) Diastolic blood pressure 85 mm[Hg] 85 mm[Hg] SAMANTHA ([facility]) Systolic blood pressure 131 mm[Hg] 131 mm[Hg] [facility] ([facility]) Body height 70 [in_i] 70 [in_i] SAMANTHA ([facility]) Diastolic blood pressure 85 mm[Hg] 85 mm[Hg] SAMANTHA ([facility]) Body weight 3552 [oz_av] 3552 [oz_av] SAMANTHA ([facility]) Systolic blood pressure 131 mm[Hg] 131 mm[Hg] A THENA ([facility]) Body height 70 [in_i] 70 [in_i] SAMANTHA ([facility]) Diastolic blood pressure 85 mm[Hg] 85 mm[Hg] SAMANTHA ([facility]) Body weight 3552 [oz_av] 3552 [oz_av] SAMANTHA ([facility]) Body weight 3622.08 [oz_av] 3622.08 [oz_av] ATH NIKOLAS ([facility]) Systolic blood pressure 131 mm[Hg] 131 mm[Hg] [facility] Body height 70 [in_i] 70 [in_i] SAMANTHA ([facility]) Diastolic blood pressure 85 mm[Hg] 85 mm[Hg] SAMANTHA ([facility]) Body weight 3622.08 [oz_av] 3622.08 [oz_av] ATH NIKOLAS ([facility]) Systolic blood pressure 131 mm[Hg] 131 mm[Hg] [facility] Body height 70 [in_i] 70 [in_i] SAMANTHA ([facility]) Diastolic blood pressure 85 mm[Hg] 85 mm[Hg] SAMANTHA ([facility]) Body weight 3622.08 [oz_av] 3622.08 [oz_av] ATH NIKOLAS ([facility]) Systolic blood pressure 131 mm[Hg] 131 mm[Hg] [facility] ([facility]) Body height 70 [in_i] 70 [in_i] SAMANTHA ([facility]) Diastolic blood pressure 85 mm[Hg] 85 mm[Hg] SAMANTHA ([facility]) Body weight 3622.08 [oz_av] 3622.08 [oz_av] ATH NIKOLAS ([facility]) Systolic blood pressure 131 mm[Hg] 131 mm[Hg] [facility] Body height 70 [in_i] 70 [in_i] SAMANTHA ([facility]) Diastolic blood pressure 85 mm[Hg] 85 mm[Hg] SAMANTHA ([facility]) Body temperature [degF] eCW1 ([facility]) Respiratory rate /min eCW1 ([facility]) Heart rate /min eCW1 ([facility]) Body mass index (BMI) [Ratio] 35.14 kg/m2 35.14 kg/m2 eCW1 ([facility]) Body height [in_us] eCW1 ([facility]) Body weight Measured [lb_av] eCW1 ([facility]) Body weight 3888 [oz_av] 3888 [oz_av] SAMANTHA ([facility]) Systolic blood pressure 129 mm[Hg] 129 mm[Hg] [facility] ([facility]) Body height 70 [in_i] 70 [in_i] SAMANTHA ([facility]) Diastolic blood pressure 95 mm[Hg] 95 mm[Hg] SAMANTHA ([facility]) Body weight 3888 [oz_av] 3888 [oz_av] SAMANTHA ([facility]) Systolic blood pressure 129 mm[Hg] 129 mm[Hg] [facility] ([facility]) Body height 70 [in_i] 70 [in_i] SAMANTHA ([facility]) Diastolic blood pressure 95 mm[Hg] 95 mm[Hg] SAMANTHA ([facility]) Body weight 3888 [oz_av] 3888 [oz_av] SAMANTHA ([facility]) Systolic blood pressure 129 mm[Hg] 129 mm[Hg] [facility] ([facility]) Body height 70 [in_i] 70 [in_i] SAMANTHA ([facility]) Diastolic blood pressure 95 mm[Hg] 95 mm[Hg] SAMANTHA ([facility]) Body weight 3888 [oz_av] 3888 [oz_av] SAMANTHA ([facility]) Systolic blood pressure 129 mm[Hg] 129 mm[Hg] A THENA ([facility]) Body height 70 [in_i] 70 [in_i] SAMANTHA ([facility]) Diastolic blood pressure 95 mm[Hg] 95 mm[Hg] SAMANTHA ([facility]) Body mass index (BMI) [Ratio] 34.7 kg/m2 34.7 k g/m2 MEDENT ([facility]) Body height 69 [in_i] 69 [in_i] MEDENT ([facility], [facility]) 5'9" Body weight 235.00 [lb_av] 235.00 [lb_av] MEDEN T ([facility], [facility]) Body temperature 98.9 [degF] 98.9 [degF] MEDENT ([facility], [facility]) Oxygen saturation in Arterial blood by Pulse oximetry 97 % 97 % MEDENT ([facility], [facility]) Respiratory rate 14 /min 14 /min MEDENT ( [facility], [facility]) Heart rate 100 /min 100 /min MEDENT ([facility], [facility]) Diastolic blood pressure 90 mm[Hg] 90 mm[Hg] MEDENT ([facility], [facility]) Systolic blood pressure 118 mm[Hg] 118 mm[Hg] M EDENT ([facility], [facility]) Diastolic blood pressure 81 mm[Hg] 81 mm[Hg] eCW1 ([facility]) Systolic blood pressure 118 mm[Hg] 118 mm[Hg] e CW1 ([facility]) Body temperature 97.5 [degF] 97.5 [degF] eCW1 ( [facility]) Respiratory rate 16 /min 16 /min eCW1 ([facility]) Heart rate 88 /min 88 /min eCW1 ([facility]) Body mass index (BMI) [Ratio] 35.14 kg/m2 35.14 kg/m2 [facility] ([facility]) Body height [in_us] eCW1 ([facility]) Body weight Measured 238 [lb_av] 238 [lb_av] eC W1 ([facility]) Body weight 4016 [oz_av] 4016 [oz_av] SAMANTHA ([facility]) Systolic blood pressure 124 mm[Hg] 124 mm[Hg] A THENA ([facility]) Body height 70 [in_i] 70 [in_i] SAMANTHA ([facility]) Diastolic blood pressure 85 mm[Hg] 85 mm[Hg] SAMANTHA ([facility]) Body weight 4016 [oz_av] 4016 [oz_av] SAMANTHA ([facility]) Systolic blood pressure 124 mm[Hg] 124 mm[Hg] A THENA ([facility]) Body height 70 [in_i] 70 [in_i] SAMANTHA ([facility]) Diastolic blood pressure 85 mm[Hg] 85 mm[Hg] SAMANTHA ([facility]) Body weight 4016 [oz_av] 4016 [oz_av] SAMANTHA ([facility]) Systolic blood pressure 124 mm[Hg] 124 mm[Hg] A THENA ([facility]) Body height 70 [in_i] 70 [in_i] SAMANTHA ([facility]) Diastolic blood pressure 85 mm[Hg] 85 mm[Hg] SAMANTHA ([facility]) Body weight 4016 [oz_av] 4016 [oz_av] SAMANTHA ([facility]) Systolic blood pressure 124 mm[Hg] 124 mm[Hg] A THENA ([facility]) Body height 70 [in_i] 70 [in_i] SAMANTHA ([facility]) Diastolic blood pressure 85 mm[Hg] 85 mm[Hg] SAMANTHA ([facility]) Respiratory rate 16 /min 16 /min MEDENT ( [facility]) Heart rate 76 /min 76 /min MEDENT ([facility]) Diastolic blood pressure 80 mm[Hg] 80 mm[Hg] MEDENT ([facility]) Systolic blood pressure 110 mm[Hg] 110 mm[Hg] M EDENT ([facility]) Diastolic blood pressure 74 mm[Hg] 74 mm[Hg] eCW1 ([facility]) Systolic blood pressure 112 mm[Hg] 112 mm[Hg] e CW1 ([facility]) Body temperature 97.1 [degF] 97.1 [degF] eCW1 ( [facility]) Respiratory rate 18 /min 18 /min eCW1 ([facility]) Heart rate 78 /min 78 /min eCW1 ([facility]) Body mass index (BMI) [Ratio] 36.74 kg/m2 36.74 kg/m2 eCW1 ([facility]) Body height [in_us] eCW1 ([facility]) Body weight Measured 248.8 [lb_av] 248.8 [lb_av ] eCW1 ([facility]) Diastolic blood pressure 81 mm[Hg] 81 mm[Hg] eCW1 ([facility]) Systolic blood pressure 125 mm[Hg] 125 mm[Hg] e CW1 ([facility]) Body temperature 97.0 [degF] 97.0 [degF] eCW1 ( [facility]) Respiratory rate 18 /min 18 /min eCW1 ([facility]) Heart rate 70 /min 70 /min eCW1 ([facility]) Body mass index (BMI) [Ratio] 35.38 kg/m2 35.38 kg/m2 W1 ([facility]) Body height [in_us] eCW1 ([facility]) Body weight Measured 239.6 [lb_av] 239.6 [lb_av ] eCW1 ([facility]) Body weight 3910.08 [oz_av] 3910.08 [oz_av] ATH NIKOLAS ([facility]) Systolic blood pressure 111 mm[Hg] 111 mm[Hg] A THENA ([facility]) Body height 70 [in_i] 70 [in_i] SAMANTHA ([facility]) Diastolic blood pressure 70 mm[Hg] 70 mm[Hg] SAMANTHA ([facility]) Body weight 3910.08 [oz_av] 3910.08 [oz_av] ATH NIKOLAS ([facility]) Systolic blood pressure 111 mm[Hg] 111 mm[Hg] [facility] Body height 70 [in_i] 70 [in_i] SAMANTHA ([facility]) Diastolic blood pressure 70 mm[Hg] 70 mm[Hg] SAMANTHA ([facility]) Body weight 3910.08 [oz_av] 3910.08 [oz_av] ATH NIKOLAS ([facility]) Systolic blood pressure 111 mm[Hg] 111 mm[Hg] [facility] Body height 70 [in_i] 70 [in_i] SAMANTHA ([facility]) Diastolic blood pressure 70 mm[Hg] 70 mm[Hg] SAMANTHA ([facility]) Body weight 3910.08 [oz_av] 3910.08 [oz_av] ATH NIKOLAS ([facility]) Systolic blood pressure 111 mm[Hg] 111 mm[Hg] [facility] Body height 70 [in_i] 70 [in_i] SAMANTHA ([facility]) Diastolic blood pressure 70 mm[Hg] 70 mm[Hg] SAMANTHA ([facility]) Body mass index (BMI) [Ratio] 34.0 kg/m2 34.0 k g/m2 [facility] ([facility] ) Body weight 230.00 [lb_av] 230.00 [lb_av] MEDEN T ([facility] ) Body height 69 [in_i] 69 [in_i] [facility] ([facility] ) 5'9" Body temperature 98.7 [degF] 98.7 [degF] [facility] ([facility] ) Patient Treatment Plan of Care Planned Activity Planned Date Details Description Data Source (s) Gemfibrozil 600 MG Oral Tablet 06/12/2020 12:00:00 AM EST SAMANTHA ([facility]) Gemfibrozil 600 MG Oral Tablet 06/12/2020 12:00:00 AM EST SAMANTHA ([facility]) Ergocalciferol 73974 UNT Oral Capsule SAMANTHA ([facility]) ropinirole 0.25 MG Oral Tablet SAMANTHA ([facility]) Prednisone 20 MG Oral Tablet SAMANTHA ([facility]) Prednisone 10 MG Oral Tablet SAMANTHA ([facility]) Acetaminophen 325 MG / Oxycodone Hydrochloride 5 MG Oral Tablet SAMANTHA ([facility]) Nystatin 746006 UNT/ML Oral Suspension SAMANTHA ([facility]) Metronidazole 500 MG Oral Tablet SAMANTHA ([facility]) gabapentin 600 MG Oral Tablet SAMANTHA ([facility]) Fluoxetine 20 MG Oral Capsule SAMANTHA ([facility]) Escitalopram 10 MG Oral Tablet SAMANTHA ([facility]) Ciprofloxacin 500 MG Oral Tablet SAMANTHA ([facility]) Chantix Starting Month Box 0.5 mg (11)-1 mg (42) tablets in dose pa ck SAMANTHA ([facility]) varenicline 1 MG Oral Tablet SAMANTHA ([facility]) Ergocalciferol 56622 UNT Oral Capsule SAMANTHA ([facility]) ropinirole 0.25 MG Oral Tablet SAMANTHA ([facility]) Prednisone 20 MG Oral Tablet SAMANTHA ([facility]) Prednisone 10 MG Oral Tablet SAMANTHA ([facility]) Acetaminophen 325 MG / Oxycodone Hydrochloride 5 MG Oral Tablet SAMANTHA ([facility]) Nystatin 496422 UNT/ML Oral Suspension SAMANTHA ([facility]) Metronidazole 500 MG Oral Tablet SAMANTHA ([facility]) gabapentin 600 MG Oral Tablet SAMANTHA ([facility]) Fluoxetine 20 MG Oral Capsule SAMANTHA ([facility]) Escitalopram 10 MG Oral Tablet SAMANTHA ([facility]) Ciprofloxacin 500 MG Oral Tablet SAMANTHA ([facility]) Chantix Starting Month Box 0.5 mg (11)-1 mg (42) tablets in dose pa ck SAMANTHA ([facility]) varenicline 1 MG Oral Tablet SAMANTHA ([facility]) Chantix Starting Month Box 0.5 mg (11)-1 mg (42) tablets in dose pa ck SAMANTHA ([facility]) varenicline 1 MG Oral Tablet SAMANTHA ([facility]) Ergocalciferol 12836 UNT Oral Capsule SAMANTHA ([facility]) Tamsulosin hydrochloride 0.4 MG Oral Capsule SAMANTHA ([facility]) ropinirole 0.25 MG Oral Tablet SAMANTHA ([facility]) Prednisone 20 MG Oral Tablet SAMANTHA ([facility]) Prednisone 10 MG Oral Tablet SAMANTHA ([facility]) Acetaminophen 325 MG / Oxycodone Hydrochloride 5 MG Oral Tablet SAMANTHA ([facility]) Nystatin 443506 UNT/ML Oral Suspension SAMANTHA ([facility]) Ketorolac Tromethamine 10 MG Oral Tablet SAMANTHA ([facility]) Gemfibrozil 600 MG Oral Tablet SAMANTHA ([facility]) gabapentin 600 MG Oral Tablet SAMANTHA ([facility]) Fluoxetine 20 MG Oral Capsule SAMANTHA ([facility]) Escitalopram 10 MG Oral Tablet SAMANTHA ([facility]) Chantix Starting Month Box 0.5 mg (11)-1 mg (42) tablets in dose pa ck SAMANTHA ([facility]) varenicline 1 MG Oral Tablet SAMANTHA ([facility]) Ergocalciferol 39987 UNT Oral Capsule SAMANTHA ([facility]) Tamsulosin hydrochloride 0.4 MG Oral Capsule SAMANTHA ([facility]) ropinirole 0.25 MG Oral Tablet SAMANTHA ([facility]) Prednisone 20 MG Oral Tablet SAMANTHA ([facility]) Prednisone 10 MG Oral Tablet SAMANTHA ([facility]) Acetaminophen 325 MG / Oxycodone Hydrochloride 5 MG Oral Tablet SAMANTHA ([facility]) Nystatin [id number] UNT/ML Oral Suspension SAMANTHA ([facility]) Ketorolac Tromethamine 10 MG Oral Tablet SAMANTHA ([facility]) Gemfibrozil 600 MG Oral Tablet SAMANTHA ([facility]) gabapentin 600 MG Oral Tablet SAMANTHA ([facility]) Fluoxetine 20 MG Oral Capsule SAMANTHA ([facility])
[2020-07-11] MEDS ORDERED: KETOROLAC 60MG 2ML VIAL IM ONE (14:15)
--- OUTSIDE RECORDS SUMMARY | 2020-07-11 14:33 | CCD ---
Author Author [facility] Address Unknown Phone Unavailable Support Name Relationship Address Phone [employer] Next Of Kin [address] [place] [address] Shen FATIMA, Shanon Next Of Kin [address] [place] [address] Aviva FATIMA, Kobi Next Of Kin [address] [place] [address] REQUESTED, NONE Next Of Kin [address] [place] [address] JEFFCONCRT Next Of Kin [address] [place] [address] ISIS CONCRETE Next Of Kin [id number] [address] Ric FATIMA, Courtney Next Of Kin [address] [place], [place] [id number] Gus RUDD, Brianne Next Of Kin [address] [place] [address] [address] [place] [address] [employer] Next Of Kin [address] [place] [address] UE Next Of Kin Unknown Unavailable JANINA MIRZA Next Of Kin [address] [place] [address] ALICIA U[place] [address] REQUESTED, NONE ECON [address] [place] [address] Unavailable Care Team Providers Care Die Reamer Name Role Phone SERGIO NASHIN RPA-C Unavailable [...] SERGIO BINH RPA-C Unavailable Unavailable Chan, Bonnie TELEGRAPH MECHANIC Unavailable Unavailable Chan, Bonnie TELEGRAPH MECHANIC Unavailable Unavailable Chan, Bonnie TELEGRAPH MECHANIC Unavailable Unavailable Chan, Bonnie TELEGRAPH MECHANIC Unavailable Unavailable Chan, Bonnie TELEGRAPH MECHANIC Unavailable Unavailable Chan, Bonnie TELEGRAPH MECHANIC Unavailable Unavailable Chan, Bonnie TELEGRAPH MECHANIC Unavailable Unavailable Chan, Bonnie TELEGRAPH MECHANIC Unavailable Unavailable Chan, Bonnie TELEGRAPH MECHANIC Unavailable Unavailable Chan, Bonnie TELEGRAPH MECHANIC Unavailable Unavailable Chan, Bonnie TELEGRAPH MECHANIC Unavailable Unavailable [facility], RFROST NASH PA BINH [...] is protected by Article 27-F of the [facility] Public Health law. If you continue you may have access to information: Regarding HIV / AIDS; Provided by facilities licensed or operated by the [facility] Office of Mental Health; or Provided by the [facility] Office for People With Developmental Disabilities. If such information is present, then the following [facility] mandated warning applies: This information [...] law may result in a fine or [place] health [place] sentence or both. A general authorization for the release of medical or other information is NOT sufficient authorization for further disc losure. Allergies and Adverse Reactions Type Description Substance Reaction Status Data Source(s ) Drug Allergy NKDA NKDA [facility] ([facility]) Family History Family Member Name Family Member Gender Family Member Status Date o f Status Description Data Source(s) Unknown Unknown Problem [facility] ([facility]) Unknown Unknown Problem MEDENT ([facility]) Unknown Female Problem MEDENT ([facility] ) Encounters Encounter Providers Location Date Indications Data Source(s ) NIC Sandy: [address], [place] [address], Ph. Attender: BINH LUCERO [facility] Medical 06/12/2020 12:00:00 AM EST SAMANTHA ([facility]) KIRAN SandyC: [address], [place] [address], Ph. Attender: BINH LUCERO [facility] Medical 06/12/2020 12:00:00 AM EST SAMANTHA ([facility]) KIRAN SandyC: [address], [place] [address], Ph. Attender: BINH BECKC [facility] Medical 05/12/2020 12:00:00 AM EST SAMANTHA ([facility]) Binh Nash RPA-C: [address], [place] [address], Ph. Attender: BINH NASH RPA-C [facility] Medical 05/12/2020 12:00:00 AM EST SAMANTHA ([facility]) Binh Nash RPA-C: [address], [place] [address], Ph. Attender: BINH NASH RPA-C [facility] Medical 05/12/2020 12:00:00 AM EST SAMANTHA ([facility]) Outpatient Attender: Beverly Rogers [place] Main office - [facility] 05/02/2020 08:00:00 AM EST MEDENT ([facility], ) Binh Nash RPA-C: [address], [place] [address], Ph. Attender: BINH NASH RPA-C [facility] Medical 04/27/2020 12:00:00 AM EDT SAMANTHA ([facility]) Binh Nash RPA-C: [address], [place] [address], Ph. Attender: BINH NASH RPA-C [facility] Medical 04/27/2020 12:00:00 AM EDT SAMANTHA ([facility]) Binh Nash RPA-C: [address], [place] [address], Ph. Attender: BINH NASH RPA-C [facility] Medical 04/27/2020 12:00:00 AM EDT SAMANTHA ([facility]) Binh Nash RPA-C: [address], [place] [address], Ph. Attender: BINH NASH RPA-C [facility] Medical 04/27/2020 12:00:00 AM EDT SAMANTHA ([facility]) Kobi Chicas MD: [address] [place] [address], Ph. Attender: Kobi Chicas MD [facility] Medical 04/20/2020 12:00:00 AM EDT SAMANTHA ([facility]) Kobi Chicas MD: [address] [place] [address], Ph. Attender: Kobi Chicas MD [facility] Medical 04/20/2020 12:00:00 AM EDT SAMANTHA ([facility]) Kobi Chicas MD: [address] [place] [address], Ph. Attender: Kobi Chicas MD [facility] Medical 04/20/2020 12:00:00 AM EDT SAMANTHA ([facility]) Kobi Chicas MD: [address] [place] [address], Ph. Attender: Kobi Chicas MD [facility] Medical 04/20/2020 12:00:00 AM EDT SAMANTHA ([facility]) Outpatient Attender: OVIDIO LOUISE [facility] 03/30 12:27:01 PM EDT [facility] Outpatient Attender: OVIDIO L[facility] 09/2019 08:31:00 AM EDT [facility] Outpatient Attender: Beverly ELDER Main [facility] 01/31/2020 02:00:00 PM EDT MEDENT ([facility] ogTERESITA tsang) Outpatient Attender: BINH BECKC [facility] 01/18/2020 12:00:35 AM EDT [facility] Outpatient Attender: BINH DUNCAN LUCERO [facility] 01/17/2020 09:34:02 AM EDT [facility] Outpatient Attender: OVIDIO NASH [facility] 12/29 09:09:02 AM EDT [facility] Outpatient Attender: BINH DUNCAN LUCERO [facility] 01/17/2020 09:09:01 AM EDT [facility] Outpatient Attender: OVIDIO NASH JAEL BINH [facility] 12/28 11:12:00 AM EDT [facility] Outpatient Attender: OVIDIO NASH [facility] 12/28 04:53:01 PM EDT [facility] Outpatient Attender: OVIDIO NASH [facility] 06/2019 03:31:00 PM EDT [facility] Outpatient Attender: OVIDIO NASH JAEL L[facility] 11/28 11:39:59 AM EDT [facility] Outpatient Attender: BINH DUNCAN LUCERO [facility] 12/07/2019 05:08:00 PM EDT [facility] Outpatient Attender: OVIDIO NASH JAEL BINH [facility] 02/2020 05:08:00 PM EDT [facility] Pain [address] [address] 12/01/2019 12:00:00 AM EDT eC ([facility]) Outpatient Attender: OVIDIO NASH JAEL BINH [facility] 10/28 09:06:01 AM EDT [facility] Outpatient Attender: OVIDIO NASH JAEL LOU[facility] 09/29 09:59:02 AM EDT [facility] Outpatient 10/13/2019 04:43:00 AM EDT [facility] Outpatient Attender: SHANON GOTTI MD 10/08/2019 08:55:59 A M EDT [facility] Outpatient Attender: SHANON GOTTI MD 10/06/2019 04:02:01 P M EDT [facility] Center [address] [place] [address] 10/01/2019 12:00:00 AM EDT eCW1 ([facility]) Outpatient Attender: SHANON GOTTI MD 09/30/2019 02:26:01 P M EDT [facility] Outpatient Attender: SHANON GOTTI MD FP 09/30/2019 02:25:00 P M EDT [facility] Outpatient Attender: SHANON GOTTI MD 09/24/2019 04:35:00 P M EDT [facility] Outpatient Attender: Bonnie farmer 09/23/2019 10:45:00 AM EDT MEDENT ([facility], [facility]) [facility] Pain Center [address] [place] [phone] 09/15/2019 12:00:00 AM EDT eCW1 ([facility]) Outpatient Attender: SHANON GOTTI MD 09/06/2019 12:11:00 P [facility] Outpatient Attender: SHANON GOTTI MD FP 2019 02:07:00 P [facility] Outpatient Attender: SHANON GOTTI MD FP 08/26/2019 01:44:02 P [facility] Outpatient Attender: SHANON GOTTI MD 08/23/2019 04:02:00 P [facility] Outpatient Attender: SHANON GOTTI MD FP 08/18/2019 10:34:03 A [facility] Outpatient Attender: SHANON GOTTI MD FP 08/18/2019 10:34:01 A [facility] Outpatient Attender: SHANON GOTTI MD FP 08/11/2019 12:50:01 P [facility] Outpatient Attender: SHANON GOTTI MD FP 08/10/2019 09:12:00 A [facility] Outpatient Attender: SHANON GOTTI MD FP 08/10/2019 09:11:02 A [facility] Outpatient Attender: SHANON GOTTI MD FP 08/05/2019 11:36:06 A [facility] Outpatient Attender: SHANON GOTTI MD FP 08/05/2019 11:36:03 A [facility] Outpatient Attender: SHANON GOTTI MD FP 08/05/2019 11:12:01 A [facility] Outpatient Attender: SHANON GOTTI MD FP 08/04/2019 01:06:00 P [facility] Outpatient Attender: Beverly ELDER [facility] 08/04/2019 09:30:00 AM EST MEDENT ([facility], ) Outpatient Attender: SHANON GOTTI MD FP 08/04/2019 09:23:01 A [facility] Outpatient Attender: SHANON GOTTI MD 07/23/2019 09:29:47 A [facility] Outpatient Attender: SHANON GOTTI MD 07/21/2019 03:18:03 P [facility] Center [address] [place] [phone] 07/19/2019 12:00:00 AM EST eCW1 ([facility] Outpatient 07/18/2019 09:01:00 PM EST [facility] Pain Center [address] [place] [phone] 07/05/2019 12:00:00 AM EST eCW1 [facility] Pain Center [address] [place] [phone] 06/28/2019 12:00:00 AM EST eCW1 ([facility] Outpatient Attender: SHANON GOTTI MD 06/19/2019 06:10:16 A [facility] Outpatient Attender: SHANON GOTTI MD 06/19/2019 06:10:12 A [facility] Outpatient Attender: SHANON GOTTI MD FP 06/18/2019 05:02:00 P [facility] Outpatient Attender: SHANON GOTTI MD FP 06/18/2019 01:57:00 P [facility] Outpatient Attender: SHANON GOTTI MD FP 06/18/2019 01:56:01 P [facility] Outpatient Attender: SHANON GOTTI MD FP 06/04/2019 09:40:21 A [facility] Immunizations Vaccine Date Status Description Data Source(s) New in 2011. IIV4 04/27/2020 10:30:00 AM EDT completed 0.5 mL SAMANTHA ([facility]) New in 2011. IIV4 04/27/2020 10:30:00 AM EDT completed 0.5 mL SAMANTHA ([facility]) New in 2011. IIV4 04/27/2020 10:30:00 AM EDT completed 0.5 mL SAMANTHA ([facility]) New in 2011. IIV4 04/27/2020 10:30:00 AM EDT completed 0.5 mL SAMANTHA ([facility]) Medications Medication Brand Name Start Date Product Form Dose Route Admi nistrative Instructions Pharmacy Instructions Status Indications Reaction Description Data Source(s) Gemfibrozil 600 MG Oral Tablet gemfibrozil 600 mg tabl et gemfibrozil 600 mg tablet 06/12/2020 12:00:00 AM EST completed gemfibrozil 600 MG Oral Tablet SAMANTHA ([facility]) Gemfibrozil 600 MG Oral Tablet gemfibrozil 600 mg tabl et gemfibrozil 600 mg tablet 06/12/2020 12:00:00 AM EST completed gemfibrozil 600 MG Oral Tablet SAMANTHA ([facility]) Xray Right Ankle 05/02/2020 12:00:00 AM EST a ctive MEDENT ([facility]) Xray Right Ankle 05/02/2020 12:00:00 AM EST a ctive MEDENT ([facility]) Nortriptyline 10 MG Oral Capsule Nortriptyline HCL 02/20/2020 12:00 :00 AM EDT active MEDENT ([facility]) 10 mg 12/15/2019 12:00:00 AM EDT capsule 60 TAKE ONE CAPSULE BY MOUTH TWICE A DAY TAKE ONE CAPSULE BY MOUTH TWICE A DAY SOLD: 12/15/2019 [facility] Nystatin 849572 UNT/ML Oral Suspension Nystatin 09/23/2019 12:00:00 AM EDT active MEDENT ([facility]) Nortriptyline 10 MG Oral Capsule [Pamelor] Pamelor 08/05/2019 12:00:00 AM EST ORAL active MEDENT ([facility]) ropinirole 0.5 MG Oral Tablet Ropinirole HCL 08/04/2019 12:00:[address] ORAL active MEDENT ([facility]) ropinirole 0.25 MG Oral Tablet Ropinirole HCL 05/04/2019 12:00:00 AM EST ORAL completed [facility]ENT ([facility]) Acetaminophen 325 MG / Oxycodone Hydroch loride 5 MG Oral Tablet oxycodone- acetaminophen 5 mg-325 mg tablet oxycodone-acetaminophen 5 mg-325 mg tablet completed acetaminop hen 325 MG / oxycodone hydrochloride 5 MG Oral Tablet SAMANTHA ([facility]) Ciprofloxacin 500 MG Oral Tablet ciprofl oxacin 500 mg tablet TAKE ONE TABLET BY MOUTH EVERY 12 HOURS FOR 7 DAYS ciprofloxacin 500 mg tablet TAKE ONE TAB LET BY MOUTH EVERY 12 HOURS FOR 7 DAYS comple efrain ciprofloxacin 500 MG Oral Tablet SAMANTHA ([facility]) Prednisone 20 MG Oral Tablet prednisone 20 mg tablet prednisone 20 mg tablet completed prednisone 20 MG Oral Tablet SAMANTHA ([facility]) ropinirole 0.25 MG Oral Tablet ropinirole 0.25 mg tabl et ropinirole 0.25 mg tablet completed ropinirole 0.25 MG Oral Tablet SAMANTHA ([facility]) Acetaminophen 325 MG / Oxycodone Hydroch loride 5 MG Oral Tablet oxycodone- acetaminophen 5 mg-325 mg tablet oxycodone-acetaminophen 5 mg-325 mg tablet completed acetaminop hen 325 MG / oxycodone hydrochloride 5 MG Oral Tablet SAMANTHA ([facility]) Tamsulosin hydrochloride 0.4 MG Oral Capsule tamsulosi n 0.4 mg capsule tamsulosin 0.4 mg capsule completed tamsulosin hydrochloride 0.4 MG Oral Capsule SAMANTHA ([facility]) ropinirole 0.25 MG Oral Tablet ropinirole 0.25 mg tabl et ropinirole 0.25 mg tablet completed ropinirole 0.25 MG Oral Tablet SAMANTHA ([facility]) Nystatin 006574 UNT/ML Oral Suspension nystatin 100,00 0 unit/mL oral suspension nystatin 100,000 unit/mL oral suspension completed nystatin 729519 UNT/ML Oral Suspension SAMANTHA ([facility]) Ketorolac Tromethamine 10 MG Oral Tablet ketorolac 10 mg tablet ketorolac 10 mg tablet completed ketorolac trome thamine 10 MG Oral Tablet SAMANTHA ([facility]) Chantix Starting Month Box 0.5 mg (11)-1 mg (42) tablets in dose pack 086934 completed Chantix Starti ng Month Box 0.5 mg (11)-1 mg (42) tablets in dose pack SAMANTHA ([facility]) Ergocalciferol 66512 UNT Oral Capsule Vi tamin D2 1,250 mcg (50,000 unit) capsule Vitamin D2 1,250 mcg (50,000 unit) capsule completed ergocalciferol 1.25 MG Oral Capsule SAMANTHA ([facility]) Prednisone 10 MG Oral Tablet prednisone 10 mg tablet prednisone 10 mg tablet completed prednisone 10 MG Oral Tablet SAMANTHA ([facility]) Escitalopram 10 MG Oral Tablet escitalop kennedi 10 mg tablet TAKE ONE TABLET BY MOUTH EVERY DAY escitalopram 10 mg tablet TAKE ONE TABLET BY MOUTH EVERY DAY completed escitalopram 1 0 MG Oral Tablet SAMANTHA ([facility]) Prednisone 20 MG Oral Tablet prednisone 20 mg tablet prednisone 20 mg tablet completed prednisone 20 MG Oral Tablet SAMANTHA ([facility]) Prednisone 10 MG Oral Tablet prednisone 10 mg tablet prednisone 10 mg tablet completed prednisone 10 MG Oral Tablet SAMANTHA ([facility]) Prednisone 20 MG Oral Tablet prednisone 20 mg tablet prednisone 20 mg tablet completed prednisone 20 MG Oral Tablet SAMANTHA ([facility]) Chantix Starting Month Box 0.5 mg (11)-1 mg (42) tablets in dose pack [id number] completed Chantix Starti ng Month Box 0.5 mg (11)-1 mg (42) tablets in dose pack SAMANTHA ([facility]) Metronidazole 500 MG Oral Tablet metronidazole 500 mg tablet metronidazole 500 mg tablet completed metronidazol e 500 MG Oral Tablet SAMANTHA ([facility]) Acetaminophen 325 MG / Oxycodone Hydroch loride 5 MG Oral Tablet oxycodone- acetaminophen 5 mg-325 mg tablet oxycodone-acetaminophen 5 mg-325 mg tablet completed acetaminop hen 325 MG / oxycodone hydrochloride 5 MG Oral Tablet SAMANTHA ([facility]) Chantix Starting Month Box 0.5 mg (11)-1 mg (42) tablets in dose pack 301898 completed Chantix Starti ng Month Box 0.5 mg (11)-1 mg (42) tablets in dose pack SAMANTHA ([facility]) Ergocalciferol 52819 UNT Oral Capsule Vi tamin D2 1,250 mcg (50,000 unit) capsule Vitamin D2 1,250 mcg (50,000 unit) capsule completed ergocalciferol 1.25 MG Oral Capsule SAMANTHA ([facility]) Fluoxetine 20 MG Oral Capsule fluoxetine 20 mg capsule fluox etine 20 mg capsule completed fluoxetine 20 MG Oral Capsule SAMANTHA ([facility]) Escitalopram 10 MG Oral Tablet escitalop kennedi 10 mg tablet Take 1 tablet every day by oral route for 30 days. escitalopram 10 mg tablet Take 1 tablet every day by oral route for 30 days. 1 completed escitalopram 10 MG Oral Tablet SAMANTHA ([facility]) Prednisone 10 MG Oral Tablet prednisone 10 mg tablet prednisone 10 mg tablet completed prednisone 10 MG Oral Tablet SAMANTHA ([facility]) Fluoxetine 20 MG Oral Capsule fluoxetine 20 mg capsule fluox etine 20 mg capsule completed fluoxetine 20 MG Oral Capsule SAMANTHA ([facility]) Fluoxetine 20 MG Oral Capsule fluoxetine 20 mg capsule fluox etine 20 mg capsule completed fluoxetine 20 MG Oral Capsule SAMANTHA ([facility]) Metronidazole 500 MG Oral Tablet metronidazole 500 mg tablet metronidazole 500 mg tablet completed metronidazol e 500 MG Oral Tablet SAMANTHA ([facility]) varenicline 1 MG Oral Tablet Chantix Continuing Month Box 1 mg tablet Chantix Continuing Month Box 1 mg tablet compl eted varenicline 1 MG Oral Tablet SAMANTHA ([facility]) Fluoxetine 20 MG Oral Capsule fluoxetine 20 mg capsule fluox etine 20 mg capsule completed fluoxetine 20 MG Oral Capsule SAMANTHA ([facility]) Ergocalciferol 53271 UNT Oral Capsule Vi tamin D2 1,250 mcg (50,000 unit) capsule Vitamin D2 1,250 mcg (50,000 unit) capsule completed ergocalciferol 1.25 MG Oral Capsule SAMANTAH ([facility]) Nystatin 559611 UNT/ML Oral Suspension nystatin 100,00 0 unit/mL oral suspension nystatin 100,000 unit/mL oral suspension completed nystatin 855330 UNT/ML Oral Suspension SAMANTHA ([facility]) Nystatin 217416 UNT/ML Oral Suspension nystatin 100,00 0 unit/mL oral suspension nystatin 100,000 unit/mL oral suspension completed nystatin 218529 UNT/ML Oral Suspension SAMANTHA ([facility]) Chantix Starting Month Box 0.5 mg (11)-1 mg (42) tablets in dose pack 287438 completed Chantix Starti ng Month Box 0.5 mg (11)-1 mg (42) tablets in dose pack SAMANTHA ([facility]) Prednisone 10 MG Oral Tablet prednisone 10 mg tablet prednisone 10 mg tablet completed prednisone 10 MG Oral Tablet [place] ([facility]) ropinirole 0.25 MG Oral Tablet ropinirole 0.25 mg tabl et ropinirole 0.25 mg tablet completed ropinirole 0.25 MG Oral Tablet [place] ([facility]) gabapentin 600 MG Oral Tablet gabapentin 600 mg tablet gabap entin 600 mg tablet completed gabapentin 600 MG Oral Tablet [place] ([facility]) Ergocalciferol 46695 UNT Oral Capsule Vi tamin D2 1,250 mcg (50,000 unit) capsule Vitamin D2 1,250 mcg (50,000 unit) capsule completed ergocalciferol 1.25 MG Oral Capsule [place] ([facility]) gabapentin 600 MG Oral Tablet gabapentin 600 mg tablet gabap entin 600 mg tablet completed gabapentin 600 MG Oral Tablet [place] ([facility]) Escitalopram 10 MG Oral Tablet escitalop kennedi 10 mg tablet TAKE ONE TABLET BY MOUTH EVERY DAY escitalopram 10 mg tablet TAKE ONE TABLET BY MOUTH EVERY DAY completed escitalopram 1 0 MG Oral Tablet [place] ([facility]) ropinirole 0.25 MG Oral Tablet ropinirole 0.25 mg tabl et ropinirole 0.25 mg tablet completed ropinirole 0.25 MG Oral Tablet [place] ([facility]) Prednisone 20 MG Oral Tablet prednisone 20 mg tablet prednisone 20 mg tablet completed prednisone 20 MG Oral Tablet [place] ([facility]) Gemfibrozil 600 MG Oral Tablet gemfibrozil 600 mg tabl et gemfibrozil 600 mg tablet completed gemfibrozil 600 MG Oral Tablet [place] ([facility]) gabapentin 600 MG Oral Tablet gabapentin 600 mg tablet gabap entin 600 mg tablet completed gabapentin 600 MG Oral Tablet SAMANTHA ([facility]) varenicline 1 MG Oral Tablet Chantix Continuing Month Box 1 mg tablet Chantix Continuing Month Box 1 mg tablet compl eted varenicline 1 MG Oral Tablet SAMANTHA ([facility]) varenicline 1 MG Oral Tablet Chantix Continuing Month Box 1 mg tablet Chantix Continuing Month Box 1 mg tablet compl eted varenicline 1 MG Oral Tablet SAMANTHA ([facility]) Nystatin 721272 UNT/ML Oral Suspension nystatin 100,00 0 unit/mL oral suspension nystatin 100,000 unit/mL oral suspension completed nystatin 119358 UNT/ML Oral Suspension SAMANTHA ([facility]) Gemfibrozil 600 MG Oral Tablet gemfibrozil 600 mg tabl et gemfibrozil 600 mg tablet completed gemfibrozil 600 MG Oral Tablet SAMANTHA ([facility]) Ketorolac Tromethamine 10 MG Oral Tablet ketorolac 10 mg tablet ketorolac 10 mg tablet completed ketorolac trome thamine 10 MG Oral Tablet SAMANTHA ([facility]) gabapentin 600 MG Oral Tablet gabapentin 600 mg tablet gabap entin 600 mg tablet completed gabapentin 600 MG Oral Tablet SAMANTHA ([facility]) Ciprofloxacin 500 MG Oral Tablet ciprofl oxacin 500 mg tablet TAKE ONE TABLET BY MOUTH EVERY 12 HOURS FOR 7 DAYS ciprofloxacin 500 mg tablet TAKE ONE TAB LET BY MOUTH EVERY 12 HOURS FOR 7 DAYS comple efrain ciprofloxacin 500 MG Oral Tablet SAMANTHA ([facility]) varenicline 1 MG Oral Tablet Chantix Continuing Month Box 1 mg tablet Chantix Continuing Month Box 1 mg tablet compl eted varenicline 1 MG Oral Tablet SAMANTHA ([facility]) Tamsulosin hydrochloride 0.4 MG Oral Capsule tamsulosi n 0.4 mg capsule tamsulosin 0.4 mg capsule completed tamsulosin hydrochloride 0.4 MG Oral Capsule SAMANTHA ([facility]) Acetaminophen 325 MG / Oxycodone Hydroch loride 5 MG Oral Tablet oxycodone- acetaminophen 5 mg-325 mg tablet oxycodone-acetaminophen 5 mg-325 mg tablet completed acetaminop hen 325 MG / oxycodone hydrochloride 5 MG Oral Tablet SAMANTHA ([facility]) Insurance Providers Payer name Policy type / Coverage type Policy ID Covered libertarian ID Covered libertarian's relationship to masters Policy Masters Plan Information [facility] COMMUNITY PLAN MCDO [id number] SP [id number] [facility] O [id number] S [id number] [place] [id number] SP [id number] UN[employer] COMMUNITY PLAN MCDHMO [id number] SP [id number] MEDICAID [id number] SP [id number] Medicaid S [id number] S [id number] Managed Care - [facility] Community Plan P [id number] S [id number] Medicaid S [id number] S [id number] MEDICAID M [id number] S [id number] Managed Care - [facility] Community Plan P [id number] S [id number] [facility] Health Maintenance Organization (HMO) [id number] [facility]-Medicaid [id number] ANS-Medicaid [id number] Managed Care - Community Plan [facility] P [id number] S [id number] ANSI-Medicaid [id number] ANSI-Medicaid [id number] ANSI-Medicaid [id number] ANSI-Medicaid [id number] Medicaid S [id number] S [id number] [facility]ly [facility] Plan [facility] Commercial [id number] Self [id number] ANSI-Medicaid [id number] ANSI-Medicaid [id number] ANSI-Medicaid [id number] ANSI-Medicaid [id number] ANSI-Medicaid [id number] ANSI-Medicaid [id number] Managed Care - Community Plan [facility] [id number] S [id number] ANSI-Medicaid [id number] ANSI-Medicaid [id number] ANSI-Medicaid [id number] ANSI-Medicaid [id number] [facility] Commercial [id number] Self [id number] ANSI-Medicaid [id number] ANSI-Medicaid [id number] ANSI-Medicaid [id number] ANSI-Medicaid [id number] ANSI-Medicaid [id number] ANSI-Medicaid [id number] ANSI-Medicaid [id number] ANSI-Medicaid [id number] [facility] Health Maintenance Organization (HMO) [id number] Self [id number] ANSI-Medicaid [id number] ANSI-Medicaid [id number] ANSI-Medicaid [id number] ANSI-Medicaid [id number] ANSI-Medicaid [id number] ANSI-Medicaid [id number] ANSI-Medicaid [id number] ANSI-Medicaid [id number] [facility] Health Maintenance Organization (HMO) [id number] Self [id number] Community Plan - [facility] Commercial [id number] Self [id number] [facility]ITY [id number] SP [id number] [facility] COMMUNITY PLAN [facility] [id number] SP [id number] Managed Care - Community Plan [facility] P [id number] S [id number] Medicaid S [id number] S [id number] [facility] Health Maintenance Organization (HMO) [id number] Self [id number] [facility] [place] Health Maintenance Organization (HMO) [id number] Self [id number] [facility] [place] Health Maintenance Organization (HMO) [id number] Self [id number] [facility] Health Maintenance Organization (HMO) Self [facility] Community Plan Commercial Self [employer] COMMUNITY PLAN MCDO [id number] SP [id number] UN[employer] COMMUNITY PLAN MCDO [id number] SP [id number] [facility] O [id number] S [id number] Medicaid Dental P [id number] S [id number] Problems, Conditions, and Diagnoses Code Display Name Description Problem Type Effective Dates Data Source(s) 592.0 Calculus of kidney Calculus of kidney 0 09:32:28 AM EDT [facility] 07199556 Kidney stone Kidney Stone Problem 01/17/2020 12:00:00 A M EDT [place] ([facility]) 77412249 Kidney stone Kidney Stone Problem 01/17/2020 12:00:00 A M EDT [place] ([facility]) [id number] Clinical finding Clinical Finding Problem 01/17/2020 12 :00:00 AM EDT [place] ([facility]) 469581984 Clinical finding Clinical Finding Problem 01/17/2020 12 :00:00 AM EDT [place] ([facility]) G54.0 Brachial plexus disorders Left thoracic outlet syndrom e 09/30/2019 02:24:08 PM EDT [facility] 719.43 Pain in right wrist Pain in right wrist 020 01:42:43 PM [facility] E78.1 Pure hyperglyceridemia Familial hypertriglyceridemia 08/26/2019 01:42:43 PM [facility] 49760001 Type 2 diabetes mellitus without complic ations Type 2 diabetes mellitus without complications 08/26/2019 01:42:43 PM EST [facility] 372868420 Pure hyperglyceridemia Pure Hyperglyceridemia Problem 08/26/2019 12:00:00 AM EST SAMANTHA ([facility]) 428726630 Pure hyperglyceridemia Pure Hyperglyceridemia Problem 08/26/2019 12:00:00 AM LESLIE SAMANTHA ([facility]) 843485514 Pure hyperglyceridemia Pure Hyperglyceridemia Problem 08/26/2019 12:00:00 AM EST SAMANTHA ([facility]) 823685803 Pure hyperglyceridemia Pure Hyperglyceridemia Problem 08/26/2019 12:00:00 AM EST SAMANTHA ([facility]) 521.00 Dental caries Dental caries 08/05/2019 11:35:20 AM EST [facility] 922657458 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 Secondary to Dental Caries Problem 08/05/2019 12:00:00 AM EST A [place] ([facility]) 621584974 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 Secondary to Dental Caries Problem 08/05/2019 12:00:00 AM EST A [place] ([facility]) 564348440 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 Secondary to Dental Caries Problem 08/05/2019 12:00:00 AM EST [place] ([facility]) 226744710 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 Secondary to Dental Caries Problem 08/05/2019 12:00:00 AM EST [place] ([facility]) 648377859 Type 2 diabetes mellitus without complic ation Type 2 Diabetes Mellitus without Complication Problem 06/18/2019 12:00:00 AM EST SAMANTHA ([facility]) 744096024 Type 2 diabetes mellitus without complic ation Type 2 Diabetes Mellitus without Complication Problem 06/18/2019 12:00:00 AM EST SAMANTHA ([facility]) 898113632 Type 2 diabetes mellitus without complic ation Type 2 Diabetes Mellitus without Complication Problem 06/18/2019 12:00:00 AM EST SAMANTHA ([facility]) 645733606 Type 2 diabetes mellitus without complic ation Type 2 Diabetes Mellitus without Complication Problem 06/18/2019 12:00:00 AM EST SAMANTHA ([facility]) [id number] Influenza vaccine needed Influenza Vaccine Needed Pro blem 05/04/2019 12:00:00 AM EST - 06/12/2020 12:00:00 AM EST SAMANTHA ([facility]) [id number] Influenza vaccine needed Influenza Vaccine Needed Pro blem 05/04/2019 12:00:00 AM EST - 06/12/2020 12:00:00 AM EST SAMANTHA ([facility]) 675943101 SNOMED CT Concept SNOMED CT Concept Problem 08/29 12:00:00 AM EST - 04/27/2020 12:00:00 AM EDT SAMANTHA ([facility]) 305485300 Procedure by method Procedure by Method Problem 0 08/30/2015 12:00:00 AM EST - 04/27/2020 12:00:00 AM EDT SAMANTHA ([facility]) 543664794 Tobacco user Tobacco User Problem 08/30/2015 12:0 0:00 AM EST - 06/12/2020 12:00:00 AM EST SAMANTHA ([facility]) 483323715 SNOMED CT Concept SNOMED CT Concept Problem 08/29 12:00:00 AM EST - 04/27/2020 12:00:00 AM EDT SAMANTHA ([facility]) 428898531 Procedure by method Procedure by Method Problem 0 08/30/2015 12:00:00 AM EST - 04/27/2020 12:00:00 AM EDT SAMANTHA ([facility]) 605154916 Tobacco user Tobacco User Problem 08/30/2015 12:0 0:00 AM EST - 06/12/2020 12:00:00 AM EST SAMANTHA ([facility]) 399581824 SNOMED CT Concept SNOMED CT Concept Problem 08/29 12:00:00 AM EST - 04/27/2020 12:00:00 AM EDT SAMANTHA ([facility]) 510533429 Procedure by method Procedure by Method Problem 0 08/30/2015 12:00:00 AM EST - 04/27/2020 12:00:00 AM EDT SAMANTHA ([facility]) 941983250 SNOMED CT Concept SNOMED CT Concept Problem 08/29 12:00:00 AM EST - 04/27/2020 12:00:00 AM EDT SAMANTHA ([facility]) 889167075 Procedure by method Procedure by Method Problem 0 08/30/2015 12:00:00 AM EST - 04/27/2020 12:00:00 AM EDT SAMANTHA ([facility]) Surgeries/Procedures Procedure Description Date Indications Data Source(s) RADEX ANKLE COMPLETE MINIMUM 3 VIEWS 07/06/2020 12:00: 00 AM EST [facility] ([facility] ) RADEX FOOT COMPLETE MINIMUM 3 VIEWS 07/06/2020 12:00:0 0 AM EST [facility] ([facility] ) RADEX FOOT COMPLETE MINIMUM 3 VIEWS 07/06/2020 12:00:0 0 AM EST [facility] ([facility] ) MRI SPINAL CANAL LUMBAR W/O CONTRAST MATERIAL 02/05/20 12:00:00 AM EDT [facility] ([facility] ) MRI SPINAL CANAL LUMBAR W/O CONTRAST MATERIAL 02/05/20 12:00:00 AM EDT [facility] ([facility] ) PHYSICIAN TELEPHONE EVALUATION 11-20 MIN 10/01/2019 12 :00:00 AM EDT eCW1 ([facility]) DESTROY LUMB/SAC FACET JNT 09/15/2019 12:00:00 AM EDT eCW1 ([facility]) RADXPS IN END [id number] PXD 09/15/2019 12:00:00 AM ED T eCW1 ([facility]) Needle electromyography, each extremity, with related paraspinal areas, when performed, done with nerve conduction, amplitude and latency/velocity study; complete, five or more muscles studied, innervated by three or more nerves or four or more spinal levels (list separately in addition to the code for primary procedure). 08/05/2019 12:00:00 AM EST MEDEN T ([facility], ) Needle electromyography, each extremity, with related paraspinal areas, when performed, done with nerve conduction, amplitude and latency/velocity study; complete, five or more muscles studied, innervated by three or more nerves or four or more spinal levels (list separately in addition to the code for primary procedure). 08/05/2019 12:00:00 AM EST MEDEN T ([facility], ) 96387 Nerve conduction studies 13 or more studies NEW 201208/05/2019 12:00:00 AM EST [facility] ([facility] ) ESTABILISHED PATIENT [facility] FACILITY CHARGE 020 12:00:00 AM EST eCW1 ([facility]) INJ PARAVERT F JNT L/S 1 LEV 07/05/2019 12:00:00 AM ES T eCW1 ([facility]) RADEX FOOT COMPLETE MINIMUM 3 VIEWS 05/20/2019 12:00:0 0 AM EST [facility] ([facility] ) Results ID Date Data Source [id number] 05/12/2020 10:05:00 AM EST SAMANTHA ([facility]) Name Value Range Interpretation Code Description Data Shannon rce(s) Supporting Document(s) creatinine, urine 225.0 mg/dL normal Creatinine, Urine SAMANTHA ([facility]) sohail/creat ratio 9.3 mcg/mg 0.0-30.0 normal Sohail/creat Ratio ATHE NA ([facility]) malb urine siemens 21.0 mg/L normal Malb Urine Martin SINGH ([facility]) ID Date Data Source [id number] 05/12/2020 10:05:00 AM EST SAMANTHA ([facility]) Name Value Range Interpretation Code Description Data Shannon rce(s) Supporting Document(s) creatinine, urine 225.0 mg/dL normal Creatinine, Urine SAMANTHA ([facility]) malb urine siemens 21.0 mg/L normal Malb Urine Siemen s SAMANTHA ([facility]) sohail/creat ratio 9.3 mcg/mg 0.0-30.0 normal Sohail/creat Ratio ATHE NA ([facility]) ID Date Data Source [id number] 05/12/2020 10:02:00 AM EST [facility] ([facility]) Name Value Range Interpretation Code Description Data Shannon rce(s) Supporting Document(s) potassium serum 4.8 mEq/L 3.5-5.1 normal Potassium Serum [facility] NA ([facility]) ID Date Data Source [id number] 05/12/2020 10:02:00 AM EST SAMANTH[facility] ([facility]) Name Value Range Interpretation Code Description Data Shannon rce(s) Supporting Document(s) potassium serum 4.8 mEq/L 3.5-5.1 normal Potassium Serum [facility] ([facility]) ID Date Data Source [id number] 04/20/2020 09:10:00 AM EDT [facility] ([facility]) Name Value Range Interpretation Code Description Data Shannon rce(s) Supporting Document(s) estimated average glucose 120 mg/dL 60-110 Above high norm al Estimated Average Glucose SAMANTHA ([facility]) Hemoglobin A1c/Hemoglobin.total in Blood 5.8 % normal Hemoglobin a1C SAM[facility]THA ([facility]) ID Date Data Source [id number] 04/20/2020 09:10:00 AM EDT [place] ([facility]) Name Value Range Interpretation Code Description Data Shannon rce(s) Supporting Document(s) thyroid stimulating hormone 1.560 uIU/mL 0.358-3.740 normal Thyroid Stimulating Hormone [facility] ([facility]) free T4 0.85 NG/dL 0.76-1.46 normal Free T4 [facility] ([facility]) ID Date Data Source [id number] 04/20/2020 09:10:00 AM EDT [place] ([facility]) Name Value Range Interpretation Code Description Data Shannon rce(s) Supporting Document(s) triglycerides level 1092 mg/dL <150 Above high normal Triglycer ides Level SAMANTH[facility] ([facility]) cholesterol risk ratio <5 Above high normal Choles terol Risk Ratio SAM[facility]TH[facility] ([facility]) cholesterol level 309 mg/dL <200 Above high normal Cholesterol Level SAM[facility]TH[facility] ([facility]) non-HDL-C 260 mg/dL normal Non-hdl-c SAM[facility]TH[facility] ([facility]) HDL cholesterol 49 mg/dL >40 normal HDL Cholesterol ATHE NA ([facility]) ID Date Data Source [id number] 04/20/2020 09:10:00 AM EDT SAMANTHA ([facility]) Name Value Range Interpretation Code Description Data Shannon rce(s) Supporting Document(s) blood urea nitrogen 12 mg/dL 7-18 normal Blood Urea Nitro gen SAMANTHA ([facility]) glucose, fasting 145 mg/dL 70-100 Above high normal Glucose, Fas ting SAMANTHA ([facility]) glomerular filtration rate > 60.0 >60 normal Glomerula r Filtration Rate SAMANTHA ([facility]) potassium serum 5.5 mEq/L 3.5-5.1 Above high normal Potassium Ser um SAMANTHA ([facility]) sodium level 137 mEq/L 136-145 normal Sodium Level SAMANTHA ([facility]) creatinine for GFR 1.04 mg/dL 0.70-1.30 normal Creatinine for GF R SAMANTHA ([facility]) carbon dioxide level 29 mEq/L 21-32 normal Carbon Dioxide Level [place] ([facility]) chloride level 102 mEq/L 98-107 normal Chloride Level [place] ([facility]) anion gap 6 mEq/L 8-16 Below low normal Anion Gap [place] ( [facility]) calcium level 9.3 mg/dL 8.5-10.1 normal Calcium Level SAMANTHA ( [facility]) alkaline phosphatase 79 U/L 45-117 normal Alkaline Phosph atase SAMANTHA ([facility]) total protein 7.3 gm/dL 6.4-8.2 normal Total Protein SAMANTHA ( [facility]) AST/SGOT 32 U/L 7-37 normal AST/SGOT [place] ([facility]) bilirubin,total 0.4 mg/dL 0.2-1.0 normal Bilirubin,total [facility] NA ([facility]) ALT/SGPT 60 U/L 12-78 normal ALT/SGPT [facility] ([facility]) albumin 4.0 gm/dL 3.2-5.2 normal Albumin [facility] ([facility]) albumin/globulin ratio normal Albumin/globu andria Ratio [place] ([facility]) ID Date Data Source [id number] 04/20/2020 09:10:00 AM EDT [facility]) Name Value Range Interpretation Code Description Data Shannon rce(s) Supporting Document(s) white blood count 11.0 10 4.0-10.0 Above high normal White Blood Count SAMANTHA ([facility]) hematocrit 47.5 % 42.0-52.0 normal Hematocrit [facility] ([facility]) red blood count 5.12 10 4.30-6.10 normal Red Blood Count [facility] ([facility]) hemoglobin 16.0 g/dL 13.5-17.5 normal Hemoglobin [facility]TH[facility] ([facility]) mean corpuscular hemoglobin 31.3 pg 27.0-33.0 normal Mean Corpuscular Hemoglobin [facility]TH[facility] ([facility]) mean corpuscular HGB conc 33.7 g/dL 32.0-36.5 normal Mean Corpu scular HGB Conc [facility] ([facility]) mean corpuscular volume 92.8 fL 80.0-96.0 normal Mean Corpusc ular Volume [facility] ([facility]) red cell distribution width 13.4 % 11.5-14.5 normal Red Cell Distribution Width [facility] ([facility]) platelet count, automated 309 10 150-450 normal Platelet C ount, Automated [facility] ([facility]) lymph % 25.6 % 24.0-44.0 normal Lymph % [place] ([facility]) neutrophils % 59.3 % 36.0-66.0 normal Neutrophils % [place] ( [facility]) immature granulocyte % 2.0 % 0-3.0 normal Immature Gran ulocyte % [place] ([facility]) eos % 2.8 % 0.0-3.0 normal Eos % [facility] ([facility]) baso % 0.9 % 0.0-1.0 normal Baso % [place] ([facility]) mono % 9.4 % 0.0-5.0 Above high normal [place] % [facility] ([facility]) neutrophils # 6.5 10 1.5-8.5 normal Neutrophils # [place] ( [facility]) nucleated red blood cell % 0.0 % 0-0 normal Nucleated Red Blood Cell % [facility] ([facility]) lymph # 2.8 10 1.5-5.0 normal Lymph # [facility] ([facility]) mono # 1.0 10 0.0-0.8 Above high normal [place] # [facility] ([facility]) baso # 0.1 10 0.0-0.2 normal Baso # [facility] ([facility]) eos # 0.3 10 0.0-0.5 normal Eos # [facility] ([facility]) ID Date Data Source [id number] 04/20/2020 09:10:00 AM EDT [place] ([facility]) Name Value Range Interpretation Code Description Data Shannon rce(s) Supporting Document(s) Hemoglobin A1c/Hemoglobin.total in Blood 5.8 % normal Hemoglobin a1C [facility] ([facility]) estimated average glucose 120 mg/dL 60-110 Above high norm al Estimated Average Glucose [place] ([facility]) ID Date Data Source [id number] 04/20/2020 09:10:00 AM EDT [facility] ([facility]) Name Value Range Interpretation Code Description Data Shannon rce(s) Supporting Document(s) thyroid stimulating hormone 1.560 uIU/mL 0.358-3.740 normal Thyroid Stimulating Hormone SAM[facility]THA ([facility]) free T4 0.85 NG/dL 0.76-1.46 normal Free T4 [place] ([facility]) ID Date Data Source [id number] 04/20/2020 09:10:00 AM EDT SAMANTH[facility] ([facility]) Name Value Range Interpretation Code Description Data Shannon rce(s) Supporting Document(s) triglycerides level 1092 mg/dL <150 Above high normal Triglycer ides Level SAMANTHA ([facility]) cholesterol risk ratio <5 Above high normal Choles terol Risk Ratio SAM[facility] ([facility]) cholesterol level 309 mg/dL <200 Above high normal Cholesterol Level [facility] ([facility]) non-HDL-C 260 mg/dL normal Non-hdl-c [facility] ([facility]) HDL cholesterol 49 mg/dL >40 normal HDL Cholesterol ATHE NA ([facility]) ID Date Data Source [id number] 04/20/2020 09:10:00 AM EDT SAMANTHA ([facility]) Name Value Range Interpretation Code Description Data Shannon rce(s) Supporting Document(s) blood urea nitrogen 12 mg/dL 7-18 normal Blood Urea Nitro gen SAM[facility]THA ([facility]) glucose, fasting 145 mg/dL 70-100 Above high normal Glucose, Fas ting SAMANTH[facility] ([facility]) sodium level 137 mEq/L 136-145 normal Sodium Level SAMANTHA ([facility]) creatinine for GFR 1.04 mg/dL 0.70-1.30 normal Creatinine for GF R [place] ([facility]) glomerular filtration rate > 60.0 >60 normal Glomerula r Filtration Rate SAM[facility]THA ([facility]) chloride level 102 mEq/L 98-107 normal Chloride Level [place] ([facility]) potassium serum 5.5 mEq/L 3.5-5.1 Above high normal Potassium Ser um [facility]TH[facility] ([facility]) carbon dioxide level 29 mEq/L 21-32 normal Carbon Dioxide Level [facility] ([facility]) anion gap 6 mEq/L 8-16 Below low normal Anion Gap [facility] ( [facility]) ALT/SGPT 60 U/L 12-78 normal ALT/SGPT [place] ([facility]) calcium level 9.3 mg/dL 8.5-10.1 normal Calcium Level [facility] ( [facility]) AST/SGOT 32 U/L 7-37 normal AST/SGOT [facility] ([facility]) alkaline phosphatase 79 U/L 45-117 normal Alkaline Phosph atase [facility] ([facility]) bilirubin,total 0.4 mg/dL 0.2-1.0 normal Bilirubin,total [facility] ([facility]) total protein 7.3 gm/dL 6.4-8.2 normal Total Protein [facility] ( [facility]) albumin 4.0 gm/dL 3.2-5.2 normal Albumin [facility] ([facility]) albumin/globulin ratio normal Albumin/globu andria Ratio [facility] ([facility]) ID Date Data Source [id number] 04/20/2020 09:10:00 AM EDT [place] ([facility]) Name Value Range Interpretation Code Description Data Shannon rce(s) Supporting Document(s) white blood count 11.0 10 4.0-10.0 Above high normal White Blood Count [facility] ([facility]) hemoglobin 16.0 g/dL 13.5-17.5 normal Hemoglobin [facility] ([facility]) hematocrit 47.5 % 42.0-52.0 normal Hematocrit [facility] ([facility]) red blood count 5.12 10 4.30-6.10 normal Red Blood Count [facility] ([facility]) mean corpuscular volume 92.8 fL 80.0-96.0 normal Mean Corpusc ular Volume [facility] ([facility]) mean corpuscular hemoglobin 31.3 pg 27.0-33.0 normal Mean Corpuscular Hemoglobin [facility] [facility]) mean corpuscular HGB conc 33.7 g/dL 32.0-36.5 normal Mean Corpu scular HGB Conc [facility] ([facility]) neutrophils % 59.3 % 36.0-66.0 normal Neutrophils % [facility] ( [facility]) platelet count, automated 309 10 150-450 normal Platelet C ount, Automated [facility] ([facility]) red cell distribution width 13.4 % 11.5-14.5 normal Red Cell Distribution Width [facility] ([facility]) lymph % 25.6 % 24.0-44.0 normal Lymph % [facility] ([facility]) mono % 9.4 % 0.0-5.0 Above high normal [place] % [facility]TH[facility] ([facility]) eos % 2.8 % 0.0-3.0 normal Eos % [facility] ([facility]) baso % 0.9 % 0.0-1.0 normal Baso % [facility] ([facility]) neutrophils # 6.5 10 1.5-8.5 normal Neutrophils # [facility] ( [facility]) immature granulocyte % 2.0 % 0-3.0 normal Immature Gran ulocyte % [facility] ([facility]) nucleated red blood cell % 0.0 % 0-0 normal Nucleated Red Blood Cell % [facility] ([facility]) lymph # 2.8 10 1.5-5.0 normal Lymph # [facility] ([facility]) eos # 0.3 10 0.0-0.5 normal Eos # [facility] ([facility]) baso # 0.1 10 0.0-0.2 normal Baso # [facility] ([facility]) mono # 1.0 10 0.0-0.8 Above high normal [place] # [facility] ([facility]) ID Date Data Source [id number] 04/20/2020 09:10:00 AM EDT [facility]) Name Value Range Interpretation Code Description Data Shannon rce(s) Supporting Document(s) Hemoglobin A1c/Hemoglobin.total in Blood 5.8 % normal Hemoglobin a1C [facility] ([facility]) estimated average glucose 120 mg/dL 60-110 Above high norm al Estimated Average Glucose [place] ([facility]) ID Date Data Source [id number] 04/20/2020 09:10:00 AM EDT [facility]) Name Value Range Interpretation Code Description Data Shannon rce(s) Supporting Document(s) thyroid stimulating hormone 1.560 uIU/mL 0.358-3.740 normal Thyroid Stimulating Hormone [place] ([facility]) free T4 0.85 NG/dL 0.76-1.46 normal Free T4 [place] ([facility]) ID Date Data Source [id number] 04/20/2020 09:10:00 AM EDT [facility]) Name Value Range Interpretation Code Description Data Shannon rce(s) Supporting Document(s) cholesterol level 309 mg/dL <200 Above high normal Cholesterol Level [facility] ([facility]) triglycerides level 1092 mg/dL <150 Above high normal Triglycer ides Level [place] ([facility]) non-HDL-C 260 mg/dL normal Non-hdl-c [facility] ([facility]) HDL cholesterol 49 mg/dL >40 normal HDL Cholesterol ATHE NA ([facility]) cholesterol risk ratio <5 Above high normal Choles terol Risk Ratio [facility] ([facility]) ID Date Data Source [id number] 04/20/2020 09:10:00 AM EDT [facility] ([facility]) Name Value Range Interpretation Code Description Data Shannon rce(s) Supporting Document(s) creatinine for GFR 1.04 mg/dL 0.70-1.30 normal Creatinine for GF R [facility] ([facility]) blood urea nitrogen 12 mg/dL 7-18 normal Blood Urea Nitro gen [facility] ([facility]) glucose, fasting 145 mg/dL 70-100 Above high normal Glucose, Fas ting [facility] ([facility]) glomerular filtration rate > 60.0 >60 normal Glomerula r Filtration Rate [facility] ([facility]) sodium level 137 mEq/L 136-145 normal Sodium Level [facility] ([facility]) chloride level 102 mEq/L 98-107 normal Chloride Level [facility] ([facility]) carbon dioxide level 29 mEq/L 21-32 normal Carbon Dioxide Level [place] ([facility]) potassium serum 5.5 mEq/L 3.5-5.1 Above high normal Potassium Ser um [facility] ([facility]) anion gap 6 mEq/L 8-16 Below low normal Anion Gap [facility] ( [facility]) AST/SGOT 32 U/L 7-37 normal AST/SGOT [facility] ([facility]) calcium level 9.3 mg/dL 8.5-10.1 normal Calcium Level [facility] ( [facility]) ALT/SGPT 60 U/L 12-78 normal ALT/SGPT [place] ([facility]) total protein 7.3 gm/dL 6.4-8.2 normal Total Protein [facility] ( [facility]) alkaline phosphatase 79 U/L 45-117 normal Alkaline Phosph atase [place] ([facility]) bilirubin,total 0.4 mg/dL 0.2-1.0 normal Bilirubin,total [place] ([facility]) albumin 4.0 gm/dL 3.2-5.2 normal Albumin [facility] ([facility]) albumin/globulin ratio normal Albumin/globu andria Ratio [place] ([facility]) ID Date Data Source [id number] 04/20/2020 09:10:00 AM EDT [place] ([facility]) Name Value Range Interpretation Code Description Data Shannon rce(s) Supporting Document(s) red blood count 5.12 10 4.30-6.10 normal Red Blood Count [place] ([facility]) white blood count 11.0 10 4.0-10.0 Above high normal White Blood Count [place] ([facility]) hematocrit 47.5 % 42.0-52.0 normal Hematocrit [place] ([facility]) hemoglobin 16.0 g/dL 13.5-17.5 normal Hemoglobin [place] ([facility]) mean corpuscular volume 92.8 fL 80.0-96.0 normal Mean Corpusc ular Volume [place] ([facility]) mean corpuscular hemoglobin 31.3 pg 27.0-33.0 normal Mean Corpuscular Hemoglobin [place] ([facility]) platelet count, automated 309 10 150-450 normal Platelet C ount, Automated [place] ([facility]) red cell distribution width 13.4 % 11.5-14.5 normal Red Cell Distribution Width [facility] ([facility]) mean corpuscular HGB conc 33.7 g/dL 32.0-36.5 normal Mean Corpu scular HGB Conc [facility] ([facility]) lymph % 25.6 % 24.0-44.0 normal Lymph % [place] ([facility]) mono % 9.4 % 0.0-5.0 Above high normal [place] % [place] ([facility]) neutrophils % 59.3 % 36.0-66.0 normal Neutrophils % [facility]) eos % 2.8 % 0.0-3.0 normal Eos % [facility] ([facility]) neutrophils # 6.5 10 1.5-8.5 normal Neutrophils # [facility] ( [facility]) nucleated red blood cell % 0.0 % 0-0 normal Nucleated Red Blood Cell % [facility] ([facility]) immature granulocyte % 2.0 % 0-3.0 normal Immature Gran ulocyte % [facility] ([facility]) baso % 0.9 % 0.0-1.0 normal Baso % [facility] ([facility]) lymph # 2.8 10 1.5-5.0 normal Lymph # [facility] ([facility]) mono # 1.0 10 0.0-0.8 Above high normal [place] # [facility] ([facility]) baso # 0.1 10 0.0-0.2 normal Baso # [facility] ([facility]) eos # 0.3 10 0.0-0.5 normal Eos # [facility] ([facility]) ID Date Data Source [id number] 04/20/2020 09:10:00 AM EDT [facility] ([facility]) Name Value Range Interpretation Code Description Data Shannon rce(s) Supporting Document(s) estimated average glucose 120 mg/dL 60-110 Above high norm al Estimated Average Glucose [place] ([facility]) Hemoglobin A1c/Hemoglobin.total in Blood 5.8 % normal Hemoglobin a1C [place] ([facility]) ID Date Data Source [id number] 04/20/2020 09:10:00 AM EDT [facility] ([facility]) Name Value Range Interpretation Code Description Data Shannon rce(s) Supporting Document(s) free T4 0.85 NG/dL 0.76-1.46 normal Free T4 [facility] ([facility]) thyroid stimulating hormone 1.560 uIU/mL 0.358-3.740 normal Thyroid Stimulating Hormone [place] ([facility]) ID Date Data Source [id number] 04/20/2020 09:10:00 AM EDT [facility] ([facility]) Name Value Range Interpretation Code Description Data Shannon rce(s) Supporting Document(s) non-HDL-C 260 mg/dL normal Non-hdl-c [facility] ([facility]) cholesterol level 309 mg/dL <200 Above high normal Cholesterol Level [facility] ([facility]) HDL cholesterol 49 mg/dL >40 normal HDL Cholesterol ATHE NA ([facility]) triglycerides level 1092 mg/dL <150 Above high normal Triglycer ides Level [place] ([facility]) cholesterol risk ratio <5 Above high normal Choles terol Risk Ratio [facility] ([facility]) ID Date Data Source [id number] 04/20/2020 09:10:00 AM EDT [place] ([facility]) Name Value Range Interpretation Code Description Data Shannon rce(s) Supporting Document(s) glucose, fasting 145 mg/dL 70-100 Above high normal Glucose, Fas ting [facility] ([facility]) sodium level 137 mEq/L 136-145 normal Sodium Level [facility] ([facility]) glomerular filtration rate > 60.0 >60 normal Glomerula r Filtration Rate [facility] ([facility]) blood urea nitrogen 12 mg/dL 7-18 normal Blood Urea Nitro gen [facility] ([facility]) creatinine for GFR 1.04 mg/dL 0.70-1.30 normal Creatinine for GF R [facility] ([facility]) potassium serum 5.5 mEq/L 3.5-5.1 Above high normal Potassium Ser um [facility] ([facility]) chloride level 102 mEq/L 98-107 normal Chloride Level [facility] ([facility]) anion gap 6 mEq/L 8-16 Below low normal Anion Gap [facility] ( [facility]) carbon dioxide level 29 mEq/L 21-32 normal Carbon Dioxide Level [facility] ([facility]) calcium level 9.3 mg/dL 8.5-10.1 normal Calcium Level [facility] ( [facility]) ALT/SGPT 60 U/L 12-78 normal ALT/SGPT [facility] ([facility]) AST/SGOT 32 U/L 7-37 normal AST/SGOT [facility] ([facility]) bilirubin,total 0.4 mg/dL 0.2-1.0 normal Bilirubin,total [place] NA ([facility]) alkaline phosphatase 79 U/L 45-117 normal Alkaline Phosph atase [facility] ([facility]) albumin 4.0 gm/dL 3.2-5.2 normal Albumin [facility] ([facility]) albumin/globulin ratio normal Albumin/globu andria Ratio [facility] ([facility]) total protein 7.3 gm/dL 6.4-8.2 normal Total Protein [facility] ( [facility]) ID Date Data Source [id number] 04/20/2020 09:10:00 AM EDT [place] ([facility]) Name Value Range Interpretation Code Description Data Shannon rce(s) Supporting Document(s) white blood count 11.0 10 4.0-10.0 Above high normal White Blood Count [facility] ([facility]) red blood count 5.12 10 4.30-6.10 normal Red Blood Count [place] ([facility]) hematocrit 47.5 % 42.0-52.0 normal Hematocrit [place] ([facility]) mean corpuscular volume 92.8 fL 80.0-96.0 normal Mean Corpusc ular Volume [place] ([facility]) hemoglobin 16.0 g/dL 13.5-17.5 normal Hemoglobin [place] ([facility]) mean corpuscular hemoglobin 31.3 pg 27.0-33.0 normal Mean Corpuscular Hemoglobin [place] ([facility]) platelet count, automated 309 10 150-450 normal Platelet C ount, Automated [place] ([facility]) red cell distribution width 13.4 % 11.5-14.5 normal Red Cell Distribution Width [place] ([facility]) mean corpuscular HGB conc 33.7 g/dL 32.0-36.5 normal Mean Corpu scular HGB Conc [place] ([facility]) eos % 2.8 % 0.0-3.0 normal Eos % [facility] ([facility]) neutrophils % 59.3 % 36.0-66.0 normal Neutrophils % [place] ( [facility]) lymph % 25.6 % 24.0-44.0 normal Lymph % [place] ([facility]) mono % 9.4 % 0.0-5.0 Above high normal [place] % [place] ([facility]) immature granulocyte % 2.0 % 0-3.0 normal Immature Gran ulocyte % [place] ([facility]) neutrophils # 6.5 10 1.5-8.5 normal Neutrophils # [place] ( [facility]) baso % 0.9 % 0.0-1.0 normal Baso % [place] ([facility]) nucleated red blood cell % 0.0 % 0-0 normal Nucleated Red Blood Cell % [place] ([facility]) baso # 0.1 10 0.0-0.2 normal Baso # [place] ([facility]) lymph # 2.8 10 1.5-5.0 normal Lymph # [place] ([facility]) eos # 0.3 10 0.0-0.5 normal Eos # [place] ([facility]) mono # 1.0 10 0.0-0.8 Above high normal [place] # [place] ([facility]) ID Date Data Source [id number] 01/17/2020 08:53:33 AM EDT [facility] Measurements & CalculationsHeight: 70 inches [...] stop or control worrying? Not at all ROÁMN-2 Score: 0Food InsecurityWithin the past year...Did you worry whether your food would run out before you got money to buy more? NoWas there a time when the food you bought didn't last and you didn't have money to get more? NoPRAPARE Sociodemographic Characteristics Race: White Ethnicity: Not or Preferred Language: EnglishFamily and Home Address: [address] [place] [address] What is your housing situation today? I have housing Are you worried about losing your housing? NoMoney and Resources What is the highest level of school that you have finished? high school graduate Employed? Yes Your current work situation? FT Insurance: Managed Care - [facility] Community PlanIn the past year, have you or any family members you live with been unable to get any of the following when it was really needed? Denies Insecurity: food, utilities, clothing, childcare center director, phone, legal services, otherWithin the past year [...] MIFH- CAMother- Lymphoma CACancer - Breast (Maternal Grandmother)ID - male - under age 55 (Father)Social/Personal History: Chief Complaintannual examHistory of Present Illness (HPI)44 yo male pt presents for an annual exam. Pt was seen at [facility] ER 4 days ago for kidney stones. [...] during this visit, including review of any zkot-lwu-udtsyii medications, herbal therapies, and/or supplements.Allergy ReviewAllergy List [...] of childrenAssessed:Type 2 diabetes mellitus without complications (PXU86-K02.9) Assessment: Instructions: Significantly improved with an A1c of 6.6, great control and currently at goal. Keep up the same management and great effort! Continue current Metformin, call when you need refills.Other specified polyneuropathies (IKP75-B79.89) Assessment: Instructions: Continue gabapentin as prescribed.Familial hypertriglyceridemia (ICD-272.1) (WFR30-Z40.1) Assessment: Instructions: Significant improvement with Gemfibrozil, remains elevated and LDL above goal. Continue low fat diet, avoid fried and greasy food. Repeat fasting labs in 3 months.Schizophrenia (ICD- 295.90) (MQL13-Q34.9) Assessment: Instructions: Continue current Seroquel, moods stable and controlled. Refills sent today.Encounter for general adult medical examination with abnormal findings (ICD-V70.0) (EHX37-W92.01) Assessment: Instructions: Recommend annual medical appointments. Recommend routine dental and vision care. Recommend influenza vaccines annually and tetanus boosters every 10 years.Removed:Pain in right wrist (ICD-719.43) (VFZ78-R43.531), Left thoracic outlet syndrome (TTX61-O00.0), Pleuritic pain (ICD-786.52) (NIN49-U87.1)Patient Instructions/Care Plan: Type 2 diabetes mellitus without [...] HCL TABS) (Mild)* [place] (Mild)Orders:COMP METABOLIC PANEL [CPT-14244] CBC W/DIFF [CPT- 60318] HgBA1c [CPT-42043] LIPID PANEL [CPT-67825] Vitamin D 250H Unspecified [CPT-61656] URINE MICROALBUMIN - QUANTIATIVE [CPT-16672] Preventive, Est, (40- 64) [CPT-24653] Follow-Up Return to clinic: in 90 days for follow upAdditional Follow-Up: T2DM, lipidsClinical Visit Summary CompletedMedications:PERCOCET 5- 325 MG ORAL TABLET (OXYCODONE-ACETAMINOPHEN) Take 1 tablet po q 6 hrs prn severe pain; MDD 4 tablets #12[Tablet] x 0 Route:ORAL Entered and Authorized by: Binh ELDER Method used: Electronically to [facility] (retail) [address] [place] [address] Note to Pharmacy: Route: ORAL; Indications: CALCULUS OF KIDNEY RxID: [id number] 100 MG ORAL TABLET (QUETIAPINE FUMARATE) One po bid. #60[Tablet] x 3 Route:ORAL Entered and Authorized by: Binh ELDER Method used: Electronically to [facility] (retail) [address] [place] [address] Note to Pharmacy: Route: ORAL; Indications: SCHIZOPHRENIA RxID: [id number] 600 MG ORAL TABLET (GEMFIBROZIL) Take 1 tablet by mouth twice daily, 30 minutes before breakfast and dinner #60[Tablet] x 5 Route:ORAL Entered and Authorized by: Binh ELDER Method used: Electronically to [facility] (retail) [address] [place] [address] Fax: Note to Pharmacy: Route: ORAL; Indications: FAMILIAL HYPERTRIGLYCERIDEMIA RxID: [id number] HCL ER 500 MG ORAL TABLET EXTENDED RELEASE 24 HOUR (METFORMIN HCL) Take 2 tablets po BID #120[Tablet] x 5 Route:ORAL Entered and Authorized by: Binh ELDER Method used: Electronically to [facility] (retail) [address] [place] [address] Note to Pharmacy: Route: ORAL; RxID: [id number] 0.4 MG ORAL CAPSULE (TAMSULOSIN HCL) one tablet by mouth daily #14[Capsule] x 0 Entered and Authorized by: Binh ELDER Method used: Electronically to [facility] (retail) [address] [place] [address] Note to Pharmacy: Route: ORAL; RxID: [id number] signed by Binh ELDER on 02/01/2020 at 8:30 AM Name Value Range Interpretation Code Description Data Shannon rce(s) Supporting Document(s) ID Date Data Source [id number] 01/10/2020 04:34:30 PM EDT [facility] Labs In-House Blood TestsDate/Time Colle cted: January 10, 2020 4:35 PMDate/Time Received: January 10, 2020 4:35 PMTest Result Reference Range Normal ValueComments: collected blood from patient left Paul Hernandez LPN, January 10, 2020 4:37 PMAssessment & Plan Orders:[id number] - Venipuncture [CPT- 58496] 85562-[id number] Vst-Est Level I [CPT-78672] Name Value Range Interpretation Code Description Data Shannon rce(s) Supporting Document(s) ID Date Data Source [id number] 01/10/2020 04:15:00 PM EDT [facility] Name Value Range Interpretation Code Description Data Shannon rce(s) Supporting Document(s) BG FASTING 94 mg/dL 70-100 N [facility] ID Date Data Source [id number] 01/10/2020 04:15:00 PM EDT [facility] Name Value Range Interpretation Code Description Data Shannon rce(s) Supporting Document(s) HCT 44.8 % 42.0-52.0 N [facility] HGB 14.5 g/dL 13.5-17.5 [facility] MCH 32.4 G/DL pg 32.0-36.5 [facility] MCHC 30.3 PG % 27.0-33.0 [facility] PLATELETS 312 10 10*3/mm3 150-450 N [facility] RBC 4.79 10 10*6/mm3 4.30-6.10 [facility] RDW 14.3 % 11.5-14.5 [facility] WBC TOTAL 9.4 4.0-10.0 N [facility] ID Date Data Source [id number] 01/10/2020 04:15:00 PM EDT [facility] Name Value Range Interpretation Code Description Data Shannon rce(s) Supporting Document(s) HGBA1C 6.6 % N [facility] ID Date Data Source [id number] 11/11/2019 08:00:41 AM EDT [facility] Labs In-House Blood TestsDate/Time Colle cted: November 11, 2019 8:01 AMTest Result Reference Range Normal ValueComments: blood draw done in office, taken from left ac, tolerated well.Dinora Karma, November 11, 2019 8:01 AMAssessment & Plan Orders:[id number] Vst-Est Level I [CPT-11517] [id number] - Venipuncture [CPT-28286] Name Value Range Interpretation Code Description Data Shannon rce(s) Supporting Document(s) ID Date Data Source [id number] 11/11/2019 07:55:00 AM EDT [facility] Name Value Range Interpretation Code Description Data Shannon rce(s) Supporting Document(s) HGBA1C 10.2 % N [facility] ID Date Data Source [id number] 10/21/2019 12:49:13 PM EDT [facility] Measurements & CalculationsHeight: 70 inches [...] MIFH- CAMother- Lymphoma CACancer - Breast (Maternal Grandmother)ID - male - under age 55 (Father)Social/Personal [...] during this visit, including review of any nwsv-ppo-wctezov medications, herbal therapies, and/or supplements.Allergy ReviewAllergy List [...] Plan Problems:Assessed:Type 2 diabetes mellitus without complications (HFJ99-V59.9) Assessment: Given A1c order for today at [...] and call with any concerns.Familial hypertriglyceridemia (ICD-272.1) (NCD16-B65.1) Assessment: Instructions: Fasting labs have been ordered [...] HCL (TRAMADOL HCL TABS) (Mild)* GARLIC (Mild)Orders:HgBA1c [CPT-17468] COMP METABOLIC PANEL [CPT-94597] CBC W/DIFF [CPT-74938] HgBA1c [CPT-81707] LIPID PANEL [CPT-68730] Adult - Ofc Vst, EST, Level III [CPT-01480] Follow-Up Return to clinic: in 90 days for follow upAdditional Follow-Up: F4KBHehtjfil Visit Summary Completed Name Value Range Interpretation Code Description Data Shannon rce(s) Supporting Document(s) ID Date Data Source [id number] 09/30/2019 01:25:37 PM EDT [facility] Measurements & CalculationsHeight: 70 inches [...] (ER) or urgent care clinic? [facility] [...] MIFH- CAMother- Lymphoma CACancer - Breast (Maternal Grandmother)ID - male - under age 55 (Father)Social/Personal [...] during this visit, including review of any kknk-bff-dwwynar medications, herbal therapies, and/or supplements.Allergy ReviewAllergy List [...] & Plan Problems:Added: Left thoracic outlet syndrome (WCJ44-D99.0)Assessment not SavedLeft thoracic outlet syndrome (ICD10- G54.0): [...] (Mild)Orders:Adult - Ofc Vst, EST, Level III [CPT-61771] Medications:PREDNISONE 10 MG ORAL TABLET (PREDNISONE) 40mg po QD, decrease by 10mg q3d #30[Tablet] x 0 Route:ORAL Entered and Authorized by: Cleveland Harrison DO Method used: Electronically to [facility] (retail) [address] [place] [address] Note to Pharmacy: Route: ORAL; RxID: [id number] signed by Cleveland Harrison DO on 09/30/2019 at 2:24 PM Name Value Range Interpretation Code Description Data Shannon rce(s) Supporting Document(s) ID Date Data Source [id number] 08/26/2019 12:55:10 PM EST [facility] Measurements & CalculationsHeight: 70 inches [...] MIFH- CAMother- Lymphoma CACancer - Breast (Maternal Grandmother)ID - male - under age 55 (Father)Social/Personal [...] GoodAssessment & Plan Problems:Added: Familial hypertriglyceridemia (ICD-272.1) (CGD91-V38.1) Assessment: Instructions: Start gemfibrozil once daily. Low fat diet. Recommend healthy lifestyle modification. Encourage portion control, healthy food choices, and increasing routine physical activity. Recommendation is for 150 minutes throughout the week of cardiovascular exercise.Pain in right wrist (ICD-719.43) (SMP52-Z14.531) Assessment: Instructions: Xray and ortho referral. Recommend wrist brace when active to prevent further injury.Changed:From: Dx of Prediabetes (ICD- 790.29) (SNH13-V48.03) To: Type 2 diabetes mellitus without complications (FXN91-E92.9)Assessed:Type 2 diabetes mellitus without complications (ICD10- E11.9) [...] call with any concerns.Removed:Pain in unspecified joint (BES22-A94.50), Encounter for screening for other metabolic disorders (MSX41-D15.228), Metabolic syndrome X (ICD-277.7) (ITY28-O79.81)Ass essment not Saved Type 2 diabetes mellitus [...] - Wrist, complete, minimum of 3 views [CPT-64005] Adult - Ofc Vst, EST, Level III [CPT-37843] Follow-Up Return to clinic: in 90 days for follow upAdditional Follow-Up: T2DM, lipidsClinical Visit Summary CompletedMedications:GEMFIBROZIL 600 MG ORAL TABLET (GEMFIBROZIL) Take 1 tablet by mouth twice daily, 30 minutes before breakfast and dinner #60[Tablet] x 5 Route:ORAL Entered and Authorized by: Binh ELDER Method used: Electronically to [facility] (retail) [address] [place] [address] Note to Pharmacy: Route: ORAL; Indications: FAMILIAL HYPERTRIGLYCERIDEMIA RxID: [id number] CHANTIX STARTING MONTH JEFF 0.5 MG X 11 & 1 MG X 42 ORAL TABLET (VARENICLINE TARTRATE) uad #1[Tablet] x 0 Route:ORAL Entered by: Binh ELDER Authorized by: Shanon Gotti MD Method used: Electronically to [facility] (retail) [address] [place] [address] Fax: RxID: [id number]] Name Value Range Interpretation Code Description Data Shannon rce(s) Supporting Document(s) ID Date Data Source [id number] 08/05/2019 10:33:49 AM [facility] Current Problems: Dental caries (ICD-521 .00) (ZAZ29-H17.9)Prediabetes (ICD- 790.29) (KEC76-B60.03)Vaccination (ICD-V05.9) (JAP03-Y43)Other specified polyneuropathies (DUV62-X51.89)Pain in unspecified joint (XMN89-E26.50)Encounter for screening for other metabolic disorders (PAK23-S45.228)Metabolic syndrome X (ICD-277.7) (OBX19-Y04.81)BMI 35.0-35.9 (ICD-V85.35) (NVA43-Z39.35)Obesity (ICD- 278.00) (VWF61-Z55.09)Encounter for general adult medical examination with abnormal findings (ICD-V70.0) (SVB39-A92.01)DENTAL CARIES EXTENDING INTO PULP (ICD-521.03) (XQO84-G30.63)Peripheral neuropathy (ICD-356.9) (ICD10- G60.9)Impaired cognition (ICD-294.9) (NPX18-O42.89)Bilateral inflammation of sacroiliac joint (SPC52-Y92.1)Bilateral plantar fasciitis (ELL42-N19.2)Chronic back pain (ICD-724.5) (QVW15-P60.9)Pleuritic pain (ICD-786.52) (ICD10- R07.1)Numbness of toe (ICD-782.0) (JKF72-K74.0)Passive smoke exposure (ICD- V15.89) (BOV13-V12.22)Teeth extraction (ICD-525.10) (FJO34-C47.499)Shoulder pain, left (ICD-719.41) (DYD55-Z54.512)Complete rotator cuff tear or rupture of left shoulder, not specified as traumatic (ICD-727.61) (ICD10- M75.122)Degenerative disc disease (ICD-722.6) (ZXS44-F15.80)Unspecified injury of muscle(s) and tendon(s) of the rotator cuff of right shoulder, initial encounter (ICD-959.2) (EPX91-B60.001A)Preventative health care (ICD-V70.0) (ASW31-C42.00)General Adult Medical Exam WITH Abnormal Findings (over 18) (ICD- V70.0) (SVM27-U49.01)Bursitis of left olecranon bursa (ICD-726.33) (ICD10- M70.22)ANXIETY DISORDER, GENERALIZED (ICD-300.02) (RCW37-N09.1)Depression, major, recurrent, moderate (ICD-296.32) (WCO98-B48.1)Schizophrenia (ICD-295.90) (LKA52-X77.9)Tobacco use (ICD-305.1) (MGC18-N19.0)Problem list reviewed during this update.Current Medications: CHANTIX [...] 3 (Performed by Ada Vasquez DMD) Chart Alert:[facility] no historyProphy 1 per 6 month periodchild [...] & Plan Problems:Added: Dental caries (ICD- 521.00) (PRO08-U73.9)Medications:CHANTIX STARTING MONTH JEFF 0.5 MG X 11 & 1 MG X 42 ORAL TABLETCHANTIX CONTINUING MONTH JEFF 1 MG ORAL TABLETLEXAPRO 10 MG ORAL TABLETPREGABALIN 50 MG ORAL CAPSULEIBUPROFEN 800 MG ORAL TABLETGABAPENTIN 600 MG ORAL TABLETSEROQUEL 100 MG ORAL TABLETAllergies:* BEE STINGS (Critical)TRAMADOL HCL (TRAMADOL HCL TABS) (Mild)* GARLIC (Mild)Orders:Oral Surgery Referral [CPT- 12255] Name Value Range Interpretation Code Description Data Shannon rce(s) Supporting Document(s) ID Date Data Source [id number] 08/04/2019 11:11:00 AM EST MEDENT ([facility] ) Name Value Range Interpretation Code Description Data Shannon rce(s) Supporting Document(s) Antinuclear Antibodies Direct Laboratory test result [facility] ([facility], ) Performed at: [facility] [id number] Work Manager: Lesley Martinez MD, Phone: [phone] ID Date Data Source [id number] 08/04/2019 11:11:00 AM EST [facility] ([facility] ) Name Value Range Interpretation Code Description Data Shannon rce(s) Supporting Document(s) Calcidiol [Mass/volume] in Serum or Plasma 18.4 ng/mL 30.0-100.0 [facility] ([facility] ) Erythrocyte sedimentation rate by 2H Westergren method 17 mm/hr 0-1 5 [facility] ([facility] ) Rheumatoid factor [Units/volume] in Serum or Plasma Laboratory test result [facility] ([facility] ) ID Date Data Source [id number] 07/23/2019 08:07:24 AM EST [facility] In-House Blood TestsDate/Time Colle cted: July 23, 2019 8:07 AMTest Result Reference Range Normal ValueComments: blood draw done in offcie done in the right ac tolertaed well Tarik Arana MA, July 23, 2019 8:07 AMAssessment & Plan Orders:[id number] Vst-Est Level I [CPT-51198] 17776 - Venipuncture [CPT-11756] Name Value Range Interpretation Code Description Data Shannon rce(s) Supporting Document(s) ID Date Data Source [id number] 07/23/2019 08:05:00 AM EST [facility] Name Value Range Interpretation Code Description Data Shannon rce(s) Supporting Document(s) HGBA1C 6.7 % N [facility] ID Date Data Source [id number] 07/23/2019 08:05:00 AM [facility] Name Value Range Interpretation Code Description Data Shannon rce(s) Supporting Document(s) BG FASTING 146 mg/dL 70-100 H [facility] ID Date Data Source [id number] 06/18/2019 05:08:28 PM [facility] Measurements & CalculationsHeight: 70 inches (5 ft. 10 in.) 177.80 cm Weight: 244 pounds 6 oz. 111.08 kg Body Mass Index (BMI): 35.19BMI Interpretation: ObeseBody Surface Area (BSA): 2.27Weight Management Education Done (Nutrition/Physical Activity)Vital SignsTemperature: 96.6FPulse Rate: 106 beats/minuteRespiratory Rate: 17 respirations/minuteBlood Pressure: 111/70 O2 Saturation: 96% Vital Signs performed by: Mariama Sprign MA, June 18, 2019 5:15 PMInitial Intake [...] MIFH- CAMother- Lymphoma CACancer - Breast (Maternal Grandmother)ID - male - under age 55 (Father)Social/Personal [...] during this visit, including review of any aaum-nep-fjorfvz medications, herbal therapies, and/or supplements.Allergy ReviewAllergy List [...] is? GoodAssessment & Plan Problems:Added: Prediabetes (ICD-790.29) (AKP95-J45.03) Assessment: Instructions: Counseled on 1800 nicole ADA, low cholesterol, low salt diets,exercise. Counseled on GLP-1 medication, risks and benefits. Patient has no family hisotry of medullary thyroid cancer/ MEN syndromes and wishes to proceed. Patient education and training completed/ scheduled. All questions answeredAssessed:Other specified polyneuropathies (POW43-K07.89) Assessment: Instructions: Counseled patient on all diagnoses/ treatments. Return to clinic/ ER for any worsening symptoms o r concernsLyrica working well at 3 a dayANXIETY DISORDER, GENERALIZED (ICD- 300.02) (WFL41-R31.1) Assessment: Instructions: Counseled patient on all diagnoses/ treatments. Return to clinic/ ER for any worsening symptoms or concernsbegin LexaproTobacco use (ICD-305.1) (NVB64-R24.0) Assessment: Instructions: Counseled on tobacco cessation for 10 min.Begin ChantixSchizophrenia (ICD-295.90) (JSV68-G06.9) Assessment: Instructions: Counseled patient on all diagnoses/ treatments. Return to clinic/ ER for any worsening symptoms or concernsRef to TelepsychiatryVaccination (ICD-V05.9) (BEN21-F77) Assessment: Instructions: Counseled patient on all diagnoses/ [...] (Mild)Orders:Adult - Ofc Vst, EST, Level IV [CPT-46849] Telepsychiatry Consult [CPT-24505] LIPID PANEL [CPT-13668] HgBA1c [CPT-95378] COMP METABOLIC PANEL [CPT-07514] Follow-Up Return to clinic: in 30 days for f/uAdditional Follow-Up: Counseled patient on all diagnoses/ treatments. Return to clinic/ ER for any worsening symptoms or concernsClinical Visit Summary Declined Name Value Range Interpretation Code Description Data Shannon rce(s) Supporting Document(s) Procedure Vital Signs ID Date Data Source UNK Name Value Range Interpretation Code Description Data Source(s) Body height 70 [in_i] 70 [in_i] [facility] ([facility]) Body height 70 [in_i] 70 [in_i] SAM[facility]THA ([facility]) Body weight 3602 [oz_av] 3602 [oz_av] [facility]THA ([facility]) Systolic blood pressure 119 mm[Hg] 119 mm[Hg] [place] ([facility]) Body mass index (BMI) [Ratio] 32.3 kg/m2 32.3 k g/m2 [facility]A ([facility]) Body height 70 [in_i] 70 [in_i] [facility]THA ([facility]) Diastolic blood pressure 80 mm[Hg] 80 mm[Hg] SAM[facility]THA ([facility]) Body weight 3602 [oz_av] 3602 [oz_av] SAM[facility]THA ([facility]) Systolic blood pressure 119 mm[Hg] 119 mm[Hg] A [place] ([facility]) Body mass index (BMI) [Ratio] 32.3 kg/m2 32.3 k g/m2 [facility]A ([facility]) Body height 70 [in_i] 70 [in_i] [facility]THA ([facility]) Diastolic blood pressure 80 mm[Hg] 80 mm[Hg] SAM[facility]THA ([facility]) Body weight 3602 [oz_av] 3602 [oz_av] SAMANTHA ([facility]) Systolic blood pressure 119 mm[Hg] 119 mm[Hg] A [place] ([facility]) Body mass index (BMI) [Ratio] 32.3 kg/m2 32.3 k g/m2 SAM[facility]THA ([facility]) Body height 70 [in_i] 70 [in_i] [facility]THA ([facility]) Diastolic blood pressure 80 mm[Hg] 80 mm[Hg] SAM[facility]THA ([facility]) Body weight 3602 [oz_av] 3602 [oz_av] SAMANTHA ([facility]) Systolic blood pressure 119 mm[Hg] 119 mm[Hg] [facility] Body mass index (BMI) [Ratio] 32.3 kg/m2 32.3 k g/m2 SAM[facility]THA ([facility]) Body height 70 [in_i] 70 [in_i] SAMANTHA ([facility]) Diastolic blood pressure 80 mm[Hg] 80 mm[Hg] SAMANTHA ([facility]) Respiratory rate 16 /min 16 /min [facility] ( [facility] ) Heart rate 80 /min 80 /min [facility] ([facility] ) Diastolic blood pressure 84 mm[Hg] 84 mm[Hg] [facility] ([facility] ) Systolic blood pressure 120 mm[Hg] 120 mm[Hg] M EDENT ([facility] ) Body weight 220.00 [lb_av] 220.00 [lb_av] MEDEN T ([facility] ) Respiratory rate 16 /min 16 /min [facility] ( [facility] ) Heart rate 80 /min 80 /min [facility] ([facility] ) Diastolic blood pressure 84 mm[Hg] 84 mm[Hg] [facility] ([facility] ) Systolic blood pressure 120 mm[Hg] 120 mm[Hg] M EDENT ([facility] ) Body weight 3552 [oz_av] 3552 [oz_av] SAMANTHA ([facility]) Systolic blood pressure 131 mm[Hg] 131 mm[Hg] A THENA ([facility]) Body height 70 [in_i] 70 [in_i] SAM[facility]THA ([facility]) Diastolic blood pressure 85 mm[Hg] 85 mm[Hg] SAMANTHA ([facility]) Body weight 3552 [oz_av] 3552 [oz_av] SAMANTHA ([facility]) Systolic blood pressure 131 mm[Hg] 131 mm[Hg] A [place] ([facility]) Body height 70 [in_i] 70 [in_i] SAMANTHA ([facility]) Diastolic blood pressure 85 mm[Hg] 85 mm[Hg] SAM[facility]THA ([facility]) Systolic blood pressure 131 mm[Hg] 131 mm[Hg] A [place] ([facility]) Body height 70 [in_i] 70 [in_i] SAMANTHA ([facility]) Diastolic blood pressure 85 mm[Hg] 85 mm[Hg] SAMANTHA ([facility]) Body weight 3552 [oz_av] 3552 [oz_av] SAMANTHA ([facility]) Systolic blood pressure 131 mm[Hg] 131 mm[Hg] A THENA ([facility]) Body height 70 [in_i] 70 [in_i] SAMANTHA ([facility]) Diastolic blood pressure 85 mm[Hg] 85 mm[Hg] SAMANTHA ([facility]) Body weight 3552 [oz_av] 3552 [oz_av] SAMANTHA ([facility]) Body weight 3622.08 [oz_av] 3622.08 [oz_av] ATH [place] ([facility]) Systolic blood pressure 131 mm[Hg] 131 mm[Hg] [facility] Body height 70 [in_i] 70 [in_i] SAMANTHA ([facility]) Diastolic blood pressure 85 mm[Hg] 85 mm[Hg] SAMANHTA ([facility]) Body weight 3622.08 [oz_av] 3622.08 [oz_av] ATH [place] ([facility]) Systolic blood pressure 131 mm[Hg] 131 mm[Hg] [facility] Body height 70 [in_i] 70 [in_i] SAMANTHA ([facility]) Diastolic blood pressure 85 mm[Hg] 85 mm[Hg] SAMANTHA ([facility]) Body weight 3622.08 [oz_av] 3622.08 [oz_av] ATH [place] ([facility]) Systolic blood pressure 131 mm[Hg] 131 mm[Hg] A [place] ([facility]) Body height 70 [in_i] 70 [in_i] SAMANTHA ([facility]) Diastolic blood pressure 85 mm[Hg] 85 mm[Hg] SAMANTHA ([facility]) Body weight 3622.08 [oz_av] 3622.08 [oz_av] ATH [place]IKOL[place] ([facility]) Systolic blood pressure 131 mm[Hg] 131 mm[Hg] [facility] Body height 70 [in_i] 70 [in_i] SAMANTHA ([facility]) Diastolic blood pressure 85 mm[Hg] 85 mm[Hg] SAMANTHA ([facility]) Body temperature [degF] eCW1 ([facility]) Respiratory rate /min eCW1 ([facility]) Heart rate /min eCW1 ([facility]) Body mass index (BMI) [Ratio] 35.14 kg/m2 35.14 kg/m2 eCW1 ([facility]) Body height [in_us] eCW1 ([facility]) Body weight Measured [lb_av] eCW1 ([facility]) Body weight 3888 [oz_av] 3888 [oz_av] SAMANTHA ([facility]) Systolic blood pressure 129 mm[Hg] 129 mm[Hg] [place] ([facility]) Body height 70 [in_i] 70 [in_i] SAMANTHA ([facility]) Diastolic blood pressure 95 mm[Hg] 95 mm[Hg] SAMANTHA ([facility]) Body weight 3888 [oz_av] 3888 [oz_av] SAMANTHA ([facility]) Systolic blood pressure 129 mm[Hg] 129 mm[Hg] A [place] ([facility]) Body height 70 [in_i] 70 [in_i] SAMANTHA ([facility]) Diastolic blood pressure 95 mm[Hg] 95 mm[Hg] SAMANTHA ([facility]) Body weight 3888 [oz_av] 3888 [oz_av] SAMANTHA ([facility]) Systolic blood pressure 129 mm[Hg] 129 mm[Hg] A [place] ([facility]) Body height 70 [in_i] 70 [in_i] SAMANTHA ([facility]) Diastolic blood pressure 95 mm[Hg] 95 mm[Hg] SAMANTHA ([facility]) Body weight 3888 [oz_av] 3888 [oz_av] SAMANTHA ([facility]) Systolic blood pressure 129 mm[Hg] 129 mm[Hg] A [place] ([facility]) Body height 70 [in_i] 70 [in_i] SAMANTHA ([facility]) Diastolic blood pressure 95 mm[Hg] 95 mm[Hg] SAMANTHA ([facility]) Body mass index (BMI) [Ratio] 34.7 kg/m2 34.7 k g/m2 [facility] ([facility]) Body height 69 [in_i] 69 [in_i] [facility] ([facility]) 5'9" Body weight 235.00 [lb_av] 235.00 [lb_av] MEDEN T ([facility], [facility]) Body temperature 98.9 [degF] 98.9 [degF] [facility] ([facility], [facility]) Oxygen saturation in Arterial blood by Pulse oximetry 97 % 97 % MED[facility] ([facility], [facility]) Respiratory rate 14 /min 14 /min MED[facility] ( [facility], [facility]) Heart rate 100 /min 100 /min MED[facility] ([facility], [facility]) Diastolic blood pressure 90 mm[Hg] 90 mm[Hg] MED[facility] ([facility], [facility]) Systolic blood pressure 118 mm[Hg] 118 mm[Hg] M EDENT ([facility], [facility]) Diastolic blood pressure 81 mm[Hg] 81 mm[Hg] eCW1 ([facility]) Systolic blood pressure 118 mm[Hg] 118 mm[Hg] e CW1 ([facility]) Body temperature 97.5 [degF] 97.5 [degF] eCW1 ( [facility]) Respiratory rate 16 /min 16 /min eCW1 (formerly [facility]) Heart rate 88 /min 88 /min eCW1 ([facility]) Body mass index (BMI) [Ratio] 35.14 kg/m2 35.14 kg/m2 [facility] ([facility]) Body height [in_us] eCW1 ([facility]) Body weight Measured 238 [lb_av] 238 [lb_av] eC W1 ([facility]) Body weight 4016 [oz_av] 4016 [oz_av] SAMANTHA ([facility]) Systolic blood pressure 124 mm[Hg] 124 mm[Hg] A THENA ([facility]) Body height 70 [in_i] 70 [in_i] SAMANTHA ([facility]) Diastolic blood pressure 85 mm[Hg] 85 mm[Hg] SAMANTHA ([facility]) Body weight 4016 [oz_av] 4016 [oz_av] SAMANTHA ([facility]) Systolic blood pressure 124 mm[Hg] 124 mm[Hg] A THENA ([facility]) Body height 70 [in_i] 70 [in_i] SAMANTHA ([facility]) Diastolic blood pressure 85 mm[Hg] 85 mm[Hg] SAMANTHA ([facility]) Body weight 4016 [oz_av] 4016 [oz_av] SAMANTHA ([facility]) Systolic blood pressure 124 mm[Hg] 124 mm[Hg] A THENA ([facility]) Body height 70 [in_i] 70 [in_i] SAMANTHA ([facility]) Diastolic blood pressure 85 mm[Hg] 85 mm[Hg] SAMANTHA ([facility]) Body weight 4016 [oz_av] 4016 [oz_av] SAMANTHA ([facility]) Systolic blood pressure 124 mm[Hg] 124 mm[Hg] A THENA ([facility]) Body height 70 [in_i] 70 [in_i] SAMANTHA ([facility]) Diastolic blood pressure 85 mm[Hg] 85 mm[Hg] SAMANTHA ([facility]) Respiratory rate 16 /min 16 /min MED[facility] ( [facility]) Heart rate 76 /min 76 /min [facility] ([facility]) Diastolic blood pressure 80 mm[Hg] 80 mm[Hg] [facility] ([facility]) Systolic blood pressure 110 mm[Hg] 110 mm[Hg] M EDENT ([facility]) Diastolic blood pressure 74 mm[Hg] 74 mm[Hg] eCW1 ([facility]) Systolic blood pressure 112 mm[Hg] 112 mm[Hg] e CW1 ([facility]) Body temperature 97.1 [degF] 97.1 [degF] eCW1 ( [facility]) Respiratory rate 18 /min 18 /min eCW1 (formerly [facility]) Heart rate 78 /min 78 /min eCW1 ([facility]) Body mass index (BMI) [Ratio] 36.74 kg/m2 36.74 kg/m2 eCW1 ([facility]) Body height [in_us] eCW1 ([facility]) Body weight Measured 248.8 [lb_av] 248.8 [lb_av ] eCW1 ([facility]) Diastolic blood pressure 81 mm[Hg] 81 mm[Hg] eCW1 ([facility]) Systolic blood pressure 125 mm[Hg] 125 mm[Hg] e CW1 ([facility]) Body temperature 97.0 [degF] 97.0 [degF] eCW1 ( [facility]) Respiratory rate 18 /min 18 /min eCW1 ([facility]) Heart rate 70 /min 70 /min eCW1 ([facility]) Body mass index (BMI) [Ratio] 35.38 kg/m2 35.38 kg/m2 W1 ([facility]) Body height [in_us] eCW1 ([facility]) Body weight Measured 239.6 [lb_av] 239.6 [lb_av ] eCW1 ([facility]) Body weight 3910.08 [oz_av] 3910.08 [oz_av] ATH NIKOLAS ([facility]) Systolic blood pressure 111 mm[Hg] 111 mm[Hg] A THENA ([facility]) Body height 70 [in_i] 70 [in_i] SAMANTHA ([facility]) Diastolic blood pressure 70 mm[Hg] 70 mm[Hg] SAMANTHA ([facility]) Body weight 3910.08 [oz_av] 3910.08 [oz_av] ATH NIKOLAS ([facility]) Systolic blood pressure 111 mm[Hg] 111 mm[Hg] [facility] Body height 70 [in_i] 70 [in_i] SAMANTHA ([facility]) Diastolic blood pressure 70 mm[Hg] 70 mm[Hg] SAMANTHA ([facility]) Body weight 3910.08 [oz_av] 3910.08 [oz_av] ATH NIKOLAS ([facility]) Systolic blood pressure 111 mm[Hg] 111 mm[Hg] [facility] Body height 70 [in_i] 70 [in_i] SAMANTHA ([facility]) Diastolic blood pressure 70 mm[Hg] 70 mm[Hg] SAMANTHA ([facility]) Body weight 3910.08 [oz_av] 3910.08 [oz_av] ATH [place] ([facility]) Systolic blood pressure 111 mm[Hg] 111 mm[Hg] [facility] Body height 70 [in_i] 70 [in_i] SAMANTHA ([facility]) Diastolic blood pressure 70 mm[Hg] 70 mm[Hg] SAMANTHA ([facility]) Body mass index (BMI) [Ratio] 34.0 kg/m2 34.0 k g/m2 [facility] ([facility] ) Body weight 230.00 [lb_av] 230.00 [lb_av] MEDEN T ([facility] ) Body height 69 [in_i] 69 [in_i] MED[facility] ([facility] ) 5'9" Body temperature 98.7 [degF] 98.7 [degF] [facility] ([facility] ) Patient Treatment Plan of Care Planned Activity Planned Date Details Description Data Source (s) Gemfibrozil 600 MG Oral Tablet 06/12/2020 12:00:00 AM EST SAMANTHA ([facility]) Gemfibrozil 600 MG Oral Tablet 06/12/2020 12:00:00 AM EST SAMANTHA ([facility]) Ergocalciferol 48960 UNT Oral Capsule SAMANTHA ([facility]) ropinirole 0.25 MG Oral Tablet SAM[facility]THA ([facility]) Prednisone 20 MG Oral Tablet SAM[facility]THA ([facility]) Prednisone 10 MG Oral Tablet SAM[facility]THA ([facility]) Acetaminophen 325 MG / Oxycodone Hydrochloride 5 MG Oral Tablet SAMANTHA ([facility]) Nystatin 507195 UNT/ML Oral Suspension SAMANTHA ([facility]) Metronidazole 500 MG Oral Tablet SAM[facility]THA ([facility]) gabapentin 600 MG Oral Tablet [facility]THA ([facility]) Fluoxetine 20 MG Oral Capsule SAMANTHA ([facility]) Escitalopram 10 MG Oral Tablet SAM[facility]THA ([facility]) Ciprofloxacin 500 MG Oral Tablet SAMANTHA ([facility]) Chantix Starting Month Box 0.5 mg (11)-1 mg (42) tablets in dose pa ck SAMANTHA ([facility]) varenicline 1 MG Oral Tablet SAMANTHA ([facility]) Ergocalciferol 68034 UNT Oral Capsule SAMANTHA ([facility]) ropinirole 0.25 MG Oral Tablet SAM[facility]THA ([facility]) Prednisone 20 MG Oral Tablet SAM[facility]THA ([facility]) Prednisone 10 MG Oral Tablet SAM[facility]THA ([facility]) Acetaminophen 325 MG / Oxycodone Hydrochloride 5 MG Oral Tablet SAMANTHA ([facility]) Nystatin 337323 UNT/ML Oral Suspension SAMANTHA ([facility]) Metronidazole 500 MG Oral Tablet SAM[facility]THA ([facility]) gabapentin 600 MG Oral Tablet SAM[facility]THA ([facility]) Fluoxetine 20 MG Oral Capsule SAMANTHA ([facility]) Escitalopram 10 MG Oral Tablet SAM[facility]THA ([facility]) Ciprofloxacin 500 MG Oral Tablet SAMANTHA ([facility]) Chantix Starting Month Box 0.5 mg (11)-1 mg (42) tablets in dose pa ck SAMANTHA ([facility]) varenicline 1 MG Oral Tablet SAMANTHA ([facility]) Chantix Starting Month Box 0.5 mg (11)-1 mg (42) tablets in dose pa ck SAMANTHA ([facility]) varenicline 1 MG Oral Tablet SAMANTHA ([facility]) Ergocalciferol 37770 UNT Oral Capsule SAMANTHA ([facility]) Tamsulosin hydrochloride 0.4 MG Oral Capsule SAMANTHA ([facility]) ropinirole 0.25 MG Oral Tablet SAMANTHA ([facility]) Prednisone 20 MG Oral Tablet SAM[facility]THA ([facility]) Prednisone 10 MG Oral Tablet SAMANTHA ([facility]) Acetaminophen 325 MG / Oxycodone Hydrochloride 5 MG Oral Tablet SAMANTHA ([facility]) Nystatin 685456 UNT/ML Oral Suspension SAMANTHA ([facility]) Ketorolac Tromethamine 10 MG Oral Tablet SAMANTHA ([facility]) Gemfibrozil 600 MG Oral Tablet [facility]TH[facility] ([facility]) gabapentin 600 MG Oral Tablet [facility] ([facility]) Fluoxetine 20 MG Oral Capsule SAM[facility]TH[facility] ([facility]) Escitalopram 10 MG Oral Tablet SAMANTHA ([facility]) Chantix Starting Month Box 0.5 mg (11)-1 mg (42) tablets in dose pa ck SAMANTHA ([facility]) varenicline 1 MG Oral Tablet SAMANTHA ([facility]) Ergocalciferol 54706 UNT Oral Capsule SAMANTHA ([facility]) Tamsulosin hydrochloride 0.4 MG Oral Capsule SAMANTHA ([facility]) ropinirole 0.25 MG Oral Tablet SAMANTHA ([facility]) Prednisone 20 MG Oral Tablet SAMANTH[facility] ([facility]) Prednisone 10 MG Oral Tablet SAMANTHA ([facility]) Acetaminophen 325 MG / Oxycodone Hydrochloride 5 MG Oral Tablet SAMANTHA ([facility]) Nystatin 399816 UNT/ML Oral Suspension SAMANTHA ([facility]) Ketorolac Tromethamine 10 MG Oral Tablet SAMANTHA ([facility]) Gemfibrozil 600 MG Oral Tablet SAMANTHA ([facility]) gabapentin 600 MG Oral Tablet SAMANTH[facility] ([facility]) Fluoxetine 20 MG Oral Capsule SAMANTHA ([facility])
--- NOTE | 2020-07-11 14:46 | REP ---
INDICATION: "blew out" with lifting. COMPARISON: 10/10/2015 TECHNIQUE: Three views of the shoulder were performed. FINDINGS: The acromioclavicular and glenohumeral relationships are within normal limits. There is no acute fracture or destructive osseous lesion. There is AC joint DJD status quo. IMPRESSION: Stable chronic changes <Electronically signed by Hunter Woo > 07/11/20 [id number]
[2020-07-11 15:28] VITALS: BP 138/87
== END 2020-07-11 15:30 | disposition home or self-care (01) ==
LOC: M ED 13:24
DX: S43.421A Sprain of right rotator cuff capsule, initial encounter (principal); M19.011 Primary osteoarthritis, right shoulder; X50.0XXA Overexertion from strenuous movement or load, initial encounter; Y92.098 Other place in other non-institutional residence as the place of occurrence of the external cause; Y93.89 Activity, other specified; Y99.8 Other external cause status; E11.9 Type 2 diabetes mellitus without complications; M45.9 Ankylosing spondylitis of unspecified sites in spine; M10.9 Gout, unspecified; M72.2 Plantar fascial fibromatosis; F17.220 Nicotine dependence, chewing tobacco, uncomplicated; Z91.030 Bee allergy status; Z79.899 Other long term (current) drug therapy; Z79.84 Long term (current) use of oral hypoglycemic drugs
CPT/HCPCS: 73030; 96372; 99284; J1885

== ENCOUNTER → 2020-07-21 | Outpatient (CLI) | payer OTHER ==
[~2020-07-21] MED LIST changes: +KLON0.5T PO; +VITA50005
--- NOTE | 2020-07-21 12:37 | REP ---
INDICATION: PAIN RT SHOULDER, ASSESS FOR RC TEAR. COMPARISON: Radiographs 07/11/2020. TECHNIQUE: Coronal oblique T1, T2 fat sat, sagittal oblique T2 fat sat, axial T2 fat sat, gradient echo. FINDINGS: Rotator cuff: There is mild ill-defined high signal on T2 weighted images compatible with mild supraspinatus tendinopathy/tendinitis. No rotator cuff tendon tear is seen. Acromioclavicular joint: There are moderate hypertrophic degenerative changes of the acromioclavicular joint with mild fluid in the joint. Acromion: Type 2 Biceps Tendon: In bicipital groove, there is moderate complex fluid surrounding the biceps tendon which I suspect represents tenosynovitis. Hill Sach's deformity: None. Deltoid muscle: No abnormal signal. Biceps labral complex: There is a tear at the base of the biceps labral complex. Labrum: There is diffuse complex SLAP tear, which extends into the superior aspect of the posterior labrum.. The inferior labrum appears diffusely frayed. Cartilage: There is mild chondromalacia at the glenohumeral joint. There is mild spurring at the margin of that joint. Bone marrow: There is minimal subcortical marrow edema in the humeral head. Joint fluid: There is a small joint effusion. IMPRESSION: Supraspinatus tendinopathy/tendinitis with no rotator cuff tear. Moderate hypertrophic degenerative changes acromioclavicular joint. Diffuse complex SLAP tear involves the biceps labral complex, and extends into the superior aspect of the posterior labrum. The inferior labrum appears diffusely frayed. Moderate complex fluid surrounding the biceps tendon I suspect represents tenosynovitis. <Electronically signed by Robbie Aguilar > 07/21/20 [id number]
== END ==
LOC: M PLARAD 09:36
PROVIDERS: ATTEND Orthopaedic Surgery Sports Medicine
DX: M25.511 Pain in right shoulder (principal); S46.811A Strain of other muscles, fascia and tendons at shoulder and upper arm level, right arm, initial encounter; X58.XXXA Exposure to other specified factors, initial encounter; Y92.9 Unspecified place or not applicable; M75.21 Bicipital tendinitis, right shoulder

== ENCOUNTER → 2020-07-26 | Outpatient (REF) | payer OTHER ==
[2020-07-26 16:17] LABS: HEMATOCRIT 47.9 % (42.0-52.0); HEMOGLOBIN 15.8 g/dl (13.5-17.5); MEAN CORPUSCULAR HEMOGLOBIN 31.4 pg (27.0-33.0); MEAN CORPUSCULAR VOLUME 95.2 fl (80.0-96.0); PLATELET COUNT, AUTOMATED 286 10^3/uL (150-450); RED BLOOD COUNT 5.03 10^6/uL (4.30-6.10); WHITE BLOOD COUNT 7.1 10^3/uL (4.0-10.0)
[2020-07-26 16:47] LABS: ALT/SGPT 110 U/L (12-78); BILIRUBIN,TOTAL 0.2 MG/DL (0.2-1.0); BLOOD UREA NITROGEN 12 MG/DL (7-18); CALCIUM LEVEL 9.7 MG/DL (8.5-10.1); CARBON DIOXIDE LEVEL 31 MEQ/L (21-32); CHLORIDE LEVEL 104 MEQ/L (98-107); CHOLESTEROL LEVEL 333 MG/DL (<200); CHOLESTEROL RISK RATIO 7.928 (<5); GLOMERULAR FILTRATION RATE > 60.0 (>60); GLUCOSE, FASTING 132 MG/DL (70-100); HDL CHOLESTEROL 42 MG/DL (>40); NON-HDL-C 291 MG/DL; POTASSIUM SERUM 5.3 MEQ/L (3.5-5.1); SODIUM LEVEL 142 MEQ/L (136-145); TOTAL PROTEIN 7.4 GM/DL (6.4-8.2); TRIGLYCERIDES LEVEL 890 MG/DL (<150)
[2020-07-26 16:50] LABS: HEMOGLOBIN A1c 5.9 %
== END ==
LOC: M LAB REF 15:34
PROVIDERS: ATTEND Physician Assistant
DX: E11.9 Type 2 diabetes mellitus without complications (principal); E78.1 Pure hyperglyceridemia

== ENCOUNTER → 2020-08-01 | Outpatient (REF) | payer OTHER, MEDICAID ==
[~2020-08-01] MED LIST changes: -KLON0.5T PO; -VITA50005
[2020-08-01 18:11] LABS: BACTERIA, URINE AUTO NEGATIVE (NEGATIVE); CALCIUM OXALATE CRYSTALS SMALL; MUCUS, URINE SMALL (NEGATIVE); RBC, URINE AUTO 0 /HPF (0-3); SQUAMOUS EPITHELIAL CELL UR AU 0 /HPF (0-6); WBC, URINE AUTO 0 /HPF (0-3)
== END ==
LOC: M SMT 17:00
PROVIDERS: ATTEND Specialist
DX: N20.0 Calculus of kidney (principal)

== ENCOUNTER → 2020-08-04 | Outpatient (CLI) | payer OTHER, MEDICAID ==
[~2020-08-04] MED LIST changes: +KLON0.5T PO; +VITA50005
== END ==
LOC: M LABSMTC 12:29
PROVIDERS: ATTEND Anesthesiology
DX: Z01.812 Encounter for preprocedural laboratory examination (principal); Z20.822 Contact with and (suspected) exposure to COVID-19

== ENCOUNTER → 2020-08-04 | Outpatient (REF) | payer OTHER | LOC: M LAB REF 12:05 | PROVIDERS: ATTEND Physician Assistant | DX: E87.5 Hyperkalemia (principal) ==

== ENCOUNTER → 2020-08-07 | Outpatient (CLI) | payer OTHER ==
--- NOTE | 2020-08-08 08:08 | REP ---
INDICATION: KIDNEY STONES COMPARISON: 06/21/2020 TECHNIQUE: Axial noncontrast images from the lung bases to the pubic symphysis with coronal and sagittal reformations. This CT examination was performed using the following dose reduction techniques: Automated exposure control, adjustment of mA and/or kv according to the patient's size, and use of iterative reconstruction technique. FINDINGS: Lung bases demonstrate very subtle airspace disease which may represent early infiltrates versus subtle dependent atelectasis. Stable hepatomegaly noted. Spleen, pancreas, and bilateral adrenal glands are normal. Evidence for prior cholecystectomy. Kidneys demonstrate mild symmetric chronic perinephric stranding along with 9 mm nonobstructing right renal calculus similar to prior examination. No hydronephrosis or obstructing ureteral calculi identified. The enteric system is without obstruction or acute inflammatory process. Normal terminal ileum and appendix identified in the right lower quadrant. Sigmoid diverticula noted without acute diverticulitis. Pelvis demonstrates normal bladder and age-appropriate prostate/seminal vesicles. No ascites. No free air. No adenopathy. Abdominal aorta without aneurysm. Musculoskeletal structures demonstrate degenerative changes. IMPRESSION: 1. 9 mm nonobstructing right renal calculus. No further urinary tract pathology appreciated. 2. Hepatomegaly. 3. Sigmoid diverticulosis without acute diverticulitis. <Electronically signed by Henok Shetty > 08/08/20 [id number]
== END ==
LOC: M RAD 08:20
PROVIDERS: ATTEND Specialist
DX: N20.0 Calculus of kidney (principal); R16.0 Hepatomegaly, not elsewhere classified; K57.30 Diverticulosis of large intestine without perforation or abscess without bleeding

== ENCOUNTER 2020-08-09 06:41 | Day surgery (SDC) | payer OTHER ==
[~2020-08-09] VITALS: Ht 175.3 cm; Wt 104.8 kg
[~2020-08-09 06:41] MED LIST changes: +LR 1,000 ML IV ONE; +ceFAZolin SOD 2 GM in IV 1 EA IV ONE
--- OUTSIDE RECORDS SUMMARY | 2020-08-09 06:46 | CCD ---
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 Code:[address]-63) Hives Drug Aller gy Active ENCOUNTERS from 1973 to 2020-08-04 Encounter Location Date Provider Diagnosis [facility] Urology [address] [place] [address] Jul Rupali Chang Nephrolithiasis N20.0 ; Flank pain R10.9 ; Penile pain N48.89 and Scrotal itching L29.1 IMMUNIZATIONS No Information SOCIAL HISTORY Tobacco Use: Social History Observation Description Date Details (start date - stop date) Former Smoker Sex Assigned At : Social History Observation Description Sex Assigned At Unknown Language: Question Answer Notes Languages spoken: Chilean Hinduism: Question Answer Notes Hinduism 33 None Alcohol Screening: Question Answer Notes Did you have a drink containing alcohol in the past year? Ye s Points 3 Interpretation Negative How often did you have six or more drinks on one occas ion in the past year? Never (0 points) How many drinks did you have on a typica l day when you were drinking in the past year? 3 or 4 (1 point) How often did you have a drink containing alcohol in t he past year? Two to four times a month (2 points) Tobacco Use: Question Answer Notes Are you a: former smoker How long has it been since you last smoked? 6-12 months REASON FOR REFERRAL No Information VITAL SIGNS Weight 235 lbs Jul, Height 69" in Jul, BMI 34.70 kg/m2 Jul, Heart Rate 95 /min Jul, Respiratory Rate 18 /min Jul, Oximetry 95 Jul, Blood pressure systolic 124 mm Hg Jul, Blood pressure diastolic 66 mm Hg Jul, MEDICATIONS Medication SIG (Take, Route, Frequency, Duration) Notes Start Da te End Date Status Nortriptyline HCl 10 MG 1 capsule Orally bid Active Ibuprofen 600 MG 1 tablet with food or milk a s needed Orally Three times a day for 30 days Apr, Not-Taking SEROquel 100 MG 1 tablet Orally bid Not-Taking Tamsulosin HCl 0.4 MG 1 capsule Orally Once a day for 30 day(s) Not-Taking Atorvastatin Calcium 10 MG 1 tablet Orally Once a day for 30 day(s) Not-Taking Vitamin D3 Adult Gummies 25 MCG (1000 UT) 1 tablet Ora lly Once a day for 30 day(s) Active Gemfibrozil 600 MG 1 tablet 30 minutes before m orning and evening meals Orally Twice a day for 30 day(s) Not-Ta joshua Gabapentin 800 MG 1 capsule Orally tid Active Tizanidine HCl 4 MG 1 tablet as needed Orally Three times a day for 10 day(s) Apr, Not-Taking Escitalopram Oxalate 20 MG 1 tablet Orally Once a day for 30 day(s) Not-Taking Ketorolac Tromethamine 10 MG 1 tablet with food or mil k as needed Orally every 6 hrs for 5 day(s) Not-Taking Ropinirole HCl 0.5 MG 1 tab Orally tid Active EPINEPHrine 0.3 MG/0.3ML as directed Injection Active Quetiapine Fumarate 100 MG 1 tab Orally bid Active Tizanidine HCl 2 MG 1 capsule as needed Orally Three times a day Active PROzac 20 MG 1 capsule Orally tid No t-Taking MetFORMIN HCl ER 500 MG 2 tablet with evening meal Orally bid Active PROCEDURES No Information RESULTS Component Value Reference Range URINE CULTURE Reviewed date:08/03/2020 08:23:25 Interpretation:Normal Performing Lab:[facility] [address] [address] [address] , ,[place] [address] REASON FOR VISIT er kidney stone last vist to the er 05/2020 MEDICAL (GENERAL) HISTORY Type Description Date Medical History schizophrenia Medical History anxiety Medical History depression Medical History DDD Medical History bipolar/ stress Medical History pancreatitis Medical History concussion hx Medical History hx broken ribs and crushed vertebra Medical History high cholesterol hx Medical History Fractured right arm x 3 Medical History Fractured right ankle x 2 , left x1 Medical History Nash bite left foot Medical History Fractured mandible Medical History diverticulitis Medical History kidney stones Medical History West Nile virus Medical History DM type2 Medical History hyperglceridemia Medical History iopathic peripheral neuropathy Surgical History left shoulder Surgical History broken jaw Surgical History right wrist Surgical History gallbladder removal 2014 Surgical History right ankle x4 Surgical History left ankle Surgical History left pectoral tissue removal Surgical History eswl Surgical History broken right arm x 5 Hospitalization History hospitalized for kidney stones 4 ovidio es Hospitalization History Left Pectoral Tissue Removal Hospitalization History diverticulitis 2010, 2011 Goals Section No Information Health Concerns No Information MEDICAL EQUIPMENT No Information MENTAL STATUS No Information FUNCTIONAL STATUS No Information ASSESSMENTS Encounter Date Diagnosis Assessment Notes Treatment Notes Treatm ent Clinical Notes Jul, Nephrolithiasis (ICD-10 - N20.0) Plan: -Schedule another CT scan without contrast since he could have a ureteral stone as the cause for the pain at the tip of his penis and the right flank pain -Send urine for microscopic urinalysis and culture and sensitivity to see if there is any significant red blood cells -Order a BMP before the CT scan -Follow-up after the above and if no significant stone is seen in the ureter consider ESWL for the right nonobstructing stone but he should see his pain management doctor again -We discussed different tdzk-[id number]-banzsmx options for the scrotal itching This was dictated with Gibson and not proofread for errors Jul, Flank pain (ICD-10 - R10.9) Jul, Penile pain (ICD-10 - N48.89) Jul, Scrotal itching (ICD-10 - L29.1) PLAN OF TREATMENT Treatment Notes Assessment Notes Clinical Notes Nephrolithiasis Plan:-Schedule anoth er CT scan without contrast since he could have a ureteral stone as the cause for the pain at the tip of his penis and the right flank pain-Send urine for microscopic urinalysis and culture and sensitivity to see if there is any significant red blood cells-Order a BMP before the CT [id number]-Todcjj-ut after the above and if no significant stone is seen in the ureter consider ESWL for the right nonobstructing stone but he should see his pain management doctor again-We discussed different lupi-msm-wsyzetr options for the scrotal itchingThis was dictated with Gibson and not proofread for errors Treatment Notes Test Name Order Date MICROSCOPIC, URINE (Non-Orderable) 2020-08-01 Basic Metabolic Profile (BMP) 2020-08-01 CT ABD & Pelvis w/o Contrast 2020-08-01 Next Appt Details f/u after CT scan Reason: Provider Name:Linda Cooper, 2020-08-21 02 :15:00 PM, [address] [place], [address], Provider Name:Vijay Brewster, 2020-08-24 11:00:00 AM, [address], [place], [address], Insurance Providers Payer Name Payer Address Payer Phone Insured Name Patient Relati onship to Insured Coverage Start Date Coverage End Date MEDICAID [employer]O [place]har [address] [facility] [address] MATT MIRZA self FORMERLY [facility], [facility] [employer] M[employer]O [address] [facility] [address] [phone] MATT MIRZA
--- OUTSIDE RECORDS SUMMARY | 2020-08-09 06:46 | CCD | Continuity of Care Document ---
Author Author Rodolfo MERCADO MD Organization Unknown Address [place] , [facility] [address] [place] [address] Phone [phone] Problems Description No Information Available Social History Type Date Description Comments Sex Unknown Allergies, Adverse Reactions, Alerts Active Allergies Reaction Severity Comments Date Tramadol Itching 07/13/2020 Medications Active Medications SIG Qnty Indications Ordering Provide r Date Metformin HCL 500mg Tablets Unknown Immunizations Description No Information Available Vital Signs Date Vital Result Comment 08/01/2020 10:36am Body Temperature 98.2 F 08/01/2020 10:35am Body Temperature 97.6 F Height 69 inches 5'9" [place] Body Weight 160 lb Results Description No Information Available Procedures Description No Information Available Medical Devices Description No Information Available Encounters Type Date Location Provider Dx Diagnosis Office Visit 08/01/2020 10:30a [facility] Kobi Mercado MD S43.431D Superior glenoid labrum lesion of right shoulder, subs Office Visit 07/13/2020 9:30a [facility] Kobi Mercado MD M25.511 Pain in right shoulder X50.0xxA Overexertion from strenuous movement or load, init Assessments Date Code Description Provider 08/01/2020 S43.431D Superior glenoid lab rum lesion of right shoulder, subsequent encounter Kobi Mercado MD 07/13/2020 M25.511 Pain in right shoulder Kobi choi MD 07/13/[address] Overexertion from st renuous movement or load, initial encounter Kobi Mercado MD Plan of Treatment No Information Available Functional Status Description No Information Available Mental Status Description No Information Available Referrals Refer to Dr Reason for Referral Status Appt Date Kobi Mercado M.D. [place] [address] [phone]
--- OUTSIDE RECORDS SUMMARY | 2020-08-09 06:46 | CCD | Continuity of Care Document ---
Author Author Rodolfo SHEPHERD Organization Unknown Address [address] [place] [address], [address] [address] Phone [phone] Care Team Providers Care Manager Membership Name Role Phone Beverly Rogers RPA AUTM [phone] Rosalba RamirezP AUTM Problems Active Problems Provider Date Adult [...] the rotator cuff of shoulder Onset: 10/10/2015 Type 2 diabetes mellitus Bibi Rodriguez MD Onset: 07/06 Social History Type Date Description Comments Sex [...] CPT Code Status Date Vaccine Lot # [id number] Refused 08/30/2015 Tetanus, Diphthe lissette Toxoids/Acellular Pertussis Vaccine 7 Or > [id number] Refused 08/30/2015 Influenza Virus Split 3 Yrs And Above Dosage Vital Signs Date Vital Result Comment 07/19/2020 9:56am Body Temperature 96.8 F 05/20/2019 1:20pm Body Temperature 98.7 F Height 69 inches 5'9" Weight 230.00 lb BMI (Body Mass Index) 34.0 kg/m2 Results Description No Information Available Procedures Date Code Description Status 07/19/2020 04347 Apply Cast Short Leg Walking Com pleted 07/12/2020 12340 MRI Lower Extremity Any Joint Co mpleted 07/06/2020 31706 X-Ray Foot Complete Completed 07/06/2020 33969 X-Ray Ankle Complete Completed Medical Devices Description No Information Available Encounters Type Date Location Provider Dx Diagnosis Office Visit 07/06/2020 2:15p [place] Bibi Rodriguez MD M72. 2 Plantar fascial fibromatosis M76.61 Achilles tendinitis, right l eg M76.62 Achilles tendinitis, left le g Assessments Date Code Description Provider 07/19/2020 M72.2 Plantar fascial fibromatosis Ning ally Rodriguez MD 07/19/2020 M76.61 Achilles tendinitis, right leg Last Rodriguez MD 07/19/2020 M76.62 Achilles tendinitis, left leg Tamara Rodriguez MD 07/19/2020 S90.01xD Contusion of right ankle, subseq uent encounter Bibi Rodriguez MD 07/12/2020 M76.61 Achilles tendinitis, right leg N kendall Rodriguez MD 07/12/2020 M76.61 Achilles tendinitis, right leg M RI 07/06/2020 M72.2 Plantar fascial fibromatosis Ning Rodriguez MD 07/06/2020 M72.2 Plantar fascial fibromatosis Ning Rodriguez MD 07/06/2020 M76.61 Achilles tendinitis, right leg N kendall Rodriguez MD 07/06/2020 M76.62 Achilles tendinitis, left leg Na catalina Rodriguez MD Plan of Treatment Future Appointment(s):* 08/02/2020 9:45 am - Adeline Mclaughlin PA-C at [place] 07/19/2020 - Bibi Rodriguez MD* M72.2 Plantar fascial fibromatosis * M76.61 Achilles tendinitis, right leg* Follow up:* 2-3 weeks right ankle trey with cast off with p.a per nmn * M76.62 Achilles tendinitis, left leg * S90.01xD Contusion of right ankle, subsequent encounter Functional Status Description No Information Available Mental Status Description No Information Available Referrals Refer to Dr Reason for Referral Status Appt Date Bibi Rodriguez MD MRI APPROVED PER [facility] WEB FOR MRI OF RIGHT ANKLE (82076) TO MRI. DG Created [address] [facility] [address] [place], [place] [id number] [phone]
--- OUTSIDE RECORDS SUMMARY | 2020-08-09 06:46 | CCD | Continuity of Care Document ---
Author Author Rodolfo LINK MD Organization Unknown Address [address] [place] [address] Phone [phone] Care Team Providers Care Transistor Tester Name Role Phone SueBeverly RPA AUTM [phone] Rosalba Ramirez COOK HELPER PRESERVES AUTM Problems Active Problems Provider Date Adult [...] Onset: 10/10/2015 Type 2 diabetes mellitus Bibi Link MD Onset: 07/06 Social History Type Date [...] CPT Code Status Date Vaccine Lot # [id number] Refused 08/30/2015 Tetanus, Diphthe lissette Toxoids/Acellular Pertussis Vaccine 7 Or > [id number] Refused 08/30/2015 Influenza Virus Split 3 Yrs And Above Dosage Vital Signs Date Vital Result Comment 07/19/2020 9:56am Body Temperature 96.8 F 05/20/2019 1:20pm Body Temperature 98.7 F Height 69 inches 5'9" Weight 230.00 lb BMI (Body Mass Index) 34.0 kg/m2 Results Description No Information Available Procedures Date Code Description Status 07/19/2020 14469 Apply Cast Short Leg Walking Com pleted 07/12/2020 93972 MRI Lower Extremity Any Joint Co mpleted 07/06/2020 90775 X-Ray Foot Complete Completed 07/06/2020 29235 X-Ray Ankle Complete Completed Medical Devices Description No Information Available Encounters Type Date Location Provider Dx Diagnosis Office Visit 07/06/2020 2:15p [place] Bibi Link MD M72. 2 Plantar fascial fibromatosis M76.61 Achilles tendinitis, right l eg M76.62 Achilles tendinitis, left le g Assessments Date Code Description Provider 07/19/2020 S90.01xD Contusion of right ankle, subseq uent encounter Bibi Link MD 07/19/2020 S90.01xD Contusion of right ankle, subseq uent encounter Bibi Link MD 07/19/2020 M76.71 Peroneal tendinitis, right leg Last Link MD 07/19/2020 M76.71 Peroneal tendinitis, right leg Last Link MD 07/19/2020 M76.61 Achilles tendinitis, right leg N kendall Link MD 07/19/2020 M72.2 Plantar fascial fibromatosis Ning Link MD 07/19/2020 M76.62 Achilles tendinitis, left leg Tamara Link MD 07/12/2020 M76.61 Achilles tendinitis, right leg N kendall Link MD 07/12/2020 M76.61 Achilles tendinitis, right leg M RI 07/06/2020 M72.2 Plantar fascial fibromatosis Ning Link MD 07/06/2020 M72.2 Plantar fascial fibromatosis Ning Link MD 07/06/2020 M76.61 Achilles tendinitis, right leg N kendall Link MD 07/06/2020 M76.62 Achilles tendinitis, left leg Na catalina Link MD Plan of Treatment Future Appointment(s):* 08/02/2020 9:45 am - Adeline Mclaughlin PA-C at [place] 07/19/2020 - Bibi Link MD* S90.01xD Contusion of right ankle, subsequent encounter * M76.71 Peroneal tendinitis, right leg * M76.61 Achilles tendinitis, right leg* Follow up:* 2-3 weeks right ankle trey with cast off with p.a per nmn * M72.2 Plantar fascial fibromatosis * M76.62 Achilles tendinitis, left leg Functional Status Description No Information Available Mental Status Description No Information Available Referrals Refer to Dr Reason for Referral Status Appt Date Bibi Link MD MRI APPROVED PER [facility] WEB FOR MRI OF RIGHT ANKLE (50576) TO MRI. DG Created [facility] [facility] [address] [place] [address] [phone]
--- OUTSIDE RECORDS SUMMARY | 2020-08-09 06:46 | CCD | Continuity of Care Document ---
Author Author Rodolfo LINK MD Organization Unknown Address [address] [place] [address] Phone [phone] Care Team Providers Care Zigzag Appliquer Name Role Phone SueBeverly RPA AUTM [phone] Rosalba Ramirez RECENTERER AUTM Problems Active Problems Provider Date Adult [...] CPT Code Status Date Vaccine Lot # [id number] Refused 08/30/2015 Tetanus, Diphthe lissette Toxoids/Acellular Pertussis Vaccine 7 Or > [id number] Refused 08/30/2015 Influenza Virus Split 3 Yrs And Above Dosage Vital Signs Date Vital Result Comment 07/19/2020 9:56am Body Temperature 96.8 F 05/20/2019 1:20pm Body Temperature 98.7 F Height 69 inches 5'9" Weight 230.00 lb BMI (Body Mass Index) 34.0 kg/m2 Results Description No Information Available Procedures Date Code Description Status 07/19/2020 92922 Apply Cast Short Leg Walking Com pleted 07/12/2020 29352 MRI Lower Extremity Any Joint Co mpleted 07/06/2020 14081 X-Ray Foot Complete Completed 07/06/2020 39495 X-Ray Ankle Complete Completed Medical Devices Description No Information Available Encounters Type Date Location Provider Dx Diagnosis Office Visit 07/06/2020 2:15p [facility] Bibi Link MD M72. 2 Plantar fascial fibromatosis M76.61 Achilles tendinitis, right l eg M76.62 Achilles tendinitis, left le g Assessments Date Code Description Provider 08/02/2020 S90.01xD Contusion of right ankle, subseq uent encounter Adeline Mclaughlin PA-C 08/02/2020 M76.71 Peroneal tendinitis, right leg Ba Mclaughlin PA-C 08/02/2020 M76.61 Achilles tendinitis, right leg Ba Mclaughlin PA-C 08/02/2020 M72.2 Plantar fascial fibromatosis Nando Mclaughlin PA-C 08/02/2020 M76.62 Achilles tendinitis, left leg Starr Mclaughlin PA-C 07/19/2020 S90.01xD Contusion of right ankle, subseq uent encounter Bibi Link MD 07/19/2020 S90.01xD Contusion of right ankle, subseq uent encounter Bibi Link MD 07/19/2020 M76.71 Peroneal tendinitis, right leg N kendall Link MD 07/19/2020 M76.71 Peroneal tendinitis, right leg N kendall Link MD 07/19/2020 M76.61 Achilles tendinitis, right leg N kendall Link MD 07/19/2020 M72.2 Plantar fascial fibromatosis Ning Link MD 07/19/2020 M76.62 Achilles tendinitis, left leg Na catalina Link MD 07/12/2020 M76.61 Achilles tendinitis, right leg N kendall Link MD 07/12/2020 M76.61 Achilles tendinitis, right leg M RI 07/06/2020 M72.2 Plantar fascial fibromatosis Ning Link MD 07/06/2020 M72.2 Plantar fascial fibromatosis Ning Link MD 07/06/2020 M76.61 Achilles tendinitis, right leg Last Link MD 07/06/2020 M76.62 Achilles tendinitis, left leg Tamara Link MD Plan of Treatment Future Appointment(s):* 08/23/2020 12:45 pm - Jett Mclaughlin MD at [facility] 08/02/2020 - Adeline Mclaughlin PA-C* S90.01xD Contusion of right ankle, subsequent encounter * M76.71 Peroneal tendinitis, right leg * M76.61 Achilles tendinitis, right leg* Follow up:* prn for rt ankle * M72.2 Plantar fascial fibromatosis * M76.62 Achilles tendinitis, left leg Functional Status Description No Information Available Mental Status Description No Information Available Referrals Refer to Dr Reason for Referral Status Appt Date Bibi Link MD MRI APPROVED PER [facility] FOR MRI OF RIGHT ANKLE (59421) TO MRI. DG Created [address] [facility] [address] [place] [address] [phone]
--- OUTSIDE RECORDS SUMMARY | 2020-08-09 06:46 | CCD ---
Author Organization Unknown Address [address] [place] [address] Phone [phone] Care Team Providers Care Clinical Rehab Liaison Name Role Phone Binh Nash Unavailable Unavailable Allergies Code Code System Name Reaction Severity Status Onset Tramadol Hcl Active 08/30/2015 Garlic Active 10/30/2018 Notes: BEE STINGS - Reaction: Swollen Medications Name Status Start Date Stop Date Alcohol Prep Pads Active Not available Chantix Continuing Month Box 1 mg tablet TAKE ONE TABLET BY MOUTH TWICE A DAY DIRECTED Completed 07/31/2020 Chantix Starting Month Box 0.5 mg (11)-1 mg (42) tablets in dose pack Completed 04/27/2020 ciprofloxacin 500 mg tablet TAKE ONE TABLET BY MOUTH TWICE A DAY Completed epinephrine 0.3 mg/0.3 mL injection, aut o-injector Take 1 auto by injection route for 2 days. Active Not available escitalopram 10 mg tablet TAKE ONE TABLET BY MOUTH EVERY DAY Completed 05/30 escitalopram 20 mg tablet TAKE ONE TABLET BY MOUTH EVERY DAY Active Not available fluoxetine 20 mg capsule Completed gabapentin 600 mg tablet Completed gabapentin 800 mg tablet TAKE ONE TABLET BY MOUTH THREE TIMES A DAY MAXIMUM DAILY DOSE 3 TABLETS Active Not available gemfibrozil 600 mg tablet Active 06/12/2020 Not av ailable ketorolac 10 mg tablet TAKE ONE TABLET BY MOUTH EVERY 6 HOURS WITH MEALS FOR 5 DAYS Completed 07/31/2020 metformin ER 500 mg tablet,extended rele ase 24 hr TAKE TWO TABLETS BY MOUTH TWICE A DAY Active N ot available metronidazole 500 mg tablet Completed 05/30 nortriptyline 10 mg capsule Active Not available nystatin 100,000 unit/mL oral suspension Completed 04/27/2020 OneTouch Delica Plus Lancet 33 gauge Active Not available OneTouch Verio Flex Meter Active Not av ailable OneTouch Verio test strips Active Not a vailable oxycodone-acetaminophen 5 mg-325 mg tablet Completed 04/27/2020 prednisone 10 mg tablet Completed 04/27/20 prednisone 20 mg tablet Completed 04/27/20 20 quetiapine 100 mg tablet TAKE ONE TABLET BY MOUTH TWICE A DAY Active No t available ropinirole 0.25 mg tablet Completed 2019 ropinirole 0.5 mg tablet TAKE ONE TABLET BY MOUTH THREE TIMES A DAY Active Not available tamsulosin 0.4 mg capsule TAKE ONE CAPSULE BY MOUTH EVERY DAY FOR 7 DAYS Completed 07/31/2020 tizanidine 2 mg tablet TAKE ONE TABLET BY MOUTH THREE TIMES A DAY NEEDED Active Not available Vitamin D2 1,250 mcg (50,000 unit) capsule Completed 04/27/2020 Vitamin D3 1000 units daily OTC Active Not available Problems Name Status Onset Date Source Schizophrenia Active 08/30/2015 History Moderate Recurrent Major Depression Active 08/30/2015 History Generalized Anxiety Disorder Active 08/30/2015 His tory Tobacco User Unknown 08/30/2015 History Bursitis of Olecranon of Left Elbow Active 08/30/2015 History Procedure by Method Unknown 08/30/[address] Concept Unknown 08/30/2015 History Injury of Rotator Cuff Active 10/10/2015 History Disorder of Spinal Region Active 03/13/2016 Histor y Full Thickness Rotator Cuff Tear Active 06/18/2016 History Pain of Left Shoulder Joint Active 07/16/2016 Hist ory Acquired Absence of Multiple Teeth Active 07/22/2016 History Exposure to Second Hand Tobacco Smoke Active 09/17/2016 History Backache Active 09/29/2017 History Plantar Fascial Fibromatosis Active 09/29/2017 His tory Anesthesia of Skin Active 09/29/2017 History Idiopathic Peripheral Neuropathy Active 10/27/2017 History Inflammation of Sacroiliac Joint Active 10/27/2017 History Clinical History and Observation Findings Active 2017 History Dental Caries on Smooth Surface Penetrating into Pulp Active 06/10/2018 History Simple Obesity Active 10/30/2018 History Body Mass Index 30+ - Obesity Active 10/30/2018 Hi story Polyneuropathy Active 05/04/2019 History Influenza Vaccine Needed Unknown 05/04/2019 History Type 2 Diabetes Mellitus without Complication Active History 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 08/05/2019 History Pure Hyperglyceridemia Active 08/26/2019 History Kidney Stone Active 01/17/2020 History Procedures Date Name Performed by 07/31/2020 US, Abdomen Information not avai lable Notes: Left shoulder rotator cuff, 2 bro theresa jaw, Right arm, Gallbladder, Right Ankle, Left Ankle, , Results Lab Results Date Name Specimen Result Interpretation Description Value Range Status Address 05/12/2020 Potassium, Serum or Plasma Normal Potassium Serum 4.8 mEq/L 3.5-5.1 mEq/L [facility]: [address] [facility] 05/12/2020 Microalbumin, Urine Normal Creatinine, Urin e 225.0 mg/dL [facility]: [address] [place] [address] Normal Malb Urine Siemens 21.0 mg/L [facility]: [address] [place] [address] Normal Sohail/creat Ratio 9.3 mcg/mg 0.0-30.0 mcg/mg [facility]: [address] [place] [address] 04/20/2020 CBC W/ Auto Diff High White Blood Count 11.0 10 4.0-10.0 10 [facility]: [address] [place] [address] Normal Red Blood Count 5.12 10 4.30-6.10 10 [facility]: [address] [facility] Normal Hemoglobin 16.0 g/dL 13.5-17.5 g/dL [facility]: 0 [facility] Normal Hematocrit 47.5 % 42.0-52.0 % [facility]: [address] [place] [address] Normal Mean Corpuscular Volume 92.8 fL 80.0 -96.0 fL [facility]: 0 [facility] Normal Mean Corpuscular Hemoglobin 31.3 pg 27.0-33.0 pg [facility]: 0 [facility] Normal Mean Corpuscular HGB Conc 33.7 g/dL 32.0-36.5 g/dL [facility]: [address] [place] [address] Normal Red Cell Distribution Width 13.4 % 1 1.5-14.5 % [facility]: [address] [place] [address] Normal Platelet Count, Automated 309 10 150 -450 10 [facility]: [address] [place] [address] Normal Neutrophils % 59.3 % 36.0-66.0 % [facility]: [address] [facility] Normal Lymph % 25.6 % 24.0-44.0 % Final [facility]: [address] [facility] High [place] % 9.4 % 0.0-5.0 % [facility]: [address] [facility] Normal Eos % 2.8 % 0.0-3.0 % [facility]: [address] [facility] Normal Baso % 0.9 % 0.0-1.0 % [facility]: [address] [facility] Normal Immature Granulocyte % 2.0 % 0-3.0 % [facility]: [address] [facility] Normal Nucleated Red Blood Cell % 0.0 % 0- 0 % [facility]: [address] [facility] Normal Neutrophils # 6.5 10 1.5-8.5 10 [facility]: [address] [facility] Normal Lymph # 2.8 10 1.5-5.0 10 [facility]: [address] [facility] High [place] # 1.0 10 0.0-0.8 10 [facility]: [address] [facility] Normal Eos # 0.3 10 0.0-0.5 10 [facility]: [address] [facility] Normal Baso # 0.1 10 0.0-0.2 10 [facility]: [address] [facility] 04/20/2020 CMP, Serum or Plasma High Glucose, Fastin g 145 mg/dL 70-100 mg/dL [facility]: [address] [facility] Normal Blood Urea Nitrogen 12 mg/dL 7-18 mg /dL [facility]: 0 [facility] Normal Creatinine for GFR 1.04 mg/dL 0.70-1 .30 mg/dL [facility]: [address] [facility] Normal Glomerular Filtration Rate > 60.0 >6 0 [facility]: [address] [facility] Normal Sodium Level 137 mEq/L 136-145 mEq/L [facility]: [address] [facility] High Potassium Serum 5.5 mEq/L 3.5-5.1 mE q/L [facility]: [address] [facility] Normal Chloride Level 102 mEq/L 98-107 mEq/ L [facility]: [address] [facility] Normal Carbon Dioxide Level 29 mEq/L 21-32 mEq/L [facility]: [address] [facility] Low Anion Gap 6 mEq/L 8-16 mEq/L [facility]: [address] [facility] Normal Calcium Level 9.3 mg/dL 8.5-10.1 mg/ dL [facility]: [address] [facility] Normal AST/SGOT 32 U/L 7-37 U/L [facility]: [address] [facility] Normal ALT/SGPT 60 U/L 12-78 U/L [facility]: [address] [facility] Normal Alkaline Phosphatase 79 U/L 45-117 U /L [facility]: [address] [facility] Normal Bilirubin,total 0.4 mg/dL 0.2-1.0 mg /dL [facility]: [address] [facility] Normal Total Protein 7.3 gm/dL 6.4-8.2 gm/d L [facility]: [address] [facility] Normal Albumin 4.0 gm/dL 3.2-5.2 gm/dL [facility]: [address] [facility] Normal Albumin/globulin Ratio 1.2 [facility]: [address] [facility] 04/20/2020 Lipid Panel, Blood High Triglycerides Lev el 1092 mg/dL <150 mg/dL [facility]: [address] [facility] High Cholesterol Level 309 mg/dL <200 mg/ dL [facility]: [address] [facility] Normal HDL Cholesterol 49 mg/dL >40 mg/dL [facility]: [address] [facility] Normal Non-hdl-c 260 mg/dL Final [facility]: [address] [facility] High Cholesterol Risk Ratio 6.306 <5 Final [facility]: 0 [facility] 04/20/2020 TSH + Free T4, Serum Normal Thyroid Stimulating Hormone 1.560 uIU/mL 0.358-3.740 uIU/mL [facility] nter: [address] [place] [address] Normal Free T4 0.85 NG/dL 0.76-1.46 NG/dL [facility]: 0 [facility] 04/20/2020 HbA1C (Hemoglobin a1C), Blood Normal Hemogl obin a1C 5.8 % [facility]: [address] [place] [address] High Estimated Average Glucose 120 mg/dL 60-110 mg/dL Final [facility]: 0 [facility] Past Encounters 07/31/2020 Right Flank Pain; Generalized Anxiety Disorder; Kidney Stone; Moderate Recurrent Major Depression; Pure Hyperglyceridemia; Type 2 Diabetes Mellitus without Complication; Elevated Liver Enzymes Level; Hyperkalemia; Bilateral Hips Aseptic Necrosis Claudette Bell RPA-C: [address] [address], Ph. 07/26/2020 Type 2 Diabetes Mellitus without Complication; Pure Hyperglyceridemia Kobi Chicas MD: [address] [facility] [address] [address], Ph. 06/12/2020 Generalized Anxiety Disorder; Moderate Recurrent Major Depression; Idiopathic Peripheral Neuropathy; Pure Hyperglyceridemia; Type 2 Diabetes Mellitus without Complication; Kidney Stone; Pain of Right Ankle Joint Binh Nash RPA-C: [address] [facility] [address] [address], Ph. 05/12/2020 Type 2 Diabetes Mellitus without Complication; Hyperkalemia Binh Nash RPA-C: [address] [facility] [address] [address], Ph. 04/27/2020 Type 2 Diabetes Mellitus without Complication; Moderate Recurrent Major Depression; Pure Hyperglyceridemia; Tension-type Headache; Hyperkalemia; Diverticulitis; Administration of Influenza Vaccine KIRAN [facility]: [address] [facility], [place] [address], Ph. 04/20/2020 Kobi Chicas MD: [address] [place] [address], Ph. Social History Tobacco Smoking Status Never Smoker Vaccine List Vaccine Type influenza, injectable, quadrivalent, pre servative free 05/04/20190.5 mL 04/27/20200.5 mL Plan of Care Patient Instructions as we discussed, we will refer you to or thopedics for the abnormal finding of your hips on your CT scan. We will refer you to endocrinology for your increased liver enzymes which may be due to your gemfibrozil and we will order an u/s of your liver. F/u with urology as scheduled for the kidney stone and we will repeat your potassium level. We will see you back in one month to f/u on your referrals. Reminders Provider Appointments None recorded. Lab None recorded. Referral None recorded. Procedures None recorded. Surgeries None recorded. Imaging None recorded. Vitals 07/31/2020 09:30AM TELEHEALTH 20 Height 70 in 06/12/2020 09:30AM TELEHEALTH 20 Height 70 in 04/27/2020 09:50AM ESTABLISHED [id number] Height Weight BMI Blood Pressure 70 in 225 lbs 2 oz 32.3 kg/m2 119/80 mm[Hg] 01/17/2020 Height Weight Blood Pressure 70 in 222 lbs 131/85 mm[Hg] 10/21/2019 Height Weight Blood Pressure 70 in 226 lbs 6.08 oz 131/85 mm[Hg] 09/30/2019 Height Weight Blood Pressure 70 in 243 lbs 129/95 mm[Hg] 08/26/2019 Height Weight Blood Pressure 70 in 251 lbs 124/85 mm[Hg] 06/18/2019 Height Weight Blood Pressure 70 in 244 lbs 6.08 oz 111/70 mm[Hg] 05/04/2019 Height Weight Blood Pressure 70 in 232 lbs 12.8 oz 126/87 mm[Hg] 01/29/2019 Height Weight Blood Pressure 70 in 232 lbs 109/74 mm[Hg] 11/19/2018 Height Weight Blood Pressure 70 in 246 lbs 2.08 oz 120/78 mm[Hg] 10/30/2018 Height Weight Blood Pressure 70 in 247 lbs 3.2 oz 117/84 mm[Hg] 09/22/2018 Height Weight Blood Pressure 70 in 240 lbs 4 oz 103/71 mm[Hg]
--- OUTSIDE RECORDS SUMMARY | 2020-08-09 06:46 | CCD ---
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 Name Role Phone Binh Nsah Unavailable Unavailable Allergies Code Code System Name Reaction Severity Status Onset Tramadol Hcl Active 08/30/2015 Garlic Active 10/30/2018 Notes: BEE STINGS - Reaction: Swollen Medications Name Status Start Date Stop Date Alcohol Prep Pads Active Not available Chantix Continuing Month Box 1 mg tablet TAKE ONE TABLET BY MOUTH TWICE A DAY DIRECTED Active Not available Chantix Starting Month Box 0.5 mg (11)-1 mg (42) tablets in dose pack Completed 04/27/2020 ciprofloxacin 500 mg tablet TAKE ONE TABLET BY MOUTH TWICE A DAY Active No t available epinephrine 0.3 mg/0.3 mL injection, aut o-injector [...] 6 HOURS WITH MEALS FOR 5 DAYS Active Not available metformin ER 500 mg tablet,extended rele ase [...] 04/27/2020 prednisone 10 mg tablet Completed 04/27/20 20 prednisone 20 mg tablet Completed 04/27/20 20 quetiapine 100 mg tablet TAKE ONE TABLET BY MOUTH TWICE A DAY Active No t available ropinirole 0.25 mg tablet Completed 2019 ropinirole 0.5 mg tablet TAKE ONE TABLET BY MOUTH THREE TIMES A DAY Active Not available tamsulosin 0.4 mg capsule TAKE ONE CAPSULE BY MOUTH EVERY DAY FOR 7 DAYS Active Not available tizanidine 2 mg tablet TAKE ONE TABLET [...] History Kidney Stone Active 01/17/2020 History Procedures Notes: Left shoulder rotator cuff, 2 bro theresa jaw, Right arm, Gallbladder, Right Ankle, Left Ankle, , Results Lab Results Date Name Specimen Result Interpretation Description Value Range Status Address 05/12/2020 Potassium, Serum or Plasma Normal Potassium Serum 4.8 mEq/L 3.5-5.1 mEq/L [facility]: [address] [facility] 05/12/2020 Microalbumin, Urine Normal Creatinine, Urin e 225.0 mg/dL [facility]: 0 [facility] Normal Malb Urine Siemens 21.0 mg/L [facility]: [address] [place] [address] Normal Sohail/creat Ratio 9.3 mcg/mg 0.0-30.0 mcg/mg [facility]: [address] [place] [address] 04/20/2020 CBC W/ Auto Diff High White Blood Count 11.0 10 4.0-10.0 10 [facility]: [address] [place] [address] Normal Red Blood Count 5.12 10 4.30-6.10 10 [facility]: 0 [facility] Normal Hemoglobin 16.0 g/dL 13.5-17.5 g/dL [facility]: [address] [place] [address] Normal Hematocrit 47.5 % 42.0-52.0 % [facility]: [address] [place] [address] Normal Mean Corpuscular Volume 92.8 fL 80.0 -96.0 fL [facility]: [address] [place] [address] Normal Mean Corpuscular Hemoglobin 31.3 pg 27.0-33.0 pg [facility]: 0 [facility] Normal Mean Corpuscular HGB Conc 33.7 g/dL 32.0-36.5 g/dL [facility]: 0 [facility] Normal Red Cell Distribution Width 13.4 % 1 1.5-14.5 % [facility]: [address] [place] [address] Normal Platelet Count, Automated 309 10 150 -450 10 [facility]: 0 [facility] Normal Neutrophils % 59.3 % 36.0-66.0 % Fin [facility]: 0 [facility] Normal Lymph % 25.6 % 24.0-44.0 % Final [facility]: [address] [facility] High [place] % 9.4 % 0.0-5.0 % Final [facility]: [address] [facility] Normal Eos % 2.8 % 0.0-3.0 % [facility]: [address] [facility] Normal Baso % 0.9 % 0.0-1.0 % [facility]: [address] [facility] Normal Immature Granulocyte % 2.0 % 0-3.0 % [facility]: [address] [facility] Normal Nucleated Red Blood Cell % 0.0 % 0- 0 % [facility]: [address] [facility] Normal Neutrophils # 6.5 10 1.5-8.5 10 [facility]: [address] [facility] Normal Lymph # 2.8 10 1.5-5.[address] [facility]: [address] [facility] High [place] # 1.0 10 0.0-0.[address] [facility]: [address] [facility] Normal Eos # 0.3 10 0.0-0.[address] [facility]: [address] [facility] Normal Baso # 0.1 10 0.0-0.[address] [facility]: 0 [facility] 04/20/2020 CMP, Serum or Plasma High Glucose, Fastin g 145 mg/dL 70-100 mg/dL [facility]: [address] [facility] Normal Blood Urea Nitrogen 12 mg/dL 7-18 mg /dL [facility]: 0 [facility] Normal Creatinine for GFR 1.04 mg/dL 0.70-1 .30 mg/dL [facility]: [address] [facility] Normal Glomerular Filtration Rate > 60.0 >6 0 [facility]: [address] [facility] Normal Sodium Level 137 mEq/L 136-145 mEq/L [facility]: [address] [facility] High Potassium Serum 5.5 mEq/L 3.5-5.1 mE q/L [facility]: [address] [facility] Normal Chloride Level 102 mEq/L 98-107 mEq/ L [facility]: [address] [facility] Normal Carbon Dioxide Level 29 mEq/L 21-32 mEq/L [facility]: [address] [facility] Low Anion Gap 6 mEq/L 8-16 mEq/L [facility]: [address] [facility] Normal Calcium Level 9.3 mg/dL 8.5-10.1 mg/ dL [facility]: [address] [facility] Normal AST/SGOT 32 U/L 7-37 U/L [facility]: [address] [facility] Normal ALT/SGPT 60 U/L 12-78 U/L [facility]: [address] [facility] Normal Alkaline Phosphatase 79 U/L 45-117 U /L [facility]: [address] [facility] Normal Bilirubin,total 0.4 mg/dL 0.2-1.0 mg /dL [facility]: [address] [facility] Normal Total Protein 7.3 gm/dL 6.4-8.2 gm/d L [facility]: [address] [facility] Normal Albumin 4.0 gm/dL 3.2-5.2 gm/dL Anjelica l [facility]: [address] [facility] Normal Albumin/globulin Ratio 1.2 [facility]: [address] [facility] 04/20/2020 Lipid Panel, Blood High Triglycerides Lev el 1092 mg/dL <150 mg/dL [facility]: [address] [facility] High Cholesterol Level 309 mg/dL <200 mg/ dL [facility]: [address] [facility] Normal HDL Cholesterol 49 mg/dL >40 mg/dL F inal [facility]: [address] [facility] Normal Non-hdl-c 260 mg/dL [facility]: [address] [facility] High Cholesterol Risk Ratio 6.306 <5 Final [facility]: [address] [facility] 04/20/2020 TSH + Free T4, Serum Normal Thyroid Stimulating Hormone 1.560 uIU/mL 0.358-3.740 uIU/mL [facility] nter: [address] [facility] Normal Free T4 0.85 NG/dL 0.76-1.46 NG/dL F inal [facility]: [address] [facility] 04/20/2020 HbA1C (Hemoglobin a1C), Blood Normal Hemogl obin a1C 5.8 % [facility]: [address] [place] [address] High Estimated Average Glucose 120 mg/dL 60-110 mg/dL Final [facility]: [address] [facility] Past Encounters 07/26/2020 Type 2 Diabetes Mellitus without Complication; Pure Hyperglyceridemia Kobi Chicas MD: [address] [address], Ph. 06/12/2020 Generalized Anxiety Disorder; Moderate Recurrent Major Depression; Idiopathic Peripheral Neuropathy; Pure Hyperglyceridemia; Type 2 Diabetes Mellitus without Complication; Kidney Stone; Pain of Right Ankle Joint Binh Nash, RPA-C: [address] [address], Ph. 05/12/2020 Type 2 Diabetes Mellitus without Complication; Hyperkalemia Binh Nash, RPA-C: [address] [address], Ph. 04/27/2020 Type 2 Diabetes Mellitus without Complication; Moderate Recurrent Major Depression; Pure Hyperglyceridemia; Tension-type Headache; Hyperkalemia; Diverticulitis; Administration of Influenza Vaccine Binh Nash, RPA-C: [address] [address], Ph. 04/20/2020 Kobi Chicas MD: [address] [place] [address], Ph. Social History Tobacco Smoking Status Never Smoker Vaccine List Vaccine Type influenza, injectable, quadrivalent, pre servative free 05/04/20190.5 mL 04/27/20200.5 mL Plan of Care Reminders Provider Appointments None recorded. Lab None recorded. Referral None recorded. Procedures None recorded. Surgeries None recorded. Imaging None recorded. Vitals 06/12/2020 09:30AM TELEHEALTH 20 Height 70 in 04/27/2020 09:50AM ESTABLISHED [id number] Height Weight BMI Blood Pressure 70 in [...]
--- OUTSIDE RECORDS SUMMARY | 2020-08-09 06:46 | CCD ---
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 Name Role Phone Binh Nash Unavailable Unavailable Allergies Code Code System Name Reaction Severity Status Onset Bee Venom Protein (Honey Bee) Active 08/30/19 16 Tramadol Hcl Active 08/30/2015 Garlic Active 10/30/2018 [...] 04/27/20 prednisone 20 mg tablet Completed 04/27/20 quetiapine 100 mg tablet TAKE ONE TABLET [...] History SNOMED CT Concept Unknown 08/30/2015 History Tobacco Use and Exposure - Finding Active 08/30/2015 History Injury of Rotator Cuff Active [...] tory Anesthesia of Skin Active 09/29/2017 History 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 History Idiopathic Peripheral Neuropathy Active 10/27/2017 History Inflammation of Sacroiliac Joint Active 10/27/2017 History Clinical History and Observation Findings Active 2017 History Dental Caries on Smooth Surface Penetrating into Pulp Active 06/10/2018 History Procedure by Method Active 09/22/2018 History Simple Obesity Active 10/30/2018 History Body Mass Index 30+ - Obesity Active 10/30/2018 Hi story Polyneuropathy Active 05/04/2019 History Influenza Vaccine Needed Unknown 05/04/2019 History Type 2 Diabetes Mellitus without Complication Active History Clinical Finding Active 06/18/2019 History 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 08/05/2019 History Pure Hyperglyceridemia Active 08/26/2019 History Kidney Stone Active 01/17/2020 History Clinical Finding Active 01/17/2020 History Procedures Date Name Performed by 07/31/2020 US, Abdomen Information not avai lable Notes: Left shoulder rotator cuff, 2 bro theresa jaw, Right arm, Gallbladder, Right Ankle, Left Ankle, , Results Lab Results Date Name Specimen Result Interpretation Description Value Range Status Address 08/04/2020 Potassium, Serum or Plasma Normal Potassium Serum 4.1 mEq/L 3.5-5.1 mEq/L [facility]: 83 0 [facility] 07/26/2020 Cbc Blood venous Normal White Blood Count 7.1 10 4.0-10.0 10 [facility]: [address] [facility] Blood venous Normal Red Blood Count 5.03 10 4.30- 6.10 10 [facility]: [address] [facility] Blood venous Normal Hemoglobin 15.8 g/dL 13.5-17. 5 g/dL [facility]: [address] [facility] Blood venous Normal Hematocrit 47.9 % 42.0-52.0 % [facility]: [address] [facility] Blood venous Normal Mean Corpuscular Volume 95.2 fL 80.0-96.0 fL [facility]: [address] [facility] Blood venous Normal Mean Corpuscular Hemoglob in 31.4 pg 27.0-33.0 pg [facility]: [address] [facility] Blood venous Normal Mean Corpuscular HGB Conc 33.0 g/dL 32.0-36.5 g/dL [facility]: [address] [facility] Blood venous Normal Red Cell Distribution Wid th 13.0 % 11.5-14.5 % [facility]: [address] [facility] Blood venous Normal Platelet Count, Automated 286 10 150-450 10 [facility]: [address] [facility] Blood venous Normal Nucleated Red Blood Cell % 0. 0 % 0-0 % [facility]: [address] [place] [address] 07/26/2020 CMP, Serum or Plasma Blood venous High Glu cose, Fasting 132 mg/dL 70-100 mg/dL [facility] nter: [address] [place] [address] Blood venous Normal Blood Urea Nitrogen 12 mg/dL 7-18 mg/dL [facility]: [address] [place] [address] Blood venous Normal Creatinine for GFR 1.00 mg/dL 0.70-1.30 mg/dL [facility]: [address] [place] [address] Blood venous Normal Glomerular Filtration Rate > 60.0 >60 [facility]: [address] [place] [address] Blood venous Normal Sodium Level 142 mEq/L 136-14 5 mEq/L [facility]: [address] [place] [address] Blood venous High Potassium Serum 5.3 mEq/L 3.5 -5.1 mEq/L [facility]: [address] [place] [address] Blood venous Normal Chloride Level 104 mEq/L 98-1 07 mEq/L [facility]: [address] [place] [address] Blood venous Normal Carbon Dioxide Level 31 mEq/L 21-32 mEq/L [facility]: [address] [place] [address] Blood venous Low Anion Gap 7 mEq/L 8-16 mEq/L [facility]: [address] [place] [address] Blood venous Normal Calcium Level 9.7 mg/dL 8.5-1 0.1 mg/dL [facility]: [address] [place] [address] Blood venous High AST/SGOT 57 U/L 7-37 U/L Anjelica l [facility]: [address] [place] [address] Blood venous High ALT/SGPT 110 U/L 12-78 U/L Fi nal [facility]: 0 [facility] Blood venous Normal Alkaline Phosphatase 89 U/L 4 5-117 U/L [facility]: [address] [place] [address] Blood venous Normal Bilirubin,total 0.2 mg/dL 0.2 -1.0 mg/dL [facility]: 0 [facility] Blood venous Normal Total Protein 7.4 gm/dL 6.4-8 .2 gm/dL [facility]: [address] [facility] Blood venous Normal Albumin 4.0 gm/dL 3.2-5.2 gm/ dL [facility]: [address] [facility] Blood venous Normal Albumin/globulin Ratio 1.2 [facility]: [address] [facility] 07/26/2020 Lipid Panel, Blood Blood venous High Trigl ycerides Level 890 mg/dL <150 mg/dL [facility] nter: [address] [facility] Blood venous High Cholesterol Level 333 mg/dL < 200 mg/dL [facility]: [address] [facility] Blood venous Normal HDL Cholesterol 42 mg/dL >40 mg/dL [facility]: [address] [facility] Blood venous Normal Non-hdl-c 291 mg/dL Fi [facility]: [address] [facility] Blood venous High Cholesterol Risk Ratio 7.928 <5 [facility]: [address] [facility] 07/26/2020 HbA1C (Hemoglobin a1C), Blood Normal Hemogl obin a1C 5.9 % [facility]: [address] [facility] High Estimated Average Glucose 123 mg/dL 60-110 mg/dL [facility]: [address] [facility] 05/12/2020 Potassium, Serum or Plasma Normal Potassium Serum 4.8 mEq/L 3.5-5.1 mEq/L [facility]: 83 0 [facility] 05/12/2020 Microalbumin, Urine Normal Creatinine, Urin e 225.0 mg/dL [facility]: [address] [facility] Normal Malb Urine Siemens 21.0 mg/L [facility]: [address] [facility] Normal Sohail/creat Ratio 9.3 mcg/mg 0.0-30.0 mcg/mg [facility]: [address] [facility] 04/20/2020 CBC W/ Auto Diff High White Blood Count 11.0 10 4.0-10.0 10 [facility]: [address] [facility] Normal Red Blood Count 5.12 10 4.30-6.10 10 [facility]: [address] [facility] Normal Hemoglobin 16.0 g/dL 13.5-17.5 g/dL [facility]: [address] [facility] Normal Hematocrit 47.5 % 42.0-52.0 % [facility]: [address] [facility] Normal Mean Corpuscular Volume 92.8 fL 80.0 -96.0 fL [facility]: [address] [place] [address] Normal Mean Corpuscular Hemoglobin 31.3 pg 27.0-33.0 pg [facility]: [address] [place] [address] Normal Mean Corpuscular HGB Conc 33.7 g/dL 32.0-36.5 g/dL [facility]: [address] [facility] Normal Red Cell Distribution Width 13.4 % 1 1.5-14.5 % [facility]: [address] [facility] Normal Platelet Count, Automated 309 10 150 -450 10 [facility]: [address] [facility] Normal Neutrophils % 59.3 % 36.0-66.0 % [facility]: [address] [facility] Normal Lymph % 25.6 % 24.0-44.0 % [facility]: [address] [facility] High [place] % 9.4 % 0.0-5.0 % [facility]: [address] [facility] Normal Eos % 2.8 % 0.0-3.0 % [facility]: [address] [facility] Normal Baso % 0.9 % 0.0-1.0 % [facility]: [address] [facility] Normal Immature Granulocyte % 2.0 % 0-3.0 % [facility]: [address] [facility] Normal Nucleated Red Blood Cell % 0.0 % 0- 0 % [facility]: [address] [facility] Normal Neutrophils # 6.5 10 1.5-8.5 10 [facility]: [address] [facility] Normal Lymph # 2.8 10 1.5-5.0 10 [facility]: [address] [facility] High [place] # 1.0 10 0.0-0.8 10 [facility]: [address] [facility] Normal Eos # 0.3 10 0.0-0.5 10 [facility]: [address] [facility] Normal Baso # 0.1 10 0.0-0.2 10 [facility]: [address] [facility] 04/20/2020 CMP, Serum or Plasma High Glucose, Fastin g 145 mg/dL 70-100 mg/dL [facility]: 83 0 [facility] Normal Blood Urea Nitrogen 12 mg/dL 7-18 mg /dL [facility]: [address] [facility] Normal Creatinine for GFR 1.04 mg/dL 0.70-1 .30 mg/dL [facility]: [address] [facility] Normal Glomerular Filtration Rate > 60.0 >6 0 [facility]: [address] [facility] Normal Sodium Level 137 mEq/L 136-145 mEq/L [facility]: [address] [facility] High Potassium Serum 5.5 mEq/L 3.5-5.1 mE q/L [facility]: [address] [facility] Normal Chloride Level 102 mEq/L 98-107 mEq/ L [facility]: [address] [facility] Normal Carbon Dioxide Level 29 mEq/L 21-32 mEq/L [facility]: [address] [facility] Low Anion Gap 6 mEq/L 8-16 mEq/L [facility]: [address] [facility] Normal Calcium Level 9.3 mg/dL 8.5-10.1 mg/ dL [facility]: [address] [facility] Normal AST/SGOT 32 U/L 7-37 U/L [facility]: [address] [facility] Normal ALT/SGPT 60 U/L 12-78 U/L Final [facility]: [address] [facility] Normal Alkaline Phosphatase 79 U/L 45-117 U /L [facility]: [address] [facility] Normal Bilirubin,total 0.4 mg/dL 0.2-1.0 mg /dL [facility]: [address] [facility] Normal Total Protein 7.3 gm/dL 6.4-8.2 gm/d L [facility]: [address] [facility] Normal Albumin 4.0 gm/dL 3.2-5.2 gm/dL [facility] [address] [facility] Normal Albumin/globulin Ratio 1.2 [facility]: [address] [facility] 04/20/2020 Lipid Panel, Blood High Triglycerides Lev el 1092 mg/dL <150 mg/dL [facility]: [address] 0 [facility] High Cholesterol Level 309 mg/dL <200 mg/ dL [facility]: [address] [facility] Normal HDL Cholesterol 49 mg/dL >40 mg/dL F [facility]: [address] [facility] Normal Non-hdl-c 260 mg/dL [facility]: [address] [facility] High Cholesterol Risk Ratio 6.306 <5 [facility]: [address] [facility] 04/20/2020 TSH + Free T4, Serum Normal Thyroid Stimulating Hormone 1.560 uIU/mL 0.358-3.740 uIU/mL [facility] nter: [address] [facility] Normal Free T4 0.85 NG/dL 0.76-1.46 NG/dL [facility]: [address] [facility] 04/20/2020 HbA1C (Hemoglobin a1C), Blood Normal Hemogl obin a1C 5.8 % [facility]: [address] [facility] High Estimated Average Glucose 120 mg/dL 60-110 mg/dL Final [facility]: [address] [facility] Past Encounters 08/04/2020 Kobi Chicas MD: [address] [place] [address], Ph. 07/31/2020 Right Flank Pain; Generalized Anxiety Disorder; Kidney Stone; Moderate Recurrent Major Depression; Pure Hyperglyceridemia; Type 2 Diabetes Mellitus without Complication; Elevated Liver Enzymes Level; Hyperkalemia; Bilateral Hips Aseptic Necrosis Claudette Bell, RPA-C: [address] [facility] [address], [place] [address], Ph. 07/26/2020 Type 2 Diabetes Mellitus without Complication; Pure Hyperglyceridemia Kobi Chicas MD: [address] [facility] [address], [place] [address], Ph. 06/12/2020 Generalized Anxiety Disorder; Moderate Recurrent Major Depression; Idiopathic Peripheral Neuropathy; Pure Hyperglyceridemia; Type 2 Diabetes Mellitus without Complication; Kidney Stone; Pain of Right Ankle Joint Binh Nash, RPA-C: [address] [facility] [address], [place] [address], Ph. 05/12/2020 Type 2 Diabetes Mellitus without Complication; Hyperkalemia Binh Nash, RPA-C: [address] [facility] [address], [place] [address], Ph. 04/27/2020 Type 2 Diabetes Mellitus without Complication; Moderate Recurrent Major Depression; Pure Hyperglyceridemia; Tension-type Headache; Hyperkalemia; Diverticulitis; Administration of Influenza Vaccine Binh Nash, RPA-C: [address] [facility] [address], [place] [address], Ph. 04/20/2020 Kobi Chicas MD: [address] [place] [address], Ph. Social History Tobacco Smoking Status Never [...] 20 Height 70 in 04/27/2020 09:50AM ESTABLISHED [id number] Height Weight BMI Blood Pressure 70 in 225 lbs 2 oz 32.3 kg/m2 119/80 mm[Hg] 01/17/2020 Height Weight BMI Blood Pressure 70 in 222 lbs 31.97 kg/m2 131/85 mm[Hg] 10/21/2019 Height Weight BMI Blood Pressure 70 in 226 lbs 6.08 oz 32.60 kg/m2 131/85 mm[H g] 09/30/2019 Height Weight BMI Blood Pressure 70 in 243 lbs 34.99 kg/m2 129/95 mm[Hg] 08/26/2019 Height Weight BMI Blood Pressure 70 in 251 lbs 36.14 kg/m2 124/85 mm[Hg] 06/18/2019 Height Weight BMI Blood Pressure 70 in 244 lbs 6.08 oz 35.19 kg/m2 111/70 mm[H g] 05/04/2019 Height Weight BMI Blood Pressure 70 in 232 lbs 12.8 oz 33.52 kg/m2 126/87 mm[H g] 01/29/2019 Height Weight BMI Blood Pressure 70 in 232 lbs 33.41 kg/m2 109/74 mm[Hg] 11/19/2018 Height Weight BMI Blood Pressure 70 in 246 lbs 2.08 oz 35.44 kg/m2 120/78 mm[H g] 10/30/2018 Height Weight BMI Blood Pressure 70 in 247 lbs 3.2 oz 35.60 kg/m2 117/84 mm[Hg ] 09/22/2018 Height Weight BMI Blood Pressure 70 in 240 lbs 4 oz 34.60 kg/m2 103/71 mm[Hg]
--- OUTSIDE RECORDS SUMMARY | 2020-08-09 06:46 | CCD | Continuity of Care Document ---
Author Author Rodolfo ROGERS P.A.-C. Organization Unknown Address [address] [place] [address] Phone [phone] Care Team Providers Care Senior Devops Engineer Name Role Phone Courtney Lopez M.D. AUTM [phone] Kobi Chicas M.D. AUTM [phone] Problems Active Problems Provider Date Paresthesia Concepción Ferguson M.D. Onset: 12/24/2017 Social History Type Date Description Comments Sex Unknown Tobacco Use Start: Unknown End: Unknown Patient is a former smoker Allergies, Adverse Reactions, Alerts Description No Known Drug Allergies Medications Active Medications SIG Qnty Indications Ordering Provide r Date Xray Right Ankle right medial ankle pain, s/p block of wo od fell and hit ankle M25.571 Concepción Ferguson M.D. 05/02/2020 Nortriptyline HCL 10mg Capsules Take One Capsule By Mouth Twice A Day 60caps Concepción Ferguson M.D. 02/20/2020 Ropinirole HCL 0.5mg Tablets 1 po tid 90tabs G25.81 Nicolle Ferguson M.D. 08/04/2019 Gabapentin 800mg Tablets take 1 tablet by mouth three times a day 90tabs R20.2 Nicolle Ferguson M.D. 2018 Tizanidine HCL 2mg Tablets Take One Tablet By Mouth Three Times A Day as Needed Maximum Daily Dose = 3 90tabs M54.5 Concepción Ferguson M.D. 02/05/2018 Immunizations Description No Information Available Vital Signs Date Vital Result Comment 05/02/2020 5:51am BP Systolic 110 mmHg BP Diastolic 80 mmHg Heart Rate 76 /min Respiratory Rate 16 /min 01/31/2020 5:27am BP Systolic 120 mmHg BP Diastolic 84 mmHg Heart Rate 80 /min Respiratory Rate 16 /min Weight 220.00 lb Results Description No Information Available Procedures Description No Information Available Medical Devices Description No Information Available Encounters Type Date Location Provider Dx Diagnosis Office Visit 08/02/2020 9:15a Main office - [place] Taryn Montgomery.A.-CEdilberto G25.81 Restless legs syndrome M54.5 Low back pain M51.36 Other intervertebral disc de generation, lumbar region M79.672 Pain in left foot M79.671 Pain in right foot 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 08/02/2020 M79.671 Pain in right foot Beverly shankar P.A.-C. 08/02/2020 E83.32 Hereditary vitamin D-dependent r ickets (type 1) (type 2) Taryn Brannon.A.-C. 08/02/2020 D51.8 Other vitamin B12 deficiency ane mias Beverly Rogers P.A.-C. 05/02/2020 M54.5 Low back pain Beverly Rogers P.A.-C. 05/02/2020 M51.36 Other intervertebral disc degene ration, lumbar region Beverly Rogers P.A.-C. 05/02/2020 M79.672 Pain in left foot Beverly tsang P.A.-C. 05/02/2020 M79.671 Pain in right foot Beverly shankar P.A.-C. 05/02/2020 G25.81 Restless legs syndrome Beverly reddy P.A.-C. 05/02/2020 D51.8 Other vitamin B12 deficiency ane mias Beverly Rogers P.A.-C. 05/02/2020 E83.32 Hereditary vitamin D-dependent r ickets (type 1) (type 2) Beverly Rogers P.A.-C. 05/02/2020 M25.571 Pain in right ankle and joints o f right foot Beverly Rogesr P.A.-C. Plan of Treatment 08/02/2020 - Beverly Rogers P.A.-C.* G25.81 Restless legs syndrome* Comments: * Controlled with ropinirole. * M54.5 Low back pain* Comments:* Refer back to [facility] pain clinic for exacerbation of low back pain. Continue current medications. * M51.36 Other intervertebral disc degeneration, lumbar region * M79.672 Pain in left foot* Comments:* Continue gabapentin and nortriptyline for foot pain. 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 * D51.8 Other vitamin B12 deficiency anemias* Comments:* Recheck at next face to face appt. * Follow up:* 3 months Functional Status Description No Information Available Mental Status Description No Information Available Referrals Refer to Reason for Referral Status Appt Date Paras Balderrama M.D. BACK PAIN Created [facility] [address] [place], [place] [id number] [phone] Bibi Rodriguez MD RIGHT ANKLE PAIN WITH OLD AVULSION'S Creat ed [facility] [address], [address] [place] [id number] [phone] Nicolle Ferguson M.D. Created [facility] [address] [place] [address] [phone]
--- OUTSIDE RECORDS SUMMARY | 2020-08-09 06:47 | CCD | Continuity of Care Document ---
Author Author Rodolfo SHEPHERD Organization Unknown Address [address] [place] [address], [address] [address] Phone [phone] Care Team Providers Care Haulpak Driver Name Role Phone Beverly Rogers RPA AUTM [phone] Rosalba RamirezP AUTM Problems Active Problems Provider [...] CPT Code Status Date Vaccine Lot # [id number] Refused 08/30/2015 Tetanus, Diphthe lissette Toxoids/Acellular Pertussis Vaccine 7 Or > [id number] Refused 08/30/2015 Influenza Virus Split 3 Yrs And Above Dosage Vital Signs Date Vital Result Comment 05/20/2019 1:20pm Body Temperature 98.7 F Height 69 inches 5'9" Weight 230.00 lb BMI (Body Mass Index) 34.0 kg/m2 11/19/2018 10:35am Height 70 inches Weight 246.12 lb BMI (Body Mass Index) 35.44 kg/m2 Results Description No Information Available Procedures Date Code Description Status 07/06/2020 05509 X-Ray Foot Complete Completed 07/06/2020 91346 X-Ray Foot Complete Completed 07/06/2020 81067 X-Ray Ankle Complete Completed Medical Devices Description No Information Available Encounters Type Date Location Provider Dx Diagnosis Office Visit 07/06/2020 2:15p [place] Bibi Rodriguez MD M72. 2 Plantar fascial fibromatosis M76.61 Achilles tendinitis, right l eg M76.62 Achilles tendinitis, left le g S90.01xA Contusion of right ankle, in itial encounter Assessments Date Code Description Provider 07/06/2020 M72.2 Plantar fascial fibromatosis Ning ally Rodriguez MD 07/06/2020 M76.61 Achilles tendinitis, right leg N kendall Rodriguez MD 07/06/2020 M76.62 Achilles tendinitis, left leg Na catalina Rodriguez MD 07/06/2020 S90.01xA Contusion of right ankle, initia l encounter Bibi Rodriguez MD Plan of Treatment Future Appointment(s):* 07/19/2020 10:15 am - Bibi Rodriguez MD at [place] 07/06/2020 - Bibi Rodriguez MD* M72.2 Plantar fascial fibromatosis * M76.61 Achilles tendinitis, right leg * M76.62 Achilles tendinitis, left leg * S90.01xA Contusion of right ankle, initial encounter* Follow up:* with NMN for rt ankle mri results [facility] IT Functional Status Description No Information Available Mental Status Description No Information Available Referrals Refer to Dr Reason for Referral Status Appt Date Bibi Rodriguez MD MRI APPROVED PER [facility] WEB FOR MRI OF RIGHT ANKLE (05907) TO MRI. DG Created [facility] [facility] [address] [place] [address] [phone]
--- OUTSIDE RECORDS SUMMARY | 2020-08-09 06:47 | CCD | Continuity of Care Document ---
Author Author Rodoflo LINK MD Organization Unknown Address [address] [place] [address] Phone [phone] Care Team Providers Care Line Person Name Role Phone SueBeverly RPA AUTM [phone] Rosalba Ramirez NAIL TECH AUTM Problems Active Problems Provider Date [...] CPT Code Status Date Vaccine Lot # [id number] Refused 08/30/2015 Tetanus, Diphthe lissette Toxoids/Acellular Pertussis Vaccine 7 Or > [id number] Refused 08/30/2015 Influenza Virus Split 3 Yrs And Above Dosage Vital Signs Date Vital Result Comment 07/19/2020 9:56am Body Temperature 96.8 F 05/20/2019 1:20pm Body Temperature 98.7 F Height 69 inches 5'9" Weight 230.00 lb BMI (Body Mass Index) 34.0 kg/m2 Results Description No Information Available Procedures Date Code Description Status 07/19/2020 19816 Apply Cast Short Leg Walking Com pleted 07/12/2020 59782 MRI Lower Extremity Any Joint Co mpleted 07/06/2020 50984 X-Ray Foot Complete Completed 07/06/2020 45960 X-Ray Ankle Complete Completed Medical Devices Description No Information Available Encounters Type Date Location Provider Dx Diagnosis Office Visit 07/06/2020 2:15p [place] Bibi Link MD M72. 2 Plantar fascial fibromatosis M76.61 Achilles tendinitis, right l eg M76.62 Achilles tendinitis, left le g Assessments Date Code Description Provider 07/19/2020 M72.2 Plantar fascial fibromatosis Ning ally Link MD 07/19/2020 M76.61 Achilles tendinitis, right leg N kendall Link MD 07/19/2020 M76.62 Achilles tendinitis, left leg Na catalina Link MD 07/19/2020 S90.01xD Contusion of right ankle, subseq uent encounter Bibi Link MD 07/12/2020 M76.61 Achilles tendinitis, right leg M [place] 07/06/2020 M72.2 Plantar fascial fibromatosis Ning Link MD 07/06/2020 M72.2 Plantar fascial fibromatosis Ning Link MD 07/06/2020 M76.61 Achilles tendinitis, right leg N kendall Link MD 07/06/2020 M76.62 Achilles tendinitis, left leg Na catalina Link MD Plan of Treatment Future Appointment(s):* 08/02/2020 9:45 am - Adeline Mclaughlin PA-C at [place] 07/19/2020 - Bibi Link MD* M72.2 Plantar fascial fibromatosis * M76.61 Achilles tendinitis, right leg* Follow up:* 2-3 weeks right ankle trey with cast off with p.a per nmn * M76.62 Achilles tendinitis, left leg * S90.01xD Contusion of right ankle, subsequent encounter Functional Status Description No Information Available Mental Status Description No Information Available Referrals Refer to Reason for Referral Status Appt Date Bibi Link MD MRI APPROVED PER [facility] WEB FOR MRI OF RIGHT ANKLE (67432) TO MRI. DG Created [facility] [facility] [address] [place] [id number] [phone]
--- OUTSIDE RECORDS SUMMARY | 2020-08-09 06:47 | CCD | Continuity of Care Document ---
Author Author Rodolfo MERCADO MD Organization Unknown Address [address] [place] [address] , [facility] [address] [place] [address] Phone [phone] Problems Description No Information Available Social History Type Date Description Comments Sex Unknown Allergies, Adverse Reactions, Alerts Active Allergies Reaction Severity Comments Date Tramadol Itching 07/13/2020 Medications Active Medications SIG Qnty Indications Ordering Provide r Date Metformin HCL 500mg Tablets Unknown Immunizations Description No Information Available Vital Signs Date Vital Result Comment 07/13/2020 9:04am Body Temperature 97.5 F Height 69 inches 5'9" Weight 230.00 lb BMI (Body Mass Index) 34.0 kg/m2 [place] Body Weight 160 lb Weight 104.328 kg BSA (Body Surface Area) 2.19 m2 Results Description No Information Available Procedures Description No Information Available Medical Devices Description No Information Available Encounters Type Date Location Provider Dx Diagnosis Office Visit 07/13/2020 9:30a [facility] Kobi Mercado MD M25.511 Pain in right shoulder Assessments Date Code Description Provider 07/13/2020 M25.511 Pain in right shoulder Kobi choi MD Plan of Treatment 07/13/2020 - Kobi Mercado MD* M25.511 Pain in right shoulder* New Xrays:* MRI, Shoulder; W/O Contrast, Right, Ordered: 07/13/20 Functional Status Description No Information Available Mental Status Description No Information Available Referrals Refer to Reason for Referral Status Appt Date Kobi Mercado MD rt shoulder pain Created [address] [facility], [address] [place] [address] [phone]
--- OUTSIDE RECORDS SUMMARY | 2020-08-09 06:47 | CCD | Continuity of Care Document ---
Author Author Rodolfo LINK MD Organization Unknown Address [address] [place] [address] Phone [phone] Care Team Providers Care Canceling And Cutting Control Clerk Name Role Phone SueBeverly RPA AUTM [phone] Rosalba Ramirez ADMINISTRATIVE JUDGE AUTM Problems Active Problems Provider Date Adult [...] CPT Code Status Date Vaccine Lot # [id number] Refused 08/30/2015 Tetanus, Diphthe lissette Toxoids/Acellular Pertussis Vaccine 7 Or > [id number] Refused 08/30/2015 Influenza Virus Split 3 Yrs And Above Dosage Vital Signs Date Vital Result Comment 07/19/2020 9:56am Body Temperature 96.8 F 05/20/2019 1:20pm Body Temperature 98.7 F Height 69 inches 5'9" Weight 230.00 lb BMI (Body Mass Index) 34.0 kg/m2 Results Description No Information Available Procedures Date Code Description Status 07/19/2020 62663 Apply Cast Short Leg Walking Com pleted 07/12/2020 18726 MRI Lower Extremity Any Joint Co mpleted 07/06/2020 02819 X-Ray Foot Complete Completed 07/06/2020 16298 X-Ray Ankle Complete Completed Medical Devices Description No Information Available Encounters Type Date Location Provider Dx Diagnosis Office Visit 07/06/2020 2:15p [place] Bibi Link MD M72. 2 Plantar fascial [...] 9:45 am - Adeline Mclaughlin PA-C at [place] 07/19/2020 - Bibi Link MD* M72.2 Plantar [...] Date Bibi Link MD MRI APPROVED PER [facility] WEB FOR MRI OF RIGHT ANKLE (33138) TO MRI. DG Created [facility] [address] [place] [id number] [phone]
--- OUTSIDE RECORDS SUMMARY | 2020-08-09 06:47 | CCD | Continuity of Care Document ---
Author Author Rodolfo RODRIGUEZ MD Organization Unknown Address [address] [place] [address] Phone [phone] Care Team Providers Care Warehouse Supervisor Name Role Phone SueBeverly RPA AUTM [phone] Rosalba Ramirez LOCAL TELEPHONE OPERATOR AUTM [phone] Problems Active Problems Provider Date Adult health [...] CPT Code Status Date Vaccine Lot # [id number] Refused 08/30/2015 Tetanus, Diphthe lissette Toxoids/Acellular Pertussis Vaccine 7 Or > [id number] Refused 08/30/2015 Influenza Virus Split 3 Yrs And Above Dosage Vital Signs Date Vital Result Comment 07/19/2020 9:56am Body Temperature 96.8 F 05/20/2019 1:20pm Body Temperature 98.7 F Height 69 inches 5'9" Weight 230.00 lb BMI (Body Mass Index) 34.0 kg/m2 Results Description No Information Available Procedures Date Code Description Status 07/06/2020 24844 X-Ray Foot Complete Completed 07/06/2020 59531 X-Ray Foot Complete Completed 07/06/2020 60483 X-Ray Ankle Complete Completed Medical Devices Description No Information Available Encounters Type Date Location Provider Dx Diagnosis Office Visit 07/06/2020 2:15p [place] Bibi Rodriguez MD M72. 2 Plantar fascial fibromatosis M76.61 Achilles tendinitis, right l eg M76.62 Achilles tendinitis, left le g S90.01xA Contusion of right ankle, in itial encounter Assessments Date Code Description Provider 07/19/2020 M72.2 Plantar fascial fibromatosis Ning Rodriguez MD 07/19/2020 M76.61 Achilles tendinitis, right leg N kendall Rodriguez MD 07/19/2020 M76.62 Achilles tendinitis, left leg Tamara Rodriguez MD 07/19/2020 S90.01xD Contusion of right ankle, subseq uent encounter Bibi Rodriguez MD 07/06/2020 M72.2 Plantar fascial fibromatosis Ning Rodriguez MD 07/06/2020 M76.61 Achilles tendinitis, right leg N kendall Rodriguez MD 07/06/2020 M76.62 Achilles tendinitis, left leg Na catalina Rodriguez MD 07/06/2020 S90.01xA Contusion of right ankle, initia l encounter Bibi Rodriguez MD Plan of Treatment 07/19/2020 - Bibi Rodriguez MD* M72.2 Plantar [...] Date Bibi Rodriguez MD MRI APPROVED PER [facility] WEB FOR MRI OF RIGHT ANKLE (33040) TO MRI. DG Created [facility] [facility] [address] [place] [id number] [phone]
--- OUTSIDE RECORDS SUMMARY | 2020-08-09 06:48 | CCD ---
Author Author [facility] Organization [facility] Address Unknown Phone Unavailable Support Name Relationship Address Phone [employer] Next Of Kin [address] [place] [address] Shanon Gotti MD Next Of Kin [address] [place] [address] Kobi Chicas MD Next Of Kin [address] [place] [address] REQUESTED, NONE Next Of Kin [address] [place] [address] JEFFCONCRT Next Of Kin [address] [place] [address] [employer]ET[employer] Next Of Kin [address] [address] Ric FATIMA, Courtney Next Of Kin [address] [place], [place] [id number] Gus RUDD, Brianne Next Of Kin [address] [place] [address] [address] [place] [address] [employer] Next Of Kin [address] [place] [address] UE Next Of Kin Unknown Unavailable JANINA MIRZA Next Of Kin [address] [place] [address] ALICIA UMAÑ[place] [address] Janina Mirza ECON [address] [place] [address] Unavailable REQUESTED, NONE ECON [address] [place] [address] Unavailable Care Team Providers Care Supervisor Unloading Name Role Phone SERGIO NASH RPA-C Unavailable Unavailable NASHSERGIO RPA-C Unavailable Unavailable NASH, SERGIO BINH RPA-C [...] Unavailable Trickey, J Beverly PA Unavailable Unavailable VALLEJO, YAIR Unavailable Unavailable VALLEJO, YAIR Unavailable Unavailable VALLEJO, YAIR Unavailable Unavailable VALLEJO, YAIR Unavailable Unavailable VALLEJO, YAIR Unavailable Unavailable VALLEJO, YAIR Unavailable Unavailable VALLEJO, YAIR Unavailable Unavailable VALLEJO, YAIR Unavailable Unavailable VALLEJO, YAIR Unavailable Unavailable VALLEJO, YAIR Unavailable Unavailable VALLEJO, YAIR Unavailable Unavailable VALLEJO, YAIR Unavailable Unavailable VALLEJO, YAIR Unavailable Unavailable VALLEJO, YAIR Unavailable Unavailable VALLEJO, YAIR Unavailable Unavailable VALLEJO, YAIR Unavailable Unavailable VALLEJO, YAIR Unavailable Unavailable VALLEJO, YAIR Unavailable Unavailable VALLEJO, YAIR Unavailable Unavailable VALLEJO, YAIR Unavailable Unavailable VALLEJO, YAIR Unavailable Unavailable VALLEJO, YAIR Unavailable Unavailable VALLEJO, YAIR Unavailable Unavailable VALLEJO, YAIR Unavailable Unavailable VALLEJO, YAIR Unavailable Unavailable MollAnibal woody MD Unavailable Unavailable MollisonAnibal MD Unavailable Unavailable MollisonAnibal MD Unavailable Unavailable MollisonAnibal MD Unavailable Unavailable MollisonAnibal MD Unavailable Unavailable MollisonAnibal MD Unavailable Unavailable MollisonAnibal MD Unavailable Unavailable MollisonAnibal MD Unavailable Unavailable MollAnibal woody MD Unavailable Unavailable MollAnibal woody MD Unavailable Unavailable MollAnibal woody MD Unavailable Unavailable MollAnibal woody MD Unavailable Unavailable MollAnibal woody MD Unavailable Unavailable MollisonAnibal MD Unavailable Unavailable MollisonAnibal MD Unavailable Unavailable MollisonAnibal MD Unavailable Unavailable MollAnibal woody MD Unavailable Unavailable MollAnibal woody MD Unavailable Unavailable MollAnibal woody MD Unavailable Unavailable Anibal Paul MD Unavailable Unavailable MollAnibal woody MD Unavailable Unavailable MollisonAnibal MD Unavailable Unavailable Brittney GOTTI MD Unavailable [...] Unavailable Unavailable Brittney GOTTI MD Unavailable Unavailable GERALDOBrittney MARIE MD Unavailable Unavailable Brittney GOTTI MD Unavailable [...] Unavailable Unavailable Brittney GOTTI MD Unavailable Unavailable Chna, Bonnie ASIAN ART CURATOR Unavailable Unavailable Chan, Bonnie ASIAN ART CURATOR Unavailable Unavailable Chan, Bonnie ASIAN ART CURATOR Unavailable Unavailable Chan, Bonnie ASIAN ART CURATOR Unavailable Unavailable Chan, Bonnie ASIAN ART CURATOR Unavailable Unavailable Chan, Bonnie ASIAN ART CURATOR Unavailable Unavailable Chan, Bonnie ASIAN ART CURATOR Unavailable Unavailable Chan, Bonnie ASIAN ART CURATOR Unavailable Unavailable Chan, Bonnie ASIAN ART CURATOR Unavailable Unavailable Chan, Bonnie ASIAN ART CURATOR Unavailable Unavailable Chan, Bonnie ASIAN ART CURATOR Unavailable Unavailable NASH, SERGIO BINH RPA-C Unavailable [...] Unavailable NASH, SERGIO BINH RPA-C Unavailable Unavailable [facility], RFROST NAHS PA BINH Unavailable Unavailable KAT LINK MD Unavailable Unavailable KAT LINK MD Unavailable Unavailable KAT LINK MD Unavailable Unavailable KAT LINK MD Unavailable Unavailable KAT LINK MD Unavailable Unavailable KAT LINK MD Unavailable Unavailable KAT LINK MD Unavailable Unavailable KAT LINK MD Unavailable Unavailable KAT LINK MD Unavailable Unavailable KAT LINK MD Unavailable Unavailable KAT LINK MD Unavailable Unavailable KAT LINK MD Unavailable Unavailable KAT LINK MD Unavailable Unavailable KAT LINK MD Unavailable Unavailable KAT LINK MD Unavailable Unavailable KAT LINK MD Unavailable Unavailable KAT LINK MD Unavailable Unavailable KAT LINK MD Unavailable Unavailable KAT LINK MD Unavailable Unavailable KAT LINK MD Unavailable Unavailable KAT LINK MD Unavailable Unavailable KAT LINK MD Unavailable Unavailable KAT LINK MD Unavailable Unavailable KAT LINK MD Unavailable Unavailable KAT LINK MD Unavailable Unavailable KAT LINK MD Unavailable Unavailable KAT LINK MD Unavailable Unavailable KAT LINK MD Unavailable Unavailable LINKKAT MARTINEZ MD Unavailable Unavailable KAT LINK MD Unavailable Unavailable Re-disclosure Warning The records that [...] is protected by Article 27-F of the [facility] Public Health law. If you continue you may have access to information: Regarding HIV / AIDS; Provided by facilities licensed or operated by the [facility] Office of Mental Health; or Provided by the [facility] Office for People With Developmental Disabilities. If such information is present, then the following [facility] mandated warning applies: This information has been [...] law may result in a fine or care home sentence or both. A general authorization for the release of medical or other information is NOT sufficient authorization for further disc losure. Allergies and Adverse Reactions Type Description Substance Reaction Status Data Source(s ) Drug Allergy NKDA NKDA MEDENT ([facility] Family History Family Member Name Family Member Gender Family Member Status Date o f Status Description Data Source(s) Unknown Unknown Problem MEDENT ([facility]) Unknown Unknown Problem MEDENT ([facility] Unknown Female Problem MEDENT ([facility] ) Encounters Encounter Providers Location Date Indications Data Source(s ) Kobi Chicas MD: [address] [place] [phone], Ph. Attender: Kobi Chicas MD [facility] Medical 08/04/2020 12:00:00 AM EST SAMANTHA ([facility]) Office Visit Attender: Beverly ELDER Main office - [facility] 08/02/2020 08:15:00 AM EST MEDENT ([facility]) Outpatient Attender: Kobi Espinal/Ramesh/Gianluca/Re indl 08/01/2020 09:30:00 AM EST MEDENT ([facility] Outpatient [address] [facility] [address] 08/01/2020 12:00:00 AM EST eCW1 ([facility]) Yair Vallejo RPA-C: [address], [place] [address], Ph. Attender: YAIR VALLEJO [facility] 07/31/2020 12:00:00 AM EST SAMANTHA ([facility]) Yair Vallejo RPA-C: [address], [place] [address], Ph. Attender: YAIR VALLEJO [facility] 07/31/2020 12:00:00 AM EST SAMANTHA ([facility]) Kobi Chicas MD: [address], [place] [address], Ph. Attender: Kobi Chicas MD [facility] 07/26/2020 12:00:00 AM EST SAMANTHA ([facility]) Kobi Chicas MD: [address], [place] [address], Ph. Attender: Kobi Chicas MD [facility] 07/26/2020 12:00:00 AM EST SAMANTHA ([facility]) Kobi Chicas MD: [address], [place] [address], Ph. Attender: Kobi Chicas MD [facility] 07/26/2020 12:00:00 AM EST SAMANTHA ([facility]) Outpatient Attender: Kobi Espinal/Ramesh/Gianluca/Re indl 07/13/2020 08:30:00 AM EST MEDENT ([facility]) Office Visit Attender: KAT LINK MD Physical Therapy 01:15:00 PM EST MEDENT ([facility]) Binh Nash RPA-C: [address], [place] [address], Ph. Attender: BINH LUCERO [facility] Medical 06/12/2020 12:00:00 AM EST SAMANTHA ([facility]) Binh Nash RPA-C: [address], [place] [address], Ph. Attender: BINH LUCERO [facility] Medical 06/12/2020 12:00:00 AM EST SAMANTHA ([facility]) Binh Nash RPA-C: [address], [place] [address], Ph. Attender: BINH BECKC [facility] Medical 06/12/2020 12:00:00 AM EST SAMANTHA ([facility]) Binh Nash RPA-C: [address], [place] [address], Ph. Attender: BINH BECKC [facility] Medical 06/12/2020 12:00:00 AM EST SAMANTHA ([facility]) Binh Nash RPA-C: [address], [place] [address], Ph. Attender: BINH NASH RPA-C [facility] Medical 06/12/2020 12:00:00 AM EST SAMANTHA ([facility]) Binh Nash RPA-C: [address], [place] [address], Ph. Attender: BINH NASH RPA-C [facility] Medical 05/12/2020 12:00:00 AM EST SAMANTHA ([facility]) Binh Nash RPA-C: [address], [place] [address], Ph. Attender: BINH NASH RPA-C [facility] Medical 05/12/2020 12:00:00 AM EST SAMANTHA ([facility]) Binh Nash RPA-C: [address], [place] [address], Ph. Attender: BINH NASH RPA-C [facility] Medical 05/12/2020 12:00:00 AM EST SAMANTHA ([facility]) Binh Nash RPA-C: [address], [place] [address], Ph. Attender: BINH NASH RPA-C [facility] Medical 05/12/2020 12:00:00 AM EST SAMANTHA ([facility]) Binh Nash RPA-C: [address], [place] [address], Ph. Attender: BINH NASH RPA-C [facility] Medical 05/12/2020 12:00:00 AM EST SAMANTHA ([facility]) Binh Nash, RPA-C: [address], [place] [address], Ph. Attender: BINH NASH RPA-C [facility] Medical 05/12/2020 12:00:00 AM EST SAMANTHA ([facility]) Outpatient Attender: Beverly ELDER Main office - [facility] 05/02/2020 08:00:00 AM EST MEDENT ([facility] ) Binh Nash, RPA-C: [address], [place] [address], Ph. Attender: BINH NASH RPA-C [facility] Medical 04/27/2020 12:00:00 AM EDT SAMANTHA ([facility]) Binh Nash RPA-C: [address], [place] [address], Ph. Attender: BINH NASH RPA-C [facility] Medical 04/27/2020 12:00:00 AM EDT SAMNATHA ([facility]) Binh Nash RPA-C: [address], [place] [address], Ph. Attender: BINH NASH RPA-C [facility] Medical 04/27/2020 12:00:00 AM EDT SAMANTHA ([facility]) Binh Nash RPA-C: [address], [place] [address], Ph. Attender: BINH NASH RPA-C [facility] Medical 04/27/2020 12:00:00 AM EDT SAMANTHA ([facility]) Binh Nash RPA-C: [address], [place] [address], Ph. Attender: BINH DUNCAN RPA-C [facility] Medical 04/27/2020 12:00:00 AM EDT SAMANTHA ([facility]) Binh Juan Carlos Boothest, RPA-C: [address], [place] [address], Ph. Attender: BINH NASH RPA-C [facility] Medical 04/27/2020 12:00:00 AM EDT SAMANTHA ([facility]) Binh Nash, RPA-C: [address], [place] [address], Ph. Attender: BINH NASH RPA-C [facility] Medical 04/27/2020 12:00:00 AM EDT SAMANTHA ([facility]) Kobi Chicas MD: [address] [place] [address], Ph. Attender: Kobi Chicas MD [facility] Medical 04/20/2020 12:00:00 AM EDT SAMANTHA ([facility]) Kobi Chicas MD: [address] [place] [address], Ph. Attender: Kobi Chicas MD [facility] Medical 04/20/2020 12:00:00 AM EDT SAMANTHA ([facility]) Kobi Chicas MD: [address] [place] [address], Ph. Attender: Kobi Chicas MD [facility] 04/20/2020 12:00:00 AM EDT SAMANTHA ([facility]) Kobi Chicas MD: [address] [place] [address], Ph. Attender: Kobi Chicas MD [facility] Medical 04/20/2020 12:00:00 AM EDT SAMANTHA ([facility]) Kobi Chicas MD: [address] [place] [address], Ph. Attender: Kobi Chicas MD [facility] Medical 04/20/2020 12:00:00 AM EDT SAMANTHA ([facility]) Kobi Chicas MD: [address] [place] [address], Ph. Attender: Kobi Chicas MD [facility] Medical 04/20/2020 12:00:00 AM EDT SAMANTHA ([facility]) Kobi Chicas MD: [address] [place] [address], Ph. Attender: Kobi Chicas MD [facility] Medical 04/20/2020 12:00:00 AM EDT SAMANTHA ([facility]) Outpatient Attender: OVIDIO LOUISE [facility] 03/30 12:27:01 PM EDT [facility] Outpatient Attender: VOIDIO LOUISE [facility] 09/2019 08:31:00 AM EDT [facility] Outpatient Attender: Beverly ELDER [facility] 01/31/2020 02:00:00 PM [facility] Outpatient Attender: BINH NASH RPA-C [facility] 01/18/2020 12:00:35 AM EDT [facility] Outpatient Attender: BINH NASH RPA-C [facility] 01/17/2020 09:34:02 AM EDT [facility] Outpatient Attender: OVIDIO LOUISE [facility] 12/29 09:09:02 AM EDT [facility] Outpatient Attender: BINH NASH RPA-C [facility] 01/17/2020 09:09:01 AM EDT [facility] Outpatient Attender: OVIDIO LOUISE [facility] 12/28 11:12:00 AM EDT [facility] Outpatient Attender: OVIDIO LOUISE [facility] 12/28 04:53:01 PM EDT [facility] Outpatient Attender: OVIDIO LOUISE [facility] 06/2019 03:31:00 PM EDT [facility] Outpatient Attender: OVIDIO LOUISE [facility] 11/28 11:39:59 AM EDT [facility] Outpatient Attender: BINH NASH RPA-C [facility] 12/07/2019 05:08:00 PM EDT [facility] Outpatient Attender: OVIDIO LOUISE [facility] 02/2020 05:08:00 PM EDT [facility] [address] [place] [phone] 12/01/2019 12:00:00 AM EDT eCW1 ([facility]) Outpatient Attender: OVIDIO LOUISE [facility] 10/28 09:06:01 AM EDT [facility] Outpatient Attender: OVIDIO LOUISE [facility] 09/29 09:59:02 AM EDT [facility] Outpatient 10/13/2019 04:43:00 AM EDT [facility] Outpatient Attender: SHANON GOTTI MD 10/08/2019 08:55:59 A M EDT [facility] Outpatient Attender: SHANON GOTTI MD 10/06/2019 04:02:01 P M EDT [facility] [address] [place] [phone] 10/01/2019 12:00:00 AM EDT eCW1 ([facility]) Outpatient Attender: SHANON GOTTI MD 09/30/2019 02:26:01 P M EDT [facility] Outpatient Attender: SHANON GOTTI MD 09/30/2019 02:25:00 P M EDT [facility] Outpatient Attender: SHANON GOTTI MD 09/24/2019 04:35:00 P M EDT [facility] Outpatient Attender: Bonnie Chan NP Reneehugo farmer 09/23/2019 10:45:00 AM EDT MEDENT ([facility] [address] [place] [phone] 09/15/2019 12:00:00 AM EDT eCW1 ([facility]) Outpatient Attender: SHANON GOTTI MD 09/06/2019 12:11:00 P EDT [facility] Outpatient Attender: SHANON GOTTI MD 2019 02:07:00 P [facility] Outpatient Attender: SHANON GOTTI MD 08/26/2019 01:44:02 P [facility] Outpatient Attender: SHANON GOTTI MD 08/23/2019 04:02:00 P [facility] Outpatient Attender: SHANON GOTTI MD 08/18/2019 10:34:03 A [facility] Outpatient Attender: SHANON GOTTI MD 08/18/2019 10:34:01 A [facility] Outpatient Attender: SHANON GOTTI MD 08/11/2019 12:50:01 P [facility] Outpatient Attender: SHANON GOTTI MD 08/10/2019 09:12:00 A [facility] Outpatient Attender: SHANON GOTTI MD 08/10/2019 09:11:02 A [facility] Outpatient Attender: SHANON GOTTI MD 08/05/2019 11:36:06 A [facility] Outpatient Attender: SHANON GOTTI MD 08/05/2019 11:36:03 A [facility] Outpatient Attender: SHANON GOTTI MD 08/05/2019 11:12:01 A [facility] Outpatient Attender: SHANON GOTTI MD 08/04/2019 01:06:00 P [facility] Outpatient Attender: Beverly ELDER [facility] 08/04/2019 09:30:00 AM EST MEDENT ([facility] ) Outpatient Attender: SHANON GOTTI MD 08/04/2019 09:23:01 A [facility] Outpatient Attender: SHANON GOTTI MD FP 07/23/2019 09:29:47 A M [facility] Outpatient Attender: SHANON GOTTI MD 07/21/2019 03:18:03 P M [facility] [address] [place] [phone] 07/19/2019 12:00:00 AM EST eCW1 ([facility]) Outpatient 07/18/2019 09:01:00 PM EST [facility] Pain Center [address] [place] [phone] 07/05/2019 12:00:00 AM EST eCW1 ([facility]) [facility] Pain Center [address] [place] [phone] 06/28/2019 12:00:00 AM EST eCW1 ([facility]) Outpatient Attender: SHANON GOTTI MD 06/19/2019 06:10:16 A M [facility] Outpatient Attender: SHANON GOTTI MD 06/19/2019 06:10:12 A M [facility] Outpatient Attender: SHANON GOTTI MD FP 06/18/2019 05:02:00 P [facility] Outpatient Attender: SHANON GOTTI MD FP 06/18/2019 01:57:00 P M [facility] Outpatient Attender: SHANON GOTTI MD FP 06/18/2019 01:56:01 P [facility] Immunizations Vaccine Date Status Description Data Source(s) New in 2011. IIV4 04/27/2020 10:30:00 AM EDT completed .5 mL SAMANTHA ([facility]) New in 2011. IIV4 04/27/2020 10:30:00 AM EDT completed .5 mL SAMANTHA ([facility]) New in 2011. IIV4 04/27/2020 10:30:00 AM EDT completed .5 mL SAMANTHA ([facility] er) New in 2011. IIV4 04/27/2020 10:30:00 AM EDT completed .5 mL SAMANTHA ([facility]) New in 2011. IIV4 04/27/2020 10:30:00 AM EDT completed 0.5 mL SAMANTHA ([facility]) New in 2011. IIV4 04/27/2020 10:30:00 AM EDT completed 0.5 mL SAMANTHA ([facility]) New in 2011. IIV4 04/27/2020 10:30:00 AM EDT completed 0.5 mL SAMANTHA ([facility]) Medications Medication Brand Name Start Date Product Form Dose Route Admi nistrative Instructions Pharmacy Instructions Status Indications Reaction Description Data Source(s) Gemfibrozil 600 MG Oral Tablet gemfibrozil 600 mg tabl et gemfibrozil 600 mg tablet 06/12/2020 12:00:00 AM EST completed gemfibrozil 600 MG Oral Tablet SAMANTHA ([facility]) Gemfibrozil 600 MG Oral Tablet gemfibrozil 600 mg tabl et gemfibrozil 600 mg tablet 06/12/2020 12:00:00 AM EST completed gemfibrozil 600 MG Oral Tablet SAMANTHA ([facility]) Gemfibrozil 600 MG Oral Tablet gemfibrozil 600 mg tabl et gemfibrozil 600 mg tablet 06/12/2020 12:00:00 AM EST completed gemfibrozil 600 MG Oral Tablet SAMANTHA ([facility]) Gemfibrozil 600 MG Oral Tablet gemfibrozil 600 mg tabl et gemfibrozil 600 mg tablet 06/12/2020 12:00:00 AM EST completed gemfibrozil 600 MG Oral Tablet SAMANTHA ([facility]) Gemfibrozil 600 MG Oral Tablet gemfibrozil 600 mg tabl et gemfibrozil 600 mg tablet 06/12/2020 12:00:00 AM EST completed gemfibrozil 600 MG Oral Tablet SAMANTHA ([facility]) Xray Right Ankle 05/02/2020 12:00:00 AM EST a ctive MEDENT ([facility]) Xray Right Ankle 05/02/2020 12:00:00 AM EST a ctive MEDENT ([facility]) Nortriptyline 10 MG Oral Capsule Nortriptyline HCL 02/20/2020 12:00 :00 AM EDT active MEDENT ([facility], ) 10 mg 12/15/2019 12:00:00 AM EDT capsule 60 TAKE ONE CAPSULE BY MOUTH TWICE A DAY TAKE ONE CAPSULE BY MOUTH TWICE A DAY SOLD: 12/15/2019 [facility] Nystatin [id number] UNT/ML Oral Suspension Nystatin 09/23/2019 12:00:00 AM EDT active MEDENT ([facility]) Nortriptyline 10 MG Oral Capsule [Pamelor] Pamelor 08/05/2019 12:00:00 AM EST ORAL active MEDENT ([facility], ) ropinirole 0.5 MG Oral Tablet Ropinirole HCL 08/04/2019 12:00:[address] ORAL active MEDENT ([facility], ) ropinirole 0.25 MG Oral Tablet Ropinirole HCL 05/04/2019 12:00:00 AM EST ORAL completed MEDENT ([facility], ) Acetaminophen 325 MG / Oxycodone Hydroch loride 5 MG Oral Tablet oxycodone- acetaminophen 5 mg-325 mg tablet oxycodone-acetaminophen 5 mg-325 mg tablet completed acetaminop hen 325 MG / oxycodone hydrochloride 5 MG Oral Tablet SAMANTHA ([facility]) Ciprofloxacin 500 MG Oral Tablet ciprofl oxacin 500 mg tablet TAKE ONE TABLET BY MOUTH EVERY 12 HOURS FOR 7 DAYS ciprofloxacin 500 mg tablet TAKE ONE TAB LET BY MOUTH EVERY 12 HOURS FOR 7 DAYS comple efrain ciprofloxacin 500 MG Oral Tablet SAMANTHA ([facility]) Prednisone 20 MG Oral Tablet prednisone 20 mg tablet prednisone 20 mg tablet completed prednisone 20 MG Oral Tablet SAMANTHA ([facility]) ropinirole 0.25 MG Oral Tablet ropinirole 0.25 mg tabl et ropinirole 0.25 mg tablet completed ropinirole 0.25 MG Oral Tablet SAMANTHA ([facility]) Ergocalciferol 33143 UNT Oral Capsule Vi tamin D2 1,250 mcg (50,000 unit) capsule Vitamin D2 1,250 mcg (50,000 unit) capsule completed ergocalciferol 1.25 MG Oral Capsule SAMANTHA ([facility]) Ketorolac Tromethamine 10 MG Oral Tablet ketorolac 10 mg tablet TAKE ONE TABLET BY MOUTH EVERY 6 HOURS WITH MEALS FOR 5 DAYS ketorolac 10 mg tablet TAKE ONE TABLET BY MOUTH EVERY 6 HOURS WITH MEALS FOR 5 DAYS completed ketorolac tromethamine 10 MG Oral Tablet [facility] ([facility]) Acetaminophen 325 MG / Oxycodone Hydroch loride 5 MG Oral Tablet oxycodone- acetaminophen 5 mg-325 mg tablet oxycodone-acetaminophen 5 mg-325 mg tablet completed acetaminop hen 325 MG / oxycodone hydrochloride 5 MG Oral Tablet [facility] ([facility]) Fluoxetine 20 MG Oral Capsule fluoxetine 20 mg capsule fluox etine 20 mg capsule completed fluoxetine 20 MG Oral Capsule [facility] ([facility]) Nystatin 192814 UNT/ML Oral Suspension nystatin 100,00 0 unit/mL oral suspension nystatin 100,000 unit/mL oral suspension completed nystatin 149913 UNT/ML Oral Suspension [facility]TH[facility] ([facility]) Metronidazole 500 MG Oral Tablet metronidazole 500 mg tablet metronidazole 500 mg tablet completed metronidazol e 500 MG Oral Tablet [facility] ([facility]) Ketorolac Tromethamine 10 MG Oral Tablet ketorolac 10 mg tablet ketorolac 10 mg tablet completed ketorolac trome thamine 10 MG Oral Tablet [facility] ([facility]) Escitalopram 10 MG Oral Tablet escitalop kennedi 10 mg tablet TAKE ONE TABLET BY MOUTH EVERY DAY escitalopram 10 mg tablet TAKE ONE TABLET BY MOUTH EVERY DAY completed escitalopram 1 0 MG Oral Tablet [facility] ([facility]) Ergocalciferol 93896 UNT Oral Capsule Vi tamin D2 1,250 mcg (50,000 unit) capsule Vitamin D2 1,250 mcg (50,000 unit) capsule completed ergocalciferol 1.25 MG Oral Capsule [facility]TH[facility] ([facility]) Prednisone 10 MG Oral Tablet prednisone 10 mg tablet prednisone 10 mg tablet completed prednisone 10 MG Oral Tablet [facility] ([facility]) Escitalopram 10 MG Oral Tablet escitalop kennedi 10 mg tablet TAKE ONE TABLET BY MOUTH EVERY DAY escitalopram 10 mg tablet TAKE ONE TABLET BY MOUTH EVERY DAY completed escitalopram 1 0 MG Oral Tablet [facility] ([facility]) Prednisone 10 MG Oral Tablet prednisone 10 mg tablet prednisone 10 mg tablet completed prednisone 10 MG Oral Tablet [facility] ([facility]) Metronidazole 500 MG Oral Tablet metronidazole 500 mg tablet metronidazole 500 mg tablet completed metronidazol e 500 MG Oral Tablet [facility] ([facility]) Escitalopram 10 MG Oral Tablet escitalop kennedi 10 mg tablet TAKE ONE TABLET BY MOUTH EVERY DAY escitalopram 10 mg tablet TAKE ONE TABLET BY MOUTH EVERY DAY completed escitalopram 1 0 MG Oral Tablet [facility] ([facility]) Acetaminophen 325 MG / Oxycodone Hydroch loride 5 MG Oral Tablet oxycodone- acetaminophen 5 mg-325 mg tablet oxycodone-acetaminophen 5 mg-325 mg tablet completed acetaminop hen 325 MG / oxycodone hydrochloride 5 MG Oral Tablet [facility] ([facility]) Chantix Starting Month Box 0.5 mg (11)-1 mg (42) tablets in dose pack [id number] completed Chantix Starti ng Month Box 0.5 mg (11)-1 mg (42) tablets in dose pack [facility]THA ([facility]) Ergocalciferol 11861 UNT Oral Capsule Vi tamin D2 1,250 mcg (50,000 unit) capsule Vitamin D2 1,250 mcg (50,000 unit) capsule completed ergocalciferol 1.25 MG Oral Capsule [facility]THA ([facility]) gabapentin 600 MG Oral Tablet gabapentin 600 mg tablet gabap entin 600 mg tablet completed gabapentin 600 MG Oral Tablet [facility] ([facility]) Prednisone 10 MG Oral Tablet prednisone 10 mg tablet prednisone 10 mg tablet completed prednisone 10 MG Oral Tablet [facility] ([facility]) Fluoxetine 20 MG Oral Capsule fluoxetine 20 mg capsule fluox etine 20 mg capsule completed fluoxetine 20 MG Oral Capsule [facility] ([facility]) Chantix Starting Month Box 0.5 mg (11)-1 mg (42) tablets in dose pack [id number] completed Chantix Starti ng Month Box 0.5 mg (11)-1 mg (42) tablets in dose pack [facility] ([facility]) varenicline 1 MG Oral Tablet Chantix Continuing Month Box 1 mg tablet Chantix Continuing Month Box 1 mg tablet compl eted varenicline 1 MG Oral Tablet [facility]TH[facility] ([facility]) varenicline 1 MG Oral Tablet Chantix Con tinuing Month Box 1 mg tablet TAKE ONE TABLET BY MOUTH TWICE A DAY DIRECTED Chantix Continuing Month Box 1 mg tablet TAKE ONE TABLET BY MOUTH TWICE A DAY DIRECTED completed varenicline 1 MG Oral Tablet [facility] ([facility]) Nystatin 638480 UNT/ML Oral Suspension nystatin 100,00 0 unit/mL oral suspension nystatin 100,000 unit/mL oral suspension completed nystatin 504424 UNT/ML Oral Suspension [facility] ([facility]) Prednisone 10 MG Oral Tablet prednisone 10 mg tablet prednisone 10 mg tablet completed prednisone 10 MG Oral Tablet [facility] ([facility]) Acetaminophen 325 MG / Oxycodone Hydroch loride 5 MG Oral Tablet oxycodone- acetaminophen 5 mg-325 mg tablet oxycodone-acetaminophen 5 mg-325 mg tablet completed acetaminop hen 325 MG / oxycodone hydrochloride 5 MG Oral Tablet [facility] ([facility]) ropinirole 0.25 MG Oral Tablet ropinirole 0.25 mg tabl et ropinirole 0.25 mg tablet completed ropinirole 0.25 MG Oral Tablet [facility] ([facility]) Chantix Starting Month Box 0.5 mg (11)-1 mg (42) tablets in dose pack 099511 completed Chantix Starti ng Month Box 0.5 mg (11)-1 mg (42) tablets in dose pack [facility] ([facility]) Gemfibrozil 600 MG Oral Tablet gemfibrozil 600 mg tabl et gemfibrozil 600 mg tablet completed gemfibrozil 600 MG Oral Tablet [facility] ([facility]) varenicline 1 MG Oral Tablet Chantix Continuing Month Box 1 mg tablet Chantix Continuing Month Box 1 mg tablet compl eted varenicline 1 MG Oral Tablet [facility] ([facility]) Ciprofloxacin 500 MG Oral Tablet ciprofl oxacin 500 mg tablet TAKE ONE TABLET BY MOUTH TWICE A DAY ciprofloxacin 500 mg tablet TAKE ONE TAB LET BY MOUTH TWICE A DAY completed ciprofloxacin 50 0 MG Oral Tablet [facility] ([facility]) Prednisone 20 MG Oral Tablet prednisone 20 mg tablet prednisone 20 mg tablet completed prednisone 20 MG Oral Tablet [facility] ([facility]) Ketorolac Tromethamine 10 MG Oral Tablet ketorolac 10 mg tablet ketorolac 10 mg tablet completed ketorolac trome thamine 10 MG Oral Tablet [facility] ([facility]) gabapentin 600 MG Oral Tablet gabapentin 600 mg tablet gabap entin 600 mg tablet completed gabapentin 600 MG Oral Tablet [facility] ([facility]) Prednisone 10 MG Oral Tablet prednisone 10 mg tablet prednisone 10 mg tablet completed prednisone 10 MG Oral Tablet [facility] ([facility]) Acetaminophen 325 MG / Oxycodone Hydroch loride 5 MG Oral Tablet oxycodone- acetaminophen 5 mg-325 mg tablet oxycodone-acetaminophen 5 mg-325 mg tablet completed acetaminop hen 325 MG / oxycodone hydrochloride 5 MG Oral Tablet [facility] ([facility]) varenicline 1 MG Oral Tablet Chantix Continuing Month Box 1 mg tablet Chantix Continuing Month Box 1 mg tablet compl eted varenicline 1 MG Oral Tablet [facility] ([facility]) Tamsulosin hydrochloride 0.4 MG Oral Capsule tamsulosi n 0.4 mg capsule tamsulosin 0.4 mg capsule completed tamsulosin hydrochloride 0.4 MG Oral Capsule [facility] ([facility]) Acetaminophen 325 MG / Oxycodone Hydroch loride 5 MG Oral Tablet oxycodone- acetaminophen 5 mg-325 mg tablet oxycodone-acetaminophen 5 mg-325 mg tablet completed acetaminop hen 325 MG / oxycodone hydrochloride 5 MG Oral Tablet [facility] ([facility]) Tamsulosin hydrochloride 0.4 MG Oral Cap diamond tamsulosin 0.4 mg capsule TAKE ONE CAPSULE BY MOUTH EVERY DAY FOR 7 DAYS tamsulosin 0.4 mg capsule TAKE ONE CAPSU LE BY MOUTH EVERY DAY FOR 7 DAYS complet ed tamsulosin hydrochloride 0.4 MG Oral Capsule [facility] ([facility]) Acetaminophen 325 MG / Oxycodone Hydroch loride 5 MG Oral Tablet oxycodone- acetaminophen 5 mg-325 mg tablet oxycodone-acetaminophen 5 mg-325 mg tablet completed acetaminop hen 325 MG / oxycodone hydrochloride 5 MG Oral Tablet [facility] ([facility]) Fluoxetine 20 MG Oral Capsule fluoxetine 20 mg capsule fluox etine 20 mg capsule completed fluoxetine 20 MG Oral Capsule [facility] ([facility]) Tamsulosin hydrochloride 0.4 MG Oral Capsule tamsulosi n 0.4 mg capsule tamsulosin 0.4 mg capsule completed tamsulosin hydrochloride 0.4 MG Oral Capsule [facility] ([facility]) ropinirole 0.25 MG Oral Tablet ropinirole 0.25 mg tabl et ropinirole 0.25 mg tablet completed ropinirole 0.25 MG Oral Tablet [facility] ([facility]) Nystatin 360676 UNT/ML Oral Suspension nystatin 100,00 0 unit/mL oral suspension nystatin 100,000 unit/mL oral suspension completed nystatin 157084 UNT/ML Oral Suspension [facility] ([facility]) Chantix Starting Month Box 0.5 mg (11)-1 mg (42) tablets in dose pack 571233 completed Chantix Starti ng Month Box 0.5 mg (11)-1 mg (42) tablets in dose pack [facility] ([facility]) Nystatin 125263 UNT/ML Oral Suspension nystatin 100,00 0 unit/mL oral suspension nystatin 100,000 unit/mL oral suspension completed nystatin 760494 UNT/ML Oral Suspension [facility] ([facility]) Tamsulosin hydrochloride 0.4 MG Oral Cap diamond tamsulosin 0.4 mg capsule TAKE ONE CAPSULE BY MOUTH EVERY DAY FOR 7 DAYS tamsulosin 0.4 mg capsule TAKE ONE CAPSU LE BY MOUTH EVERY DAY FOR 7 DAYS complet ed tamsulosin hydrochloride 0.4 MG Oral Capsule [facility] ([facility]) Prednisone 20 MG Oral Tablet prednisone 20 mg tablet prednisone 20 mg tablet completed prednisone 20 MG Oral Tablet [facility] ([facility]) Ergocalciferol 89727 UNT Oral Capsule Vi tamin D2 1,250 mcg (50,000 unit) capsule Vitamin D2 1,250 mcg (50,000 unit) capsule completed ergocalciferol 1.25 MG Oral Capsule [facility] ([facility]) Ciprofloxacin 500 MG Oral Tablet ciprofl oxacin 500 mg tablet TAKE ONE TABLET BY MOUTH TWICE A DAY ciprofloxacin 500 mg tablet TAKE ONE TAB LET BY MOUTH TWICE A DAY completed ciprofloxacin 50 0 MG Oral Tablet [facility] ([facility]) Prednisone 20 MG Oral Tablet prednisone 20 mg tablet prednisone 20 mg tablet completed prednisone 20 MG Oral Tablet [facility] ([facility]) Chantix Starting Month Box 0.5 mg (11)-1 mg (42) tablets in dose pack 498086 completed Chantix Starti ng Month Box 0.5 mg (11)-1 mg (42) tablets in dose pack [facility] ([facility]) Prednisone 20 MG Oral Tablet prednisone 20 mg tablet prednisone 20 mg tablet completed prednisone 20 MG Oral Tablet [facility] ([facility]) Fluoxetine 20 MG Oral Capsule fluoxetine 20 mg capsule fluox etine 20 mg capsule completed fluoxetine 20 MG Oral Capsule [facility] ([facility]) Metronidazole 500 MG Oral Tablet metronidazole 500 mg tablet metronidazole 500 mg tablet completed metronidazol e 500 MG Oral Tablet [facility] ([facility]) ropinirole 0.25 MG Oral Tablet ropinirole 0.25 mg tabl et ropinirole 0.25 mg tablet completed ropinirole 0.25 MG Oral Tablet [facility] ([facility]) Escitalopram 10 MG Oral Tablet escitalop kennedi 10 mg tablet Take 1 tablet every day by oral route for 30 days. escitalopram 10 mg tablet Take 1 tablet every day by oral route for 30 days. 1 completed escitalopram 10 MG Oral Tablet [facility] ([facility]) Chantix Starting Month Box 0.5 mg (11)-1 mg (42) tablets in dose pack 644596 completed Chantix Starti ng Month Box 0.5 mg (11)-1 mg (42) tablets in dose pack [facility] ([facility]) Fluoxetine 20 MG Oral Capsule fluoxetine 20 mg capsule fluox etine 20 mg capsule completed fluoxetine 20 MG Oral Capsule [facility] ([facility]) Metronidazole 500 MG Oral Tablet metronidazole 500 mg tablet metronidazole 500 mg tablet completed metronidazol e 500 MG Oral Tablet [facility] ([facility]) Prednisone 20 MG Oral Tablet prednisone 20 mg tablet prednisone 20 mg tablet completed prednisone 20 MG Oral Tablet [facility] ([facility]) gabapentin 600 MG Oral Tablet gabapentin 600 mg tablet gabap entin 600 mg tablet completed gabapentin 600 MG Oral Tablet [facility]THA ([facility]) Fluoxetine 20 MG Oral Capsule fluoxetine 20 mg capsule fluox etine 20 mg capsule completed fluoxetine 20 MG Oral Capsule [facility] ([facility]) Ergocalciferol 34051 UNT Oral Capsule Vi tamin D2 1,250 mcg (50,000 unit) capsule Vitamin D2 1,250 mcg (50,000 unit) capsule completed ergocalciferol 1.25 MG Oral Capsule [facility]THA ([facility]) varenicline 1 MG Oral Tablet Chantix Con tinuing Month Box 1 mg tablet TAKE ONE TABLET BY MOUTH TWICE A DAY DIRECTED Chantix Continuing Month Box 1 mg tablet TAKE ONE TABLET BY MOUTH TWICE A DAY DIRECTED completed varenicline 1 MG Oral Tablet [facility]THA ([facility]) Nystatin 582612 UNT/ML Oral Suspension nystatin 100,00 0 unit/mL oral suspension nystatin 100,000 unit/mL oral suspension completed nystatin 588248 UNT/ML Oral Suspension [facility]THA ([facility]) Nystatin 065657 UNT/ML Oral Suspension nystatin 100,00 0 unit/mL oral suspension nystatin 100,000 unit/mL oral suspension completed nystatin 878633 UNT/ML Oral Suspension [facility]THA ([facility]) Chantix Starting Month Box 0.5 mg (11)-1 mg (42) tablets in dose pack 615904 completed Chantix Starti ng Month Box 0.5 mg (11)-1 mg (42) tablets in dose pack [facility] ([facility]) Escitalopram 10 MG Oral Tablet escitalop kennedi 10 mg tablet TAKE ONE TABLET BY MOUTH EVERY DAY escitalopram 10 mg tablet TAKE ONE TABLET BY MOUTH EVERY DAY completed escitalopram 1 0 MG Oral Tablet [facility] ([facility]) Prednisone 10 MG Oral Tablet prednisone 10 mg tablet prednisone 10 mg tablet completed prednisone 10 MG Oral Tablet [facility] ([facility]) ropinirole 0.25 MG Oral Tablet ropinirole 0.25 mg tabl et ropinirole 0.25 mg tablet completed ropinirole 0.25 MG Oral Tablet [facility] ([facility]) gabapentin 600 MG Oral Tablet gabapentin 600 mg tablet gabap entin 600 mg tablet completed gabapentin 600 MG Oral Tablet [facility] ([facility]) Ergocalciferol 58953 UNT Oral Capsule Vi tamin D2 1,250 mcg (50,000 unit) capsule Vitamin D2 1,250 mcg (50,000 unit) capsule completed ergocalciferol 1.25 MG Oral Capsule [facility] ([facility]) gabapentin 600 MG Oral Tablet gabapentin 600 mg tablet gabap entin 600 mg tablet completed gabapentin 600 MG Oral Tablet [facility]) Escitalopram 10 MG Oral Tablet escitalop kennedi 10 mg tablet TAKE ONE TABLET BY MOUTH EVERY DAY escitalopram 10 mg tablet TAKE ONE TABLET BY MOUTH EVERY DAY completed escitalopram 1 0 MG Oral Tablet [facility] ([facility]) ropinirole 0.25 MG Oral Tablet ropinirole 0.25 mg tabl et ropinirole 0.25 mg tablet completed ropinirole 0.25 MG Oral Tablet [facility] ([facility]) ropinirole 0.25 MG Oral Tablet ropinirole 0.25 mg tabl et ropinirole 0.25 mg tablet completed ropinirole 0.25 MG Oral Tablet [facility]TH[facility] ([facility]) Metronidazole 500 MG Oral Tablet metronidazole 500 mg tablet metronidazole 500 mg tablet completed metronidazol e 500 MG Oral Tablet [facility] ([facility]) Prednisone 20 MG Oral Tablet prednisone 20 mg tablet prednisone 20 mg tablet completed prednisone 20 MG Oral Tablet [facility] ([facility]) gabapentin 600 MG Oral Tablet gabapentin 600 mg tablet gabap entin 600 mg tablet completed gabapentin 600 MG Oral Tablet [facility] ([facility]) varenicline 1 MG Oral Tablet Chantix Continuing Month Box 1 mg tablet Chantix Continuing Month Box 1 mg tablet compl eted varenicline 1 MG Oral Tablet [facility]THA ([facility]) Nystatin 564672 UNT/ML Oral Suspension nystatin 100,00 0 unit/mL oral suspension nystatin 100,000 unit/mL oral suspension completed nystatin 380251 UNT/ML Oral Suspension [facility]TH[facility] ([facility]) Gemfibrozil 600 MG Oral Tablet gemfibrozil 600 mg tabl et gemfibrozil 600 mg tablet completed gemfibrozil 600 MG Oral Tablet [facility] ([facility]) Ketorolac Tromethamine 10 MG Oral Tablet ketorolac 10 mg tablet TAKE ONE TABLET BY MOUTH EVERY 6 HOURS WITH MEALS FOR 5 DAYS ketorolac 10 mg tablet TAKE ONE TABLET BY MOUTH EVERY 6 HOURS WITH MEALS FOR 5 DAYS completed ketorolac tromethamine 10 MG Oral Tablet [facility] ([facility]) Ciprofloxacin 500 MG Oral Tablet ciprofl oxacin 500 mg tablet TAKE ONE TABLET BY MOUTH EVERY 12 HOURS FOR 7 DAYS ciprofloxacin 500 mg tablet TAKE ONE TAB LET BY MOUTH EVERY 12 HOURS FOR 7 DAYS comple efrain ciprofloxacin 500 MG Oral Tablet [facility] ([facility]) gabapentin 600 MG Oral Tablet gabapentin 600 mg tablet gabap entin 600 mg tablet completed gabapentin 600 MG Oral Tablet [facility] ([facility]) Prednisone 10 MG Oral Tablet prednisone 10 mg tablet prednisone 10 mg tablet completed prednisone 10 MG Oral Tablet [facility] ([facility]) Ergocalciferol 97266 UNT Oral Capsule Vi tamin D2 1,250 mcg (50,000 unit) capsule Vitamin D2 1,250 mcg (50,000 unit) capsule completed ergocalciferol 1.25 MG Oral Capsule [facility]THA ([facility]) Fluoxetine 20 MG Oral Capsule fluoxetine 20 mg capsule fluox etine 20 mg capsule completed fluoxetine 20 MG Oral Capsule [facility] ([facility]) Insurance Providers Payer name Policy type / Coverage type Policy ID Covered democrat ID Covered democrat's relationship to masters Policy Masters Plan Information [facility] [id number] SP [id number] [place] [id number] SP [id number] [facility] [id number] SP [id number] [facility] O [id number] S [id number] MEDICAID [id number] SP [id number] Medicaid S [id number] S [id number] Managed Care - [facility] Community Plan P [id number] S [id number] Medicaid S [id number] S [id number] MEDICAID M [id number] S [id number] Managed Care - [facility] Community Plan P [id number] S [id number] [facility] Health Maintenance Organization (HMO) [id number] Self [id number] [facility]-Medicaid [id number] ANSI-Medicaid [id number] Managed Care - Community Plan [facility] P [id number] S [id number] ANSI-Medicaid [id number] ANSI-Medicaid [id number] ANSI-Medicaid [id number] ANSI-Medicaid [id number] Medicaid S [id number] S [id number] [facility] Commercial [id number] Self [id number] ANSI-Medicaid [id number] ANSI-Medicaid [id number] ANSI-Medicaid [id number] ANSI-Medicaid [id number] ANSI-Medicaid [id number] ANSI-Medicaid [id number] [facility] Care - [facility] [id number] S [id number] ANSI-Medicaid [id number] ANSI-Medicaid [id number] ANSI-Medicaid [id number] ANSI-Medicaid [id number] [facility] [id number] Self [id number] ANSI-Medicaid [id number] ANSI-Medicaid [id number] ANSI-Medicaid [id number] ANSI-Medicaid [id number] ANSI-Medicaid [id number] ANSI-Medicaid [id number] ANSI-Medicaid [id number] ANSI-Medicaid [id number] [facility] ([facility]) [id number] Self [id number] ANSI-Medicaid [id number] ANSI-Medicaid [id number] ANSI-Medicaid [id number] ANSI-Medicaid [id number] ANSI-Medicaid [id number] ANSI-Medicaid [id number] ANSI-Medicaid [id number] ANSI-Medicaid [id number] [facility] Maintenance [facility] ([facility]) [id number] Self [id number] [facility] [id number] Self [id number] [employer] COMMUNITY PLAN MCDHMO [id number] SP [id number] [employer] COMMUNITY PLAN MCDHMO [id number] SP [id number] Managed Care - Community Plan [facility] P [id number] S [id number] Medicaid S [id number] S [id number] [facility] Maintenance Organization (HMO) [id number] Self [id number] [employer] [facility] Maintenance Organization (HMO) [id number] Self [id number] [place] [facility]/Community [facility] Maintenance Organization (HMO) [id number] Self [id number] [employer] [facility]/Community [facility] Maintenance Organization (HMO) Self [employer] Community Plan Commercial Self [employer] COMMUNITY PLAN MCDHMO [id number] SP [id number] [employer] COMMUNITY PLAN MCDHMO [id number] SP [id number] [facility] O [id number] S [id number] Medicaid Dental P [id number] S [id number] Problems, Conditions, and Diagnoses Code Display Name Description Problem Type Effective Dates Data Source(s) N20.0 [id number] Nephrolithiasis Problem 08/01/2020 12:00:00 AM EST eCW1 ([facility]) N48.89 [id number] Penile pain Problem 08/01/2020 12:00:[address] eCW1 ([facility]) [id number] Type 2 diabetes mellitus Type 2 diabetes mellitus Prob paul 07/06/2020 12:00:00 AM EST [facility] ([facility]) 592.0 Calculus of kidney Calculus of kidney 0 09:32:28 AM EDT [facility] [id number] Kidney stone Kidney Stone Problem 01/17/2020 12:00:00 A M EDT [facility] ([facility]) [id number] Kidney stone Kidney Stone Problem 01/17/2020 12:00:00 A M EDT [facility] ([facility]) [id number] Kidney stone Kidney Stone Problem 01/17/2020 12:00:00 A M EDT [facility] ([facility]) [id number] Kidney stone Kidney Stone Problem 01/17/2020 12:00:00 A M EDT [facility] ([facility]) [id number] Clinical finding Clinical Finding Problem 01/17/2020 12 :00:00 AM EDT SAMANTHA ([facility]) [id number] Clinical finding Clinical Finding Problem 01/17/2020 12 :00:00 AM EDT SAMANTHA ([facility]) [id number] Kidney stone Kidney Stone Problem 01/17/2020 12:00:00 A M EDT SAMANTHA ([facility]) [id number] Clinical finding Clinical Finding Problem 01/17/2020 12 :00:00 AM EDT SAMANTHA ([facility]) G54.0 Brachial plexus disorders Left thoracic outlet syndrom e 09/30/2019 02:24:08 PM EDT [facility] 719.43 Pain in right wrist Pain in right wrist 020 01:42:43 PM EST [facility] E78.1 Pure hyperglyceridemia Familial hypertriglyceridemia 08/26/2019 01:42:43 PM EST [facility] [id number] Type 2 diabetes mellitus without complic ations Type 2 diabetes mellitus without complications 08/26/2019 01:42:43 PM EST [facility] [id number] Pure hyperglyceridemia Pure Hyperglyceridemia Problem 08/26/2019 12:00:00 AM EST SAMANTHA ([facility]) 100114434 Pure hyperglyceridemia Pure Hyperglyceridemia Problem 08/26/2019 12:00:00 AM EST SAMANTHA ([facility]) [id number] Pure hyperglyceridemia Pure Hyperglyceridemia Problem 08/26/2019 12:00:00 AM EST SAMANTHA ([facility]) 062041764 Pure hyperglyceridemia Pure Hyperglyceridemia Problem 08/26/2019 12:00:00 AM EST SAMANTHA ([facility]) [id number] Pure hyperglyceridemia Pure Hyperglyceridemia Problem 08/26/2019 12:00:00 AM EST SAMANTHA ([facility]) [id number] Pure hyperglyceridemia Pure Hyperglyceridemia Problem 08/26/2019 12:00:00 AM EST SAMANTHA ([facility]) 780804983 Pure hyperglyceridemia Pure Hyperglyceridemia Problem 08/26/2019 12:00:00 AM EST SAMANTHA ([facility]) 521.00 Dental caries Dental caries 08/05/2019 11:35:20 AM EST [facility] [id number] 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 Secondary to Dental Caries Problem 08/05/2019 12:00:00 AM EST A THENA ([facility]) [id number] 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 Secondary to Dental Caries Problem 08/05/2019 12:00:00 AM EST A THENA ([facility]) 369457742 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 Secondary to Dental Caries Problem 08/05/2019 12:00:00 AM EST A THENA ([facility]) 221106864 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 Secondary to Dental Caries Problem 08/05/2019 12:00:00 AM EST A THENA ([facility]) [id number] 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 Secondary to Dental Caries Problem 08/05/2019 12:00:00 AM EST A THENA ([facility]) 408629174 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 Secondary to Dental Caries Problem 08/05/2019 12:00:00 AM EST A THENA ([facility]) [id number] 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 Secondary to Dental Caries Problem 08/05/2019 12:00:00 AM EST A THENA ([facility]) [id number] Type 2 diabetes mellitus without complic ation Type 2 Diabetes Mellitus without Complication Problem 06/18/2019 12:00:00 AM EST SAMANTHA ([facility]) [id number] Type 2 diabetes mellitus without complic ation Type 2 Diabetes Mellitus without Complication Problem 06/18/2019 12:00:00 AM EST SAMANTHA ([facility]) 899670157 Type 2 diabetes mellitus without complic ation Type 2 Diabetes Mellitus without Complication Problem 06/18/2019 12:00:00 AM EST SAMANTHA ([facility]) 055770908 Type 2 diabetes mellitus without complic ation Type 2 Diabetes Mellitus without Complication Problem 06/18/2019 12:00:00 AM EST SAMANTHA ([facility]) [id number] Type 2 diabetes mellitus without complic ation Type 2 Diabetes Mellitus without Complication Problem 06/18/2019 12:00:00 AM EST SAMANTHA ([facility]) [id number] Clinical finding Clinical Finding Problem 06/18/2019 12 :00:00 AM EST SAMANTHA ([facility]) [id number] Type 2 diabetes mellitus without complic ation Type 2 Diabetes Mellitus without Complication Problem 06/18/2019 12:00:00 AM EST SAMANTHA ([facility]) 087622172 Type 2 diabetes mellitus without complic ation Type 2 Diabetes Mellitus without Complication Problem 06/18/2019 12:00:00 AM EST SAMANTHA ([facility]) [id number] Influenza vaccine needed Influenza Vaccine Needed Pro blem 05/04/2019 12:00:00 AM EST - 06/12/2020 12:00:00 AM EST SAMANTHA ([facility]) [id number] Influenza vaccine needed Influenza Vaccine Needed Pro blem 05/04/2019 12:00:00 AM EST - 06/12/2020 12:00:00 AM EST SAMANTHA ([facility]) [id number] Influenza vaccine needed Influenza Vaccine Needed Pro blem 05/04/2019 12:00:00 AM EST - 06/12/2020 12:00:00 AM EST SAMANTHA ([facility]) [id number] Influenza vaccine needed Influenza Vaccine Needed Pro blem 05/04/2019 12:00:00 AM EST - 06/12/2020 12:00:00 AM EST SAMANTHA ([facility]) [id number] Influenza vaccine needed Influenza Vaccine Needed Pro blem 05/04/2019 12:00:00 AM EST - 06/12/2020 12:00:00 AM EST SAMANTHA ([facility]) 306491771 SNOMED CT Concept SNOMED CT Concept Problem 08/29 12:00:00 AM [facility] - 04/27/2020 12:00:00 AM EDT SAMANTHA ([facility]) 780341749 Procedure by method Procedure by Method Problem 0 08/30/2015 12:00:00 AM EST - 04/27/2020 12:00:00 AM EDT SAMANTHA ([facility]) 105370216 Tobacco user Tobacco User Problem 08/30/2015 12:0 0:00 AM EST - 06/12/2020 12:00:00 AM EST SAMANTHA ([facility]) 151203276 SNOMED CT Concept SNOMED CT Concept Problem 08/29 12:00:00 AM EST - 04/27/2020 12:00:00 AM EDT SAMANTHA ([facility]) [id number] Procedure by method Procedure by Method Problem 0 08/30/2015 12:00:00 AM EST - 04/27/2020 12:00:00 AM EDT SAMANTHA ([facility]) 397388669 Tobacco user Tobacco User Problem 08/30/2015 12:0 0:00 AM EST - 06/12/2020 12:00:00 AM EST SAMANTHA ([facility]) 937878490 SNOMED CT Concept SNOMED CT Concept Problem 08/29 12:00:00 AM EST - 04/27/2020 12:00:00 AM EDT SAMANTHA ([facility]) 442710058 Procedure by method Procedure by Method Problem 0 08/30/2015 12:00:00 AM EST - 04/27/2020 12:00:00 AM EDT SAMANTHA ([facility]) [id number] Tobacco user Tobacco User Problem 08/30/2015 12:0 0:00 AM EST - 06/12/2020 12:00:00 AM EST SAMANTHA ([facility]) 977575758 SNOMED CT Concept SNOMED CT Concept Problem 08/29 12:00:00 AM EST - 04/27/2020 12:00:00 AM EDT SAMANTHA ([facility]) 477791718 Procedure by method Procedure by Method Problem 0 08/30/2015 12:00:00 AM EST - 04/27/2020 12:00:00 AM EDT SAMANTHA ([facility]) [id number] Tobacco user Tobacco User Problem 08/30/2015 12:0 0:00 AM EST - 06/12/2020 12:00:00 AM EST SAMANTHA ([facility]) 638361969 SNOMED CT Concept SNOMED CT Concept Problem 08/29 12:00:00 AM EST - 04/27/2020 12:00:00 AM EDT SAMANTHA ([facility]) 396837871 Procedure by method Procedure by Method Problem 0 08/30/2015 12:00:00 AM EST - 04/27/2020 12:00:00 AM EDT SAMANTHA ([facility]) [id number] Tobacco user Tobacco User Problem 08/30/2015 12:0 0:00 AM EST - 06/12/2020 12:00:00 AM EST SAMANTHA ([facility]) 245020686 SNOMED CT Concept SNOMED CT Concept Problem 08/29 12:00:00 AM EST - 04/27/2020 12:00:00 AM EDT SAMANTHA ([facility]) 769390390 Procedure by method Procedure by Method Problem 0 08/30/2015 12:00:00 AM EST - 04/27/2020 12:00:00 AM EDT SAMANTHA ([facility]) 059312881 SNOMED CT Concept SNOMED CT Concept Problem 08/29 12:00:00 AM EST - 04/27/2020 12:00:00 AM EDT SAMANTHA ([facility]) [id number] Procedure by method Procedure by Method Problem 0 08/30/2015 12:00:00 AM EST - 04/27/2020 12:00:00 AM EDT SAMANTHA ([facility]) Surgeries/Procedures Procedure Description Date Indications Data Source(s) US, abdomen 07/31/2020 12:00:00 AM EST A THENA ([facility]) US, abdomen 07/31/2020 12:00:00 AM EST A THENA ([facility]) Apply Cast Short Leg Walking 07/19/2020 12:00:00 AM ES T [facility] ([facility] ) MRI Lower Extremity Any Joint 07/12/2020 12:00:[address] [facility] ([facility] ) RADEX ANKLE COMPLETE MINIMUM 3 VIEWS 07/06/2020 12:00: 00 AM EST [facility] ([facility] ) RADEX FOOT COMPLETE MINIMUM 3 VIEWS 07/06/2020 12:00:0 0 AM EST [facility] ([facility] ) RADEX FOOT COMPLETE MINIMUM 3 VIEWS 07/06/2020 12:00:0 0 AM EST [facility] ([facility] ) MRI SPINAL CANAL LUMBAR W/O CONTRAST MATERIAL 02/05/20 12:00:00 AM EDT [facility] ([facility] ) MRI SPINAL CANAL LUMBAR W/O CONTRAST MATERIAL 02/05/20 12:00:00 AM EDT [facility] ([facility] ) PHYSICIAN TELEPHONE EVALUATION 11-20 MIN 10/01/2019 12 :00:00 AM EDT eCW1 ([facility]) DESTROY LUMB/SAC FACET JNT 09/15/2019 12:00:00 AM EDT eCW1 ([facility]) RADXPS IN END [id number] 09/15/2019 12:00:00 AM ED T eCW1 ([facility]) Needle electromyography, each extremity, with related paraspinal areas, when performed, done with nerve conduction, amplitude and latency/velocity study; complete, five or more muscles studied, innervated by three or more nerves or four or more spinal levels (list separately in addition to the code for primary procedure). 08/05/2019 12:00:00 AM EST MEDEN T ([facility], ) Needle electromyography, each extremity, with related paraspinal areas, when performed, done with nerve conduction, amplitude and latency/velocity study; complete, five or more muscles studied, innervated by three or more nerves or four or more spinal levels (list separately in addition to the code for primary procedure). 08/05/2019 12:00:00 AM EST MEDEN T ([facility], ) 06252 Nerve conduction studies 13 or more studies NEW 201208/05/2019 12:00:00 AM EST [facility] ([facility] ) ESTABILISHED PATIENT [facility] FACILITY CHARGE 020 12:00:00 AM EST eCW1 ([facility]) INJ PARAVERT F JNT L/S 1 LEV 07/05/2019 12:00:00 AM ES T eCW1 ([facility]) Results ID Date Data Source [id number] 08/04/2020 12:00:00 PM EST [facility] Name Value Range Interpretation Code Description Data Shannon rce(s) Supporting Document(s) SARS coronavirus 2 RNA Not Detected [facility] [place] This lab was ordered by [facility] and reported by [facility]. ID Date Data Source [id number] 08/04/2020 09:20:00 AM EST SAMANTHA ([facility]) Name Value Range Interpretation Code Description Data Shannon rce(s) Supporting Document(s) potassium serum 4.1 mEq/L 3.5-5.1 normal Potassium Serum ATHE NA ([facility]) ID Date Data Source URINE CULTURE 08/01/2020 12:00:00 AM EST eCW1 ([facility]) Name Value Range Interpretation Code Description Data Shannon rce(s) Supporting Document(s) URINE CULTURE eCW1 ([facility]) ID Date Data Source [id number] 07/26/2020 09:34:00 AM EST SAMANTHA ([facility]) Name Value Range Interpretation Code Description Data Shannon rce(s) Supporting Document(s) Hemoglobin A1c/Hemoglobin.total in Blood 5.9 % normal Hemoglobin a1C SAMANTHA ([facility]) estimated average glucose 123 mg/dL 60-110 Above high norm al Estimated Average Glucose SAMANTHA ([facility]) ID Date Data Source [id number] 07/26/2020 09:34:00 AM EST SAMANTHA ([facility]) Name Value Range Interpretation Code Description Data Shannon rce(s) Supporting Document(s) triglycerides level 890 mg/dL <150 Above high normal Triglycer ides Level SAMANTHA ([facility]) cholesterol level 333 mg/dL <200 Above high normal Cholesterol Level SAMANTHA ([facility]) cholesterol risk ratio <5 Above high normal Choles terol Risk Ratio SAMANTHA ([facility]) HDL cholesterol 42 mg/dL >40 normal HDL Cholesterol ATHE NA ([facility]) non-HDL-C 291 mg/dL normal Non-hdl-c SAMANTHA ([facility]) ID Date Data Source [id number] 07/26/2020 09:34:00 AM EST SAMANTHA ([facility]) Name Value Range Interpretation Code Description Data Shannon rce(s) Supporting Document(s) glucose, fasting 132 mg/dL 70-100 Above high normal Glucose, Fas ting SAMANTHA ([facility]) blood urea nitrogen 12 mg/dL 7-18 normal Blood Urea Nitro gen SAMANTHA ([facility]) creatinine for GFR 1.00 mg/dL 0.70-1.30 normal Creatinine for GF R SAMANTHA ([facility]) glomerular filtration rate > 60.0 >60 normal Glomerula r Filtration Rate SAMANTHA ([facility]) carbon dioxide level 31 mEq/L 21-32 normal Carbon Dioxide Level SAMANTHA ([facility]) chloride level 104 mEq/L 98-107 normal Chloride Level [place] ([facility]) sodium level 142 mEq/L 136-145 normal Sodium Level SAMANTHA ([facility]) potassium serum 5.3 mEq/L 3.5-5.1 Above high normal Potassium Ser um SAMANTHA ([facility]) anion gap 7 mEq/L 8-16 Below low normal Anion Gap SAMANTHA ( [facility]) AST/SGOT 57 U/L 7-37 Above high normal AST/SGOT [place] ([facility]) calcium level 9.7 mg/dL 8.5-10.1 normal Calcium Level SAMANTHA ( [facility]) alkaline phosphatase 89 U/L 45-117 normal Alkaline Phosph atase SAMANTHA ([facility]) ALT/SGPT 110 U/L 12-78 Above high normal ALT/SGPT SAMANTHA ([facility]) bilirubin,total 0.2 mg/dL 0.2-1.0 normal Bilirubin,total ATHE NA ([facility]) albumin/globulin ratio normal Albumin/globu andria Ratio SAMANTHA ([facility]) total protein 7.4 gm/dL 6.4-8.2 normal Total Protein SAMANTHA ( [facility]) albumin 4.0 gm/dL 3.2-5.2 normal Albumin SAMANTHA ([facility]) ID Date Data Source [id number] 07/26/2020 09:34:00 [facility] Name Value Range Interpretation Code Description Data Shannon rce(s) Supporting Document(s) white blood count 7.1 10 4.0-10.0 normal White Blood Count SAMANTHA ([facility]) red blood count 5.03 10 4.30-6.10 normal Red Blood Count ATHE NA ([facility]) hemoglobin 15.8 g/dL 13.5-17.5 normal Hemoglobin SAMANTHA ([facility]) mean corpuscular volume 95.2 fL 80.0-96.0 normal Mean Corpusc ular Volume SAMANTHA ([facility]) hematocrit 47.9 % 42.0-52.0 normal Hematocrit SAMANTHA ([facility]) mean corpuscular hemoglobin 31.4 pg 27.0-33.0 normal Mean Corpuscular Hemoglobin SAMANTHA ([facility]) red cell distribution width 13.0 % 11.5-14.5 normal Red Cell Distribution Width SAMANTHA ([facility]) mean corpuscular HGB conc 33.0 g/dL 32.0-36.5 normal Mean Corpu scular HGB Conc SAMANTHA ([facility]) platelet count, automated 286 10 150-450 normal Platelet C ount, Automated SAMANTHA ([facility]) nucleated red blood cell % 0.0 % 0-0 normal Nucleated Red Blood Cell % SAMANTHA ([facility]) ID Date Data Source [id number] 05/12/2020 10:05:00 AM EST SAMANTHA ([facility]) Name Value Range Interpretation Code Description Data Shannon rce(s) Supporting Document(s) sohail/creat ratio 9.3 mcg/mg 0.0-30.0 normal Sohail/creat Ratio ATHE NA ([facility]) creatinine, urine 225.0 mg/dL normal Creatinine, Urine SAMANTHA ([facility]) malb urine siemens 21.0 mg/L normal Malb Urine Siemen s SAMANTHA ([facility]) ID Date Data Source [id number] 05/12/2020 10:05:00 AM EST SAMANTHA ([facility]) Name Value Range Interpretation Code Description Data Shannon rce(s) Supporting Document(s) malb urine siemens 21.0 mg/L normal Malb Urine Martin SINGH ([facility]) sohail/creat ratio 9.3 mcg/mg 0.0-30.0 normal Sohail/creat Ratio ATHE NA ([facility]) creatinine, urine 225.0 mg/dL normal Creatinine, Urine SAMANTHA ([facility]) ID Date Data Source [id number] 05/12/2020 10:05:00 AM EST SAMANTHA ([facility]) Name Value Range Interpretation Code Description Data Shannon rce(s) Supporting Document(s) malb urine siemens 21.0 mg/L normal Malb Urine Martin [facility]H ([facility]) sohail/creat ratio 9.3 mcg/mg 0.0-30.0 normal Sohail/creat Ratio ATHE NA ([facility]) creatinine, urine 225.0 mg/dL normal Creatinine, Urine SAMANTHA ([facility]) ID Date Data Source [id number] 05/12/2020 10:05:00 AM EST SAMANTHA ([facility]) Name Value Range Interpretation Code Description Data Shannon rce(s) Supporting Document(s) creatinine, urine 225.0 mg/dL normal Creatinine, Urine SAMANTHA ([facility]) sohail/creat ratio 9.3 mcg/mg 0.0-30.0 normal Sohail/creat Ratio ATHE NA ([facility]) malb urine siemens 21.0 mg/L normal Malb Urine Martin [facility] ([facility]) ID Date Data Source [id number] 05/12/2020 10:05:00 AM EST SAMANTHA ([facility]) Name Value Range Interpretation Code Description Data Shannon rce(s) Supporting Document(s) creatinine, urine 225.0 mg/dL normal Creatinine, Urine SAMANTHA ([facility]) malb urine siemens 21.0 mg/L normal Malb Urine Maritn SINGH ([facility]) sohail/creat ratio 9.3 mcg/mg 0.0-30.0 normal Sohail/creat Ratio ATHE NA ([facility]) ID Date Data Source [id number] 05/12/2020 10:02:00 AM EST SAMANTHA ([facility]) Name Value Range Interpretation Code Description Data Shannon rce(s) Supporting Document(s) potassium serum 4.8 mEq/L 3.5-5.1 normal Potassium Serum ATHE NA ([facility]) ID Date Data Source [id number] 05/12/2020 10:02:00 AM EST SAMANTHA ([facility]) Name Value Range Interpretation Code Description Data Shannon rce(s) Supporting Document(s) potassium serum 4.8 mEq/L 3.5-5.1 normal Potassium Serum ATHE NA ([facility]) ID Date Data Source [id number] 05/12/2020 10:02:00 AM EST SAMANTHA [facility]) Name Value Range Interpretation Code Description Data Shannon rce(s) Supporting Document(s) potassium serum 4.8 mEq/L 3.5-5.1 normal Potassium Serum ATHE NA ([facility]) ID Date Data Source [id number] 05/12/2020 10:02:00 AM EST SAMANTHA ([facility]) Name Value Range Interpretation Code Description Data Shannon rce(s) Supporting Document(s) potassium serum 4.8 mEq/L 3.5-5.1 normal Potassium Serum ATHE NA ([facility]) ID Date Data Source [id number] 05/12/2020 10:02:00 AM EST SAMANTHA [facility]) Name Value Range Interpretation Code Description Data Shannon rce(s) Supporting Document(s) potassium serum 4.8 mEq/L 3.5-5.1 normal Potassium Serum ATHE NA ([facility]) ID Date Data Source [id number] 04/20/2020 09:10:00 AM EDT SAMANTHA ([facility]) Name Value Range Interpretation Code Description Data Shannon rce(s) Supporting Document(s) Hemoglobin A1c/Hemoglobin.total in Blood 5.8 % normal Hemoglobin a1C SAMANTHA ([facility]) estimated average glucose 120 mg/dL 60-110 Above high norm al Estimated Average Glucose SAMANTHA ([facility]) ID Date Data Source [id number] 04/20/2020 09:10:00 AM EDT SAMANTHA ([facility]) Name Value Range Interpretation Code Description Data Shannon rce(s) Supporting Document(s) thyroid stimulating hormone 1.560 uIU/mL 0.358-3.740 normal Thyroid Stimulating Hormone SAMANTHA ([facility]) free T4 0.85 NG/dL 0.76-1.46 normal Free T4 SAMANTHA ([facility]) ID Date Data Source [id number] 04/20/2020 09:10:00 AM EDT SAMANTHA ([facility]) Name Value Range Interpretation Code Description Data Shannon rce(s) Supporting Document(s) triglycerides level 1092 mg/dL <150 Above high normal Triglycer ides Level SAMANTHA ([facility]) HDL cholesterol 49 mg/dL >40 normal HDL Cholesterol ATHE NA ([facility]) cholesterol risk ratio <5 Above high normal Choles terol Risk Ratio SAMANTHA ([facility]) non-HDL-C 260 mg/dL normal Non-hdl-c SAMANTHA ([facility]) cholesterol level 309 mg/dL <200 Above high normal Cholesterol Level SAMANTHA ([facility]) ID Date Data Source [id number] 04/20/2020 09:10:00 AM EDT SAMANTHA ([facility]) Name Value Range Interpretation Code Description Data Shannon rce(s) Supporting Document(s) glucose, fasting 145 mg/dL 70-100 Above high normal Glucose, Fas ting SAMANTHA ([facility]) blood urea nitrogen 12 mg/dL 7-18 normal Blood Urea Nitro gen SAMANTHA ([facility]) chloride level 102 mEq/L 98-107 normal Chloride Level SAMANTHA ([facility]) potassium serum 5.5 mEq/L 3.5-5.1 Above high normal Potassium Ser um SAMANTHA ([facility]) glomerular filtration rate > 60.0 >60 normal Glomerula r Filtration Rate SAMANTHA ([facility]) creatinine for GFR 1.04 mg/dL 0.70-1.30 normal Creatinine for GF R [place] ([facility]) sodium level 137 mEq/L 136-145 normal Sodium Level SAMANTHA (No [facility]) anion gap 6 mEq/L 8-16 Below low normal Anion Gap SAMANTHA ( [facility]) AST/SGOT 32 U/L 7-37 normal AST/SGOT SAMANTHA ([facility]) carbon dioxide level 29 mEq/L 21-32 normal Carbon Dioxide Level SAMANTHA ([facility]) calcium level 9.3 mg/dL 8.5-10.1 normal Calcium Level SAMANTHA ( [facility]) albumin 4.0 gm/dL 3.2-5.2 normal Albumin SAMANTHA ([facility]) bilirubin,total 0.4 mg/dL 0.2-1.0 normal Bilirubin,total ATHE NA ([facility]) alkaline phosphatase 79 U/L 45-117 normal Alkaline Phosph atase SAMANTHA ([facility]) total protein 7.3 gm/dL 6.4-8.2 normal Total Protein SAMANTHA ( [facility]) ALT/SGPT 60 U/L 12-78 normal ALT/SGPT [place] ([facility]) albumin/globulin ratio normal Albumin/globu andria Ratio [place] ([facility]) ID Date Data Source [id number] 04/20/2020 09:10:00 AM EDT [place] ([facility]) Name Value Range Interpretation Code Description Data Shannon rce(s) Supporting Document(s) white blood count 11.0 10 4.0-10.0 Above high normal White Blood Count SAMANTHA ([facility]) hemoglobin 16.0 g/dL 13.5-17.5 normal Hemoglobin SAMANTHA ([facility]) red blood count 5.12 10 4.30-6.10 normal Red Blood Count ATHE NA ([facility]) hematocrit 47.5 % 42.0-52.0 normal Hematocrit SAMANTHA ([facility]) mean corpuscular volume 92.8 fL 80.0-96.0 normal Mean Corpusc ular Volume SAMANTHA ([facility]) mean corpuscular HGB conc 33.7 g/dL 32.0-36.5 normal Mean Corpu scular HGB Conc SAMANTHA ([facility]) red cell distribution width 13.4 % 11.5-14.5 normal Red Cell Distribution Width SAMANTHA ([facility]) mean corpuscular hemoglobin 31.3 pg 27.0-33.0 normal Mean Corpuscular Hemoglobin SAMANTHA ([facility]) mono % 9.4 % 0.0-5.0 Above high normal [place] % SAMANTHA ([facility]) neutrophils % 59.3 % 36.0-66.0 normal Neutrophils % SAMANTHA ( [facility]) lymph % 25.6 % 24.0-44.0 normal Lymph % SAMANTHA ([facility]) platelet count, automated 309 10 150-450 normal Platelet C ount, Automated SAMANTHA ([facility]) baso % 0.9 % 0.0-1.0 normal Baso % SAMANTHA ([facility]) nucleated red blood cell % 0.0 % 0-0 normal Nucleated Red Blood Cell % SAMANTHA ([facility]) immature granulocyte % 2.0 % 0-3.0 normal Immature Gran ulocyte % SAMANTHA ([facility]) eos % 2.8 % 0.0-3.0 normal Eos % SAMANTHA ([facility]) neutrophils # 6.5 10 1.5-8.5 normal Neutrophils # SAMANTHA ( [facility]) mono # 1.0 10 0.0-0.8 Above high normal [place] # SAMANTHA ([facility]) eos # 0.3 10 0.0-0.5 normal Eos # SAMANTHA ([facility]) lymph # 2.8 10 1.5-5.0 normal Lymph # SAMANTHA ([facility]) baso # 0.1 10 0.0-0.2 normal Baso # SAMANTHA ([facility]) ID Date Data Source [id number] 04/20/2020 09:10:00 AM EDT SAMANTHA ([facility]) Name Value Range Interpretation Code Description Data Shannon rce(s) Supporting Document(s) estimated average glucose 120 mg/dL 60-110 Above high norm al Estimated Average Glucose SAMANTHA ([facility]) Hemoglobin A1c/Hemoglobin.total in Blood 5.8 % normal Hemoglobin a1C [place] ([facility]) ID Date Data Source [id number] 04/20/2020 09:10:00 AM EDT SAMANTHA ([facility]) Name Value Range Interpretation Code Description Data Shannon rce(s) Supporting Document(s) thyroid stimulating hormone 1.560 uIU/mL 0.358-3.740 normal Thyroid Stimulating Hormone SAMANTHA ([facility]) free T4 0.85 NG/dL 0.76-1.46 normal Free T4 [place] ([facility]) ID Date Data Source [id number] 04/20/2020 09:10:00 AM EDT SAMANTHA ([facility]) Name Value Range Interpretation Code Description Data Shannon rce(s) Supporting Document(s) cholesterol level 309 mg/dL <200 Above high normal Cholesterol Level SAMANTHA ([facility]) triglycerides level 1092 mg/dL <150 Above high normal Triglycer ides Level SAMANTHA ([facility]) HDL cholesterol 49 mg/dL >40 normal HDL Cholesterol ATHE NA ([facility]) cholesterol risk ratio <5 Above high normal Choles terol Risk Ratio SAMANTHA ([facility]) non-HDL-C 260 mg/dL normal Non-hdl-c [place] ([facility]) ID Date Data Source [id number] 04/20/2020 09:10:00 AM EDT [place] ([facility]) Name Value Range Interpretation Code Description Data Shannon rce(s) Supporting Document(s) creatinine for GFR 1.04 mg/dL 0.70-1.30 normal Creatinine for GF R SAMANTHA ([facility]) blood urea nitrogen 12 mg/dL 7-18 normal Blood Urea Nitro gen SAMANTHA ([facility]) glucose, fasting 145 mg/dL 70-100 Above high normal Glucose, Fas ting SAMANTHA ([facility]) sodium level 137 mEq/L 136-145 normal Sodium Level SAMANTHA (No [facility]) chloride level 102 mEq/L 98-107 normal Chloride Level [place] ([facility]) potassium serum 5.5 mEq/L 3.5-5.1 Above high normal Potassium Ser um SAMANTHA ([facility]) glomerular filtration rate > 60.0 >60 normal Glomerula r Filtration Rate SAMANTHA ([facility]) AST/SGOT 32 U/L 7-37 normal AST/SGOT [place] ([facility]) anion gap 6 mEq/L 8-16 Below low normal Anion Gap SAMANTHA ( [facility]) carbon dioxide level 29 mEq/L 21-32 normal Carbon Dioxide Level [place] ([facility]) calcium level 9.3 mg/dL 8.5-10.1 normal Calcium Level SAMANTHA ( [facility]) bilirubin,total 0.4 mg/dL 0.2-1.0 normal Bilirubin,total ATHE NA ([facility]) total protein 7.3 gm/dL 6.4-8.2 normal Total Protein SAMANTHA ( [facility]) alkaline phosphatase 79 U/L 45-117 normal Alkaline Phosph atase SAMANTHA ([facility]) ALT/SGPT 60 U/L 12-78 normal ALT/SGPT SAM[facility]THA ([facility]) albumin 4.0 gm/dL 3.2-5.2 normal Albumin SAMANTHA ([facility]) albumin/globulin ratio normal Albumin/globu andria Ratio SAMANTHA ([facility]) ID Date Data Source [id number] 04/20/2020 09:10:00 AM EDT SAMANTHA ([facility]) Name Value Range Interpretation Code Description Data Shannon rce(s) Supporting Document(s) white blood count 11.0 10 4.0-10.0 Above high normal White Blood Count SAMANTHA ([facility]) hemoglobin 16.0 g/dL 13.5-17.5 normal Hemoglobin SAMANTHA ([facility]) red blood count 5.12 10 4.30-6.10 normal Red Blood Count ATHE ([facility]) mean corpuscular volume 92.8 fL 80.0-96.0 normal Mean Corpusc ular Volume SAMANTHA ([facility]) mean corpuscular hemoglobin 31.3 pg 27.0-33.0 normal Mean Corpuscular Hemoglobin SAMANTHA ([facility]) hematocrit 47.5 % 42.0-52.0 normal Hematocrit SAMANTHA ([facility]) red cell distribution width 13.4 % 11.5-14.5 normal Red Cell Distribution Width SAMANTHA ([facility]) mean corpuscular HGB conc 33.7 g/dL 32.0-36.5 normal Mean Corpu scular HGB Conc SAMANTHA ([facility]) platelet count, automated 309 10 150-450 normal Platelet C ount, Automated SAMANTHA ([facility]) neutrophils % 59.3 % 36.0-66.0 normal Neutrophils % SAMANTHA ( [facility]) eos % 2.8 % 0.0-3.0 normal Eos % SAMANTHA ([facility]) lymph % 25.6 % 24.0-44.0 normal Lymph % SAMANTHA ([facility]) baso % 0.9 % 0.0-1.0 normal Baso % SAMANTHA ([facility]) mono % 9.4 % 0.0-5.0 Above high normal [place] % SAMANTHA ([facility]) neutrophils # 6.5 10 1.5-8.5 normal Neutrophils # SAMANTHA ( [facility]) immature granulocyte % 2.0 % 0-3.0 normal Immature Gran ulocyte % SAMANTHA ([facility]) nucleated red blood cell % 0.0 % 0-0 normal Nucleated Red Blood Cell % SAMANTHA ([facility]) lymph # 2.8 10 1.5-5.0 normal Lymph # SAMANTHA ([facility]) mono # 1.0 10 0.0-0.8 Above high normal [place] # SAMANTHA ([facility]) eos # 0.3 10 0.0-0.5 normal Eos # SAMANTHA ([facility]) baso # 0.1 10 0.0-0.2 normal Baso # SAMANTHA ([facility]) ID Date Data Source [id number] 04/20/2020 09:10:00 AM EDT [facility]) Name Value Range Interpretation Code Description Data Shannon rce(s) Supporting Document(s) Hemoglobin A1c/Hemoglobin.total in Blood 5.8 % normal Hemoglobin a1C [place] ([facility]) estimated average glucose 120 mg/dL 60-110 Above high norm al Estimated Average Glucose [facility]) ID Date Data Source [id number] 04/20/2020 09:10:00 AM EDT [facility]) Name Value Range Interpretation Code Description Data Shannon rce(s) Supporting Document(s) free T4 0.85 NG/dL 0.76-1.46 normal Free T4 SAMANTHA ([facility]) thyroid stimulating hormone 1.560 uIU/mL 0.358-3.740 normal Thyroid Stimulating Hormone [place] ([facility]) ID Date Data Source [id number] 04/20/2020 09:10:00 AM EDT [facility]) Name Value Range Interpretation Code Description Data Shannon rce(s) Supporting Document(s) triglycerides level 1092 mg/dL <150 Above high normal Triglycer ides Level [place] ([facility]) cholesterol level 309 mg/dL <200 Above high normal Cholesterol Level SAMANTHA ([facility]) non-HDL-C 260 mg/dL normal Non-hdl-c SAMANTHA ([facility]) HDL cholesterol 49 mg/dL >40 normal HDL Cholesterol ATHE NA ([facility]) cholesterol risk ratio <5 Above high normal Choles terol Risk Ratio SAMANTHA ([facility]) ID Date Data Source [id number] 04/20/2020 09:10:00 AM EDT SAMANTHA ([facility]) Name Value Range Interpretation Code Description Data Shannon rce(s) Supporting Document(s) glucose, fasting 145 mg/dL 70-100 Above high normal Glucose, Fas ting SAMANTHA ([facility]) blood urea nitrogen 12 mg/dL 7-18 normal Blood Urea Nitro gen SAMANTHA ([facility]) glomerular filtration rate > 60.0 >60 normal Glomerula r Filtration Rate SAMANTHA ([facility]) creatinine for GFR 1.04 mg/dL 0.70-1.30 normal Creatinine for GF R SAMANTHA ([facility]) carbon dioxide level 29 mEq/L 21-32 normal Carbon Dioxide Level SAMANTHA ([facility]) chloride level 102 mEq/L 98-107 normal Chloride Level SAMANTHA ([facility]) sodium level 137 mEq/L 136-145 normal Sodium Level SAMANTHA (No [facility]) potassium serum 5.5 mEq/L 3.5-5.1 Above high normal Potassium Ser um SAMANTHA ([facility]) anion gap 6 mEq/L 8-16 Below low normal Anion Gap SAMANTHA ( [facility]) ALT/SGPT 60 U/L 12-78 normal ALT/SGPT SAMANTHA ([facility]) AST/SGOT 32 U/L 7-37 normal AST/SGOT SAMANTHA ([facility]) calcium level 9.3 mg/dL 8.5-10.1 normal Calcium Level SAMANTHA ( [facility]) total protein 7.3 gm/dL 6.4-8.2 normal Total Protein SAMANTHA ( [facility]) albumin 4.0 gm/dL 3.2-5.2 normal Albumin SAMANTHA ([facility]) bilirubin,total 0.4 mg/dL 0.2-1.0 normal Bilirubin,total ATHE ([facility]) alkaline phosphatase 79 U/L 45-117 normal Alkaline Phosph atase SAMANTHA ([facility]) albumin/globulin ratio normal Albumin/globu andria Ratio SAMANTHA ([facility]) ID Date Data Source [id number] 04/20/2020 09:10:00 AM EDT SAMANTHA ([facility]) Name Value Range Interpretation Code Description Data Shannon rce(s) Supporting Document(s) white blood count 11.0 10 4.0-10.0 Above high normal White Blood Count SAMANTHA ([facility]) hemoglobin 16.0 g/dL 13.5-17.5 normal Hemoglobin [place] ([facility]) red blood count 5.12 10 4.30-6.10 normal Red Blood Count ATHE ([facility]) mean corpuscular volume 92.8 fL 80.0-96.0 normal Mean Corpusc ular Volume SAMANTHA ([facility]) hematocrit 47.5 % 42.0-52.0 normal Hematocrit SAMANTHA ([facility]) platelet count, automated 309 10 150-450 normal Platelet C ount, Automated SAMANTHA ([facility]) red cell distribution width 13.4 % 11.5-14.5 normal Red Cell Distribution Width SAMANTHA ([facility]) mean corpuscular hemoglobin 31.3 pg 27.0-33.0 normal Mean Corpuscular Hemoglobin SAMANTHA ([facility]) mean corpuscular HGB conc 33.7 g/dL 32.0-36.5 normal Mean Corpu scular HGB Conc SAMANTHA ([facility]) neutrophils % 59.3 % 36.0-66.0 normal Neutrophils % SAMANTHA ( [facility]) mono % 9.4 % 0.0-5.0 Above high normal [place] % SAMANTHA ([facility]) lymph % 25.6 % 24.0-44.0 normal Lymph % SAMANTHA ([facility]) nucleated red blood cell % 0.0 % 0-0 normal Nucleated Red Blood Cell % SAMANTHA ([facility]) immature granulocyte % 2.0 % 0-3.0 normal Immature Gran ulocyte % SAMANTHA ([facility]) eos % 2.8 % 0.0-3.0 normal Eos % SAMANTHA ([facility]) baso % 0.9 % 0.0-1.0 normal Baso % SAMANTHA ([facility]) mono # 1.0 10 0.0-0.8 Above high normal [place] # SAMANTHA ([facility]) neutrophils # 6.5 10 1.5-8.5 normal Neutrophils # SAMANTHA ( [facility]) eos # 0.3 10 0.0-0.5 normal Eos # SAMANTHA ([facility]) lymph # 2.8 10 1.5-5.0 normal Lymph # SAMANTHA ([facility]) baso # 0.1 10 0.0-0.2 normal Baso # SAMANTHA ([facility]) ID Date Data Source [id number] 04/20/2020 09:10:00 AM EDT [place] ([facility]) Name Value Range Interpretation Code Description Data Shannon rce(s) Supporting Document(s) estimated average glucose 120 mg/dL 60-110 Above high norm al Estimated Average Glucose [place] ([facility]) Hemoglobin A1c/Hemoglobin.total in Blood 5.8 % normal Hemoglobin a1C [place] ([facility]) ID Date Data Source [id number] 04/20/2020 09:10:00 AM EDT SAMANTHA ([facility]) Name Value Range Interpretation Code Description Data Shannon rce(s) Supporting Document(s) thyroid stimulating hormone 1.560 uIU/mL 0.358-3.740 normal Thyroid Stimulating Hormone SAMANTHA ([facility]) free T4 0.85 NG/dL 0.76-1.46 normal Free T4 [place] ([facility]) ID Date Data Source [id number] 04/20/2020 09:10:00 AM EDT [place] ([facility]) Name Value Range Interpretation Code Description Data Shannon rce(s) Supporting Document(s) triglycerides level 1092 mg/dL <150 Above high normal Triglycer ides Level SAMANTHA ([facility]) cholesterol risk ratio <5 Above high normal Choles terol Risk Ratio SAMANTHA ([facility]) cholesterol level 309 mg/dL <200 Above high normal Cholesterol Level SAMANTHA ([facility]) non-HDL-C 260 mg/dL normal Non-hdl-c SAMANTHA ([facility]) HDL cholesterol 49 mg/dL >40 normal HDL Cholesterol ATHE NA ([facility]) ID Date Data Source [id number] 04/20/2020 09:10:00 AM EDT [facility]) Name Value Range Interpretation Code Description Data Shannon rce(s) Supporting Document(s) blood urea nitrogen 12 mg/dL 7-18 normal Blood Urea Nitro gen SAMANTHA ([facility]) glucose, fasting 145 mg/dL 70-100 Above high normal Glucose, Fas ting SAMANTHA ([facility]) glomerular filtration rate > 60.0 >60 normal Glomerula r Filtration Rate SAMANTHA ([facility]) potassium serum 5.5 mEq/L 3.5-5.1 Above high normal Potassium Ser um SAMANTHA ([facility]) sodium level 137 mEq/L 136-145 normal Sodium Level SAMANTHA (No [facility]) creatinine for GFR 1.04 mg/dL 0.70-1.30 normal Creatinine for GF R SAMANTHA ([facility]) carbon dioxide level 29 mEq/L 21-32 normal Carbon Dioxide Level SAMANTHA ([facility]) chloride level 102 mEq/L 98-107 normal Chloride Level [place] ([facility]) anion gap 6 mEq/L 8-16 Below low normal Anion Gap SAMANTHA ( [facility]) calcium level 9.3 mg/dL 8.5-10.1 normal Calcium Level SAMANTHA ( [facility]) alkaline phosphatase 79 U/L 45-117 [facility] total protein 7.3 gm/dL 6.4-8.2 normal Total Protein [place] ( [facility]) AST/SGOT 32 U/L 7-37 normal AST/SGOT SAMANTHA ([facility]) bilirubin,total 0.4 mg/dL 0.2-1.0 normal Bilirubin,total ATHE NA ([facility]) ALT/SGPT 60 U/L 12-78 normal ALT/SGPT SAMANTHA ([facility]) albumin 4.0 gm/dL 3.2-5.2 normal Albumin SAMANTHA ([facility]) albumin/globulin ratio normal Albumin/globu andria Ratio SAMANTHA ([facility]) ID Date Data Source [id number] 04/20/2020 09:10:00 AM EDT SAMANTHA ([facility]) Name Value Range Interpretation Code Description Data Shannon rce(s) Supporting Document(s) white blood count 11.0 10 4.0-10.0 Above high normal White Blood Count SAMANTHA ([facility]) hematocrit 47.5 % 42.0-52.0 normal Hematocrit SAMANTHA ([facility]) red blood count 5.12 10 4.30-6.10 normal Red Blood Count ATHE NA ([facility]) hemoglobin 16.0 g/dL 13.5-17.5 normal Hemoglobin SAMANTHA ([facility]) mean corpuscular hemoglobin 31.3 pg 27.0-33.0 normal Mean Corpuscular Hemoglobin SAMANTHA ([facility]) mean corpuscular HGB conc 33.7 g/dL 32.0-36.5 normal Mean Corpu scular HGB Conc SAMANTHA ([facility]) mean corpuscular volume 92.8 fL 80.0-96.0 normal Mean Corpusc ular Volume SAMANTHA ([facility]) red cell distribution width 13.4 % 11.5-14.5 normal Red Cell Distribution Width SAMANTHA ([facility]) platelet count, automated 309 10 150-450 normal Platelet C ount, Automated SAMANTHA ([facility]) lymph % 25.6 % 24.0-44.0 normal Lymph % SAMANTHA ([facility]) neutrophils % 59.3 % 36.0-66.0 normal Neutrophils % SAMANTHA ( [facility]) immature granulocyte % 2.0 % 0-3.0 normal Immature Gran ulocyte % SAMANTHA ([facility]) eos % 2.8 % 0.0-3.0 normal Eos % SAMANTHA ([facility]) baso % 0.9 % 0.0-1.0 normal Baso % SAMANTHA ([facility]) mono % 9.4 % 0.0-5.0 Above high normal [place] % SAMANTHA ([facility]) neutrophils # 6.5 10 1.5-8.5 normal Neutrophils # SAMANTHA ( [facility]) nucleated red blood cell % 0.0 % 0-0 normal Nucleated Red Blood Cell % SAMANTHA ([facility]) lymph # 2.8 10 1.5-5.0 normal Lymph # SAMANTHA ([facility]) mono # 1.0 10 0.0-0.8 Above high normal [place] # SAMANTHA ([facility]) baso # 0.1 10 0.0-0.2 normal Baso # SAMANTHA ([facility]) eos # 0.3 10 0.0-0.5 normal Eos # SAMANTHA ([facility]) ID Date Data Source [id number] 04/20/2020 09:10:00 AM EDT [place] ([facility]) Name Value Range Interpretation Code Description Data Shannon rce(s) Supporting Document(s) Hemoglobin A1c/Hemoglobin.total in Blood 5.8 % normal Hemoglobin a1C SAMANTHA ([facility]) estimated average glucose 120 mg/dL 60-110 Above high norm al Estimated Average Glucose [place] ([facility]) ID Date Data Source [id number] 04/20/2020 09:10:00 AM EDT [place] ([facility]) Name Value Range Interpretation Code Description Data Shannon rce(s) Supporting Document(s) thyroid stimulating hormone 1.560 uIU/mL 0.358-3.740 normal Thyroid Stimulating Hormone [place] ([facility]) free T4 0.85 NG/dL 0.76-1.46 normal Free T4 SAMANTHA ([facility]) ID Date Data Source [id number] 04/20/2020 09:10:00 AM EDT SAMANTHA ([facility]) Name Value Range Interpretation Code Description Data Shannon rce(s) Supporting Document(s) triglycerides level 1092 mg/dL <150 Above high normal Triglycer ides Level SAMANTHA ([facility]) cholesterol risk ratio <5 Above high normal Choles terol Risk Ratio SAMANTHA ([facility]) cholesterol level 309 mg/dL <200 Above high normal Cholesterol Level SAMANTHA ([facility]) non-HDL-C 260 mg/dL normal Non-hdl-c SAMANTHA ([facility]) HDL cholesterol 49 mg/dL >40 normal HDL Cholesterol ATHE ([facility]) ID Date Data Source [id number] 04/20/2020 09:10:00 AM EDT SAMANTHA ([facility]) Name Value Range Interpretation Code Description Data Shannon rce(s) Supporting Document(s) blood urea nitrogen 12 mg/dL 7-18 normal Blood Urea Nitro gen SAMANTHA ([facility]) glucose, fasting 145 mg/dL 70-100 Above high normal Glucose, Fas ting SAMANTHA ([facility]) sodium level 137 mEq/L 136-145 normal Sodium Level SAMANTHA (No [facility]) creatinine for GFR 1.04 mg/dL 0.70-1.30 normal Creatinine for GF R SAMANTHA ([facility]) glomerular filtration rate > 60.0 >60 normal Glomerula r Filtration Rate SAMANTHA ([facility]) chloride level 102 mEq/L 98-107 normal Chloride Level SAMANTHA ([facility]) potassium serum 5.5 mEq/L 3.5-5.1 Above high normal Potassium Ser um SAMANTHA ([facility]) carbon dioxide level 29 mEq/L 21-32 normal Carbon Dioxide Level SAMANTHA ([facility]) anion gap 6 mEq/L 8-16 Below low normal Anion Gap SAMANTHA ( [facility]) ALT/SGPT 60 U/L 12-78 normal ALT/SGPT SAMANTHA ([facility]) calcium level 9.3 mg/dL 8.5-10.1 normal Calcium Level SAMANTHA ( [facility]) AST/SGOT 32 U/L 7-37 normal AST/SGOT SAMANTHA ([facility]) alkaline phosphatase 79 U/L 45-117 normal Alkaline Phosph atase SAMANTHA ([facility]) bilirubin,total 0.4 mg/dL 0.2-1.0 normal Bilirubin,total ATHE ([facility]) total protein 7.3 gm/dL 6.4-8.2 normal Total Protein SAMANTHA ( [facility]) albumin 4.0 gm/dL 3.2-5.2 normal Albumin SAMANTHA ([facility]) albumin/globulin ratio normal Albumin/globu andria Ratio SAMANTHA ([facility]) ID Date Data Source [id number] 04/20/2020 09:10:00 AM EDT SAMANTHA ([facility]) Name Value Range Interpretation Code Description Data Shannon rce(s) Supporting Document(s) white blood count 11.0 10 4.0-10.0 Above high normal White Blood Count SAMANTHA ([facility]) hemoglobin 16.0 g/dL 13.5-17.5 normal Hemoglobin SAMANTHA ([facility]) hematocrit 47.5 % 42.0-52.0 normal Hematocrit SAMANTHA ([facility]) red blood count 5.12 10 4.30-6.10 normal Red Blood Count ATHE ([facility]) mean corpuscular volume 92.8 fL 80.0-96.0 normal Mean Corpusc ular Volume SAMANTHA ([facility]) mean corpuscular hemoglobin 31.3 pg 27.0-33.0 normal Mean Corpuscular Hemoglobin SAMANTHA ([facility]) mean corpuscular HGB conc 33.7 g/dL 32.0-36.5 normal Mean Corpu scular HGB Conc SAMANTHA ([facility]) neutrophils % 59.3 % 36.0-66.0 normal Neutrophils % SAMANTHA ( [facility]) platelet count, automated 309 10 150-450 normal Platelet C ount, Automated SAMANTHA ([facility]) red cell distribution width 13.4 % 11.5-14.5 normal Red Cell Distribution Width SAMANTHA ([facility]) lymph % 25.6 % 24.0-44.0 normal Lymph % SAMANTHA ([facility]) mono % 9.4 % 0.0-5.0 Above high normal [place] % SAMANTHA ([facility]) eos % 2.8 % 0.0-3.0 normal Eos % SAMANTHA ([facility]) baso % 0.9 % 0.0-1.0 normal Baso % R[place] ([facility]) neutrophils # 6.5 10 1.5-8.5 normal Neutrophils # [place] ( [facility]) immature granulocyte % 2.0 % 0-3.0 normal Immature Gran ulocyte % [place] ([facility]) nucleated red blood cell % 0.0 % 0-0 normal Nucleated Red Blood Cell % [place] ([facility]) lymph # 2.8 10 1.5-5.0 normal Lymph # SAMANTHA ([facility]) eos # 0.3 10 0.0-0.5 normal Eos # SAMANTHA ([facility]) baso # 0.1 10 0.0-0.2 normal Baso # SAMANTHA ([facility]) mono # 1.0 10 0.0-0.8 Above high normal [place] # [place] ([facility]) ID Date Data Source [id number] 04/20/2020 09:10:00 AM EDT [place] ([facility]) Name Value Range Interpretation Code Description Data Shannon rce(s) Supporting Document(s) Hemoglobin A1c/Hemoglobin.total in Blood 5.8 % normal Hemoglobin a1C [place] ([facility]) estimated average glucose 120 mg/dL 60-110 Above high norm al Estimated Average Glucose [place] ([facility]) ID Date Data Source [id number] 04/20/2020 09:10:00 AM EDT [facility]) Name Value Range Interpretation Code Description Data Shannon rce(s) Supporting Document(s) thyroid stimulating hormone 1.560 uIU/mL 0.358-3.740 normal Thyroid Stimulating Hormone SAMANTHA ([facility]) free T4 0.85 NG/dL 0.76-1.46 normal Free T4 SAMANTHA ([facility]) ID Date Data Source [id number] 04/20/2020 09:10:00 AM EDT [place] ([facility]) Name Value Range Interpretation Code Description Data Shannon rce(s) Supporting Document(s) cholesterol level 309 mg/dL <200 Above high normal Cholesterol Level SAMANTHA ([facility]) triglycerides level 1092 mg/dL <150 Above high normal Triglycer ides Level SAMANTHA ([facility]) non-HDL-C 260 mg/dL normal Non-hdl-c SAMANTHA ([facility]) HDL cholesterol 49 mg/dL >40 normal HDL Cholesterol ATHE ([facility]) cholesterol risk ratio <5 Above high normal Choles terol Risk Ratio [place] ([facility]) ID Date Data Source [id number] 04/20/2020 09:10:00 AM EDT [place] ([facility]) Name Value Range Interpretation Code Description Data Shannon rce(s) Supporting Document(s) creatinine for GFR 1.04 mg/dL 0.70-1.30 normal Creatinine for GF R SAMANTHA ([facility]) blood urea nitrogen 12 mg/dL 7-18 normal Blood Urea Nitro gen SAMANTHA ([facility]) glucose, fasting 145 mg/dL 70-100 Above high normal Glucose, Fas ting SAMANTHA ([facility]) glomerular filtration rate > 60.0 >60 normal Glomerula r Filtration Rate SAMANTHA ([facility]) sodium level 137 mEq/L 136-145 normal Sodium Level SAMANTHA ([facility]) chloride level 102 mEq/L 98-107 normal Chloride Level SAMANTHA ([facility]) carbon dioxide level 29 mEq/L 21-32 normal Carbon Dioxide Level [place] ([facility]) potassium serum 5.5 mEq/L 3.5-5.1 Above high normal Potassium Ser um SAMANTHA ([facility]) anion gap 6 mEq/L 8-16 Below low normal Anion Gap SAMANTHA ( [facility]) AST/SGOT 32 U/L 7-37 normal AST/SGOT SAMANTHA ([facility]) calcium level 9.3 mg/dL 8.5-10.1 normal Calcium Level SAMANTHA ( [facility]) ALT/SGPT 60 U/L 12-78 normal ALT/SGPT SAMANTHA ([facility]) total protein 7.3 gm/dL 6.4-8.2 normal Total Protein SAMANTHA ( [facility]) alkaline phosphatase 79 U/L 45-117 normal Alkaline Phosph atase SAMANTHA ([facility]) bilirubin,total 0.4 mg/dL 0.2-1.0 normal Bilirubin,total ATHE ([facility]) albumin 4.0 gm/dL 3.2-5.2 normal Albumin SAMANTHA ([facility]) albumin/globulin ratio normal Albumin/globu andria Ratio SAMANTHA ([facility]) ID Date Data Source [id number] 04/20/2020 09:10:00 AM EDT [place] ([facility]) Name Value Range Interpretation Code Description Data Shannon rce(s) Supporting Document(s) red blood count 5.12 10 4.30-6.10 normal Red Blood Count ATHE ([facility]) white blood count 11.0 10 4.0-10.0 Above high normal White Blood Count SAMANTHA ([facility]) hematocrit 47.5 % 42.0-52.0 normal Hematocrit SAMANTHA ([facility]) hemoglobin 16.0 g/dL 13.5-17.5 normal Hemoglobin SAMANTHA ([facility]) mean corpuscular volume 92.8 fL 80.0-96.0 normal Mean Corpusc ular Volume SAMANTHA ([facility]) mean corpuscular hemoglobin 31.3 pg 27.0-33.0 normal Mean Corpuscular Hemoglobin SAMANTHA ([facility]) platelet count, automated 309 10 150-450 normal Platelet C ount, Automated SAMANTHA ([facility]) red cell distribution width 13.4 % 11.5-14.5 normal Red Cell Distribution Width [place] ([facility]) mean corpuscular HGB conc 33.7 g/dL 32.0-36.5 normal Mean Corpu scular HGB Conc SAMANTHA ([facility]) lymph % 25.6 % 24.0-44.0 normal Lymph % [place] ([facility]) mono % 9.4 % 0.0-5.0 Above high normal [place] % SAMANTHA ([facility]) neutrophils % 59.3 % 36.0-66.0 normal Neutrophils % [place] ( [facility]) eos % 2.8 % 0.0-3.0 normal Eos % [place] ([facility]) neutrophils # 6.5 10 1.5-8.5 normal Neutrophils # [place] ( [facility]) nucleated red blood cell % 0.0 % 0-0 normal Nucleated Red Blood Cell % [place] ([facility]) immature granulocyte % 2.0 % 0-3.0 normal Immature Gran ulocyte % [place] ([facility]) baso % 0.9 % 0.0-1.0 normal Baso % [place] ([facility]) lymph # 2.8 10 1.5-5.0 normal Lymph # SAMANTHA ([facility]) mono # 1.0 10 0.0-0.8 Above high normal [place] # SAMANTHA ([facility]) baso # 0.1 10 0.0-0.2 normal Baso # SAMANTHA ([facility]) eos # 0.3 10 0.0-0.5 normal Eos # SAMANTHA ([facility]) ID Date Data Source [id number] 04/20/2020 09:10:00 AM EDT [place] ([facility]) Name Value Range Interpretation Code Description Data Shannon rce(s) Supporting Document(s) estimated average glucose 120 mg/dL 60-110 Above high norm al Estimated Average Glucose [place] ([facility]) Hemoglobin A1c/Hemoglobin.total in Blood 5.8 % normal Hemoglobin a1C [place] ([facility]) ID Date Data Source [id number] 04/20/2020 09:10:00 AM EDT SAMANTHA ([facility]) Name Value Range Interpretation Code Description Data Shannon rce(s) Supporting Document(s) free T4 0.85 NG/dL 0.76-1.46 normal Free T4 SAMANTHA ([facility]) thyroid stimulating hormone 1.560 uIU/mL 0.358-3.740 normal Thyroid Stimulating Hormone SAMANTHA ([facility]) ID Date Data Source [id number] 04/20/2020 09:10:00 AM EDT [place] ([facility]) Name Value Range Interpretation Code Description Data Shannon rce(s) Supporting Document(s) non-HDL-C 260 mg/dL normal Non-hdl-c SAMANTHA ([facility]) cholesterol level 309 mg/dL <200 Above high normal Cholesterol Level SAMANTHA ([facility]) HDL cholesterol 49 mg/dL >40 normal HDL Cholesterol ATHE ([facility]) triglycerides level 1092 mg/dL <150 Above high normal Triglycer ides Level SAMANTHA ([facility]) cholesterol risk ratio <5 Above high normal Choles terol Risk Ratio [place] ([facility]) ID Date Data Source [id number] 04/20/2020 09:10:00 AM EDT SAMANTHA ([facility]) Name Value Range Interpretation Code Description Data Shannon rce(s) Supporting Document(s) glucose, fasting 145 mg/dL 70-100 Above high normal Glucose, Fas ting SAMANTHA ([facility]) sodium level 137 mEq/L 136-145 normal Sodium Level SAMANTHA ([facility]) glomerular filtration rate > 60.0 >60 normal Glomerula r Filtration Rate SAMANTHA ([facility]) blood urea nitrogen 12 mg/dL 7-18 normal Blood Urea Nitro gen SAMANTHA ([facility]) creatinine for GFR 1.04 mg/dL 0.70-1.30 normal Creatinine for GF R SAMANTHA ([facility]) potassium serum 5.5 mEq/L 3.5-5.1 Above high normal Potassium Ser um SAMANTHA ([facility]) chloride level 102 mEq/L 98-107 normal Chloride Level SAMANTHA ([facility]) anion gap 6 mEq/L 8-16 Below low normal Anion Gap SAMANTHA ( [facility]) carbon dioxide level 29 mEq/L 21-32 normal Carbon Dioxide Level SAMANTHA ([facility]) calcium level 9.3 mg/dL 8.5-10.1 normal Calcium Level SAMANTHA ( [facility]) ALT/SGPT 60 U/L 12-78 normal ALT/SGPT SAMANTHA ([facility]) AST/SGOT 32 U/L 7-37 normal AST/SGOT SAMANTHA ([facility]) bilirubin,total 0.4 mg/dL 0.2-1.0 normal Bilirubin,total ATHE ([facility]) alkaline phosphatase 79 U/L 45-117 normal Alkaline Phosph atase SAMANTHA ([facility]) albumin 4.0 gm/dL 3.2-5.2 normal Albumin SAMANTHA ([facility]) albumin/globulin ratio normal Albumin/globu andria Ratio SAMANTHA ([facility]) total protein 7.3 gm/dL 6.4-8.2 normal Total Protein SAMANTHA ( [facility]) ID Date Data Source [id number] 04/20/2020 09:10:00 AM EDT [place] ([facility]) Name Value Range Interpretation Code Description Data Shannon rce(s) Supporting Document(s) white blood count 11.0 10 4.0-10.0 Above high normal White Blood Count SAMANTHA ([facility]) red blood count 5.12 10 4.30-6.10 normal Red Blood Count ATHE ([facility]) hematocrit 47.5 % 42.0-52.0 normal Hematocrit SAMANTHA ([facility]) mean corpuscular volume 92.8 fL 80.0-96.0 normal Mean Corpusc ular Volume SAMANTHA ([facility]) hemoglobin 16.0 g/dL 13.5-17.5 normal Hemoglobin [place] ([facility]) mean corpuscular hemoglobin 31.3 pg 27.0-33.0 normal Mean Corpuscular Hemoglobin [place] ([facility]) platelet count, automated 309 10 150-450 normal Platelet C ount, Automated SAMANTHA ([facility]) red cell distribution width 13.4 % 11.5-14.5 normal Red Cell Distribution Width [place] ([facility]) mean corpuscular HGB conc 33.7 g/dL 32.0-36.5 normal Mean Corpu scular HGB Conc [place] ([facility]) eos % 2.8 % 0.0-3.0 normal Eos % [place] ([facility]) neutrophils % 59.3 % 36.0-66.0 normal Neutrophils % [place] ( [facility]) lymph % 25.6 % 24.0-44.0 normal Lymph % [place] ([facility]) mono % 9.4 % 0.0-5.0 Above high normal [place] % [place] ([facility]) immature granulocyte % 2.0 % 0-3.0 normal Immature Gran ulocyte % [place] ([facility]) neutrophils # 6.5 10 1.5-8.5 normal Neutrophils # SAMANTHA ( [facility]) baso % 0.9 % 0.0-1.0 normal Baso % [place] ([facility]) nucleated red blood cell % 0.0 % 0-0 normal Nucleated Red Blood Cell % [place] ([facility]) baso # 0.1 10 0.0-0.2 normal Baso # SAMANTHA ([facility]) lymph # 2.8 10 1.5-5.0 normal Lymph # [place] ([facility]) eos # 0.3 10 0.0-0.5 normal Eos # [place] ([facility]) mono # 1.0 10 0.0-0.8 Above high normal [place] # [place] ([facility]) ID Date Data Source [id number] 01/17/2020 08:53:33 AM EDT [facility] Measurements & CalculationsHeight: 70 inches (5 ft. [...] or Preferred Language: EnglishFamily and Home Address: [facility] [place] [facility] [place] [address] What is your housing situation today? I have housing Are you worried about losing your housing? NoMoney and Resources What is the highest level of school that you have finished? high school graduate Employed? Yes Your current work situation? FT Insurance: Man[facility] Care - [facility] Community PlanIn the past year, have you or any family members you live with been unable to get any of the following when it was really needed? Denies Insecurity: food, utilities, clothing, exceptional children teacher assistant, phone, legal services, otherWithin the past year [...] MIFH- CAMother- Lymphoma CACancer - Breast (Maternal Grandmother)NM - male - under age 55 (Father)Social/Personal History: Chief Complaintannual examHistory of Present Illness (HPI)44 yo male pt presents for an annual exam. Pt was seen at [facility] ER 4 days ago for kidney [...] during this visit, including review of any uaeg-bpu-eemceds medications, herbal therapies, and/or supplements.Allergy ReviewAllergy List [...] of childrenAssessed:Type 2 diabetes mellitus without complications (QIC85-E37.9) Assessment: Instructions: Significantly improved with an A1c of 6.6, great control and currently at goal. Keep up the same management and great effort! 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 Continue low fat diet, avoid fried and greasy food. Repeat fasting labs in 3 months.Schizophrenia (ICD- 295.90) (AKL49-O01.9) Assessment: Instructions: Continue current Seroquel, moods stable and controlled. Refills sent today.Encounter for general adult medical examination with abnormal findings (ICD-V70.0) (QWZ01-M87.01) Assessment: Instructions: Recommend annual medical appointments. Recommend routine dental and vision care. Recommend influenza vaccines annually and tetanus boosters every 10 years.Removed:Pain in right wrist (ICD-719.43) (WZA42-E33.531), Left thoracic outlet syndrome (FNA14-M20.0), Pleuritic pain (ICD-786.52) (FLD73-G56.1)Patient Instructions/Care Plan: Type 2 diabetes mellitus without [...] HCL TABS) (Mild)* GARLIC (Mild)Orders:COMP METABOLIC PANEL [CPT-39698] CBC W/DIFF [CPT- 96241] HgBA1c [CPT-30509] LIPID PANEL [CPT-11991] Vitamin D 250H Unspecified [CPT-91110] URINE MICROALBUMIN - QUANTIATIVE [CPT-22531] Preventive, Est, (40- 64) [CPT-25138] Follow-Up Return to clinic: in 90 days for follow upAdditional Follow-Up: T2DM, lipidsClinical Visit Summary CompletedMedications:PERCOCET 5- 325 MG ORAL TABLET (OXYCODONE-ACETAMINOPHEN) Take 1 tablet po q 6 hrs prn severe pain; MDD 4 tablets #12[Tablet] x 0 Route:ORAL Entered and Authorized by: Binh ELDER Method used: Electronically to [facility] (retail) [address] [place] [address] Note to Pharmacy: Route: ORAL; Indications: CALCULUS OF KIDNEY RxID: [id number] 100 MG ORAL TABLET (QUETIAPINE FUMARATE) One po bid. #60[Tablet] x 3 Route:ORAL Entered and Authorized by: Binh ELDER Method used: Electronically to [facility] (retail) [address] [place] [address] Note to Pharmacy: Route: ORAL; Indications: SCHIZOPHRENIA RxID: [id number] 600 MG ORAL TABLET (GEMFIBROZIL) Take 1 tablet by mouth twice daily, 30 minutes before breakfast and dinner #60[Tablet] x 5 Route:ORAL Entered and Authorized by: Binh ELDER Method used: Electronically to [facility] (retail) [address] [place] [address] Fax: Note to Pharmacy: Route: ORAL; Indications: FAMILIAL HYPERTRIGLYCERIDEMIA RxID: [id number] HCL ER 500 MG ORAL TABLET EXTENDED RELEASE 24 HOUR (METFORMIN HCL) Take 2 tablets po BID #120[Tablet] x 5 Route:ORAL Entered and Authorized by: Binh ELDER Method used: Electronically to [facility] (retail) [address] [place] [address] Note to Pharmacy: Route: ORAL; RxID: [id number] 0.4 MG ORAL CAPSULE (TAMSULOSIN HCL) one tablet by mouth daily #14[Capsule] x 0 Entered and Authorized by: Binh ELDER Method used: Electronically to [facility] (retail) [address] [place] [address] Note to Pharmacy: Route: ORAL; RxID: [id number] signed by Binh ELDER on 02/01/2020 at 8:30 AM Name Value Range Interpretation Code Description Data Shannon rce(s) Supporting Document(s) ID Date Data Source [id number] 01/10/2020 04:34:30 PM EDT [facility] Labs In-House Blood TestsDate/Time Colle cted: January 10, 2020 4:35 PMDate/Time Received: January 10, 2020 4:35 PMTest Result Reference Range Normal ValueComments: collected blood from patient left Paul Hernandez LANGUAGE PATHOLOGIST, January 10, 2020 4:37 PMAssessment & Plan Orders:[id number] - Venipuncture [CPT- 67672] [id number] Vst-Est Level I [CPT-07184] Name Value Range Interpretation Code Description Data Shannon rce(s) Supporting Document(s) ID Date Data Source [id number] 01/10/2020 04:15:00 PM EDT [facility] Name Value Range Interpretation Code Description Data Shannon rce(s) Supporting Document(s) BG FASTING 94 mg/dL 70-100 [facility] ID Date Data Source [id number] 01/10/2020 04:15:00 PM EDT [facility] Name Value Range Interpretation Code Description Data Shannon rce(s) Supporting Document(s) HCT 44.8 % 42.0-52.0 [facility] HGB 14.5 g/dL 13.5-17.5 [facility] MCH 32.4 G/DL pg 32.0-36.5 [facility] MCHC 30.3 PG % 27.0-33.0 [facility] PLATELETS 312 10 10*3/mm3 150-450 N [facility] RBC 4.79 10 10*6/mm3 4.30-6.10 [facility] RDW 14.3 % 11.5-14.5 [facility] WBC TOTAL 9.4 4.0-10.0 [facility] ID Date Data Source [id number] 01/10/2020 04:15:00 PM EDT [facility] Name Value Range Interpretation Code Description Data Shannon rce(s) Supporting Document(s) HGBA1C 6.6 % N [facility] ID Date Data Source [id number] 11/11/2019 08:00:41 AM EDT [facility] Labs In-House Blood TestsDate/Time Colle cted: November 11, 2019 8:01 AMTest Result Reference Range Normal ValueComments: blood draw done in office, taken from left ac, tolerated well.Dinora Parada, November 11, 2019 8:01 AMAssessment & Plan Orders:[id number] Vst-Est Level I [CPT-76512] 02724 - Venipuncture [CPT-16629] Name Value Range Interpretation Code Description Data Shannon rce(s) Supporting Document(s) ID Date Data Source [id number] 11/11/2019 07:55:00 AM EDT [facility] Name Value Range Interpretation Code Description Data Shannon rce(s) Supporting Document(s) HGBA1C 10.2 % N [facility] ID Date Data Source [id number] 10/21/2019 12:49:13 PM EDT [facility] Measurements & CalculationsHeight: 70 inches (5 ft. [...] MIFH- CAMother- Lymphoma CACancer - Breast (Maternal Grandmother)NM - male - under age 55 (Father)Social/Personal [...] during this visit, including review of any qmda-xtc-xzirvmb medications, herbal therapies, and/or supplements.Allergy ReviewAllergy List [...] Plan Problems:Assessed:Type 2 diabetes mellitus without complications (ZZR98-S74.9) Assessment: Given A1c order for today at [...] and call with any concerns.Familial hypertriglyceridemia (ICD-272.1) (QDS73-Z80.1) Assessment: Instructions: Fasting labs have been ordered [...] HCL (TRAMADOL HCL TABS) (Mild)* GARLIC (Mild)Orders:HgBA1c [CPT-05135] COMP METABOLIC PANEL [CPT-55001] CBC W/DIFF [CPT-80159] HgBA1c [CPT-28401] LIPID PANEL [CPT-47974] Adult - Ofc Vst, EST, Level III [CPT-57783] Follow-Up Return to clinic: in 90 days for follow upAdditional Follow-Up: I1WFFhhencpm Visit Summary Completed Name Value Range Interpretation Code Description Data Shannon rce(s) Supporting Document(s) ID Date Data Source [id number] 09/30/2019 01:25:37 PM EDT [facility] Measurements & CalculationsHeight: 70 inches (5 ft. [...] (ER) or urgent care clinic? [facility] [...] MIFH- CAMother- Lymphoma CACancer - Breast (Maternal Grandmother)NM - male - under age 55 (Father)Social/Personal [...] during this visit, including review of any fdcl-jbz-tlejzyy medications, herbal therapies, and/or supplements.Allergy ReviewAllergy List [...] & Plan Problems:Added: Left thoracic outlet syndrome (GHE47-Y61.0)Assessment not SavedLeft thoracic outlet syndrome (ICD10- G54.0): [...] (Mild)Orders:Adult - Ofc Vst, EST, Level III [CPT-28096] Medications:PREDNISONE 10 MG ORAL TABLET (PREDNISONE) 40mg po QD, decrease by 10mg q3d #30[Tablet] x 0 Route:ORAL Entered and Authorized by: Cleveland Harrison DO Method used: Electronically to [facility] (retail) [address] [place] [address] Note to Pharmacy: Route: ORAL; RxID: [id number] signed by Cleveland Harrison DO on 09/30/2019 at 2:24 PM Name Value Range Interpretation Code Description Data Shannon rce(s) Supporting Document(s) ID Date Data Source [id number] 08/26/2019 12:55:10 PM [facility] Measurements & CalculationsHeight: 70 inches [...] family, and/or any sexual partners? NoPain AssessmentPain Christaumeric Rating Scale: 7 / 10Location: hip and [...] MIFH- CAMother- Lymphoma CACancer - Breast (Maternal Grandmother)NM - male - under age 55 (Father)Social/Personal [...] GoodAssessment & Plan Problems:Added: Familial hypertriglyceridemia (ICD-272.1) (DWA36-X29.1) Assessment: Instructions: Start gemfibrozil once daily. Low fat diet. Recommend healthy lifestyle modification. Encourage portion control, healthy food choices, and increasing routine physical activity. Recommendation is for 150 minutes throughout the week of cardiovascular exercise.Pain in right wrist (ICD-719.43) (LUD82-S57.531) Assessment: Instructions: Xray and ortho referral. Recommend wrist brace when active to prevent further injury.Changed:From: Dx of Prediabetes (ICD- 790.29) (QQP69-B76.03) To: Type 2 diabetes mellitus without complications (NHT20-T99.9)Assessed:Type 2 diabetes mellitus without complications (ICD10- E11.9) [...] call with any concerns.Removed:Pain in unspecified joint (XKV05-K50.50), Encounter for screening for other metabolic disorders (SIC63-T49.228), Metabolic syndrome X (ICD-277.7) (TSO41-Q67.81)Ass essment not Saved Type 2 diabetes mellitus [...] - Wrist, complete, minimum of 3 views [CPT-21701] Adult - Ofc Vst, EST, Level III [CPT-69724] Follow-Up Return to clinic: in 90 days for follow upAdditional Follow-Up: T2DM, lipidsClinical Visit Summary CompletedMedications:GEMFIBROZIL 600 MG ORAL TABLET (GEMFIBROZIL) Take 1 tablet by mouth twice daily, 30 minutes before breakfast and dinner #60[Tablet] x 5 Route:ORAL Entered and Authorized by: Binh ELDER Method used: Electronically to [facility] (retail) [address] [place] [address] Note to Pharmacy: Route: ORAL; Indications: FAMILIAL HYPERTRIGLYCERIDEMIA RxID: [id number] CHANTIX STARTING MONTH JEFF 0.5 MG X 11 & 1 MG X 42 ORAL TABLET (VARENICLINE TARTRATE) uad #1[Tablet] x 0 Route:ORAL Entered by: Binh ELDER Authorized by: Shanon Gotti MD Method used: Electronically to [facility] (retail) [address] [place] [address] Fax: RxID: [id number]] Name Value Range Interpretation Code Description Data Shannon rce(s) Supporting Document(s) ID Date Data Source [id number] 08/05/2019 10:33:49 AM [facility] Current Problems: Dental caries (ICD-521 .00) (MNV53-S11.9)Prediabetes (ICD- 790.29) (GWI55-H78.03)Vaccination (ICD-V05.9) (IVU94-Z61)Other specified polyneuropathies (UER47-C64.89)Pain in unspecified joint (PNI74-U55.50)Encounter for screening for other metabolic disorders (VOU91-O61.228)Metabolic syndrome X (ICD-277.7) (AHJ45-Z24.81)BMI 35.0-35.9 (ICD-V85.35) (JFK03-L26.35)Obesity (ICD- 278.00) (TLN78-Z11.09)Encounter for general adult medical examination with abnormal findings (ICD-V70.0) (JPI55-L54.01)DENTAL CARIES EXTENDING INTO PULP (ICD-521.03) (XAK48-H12.63)Peripheral neuropathy (ICD-356.9) (ICD10- G60.9)Impaired cognition (ICD-294.9) (ION48-G80.89)Bilateral inflammation of sacroiliac joint (FWK47-B48.1)Bilateral plantar fasciitis (IXM57-B11.2)Chronic back pain (ICD-724.5) (GAA74-D87.9)Pleuritic pain (ICD-786.52) (ICD10- R07.1)Numbness of toe (ICD-782.0) (KNH74-E50.0)Passive smoke exposure (ICD- V15.89) (YEW96-Q45.22)Teeth extraction (ICD-525.10) (WFW00-J05.499)Shoulder pain, left (ICD-719.41) (BUA65-H00.512)Complete rotator cuff tear or rupture of left shoulder, not specified as traumatic (ICD-727.61) (ICD10- M75.122)Degenerative disc disease (ICD-722.6) (HVU71-O79.80)Unspecified injury of muscle(s) and tendon(s) of the rotator cuff of right shoulder, initial encounter (ICD-959.2) (STQ06-S83.001A)Preventative health care (ICD-V70.0) (SWH20-H44.00)General Adult Medical Exam WITH Abnormal Findings (over 18) (ICD- V70.0) (KTH11-A76.01)Bursitis of left olecranon bursa (ICD-726.33) (ICD10- M70.22)ANXIETY DISORDER, GENERALIZED (ICD-300.02) (YDB68-Y88.1)Depression, major, recurrent, moderate (ICD-296.32) (WMR04-V34.1)Schizophrenia (ICD-295.90) (HIV91-M67.9)Tobacco use (ICD-305.1) (HJT23-M66.0)Problem list reviewed during this update.Current Medications: CHANTIX [...] 3 (Performed by Ada Vasquez DMD) [facility] no historyProphy 1 per 6 [...] to 6 hrs for pain when neededAssisted By: [place]: Taryn/Ada Garner DMD by shreyas (08/05/2019 11:35 AM): Tooth Notes and Watches:- Tooth 3 Note: Referred to Ada Yeager DMD by jaydon (08/05/2019 11:03 AM): Assessment & Plan Problems:Added: Dental caries (ICD- 521.00) (VQR32-B32.9)Medications:CHANTIX STARTING MONTH JEFF 0.5 MG X 11 & 1 MG X 42 ORAL TABLETCHANTIX CONTINUING MONTH JEFF 1 MG ORAL TABLETLEXAPRO 10 MG ORAL TABLETPREGABALIN 50 MG ORAL CAPSULEIBUPROFEN 800 MG ORAL TABLETGABAPENTIN 600 MG ORAL TABLETSEROQUEL 100 MG ORAL TABLETAllergies:* BEE STINGS (Critical)TRAMADOL HCL (TRAMADOL HCL TABS) (Mild)* GARLIC (Mild)Orders:Oral Surgery Referral [CPT- 18624] Name Value Range Interpretation Code Description Data Shannon rce(s) Supporting Document(s) ID Date Data Source [id number] 08/04/2019 11:11:00 AM EST [facility] ([facility] ) Name Value Range Interpretation Code Description Data Shannon rce(s) Supporting Document(s) Antinuclear Antibodies Direct Laboratory test result [facility] ([facility]) Performed at: RN - [facility] [address] [id number] Melter Caster: Lesley Martinez MD, Phone: [phone] ID Date Data Source [id number] 08/04/2019 11:11:00 AM EST [facility] ([facility]) Name Value Range Interpretation Code Description Data Shannon rce(s) Supporting Document(s) Calcidiol [Mass/volume] in Serum or Plasma 18.4 ng/mL 30.0-100.0 [facility] ([facility]) Erythrocyte sedimentation rate by 2H Westergren method 17 mm/hr 0-1 5 [facility] ([facility]) Rheumatoid factor [Units/volume] in Serum or Plasma Laboratory test result [facility] ([facility]) ID Date Data Source [id number] 07/23/2019 08:07:24 AM EST [facility] In-House Blood TestsDate/Time Colle cted: July 23, 2019 8:07 AMTest Result Reference Range Normal ValueComments: blood draw done in offcie done in the right ac tolertaed well Tariklibby Arana MA, July 23, 2019 8:07 AMAssessment & Plan Orders:[id number] Vst-Est Level I [CPT-99964] 75110 - Venipuncture [CPT-19791] Name Value Range Interpretation Code Description Data Shannon rce(s) Supporting Document(s) ID Date Data Source [id number] 07/23/2019 08:05:00 AM [facility] Name Value Range Interpretation Code Description Data Shannon rce(s) Supporting Document(s) HGBA1C 6.7 % N [facility] ID Date Data Source [id number] 07/23/2019 08:05:00 AM [facility] Name Value Range Interpretation Code Description Data Shannon rce(s) Supporting Document(s) BG FASTING 146 mg/dL 70-100 H [facility] ID Date Data Source [id number] 06/18/2019 05:08:28 PM EST [facility] Measurements & CalculationsHeight: 70 inches (5 ft. [...] MIFH- CAMother- Lymphoma CACancer - Breast (Maternal Grandmother)NM - male - under age 55 (Father)Social/Personal [...] during this visit, including review of any tpdd-cwd-lwyteye medications, herbal therapies, and/or supplements.Allergy ReviewAllergy List [...] is? GoodAssessment & Plan Problems:Added: Prediabetes (ICD-790.29) (QWX91-E38.03) Assessment: Instructions: Counseled on 1800 nicole ADA, low cholesterol, low salt diets,exercise. Counseled on GLP-1 medication, risks and benefits. Patient has no family hisotry of medullary thyroid cancer/ MEN syndromes and wishes to proceed. Patient education and training completed/ scheduled. All questions answeredAssessed:Other specified polyneuropathies (DFQ45-E17.89) Assessment: Instructions: Counseled patient on all diagnoses/ treatments. Return to clinic/ ER for any worsening symptoms o r concernsLyrica working well at 3 a dayANXIETY DISORDER, GENERALIZED (ICD- 300.02) (VTO99-T91.1) Assessment: Instructions: Counseled patient on all diagnoses/ treatments. Return to clinic/ ER for any worsening symptoms or concernsbegin LexaproTobacco use (ICD-305.1) (RDJ76-W06.0) Assessment: Instructions: Counseled on tobacco cessation for 10 min.Begin ChantixSchizophrenia (ICD-295.90) (CGX46-R04.9) Assessment: Instructions: Counseled patient on all diagnoses/ treatments. Return to clinic/ ER for any worsening symptoms or concernsRef to TelepsychiatryVaccination (ICD-V05.9) (DZG36-U12) Assessment: Instructions: Counseled patient on all diagnoses/ [...] (Mild)Orders:Adult - Ofc Vst, EST, Level IV [CPT-04905] Telepsychiatry Consult [CPT-50712] LIPID PANEL [CPT-64393] HgBA1c [CPT-24924] COMP METABOLIC PANEL [CPT-29294] Follow-Up Return to clinic: in 30 days for f/uAdditional Follow-Up: Counseled patient on all diagnoses/ treatments. Return to clinic/ ER for any worsening symptoms or concernsClinical Visit Summary Declined Name Value Range Interpretation Code Description Data Shannon rce(s) Supporting Document(s) Procedure Social History Code Duration Value Status Description Data Source(s ) Smoking 08/01/2020 12:00:00 AM EST Former Smoker completed Former Smoker eCW1 ([facility]ly [facility]) Vital Signs ID Date Data Source [id number] Name Value Range Interpretation Code Description Data Source(s) Diastolic blood pressure 66 mm[Hg] 66 mm[Hg] eCW1 ([facility]) Systolic blood pressure 124 mm[Hg] 124 mm[Hg] e CW1 ([facility]) Respiratory rate 18 /min 18 /min eCW1 ([facility]) Heart rate 95 /min 95 /min eCW1 ([facility]) Body mass index (BMI) [Ratio] 34.70 kg/m2 34.70 kg/m2 W1 ([facility]) Body height [in_i] eCW1 ([facility]) Body weight 235 [lb_av] 235 [lb_av] eCW1 [facility] Body temperature 98.2 [degF] 98.2 [degF] MEDENT ([facility], ) [place] body weight 160 [lb_av] 160 [lb_av] MEDEN T ([facility]) Body height 69 [in_i] 69 [in_i] MEDENT ([facility]) 5'9" Body temperature 97.6 [degF] 97.6 [degF] MEDENT ([facility], ) Body height 70 [in_i] 70 [in_i] SAMANTHA ([facility]) Body height 70 [in_i] 70 [in_i] SAMANTHA ([facility]) Body temperature 96.8 [degF] 96.8 [degF] MEDENT ([facility] ) Body surface area Derived from formula 2.19 m2 2.19 m2 [facility] Body weight 104.328 kg 104.328 kg [facility] [place] body weight 160 [lb_av] 160 [lb_av] MEDEN T ([facility]) Body mass index (BMI) [Ratio] 34.0 kg/m2 34.0 k g/m2 [facility] Body weight 230.00 [lb_av] 230.00 [lb_av] MEDEN T ([facility]) Body height 69 [in_i] 69 [in_i] MEDENT ([facility], ) 5'9" Body temperature 97.5 [degF] 97.5 [degF] [facility] ([facility]) Body height 70 [in_i] 70 [in_i] SAMANTHA ([facility]) Body height 70 [in_i] 70 [in_i] SAMANTHA ([facility]) Body height 70 [in_i] 70 [in_i] SAMANTHA ([facility]) Body height 70 [in_i] 70 [in_i] SAMANTHA ([facility]) Body height 70 [in_i] 70 [in_i] SAMANTHA ([facility]) Respiratory rate 16 /min 16 /min MED[facility] ( [facility]) Heart rate 76 /min 76 /min [facility] ([facility]) Diastolic blood pressure 80 mm[Hg] 80 mm[Hg] [facility] ([facility]) Systolic blood pressure 110 mm[Hg] 110 mm[Hg] M EDENT ([facility], ) Body weight 3602 [oz_av] 3602 [oz_av] SAMANTHA ([facility]) Systolic blood pressure 119 mm[Hg] 119 mm[Hg] A THEN ([facility]) Body mass index (BMI) [Ratio] 32.3 kg/m2 32.3 k g/m2 SAMANTHA ([facility]) Body height 70 [in_i] 70 [in_i] SAMANTHA ([facility]) Diastolic blood pressure 80 mm[Hg] 80 mm[Hg] SAMANTHA ([facility]) Body weight 3602 [oz_av] 3602 [oz_av] SAMANTHA ([facility]) Systolic blood pressure 119 mm[Hg] 119 mm[Hg] A [facility] ([facility]) Body mass index (BMI) [Ratio] 32.3 kg/m2 32.3 k g/m2 SAMANTHA ([facility]) Body height 70 [in_i] 70 [in_i] SAMANTHA ([facility]) Diastolic blood pressure 80 mm[Hg] 80 mm[Hg] SAMANTHA ([facility]) Body weight 3602 [oz_av] 3602 [oz_av] SAMANTHA ([facility]) Systolic blood pressure 119 mm[Hg] 119 mm[Hg] A THENA ([facility]) Body mass index (BMI) [Ratio] 32.3 kg/m2 32.3 k g/m2 SAMANTHA ([facility]) Body height 70 [in_i] 70 [in_i] SAMANTHA ([facility]) Diastolic blood pressure 80 mm[Hg] 80 mm[Hg] SAMANTHA ([facility]) Body weight 3602 [oz_av] 3602 [oz_av] SAMANTHA ([facility]) Systolic blood pressure 119 mm[Hg] 119 mm[Hg] A [facility] ([facility]) Body mass index (BMI) [Ratio] 32.3 kg/m2 32.3 k g/m2 SAMANTHA ([facility]) Body height 70 [in_i] 70 [in_i] SAMANTHA ([facility]) Diastolic blood pressure 80 mm[Hg] 80 mm[Hg] SAMANTHA ([facility]) Body weight 3602 [oz_av] 3602 [oz_av] SAMANTHA ([facility]) Systolic blood pressure 119 mm[Hg] 119 mm[Hg] A THENA ([facility]) Body mass index (BMI) [Ratio] 32.3 kg/m2 32.3 k g/m2 SAMANTHA ([facility]) Body height 70 [in_i] 70 [in_i] SAMANTHA ([facility]) Diastolic blood pressure 80 mm[Hg] 80 mm[Hg] SAMANTHA ([facility]) Body weight 3602 [oz_av] 3602 [oz_av] SAMANTHA ([facility]) Systolic blood pressure 119 mm[Hg] 119 mm[Hg] A THENA ([facility]) Body mass index (BMI) [Ratio] 32.3 kg/m2 32.3 k g/m2 SAMANTHA ([facility]) Body height 70 [in_i] 70 [in_i] SAMANTHA ([facility]) Diastolic blood pressure 80 mm[Hg] 80 mm[Hg] SAMANTHA ([facility]) Body weight 3602 [oz_av] 3602 [oz_av] SAMANTHA ([facility]) Systolic blood pressure 119 mm[Hg] 119 mm[Hg] A THENA ([facility]) Body mass index (BMI) [Ratio] 32.3 kg/m2 32.3 k g/m2 SAMANTHA ([facility]) Body height 70 [in_i] 70 [in_i] SAMANTHA ([facility]) Diastolic blood pressure 80 mm[Hg] 80 mm[Hg] SAMANTHA ([facility]) Body weight 220.00 [lb_av] 220.00 [lb_av] MEDEN T ([facility]) Respiratory rate 16 /min 16 /min [facility] ( [facility]) Heart rate 80 /min 80 /min [facility] ([facility]) Diastolic blood pressure 84 mm[Hg] 84 mm[Hg] [facility] ([facility]) Systolic blood pressure 120 mm[Hg] 120 mm[Hg] M EDENT ([facility], ) Respiratory rate 16 /min 16 /min MED[facility] ( [facility]) Heart rate 80 /min 80 /min [facility] ([facility] ) Diastolic blood pressure 84 mm[Hg] 84 mm[Hg] MED[facility] ([facility] ) Systolic blood pressure 120 mm[Hg] 120 mm[Hg] M EDENT ([facility] ) Body weight 3552 [oz_av] 3552 [oz_av] SAMANTHA ([facility]) Systolic blood pressure 131 mm[Hg] 131 mm[Hg] A [facility] ([facility]) Body mass index (BMI) [Ratio] 31.97 kg/m2 31.97 kg/m2 SAMANTHA ([facility]) Body height 70 [in_i] 70 [in_i] SAMANTHA ([facility]) Diastolic blood pressure 85 mm[Hg] 85 mm[Hg] SAMANTHA ([facility]) Body weight 3552 [oz_av] 3552 [oz_av] SAMANTHA ([facility]) Systolic blood pressure 131 mm[Hg] 131 mm[Hg] A [facility] ([facility]) Body height 70 [in_i] 70 [in_i] SAMANTHA ([facility]) Diastolic blood pressure 85 mm[Hg] 85 mm[Hg] SAMANTHA ([facility]) Body weight 3552 [oz_av] 3552 [oz_av] SAMANTHA ([facility]) Systolic blood pressure 131 mm[Hg] 131 mm[Hg] [facility] Body height 70 [in_i] 70 [in_i] SAMANTHA ([facility]) Diastolic blood pressure 85 mm[Hg] 85 mm[Hg] SAMANTHA ([facility]) Body weight 3552 [oz_av] 3552 [oz_av] SAM[facility]THA ([facility]) Systolic blood pressure 131 mm[Hg] 131 mm[Hg] A [facility] ([facility]) Body height 70 [in_i] 70 [in_i] SAMANTHA ([facility]) Diastolic blood pressure 85 mm[Hg] 85 mm[Hg] SAM[facility]TH[facility] ([facility]) Body weight 3552 [oz_av] 3552 [oz_av] SAM[facility]THA ([facility]) Systolic blood pressure 131 mm[Hg] 131 mm[Hg] A [facility] Body height 70 [in_i] 70 [in_i] SAM[facility]THA ([facility]) Diastolic blood pressure 85 mm[Hg] 85 mm[Hg] SAM[facility]THA ([facility]) Systolic blood pressure 131 mm[Hg] 131 mm[Hg] A [facility] ([facility]) Body height 70 [in_i] 70 [in_i] SAM[facility]THA ([facility]) Diastolic blood pressure 85 mm[Hg] 85 mm[Hg] [facility] ([facility]) Body weight 3552 [oz_av] 3552 [oz_av] SAM[facility]THA ([facility]) Systolic blood pressure 131 mm[Hg] 131 mm[Hg] A [facility] ([facility]) Body height 70 [in_i] 70 [in_i] SAMANTHA ([facility]) Diastolic blood pressure 85 mm[Hg] 85 mm[Hg] SAM[facility]THA ([facility]) Body weight 3552 [oz_av] 3552 [oz_av] SAM[facility]THA ([facility]) Body weight 3622.08 [oz_av] 3622.08 [oz_av] ATH NIKOLAS ([facility]) Systolic blood pressure 131 mm[Hg] 131 mm[Hg] A [facility] Body mass index (BMI) [Ratio] 32.60 kg/m2 32.60 kg/m2 [facility] ([facility]) Body height 70 [in_i] 70 [in_i] [facility]A ([facility]) Diastolic blood pressure 85 mm[Hg] 85 mm[Hg] [facility] ([facility]) Body weight 3622.08 [oz_av] 3622.08 [oz_av] ATH NIKOLAS ([facility]) Systolic blood pressure 131 mm[Hg] 131 mm[Hg] A [facility] Body height 70 [in_i] 70 [in_i] SAMANTHA ([facility]) Diastolic blood pressure 85 mm[Hg] 85 mm[Hg] SAM[facility]THA ([facility]) Body weight 3622.08 [oz_av] 3622.08 [oz_av] ATH NIKOLAS ([facility]) Systolic blood pressure 131 mm[Hg] 131 mm[Hg] A [facility] Body height 70 [in_i] 70 [in_i] SAMANTHA ([facility]) Diastolic blood pressure 85 mm[Hg] 85 mm[Hg] SAM[facility]THA ([facility]) Body weight 3622.08 [oz_av] 3622.08 [oz_av] ATH NIKOLAS ([facility]) Systolic blood pressure 131 mm[Hg] 131 mm[Hg] A [facility] Body height 70 [in_i] 70 [in_i] SAMANTHA ([facility]) Diastolic blood pressure 85 mm[Hg] 85 mm[Hg] SAMANTHA ([facility]) Body weight 3622.08 [oz_av] 3622.08 [oz_av] ATH NIKOLAS ([facility]) Systolic blood pressure 131 mm[Hg] 131 mm[Hg] A [facility] Body height 70 [in_i] 70 [in_i] SAMANTHA ([facility]) Diastolic blood pressure 85 mm[Hg] 85 mm[Hg] SAMANTHA ([facility]) Body weight 3622.08 [oz_av] 3622.08 [oz_av] ATH NIKOLAS ([facility]) Systolic blood pressure 131 mm[Hg] 131 mm[Hg] A [facility] Body height 70 [in_i] 70 [in_i] SAMANTHA ([facility]) Diastolic blood pressure 85 mm[Hg] 85 mm[Hg] SAMANTHA ([facility]) Body weight 3622.08 [oz_av] 3622.08 [oz_av] ATH NIKOLAS ([facility]) Systolic blood pressure 131 mm[Hg] 131 mm[Hg] [facility]) Body height 70 [in_i] 70 [in_i] SAMANTHA ([facility]) Diastolic blood pressure 85 mm[Hg] 85 mm[Hg] SAMANTHA ([facility]) Body temperature [degF] eCW1 ([facility]) Respiratory rate /min eCW1 ([facility]) Heart rate /min eCW1 ([facility]) Body mass index (BMI) [Ratio] 35.14 kg/m2 35.14 kg/m2 eCW1 ([facility]) Body height [in_us] eCW1 ([facility]) Body weight Measured [lb_av] eCW1 ([facility]) Body weight 3888 [oz_av] 3888 [oz_av] SAMANTHA ([facility]) Systolic blood pressure 129 mm[Hg] 129 mm[Hg] A [facility] ([facility]) Body mass index (BMI) [Ratio] 34.99 kg/m2 34.99 kg/m2 SAMANTHA ([facility]) Body height 70 [in_i] 70 [in_i] SAM[facility]THA ([facility]) Diastolic blood pressure 95 mm[Hg] 95 mm[Hg] SAM[facility]THA ([facility]) Body weight 3888 [oz_av] 3888 [oz_av] SAMANTHA ([facility]) Systolic blood pressure 129 mm[Hg] 129 mm[Hg] A [facility] ([facility]) Body height 70 [in_i] 70 [in_i] SAMANTHA ([facility]) Diastolic blood pressure 95 mm[Hg] 95 mm[Hg] SAMANTHA ([facility]) Body weight 3888 [oz_av] 3888 [oz_av] SAMANTHA ([facility]) Systolic blood pressure 129 mm[Hg] 129 mm[Hg] A [facility] ([facility]) Body height 70 [in_i] 70 [in_i] SAMANTHA ([facility]) Diastolic blood pressure 95 mm[Hg] 95 mm[Hg] SAMANTHA ([facility]) Body weight 3888 [oz_av] 3888 [oz_av] SAMANTHA ([facility]) Systolic blood pressure 129 mm[Hg] 129 mm[Hg] A [facility]) Body height 70 [in_i] 70 [in_i] SAMANTHA ([facility]) Diastolic blood pressure 95 mm[Hg] 95 mm[Hg] SAMANTHA ([facility]) Body weight 3888 [oz_av] 3888 [oz_av] SAMANTHA ([facility]) Systolic blood pressure 129 mm[Hg] 129 mm[Hg] A THENA ([facility]) Body height 70 [in_i] 70 [in_i] SAMANTHA ([facility]) Diastolic blood pressure 95 mm[Hg] 95 mm[Hg] SAMANTHA ([facility]) Body weight 3888 [oz_av] 3888 [oz_av] SAMANTHA ([facility]) Systolic blood pressure 129 mm[Hg] 129 mm[Hg] [facility]) Body height 70 [in_i] 70 [in_i] SAMANTHA ([facility]) Diastolic blood pressure 95 mm[Hg] 95 mm[Hg] SAMANTHA ([facility]) Body weight 3888 [oz_av] 3888 [oz_av] SAMANTHA ([facility]) Systolic blood pressure 129 mm[Hg] 129 mm[Hg] A [facility] ([facility]) Body height 70 [in_i] 70 [in_i] SAMANTHA ([facility]) Diastolic blood pressure 95 mm[Hg] 95 mm[Hg] SAMANTHA ([facility]) Body mass index (BMI) [Ratio] 34.7 kg/m2 34.7 k g/m2 MEDENT ([facility], [facility]) Body height 69 [in_i] 69 [in_i] MEDENT ([facility], [facility]) 5'9" Body weight 235.00 [lb_av] 235.00 [lb_av] MEDEN T ([facility], [facility]) Body temperature 98.9 [degF] 98.9 [degF] MEDENT ([facility], [facility]) Oxygen saturation in Arterial blood by Pulse oximetry 97 % 97 % MEDENT ([facility], [facility]) Respiratory rate 14 /min 14 /min MEDENT ( [facility], [facility]) Heart rate 100 /min 100 /min MEDENT ([facility], [facility]) Diastolic blood pressure 90 mm[Hg] 90 mm[Hg] MEDENT ([facility], [facility]) Systolic blood pressure 118 mm[Hg] 118 mm[Hg] M EDENT ([facility], [facility]) Diastolic blood pressure 81 mm[Hg] 81 mm[Hg] eCW1 ([facility]) Systolic blood pressure 118 mm[Hg] 118 mm[Hg] e CW1 ([facility]) Body temperature 97.5 [degF] 97.5 [degF] eCW1 ( [facility]) Respiratory rate 16 /min 16 /min eCW1 ([facility]) Heart rate 88 /min 88 /min eCW1 ([facility]) Body mass index (BMI) [Ratio] 35.14 kg/m2 35.14 kg/m2 eCW1 ([facility]) Body height [in_us] eCW1 ([facility]) Body weight Measured 238 [lb_av] 238 [lb_av] eC W1 ([facility]) Body weight 4016 [oz_av] 4016 [oz_av] SAMANTHA ([facility]) Systolic blood pressure 124 mm[Hg] 124 mm[Hg] A THENA ([facility]) Body mass index (BMI) [Ratio] 36.14 kg/m2 36.14 kg/m2 SAMANTHA ([facility]) Body height 70 [in_i] 70 [in_i] SAMANTHA ([facility]) Diastolic blood pressure 85 mm[Hg] 85 mm[Hg] SAMANTHA ([facility]) Body weight 4016 [oz_av] 4016 [oz_av] SAMANTHA ([facility]) Systolic blood pressure 124 mm[Hg] 124 mm[Hg] A THENA ([facility]) Body height 70 [in_i] 70 [in_i] SAMANTHA ([facility]) Diastolic blood pressure 85 mm[Hg] 85 mm[Hg] SAMANTHA ([facility]) Body weight 4016 [oz_av] 4016 [oz_av] SAMANTHA ([facility]) Systolic blood pressure 124 mm[Hg] 124 mm[Hg] A [facility]) Body height 70 [in_i] 70 [in_i] SAMANTHA ([facility]) Diastolic blood pressure 85 mm[Hg] 85 mm[Hg] SAMANTHA ([facility]) Body weight 4016 [oz_av] 4016 [oz_av] SAMANTHA ([facility]) Systolic blood pressure 124 mm[Hg] 124 mm[Hg] A [facility] ([facility]) Body height 70 [in_i] 70 [in_i] SAMANTHA ([facility]) Diastolic blood pressure 85 mm[Hg] 85 mm[Hg] SAMANTHA ([facility]) Body weight 4016 [oz_av] 4016 [oz_av] SAMANTHA ([facility]) Systolic blood pressure 124 mm[Hg] 124 mm[Hg] A [facility] ([facility]) Body height 70 [in_i] 70 [in_i] SAMANTHA ([facility]) Diastolic blood pressure 85 mm[Hg] 85 mm[Hg] SAMANTHA ([facility]) Body weight 4016 [oz_av] 4016 [oz_av] SAMANTHA ([facility]) Systolic blood pressure 124 mm[Hg] 124 mm[Hg] A [facility]) Body height 70 [in_i] 70 [in_i] SAMANTHA ([facility]) Diastolic blood pressure 85 mm[Hg] 85 mm[Hg] SAMANTHA ([facility]) Body weight 4016 [oz_av] 4016 [oz_av] SAMANTHA ([facility]) Systolic blood pressure 124 mm[Hg] 124 mm[Hg] A [facility] ([facility]) Body height 70 [in_i] 70 [in_i] SAMANTHA ([facility]) Diastolic blood pressure 85 mm[Hg] 85 mm[Hg] SAMANTHA ([facility]) Respiratory rate 16 /min 16 /min MEDENT ( [facility]) Heart rate 76 /min 76 /min MEDENT ([facility]) Diastolic blood pressure 80 mm[Hg] 80 mm[Hg] MEDENT ([facility]) Systolic blood pressure 110 mm[Hg] 110 mm[Hg] M EDENT ([facility]) Diastolic blood pressure 74 mm[Hg] 74 mm[Hg] eCW1 ([facility]) Systolic blood pressure 112 mm[Hg] 112 mm[Hg] e CW1 ([facility]) Body temperature 97.1 [degF] 97.1 [degF] eCW1 ( [facility]) Respiratory rate 18 /min 18 /min eCW1 ([facility]) Heart rate 78 /min 78 /min eCW1 ([facility]) Body mass index (BMI) [Ratio] 36.74 kg/m2 36.74 kg/m2 eCW1 ([facility]) Body height [in_us] eCW1 ([facility]) Body weight Measured 248.8 [lb_av] 248.8 [lb_av ] eCW1 ([facility]) Diastolic blood pressure 81 mm[Hg] 81 mm[Hg] eCW1 ([facility]) Systolic blood pressure 125 mm[Hg] 125 mm[Hg] e CW1 ([facility]) Body temperature 97.0 [degF] 97.0 [degF] eCW1 ( [facility]) Respiratory rate 18 /min 18 /min eCW1 ([facility]) Heart rate 70 /min 70 /min eCW1 ([facility]) Body mass index (BMI) [Ratio] 35.38 kg/m2 35.38 kg/m2 eCW1 ([facility]) Body height [in_us] eCW1 ([facility]) Body weight Measured 239.6 [lb_av] 239.6 [lb_av ] eCW1 ([facility]) Body weight 3910.08 [oz_av] 3910.08 [oz_av] ATH NIKOLAS ([facility]) Systolic blood pressure 111 mm[Hg] 111 mm[Hg] A THENA ([facility]) Body mass index (BMI) [Ratio] 35.19 kg/m2 35.19 kg/m2 SAMANTHA ([facility]) Body height 70 [in_i] 70 [in_i] SAMANTHA ([facility]) Diastolic blood pressure 70 mm[Hg] 70 mm[Hg] SAMANTHA ([facility]) Body weight 3910.08 [oz_av] 3910.08 [oz_av] ATH NIKOLAS ([facility]) Systolic blood pressure 111 mm[Hg] 111 mm[Hg] A [facility]) Body height 70 [in_i] 70 [in_i] SAMANTHA ([facility]) Diastolic blood pressure 70 mm[Hg] 70 mm[Hg] SAMANTHA ([facility]) Body weight 3910.08 [oz_av] 3910.08 [oz_av] ATH NIKOLAS ([facility]) Systolic blood pressure 111 mm[Hg] 111 mm[Hg] A [facility] ([facility]) Body height 70 [in_i] 70 [in_i] SAMANTHA ([facility]) Diastolic blood pressure 70 mm[Hg] 70 mm[Hg] SAMANTHA ([facility]) Body weight 3910.08 [oz_av] 3910.08 [oz_av] ATH NIKOLAS ([facility]) Systolic blood pressure 111 mm[Hg] 111 mm[Hg] A [facility]) Body height 70 [in_i] 70 [in_i] SAMANTHA ([facility]) Diastolic blood pressure 70 mm[Hg] 70 mm[Hg] SAMANTHA ([facility]) Body weight 3910.08 [oz_av] 3910.08 [oz_av] ATH NIKOLAS ([facility]) Systolic blood pressure 111 mm[Hg] 111 mm[Hg] A [facility]) Body height 70 [in_i] 70 [in_i] SAMANTHA ([facility]) Diastolic blood pressure 70 mm[Hg] 70 mm[Hg] SAMANTHA ([facility]) Body weight 3910.08 [oz_av] 3910.08 [oz_av] ATH NIKOLAS ([facility]) Systolic blood pressure 111 mm[Hg] 111 mm[Hg] A [facility]) Body height 70 [in_i] 70 [in_i] SAMANTHA ([facility]) Diastolic blood pressure 70 mm[Hg] 70 mm[Hg] SAMANTHA ([facility]) Body weight 3910.08 [oz_av] 3910.08 [oz_av] ATH NIKOLAS ([facility]) Systolic blood pressure 111 mm[Hg] 111 mm[Hg] A THENA ([facility]) Body height 70 [in_i] 70 [in_i] SAMANTHA ([facility]) Diastolic blood pressure 70 mm[Hg] 70 mm[Hg] SAMANTHA ([facility]) Patient Treatment Plan of Care Planned Activity Planned Date Details Description Data Source (s) Gemfibrozil 600 MG Oral Tablet 06/12/2020 12:00:00 AM EST SAMANTHA ([facility]) Gemfibrozil 600 MG Oral Tablet 06/12/2020 12:00:00 AM EST SAMANTHA ([facility]) Gemfibrozil 600 MG Oral Tablet 06/12/2020 12:00:00 AM EST SAMANTHA ([facility]) Gemfibrozil 600 MG Oral Tablet 06/12/2020 12:00:00 AM EST SAMANTHA ([facility]) Gemfibrozil 600 MG Oral Tablet 06/12/2020 12:00:00 AM EST SAMANTHA ([facility]) Ergocalciferol 28906 UNT Oral Capsule SAMANTHA ([facility]) Tamsulosin hydrochloride 0.4 MG Oral Capsule SAMANTHA ([facility]) ropinirole 0.25 MG Oral Tablet SAMANTHA ([facility]) Prednisone 20 MG Oral Tablet SAMANTHA ([facility]) Prednisone 10 MG Oral Tablet SAMANTHA ([facility]) Acetaminophen 325 MG / Oxycodone Hydrochloride 5 MG Oral Tablet SAMANTHA ([facility]) Nystatin 723193 UNT/ML Oral Suspension SAMANTHA ([facility]) Metronidazole 500 MG Oral Tablet SAMANTHA ([facility]) Ketorolac Tromethamine 10 MG Oral Tablet SAMANTHA ([facility]) gabapentin 600 MG Oral Tablet SAMANTHA ([facility]) Fluoxetine 20 MG Oral Capsule SAMANTHA ([facility]) Escitalopram 10 MG Oral Tablet SAMANTHA ([facility]) Ciprofloxacin 500 MG Oral Tablet SAMANTHA ([facility]) Chantix Starting Month Box 0.5 mg (11)-1 mg (42) tablets in dose pa ck SAMANTHA ([facility]) varenicline 1 MG Oral Tablet SAMANTHA ([facility]) Ergocalciferol 23909 UNT Oral Capsule SAMANTHA ([facility]) ropinirole 0.25 MG Oral Tablet SAMANTHA ([facility]) Prednisone 20 MG Oral Tablet SAMANTHA ([facility]) Prednisone 10 MG Oral Tablet SAMANTHA ([facility]) Acetaminophen 325 MG / Oxycodone Hydrochloride 5 MG Oral Tablet SAMANTHA ([facility]) Nystatin 960861 UNT/ML Oral Suspension SAMANTHA ([facility]) Metronidazole 500 MG Oral Tablet SAMANTHA ([facility]) gabapentin 600 MG Oral Tablet SAMANTHA ([facility]) Fluoxetine 20 MG Oral Capsule SAMANTHA ([facility]) Escitalopram 10 MG Oral Tablet SAMANTHA ([facility]) Chantix Starting Month Box 0.5 mg (11)-1 mg (42) tablets in dose pa ck SAMANTHA ([facility]) Ergocalciferol 17833 UNT Oral Capsule SAMANTHA ([facility]) ropinirole 0.25 MG Oral Tablet SAMANTHA ([facility]) Prednisone 20 MG Oral Tablet SAMANTHA ([facility]) Prednisone 10 MG Oral Tablet SAMANTHA ([facility]) Acetaminophen 325 MG / Oxycodone Hydrochloride 5 MG Oral Tablet SAMANTHA ([facility]) Nystatin 195273 UNT/ML Oral Suspension SAMANTHA ([facility]) Metronidazole 500 MG Oral Tablet SAMANTHA ([facility]) gabapentin 600 MG Oral Tablet SAMANTHA ([facility]) Fluoxetine 20 MG Oral Capsule SAAMNTHA ([facility]) Escitalopram 10 MG Oral Tablet SAMANTHA ([facility]) Ciprofloxacin 500 MG Oral Tablet SAMANTHA ([facility]) Chantix Starting Month Box 0.5 mg (11)-1 mg (42) tablets in dose pa ck SAMANTHA ([facility]) varenicline 1 MG Oral Tablet SAMANTHA ([facility]) Ergocalciferol 28553 UNT Oral Capsule SAMANTHA ([facility]) ropinirole 0.25 MG Oral Tablet SAMANTHA ([facility]) Prednisone 20 MG Oral Tablet SAMANTHA ([facility]) Prednisone 10 MG Oral Tablet SAMANTHA ([facility]) Acetaminophen 325 MG / Oxycodone Hydrochloride 5 MG Oral Tablet SAMANTHA ([facility]) Nystatin 016839 UNT/ML Oral Suspension SAMANTHA ([facility]) Metronidazole 500 MG Oral Tablet SAMANTHA ([facility]) gabapentin 600 MG Oral Tablet SAMANTHA ([facility]) Fluoxetine 20 MG Oral Capsule SAMANTHA ([facility]) Escitalopram 10 MG Oral Tablet SAMANTHA ([facility]) Ciprofloxacin 500 MG Oral Tablet SAMANTHA ([facility]) Chantix Starting Month Box 0.5 mg (11)-1 mg (42) tablets in dose pa ck SAMANTHA ([facility]) varenicline 1 MG Oral Tablet SAMANTHA ([facility]) Chantix Starting Month Box 0.5 mg (11)-1 mg (42) tablets in dose pa ck SAMANTHA ([facility]) varenicline 1 MG Oral Tablet SMAANTHA ([facility]) Ergocalciferol 56537 UNT Oral Capsule SAMANTHA ([facility]) Tamsulosin hydrochloride 0.4 MG Oral Capsule SAMANTHA ([facility]) ropinirole 0.25 MG Oral Tablet SAMANTHA ([facility]) Prednisone 20 MG Oral Tablet SAMANTHA ([facility]) Prednisone 10 MG Oral Tablet SAMANTHA ([facility]) Acetaminophen 325 MG / Oxycodone Hydrochloride 5 MG Oral Tablet SAMANTHA ([facility]) Nystatin 631361 UNT/ML Oral Suspension SAMANTHA ([facility]) Ketorolac Tromethamine 10 MG Oral Tablet SAMANTHA ([facility]) Gemfibrozil 600 MG Oral Tablet SAMANTHA ([facility]) gabapentin 600 MG Oral Tablet SAMANTHA ([facility]) Fluoxetine 20 MG Oral Capsule SAMANTHA ([facility]) Escitalopram 10 MG Oral Tablet SAMANTHA ([facility]) Chantix Starting Month Box 0.5 mg (11)-1 mg (42) tablets in dose pa ck SAMANTHA ([facility]) varenicline 1 MG Oral Tablet SAMANTHA ([facility]) Ergocalciferol 68478 UNT Oral Capsule SAMANTHA ([facility]) Tamsulosin hydrochloride 0.4 MG Oral Capsule SAMANTHA ([facility]) ropinirole 0.25 MG Oral Tablet SAMANTHA ([facility]) Prednisone 20 MG Oral Tablet SAMANTHA ([facility]) Prednisone 10 MG Oral Tablet SAMANTHA ([facility]) Acetaminophen 325 MG / Oxycodone Hydrochloride 5 MG Oral Tablet SAMANTHA ([facility]) Nystatin [id number] UNT/ML Oral Suspension SAMANTHA ([facility]) Metronidazole 500 MG Oral Tablet SAMANTHA ([facility]) Ketorolac Tromethamine 10 MG Oral Tablet SAMANTHA ([facility]) gabapentin 600 MG Oral Tablet SAMANTHA ([facility]) Fluoxetine 20 MG Oral Capsule SAMANTHA ([facility]) Escitalopram 10 MG Oral Tablet SAMANTHA ([facility]) Ciprofloxacin 500 MG Oral Tablet SAMANTHA ([facility]) Chantix Starting Month Box 0.5 mg (11)-1 mg (42) tablets in dose pa ck SAMANTHA ([facility]) varenicline 1 MG Oral Tablet SAMANTHA ([facility]) Ergocalciferol 97442 UNT Oral Capsule SAMANTHA ([facility]) Tamsulosin hydrochloride 0.4 MG Oral Capsule SAMANTHA ([facility]) ropinirole 0.25 MG Oral Tablet SAMANTHA ([facility]) Prednisone 20 MG Oral Tablet SAMANHTA ([facility]) Prednisone 10 MG Oral Tablet SAMANTHA ([facility]) Acetaminophen 325 MG / Oxycodone Hydrochloride 5 MG Oral Tablet SAMANTHA ([facility]) Nystatin [id number] UNT/ML Oral Suspension SAMANTHA ([facility]) Ketorolac Tromethamine 10 MG Oral Tablet SAMANTHA ([facility]) Gemfibrozil 600 MG Oral Tablet SAMANTHA ([facility]) gabapentin 600 MG Oral Tablet SAMANTHA ([facility]) Fluoxetine 20 MG Oral Capsule SAMANTHA ([facility])
[2020-08-09] MEDS ORDERED: MIDAZOLAM INJ 2MG/2ML VIAL (J2250 PER 1MG) IV PRN (07:01)
[2020-08-09] MEDS ORDERED: fentaNYL 100 MCG/2 ML INJECTION (J3010) IV PRN ×2 (07:01→12:00)
[2020-08-09] MEDS ORDERED: ROPIvacaine 0.5% 30ML INJECTION (J2795 PER 1MG) XX ONE (08:15)
[2020-08-09] MEDS ORDERED: dexameTHASONE 10MG/1ML VIAL PRES.FREE (J1100 PER 1MG) XX ONE (08:15)
[2020-08-09] MEDS ORDERED: LIDOCAINE 1% MDV 20ML VIAL XX ONE (08:15)
[2020-08-09] MEDS ORDERED: propofoL 200 MG/20 ML VIAL As Ordered ONE ×2 (09:22→09:23)
[2020-08-09] MEDS ORDERED: ROCURONIUM BROMIDE 50 MG/5 ML VIAL As Ordered ONE (09:22)
[2020-08-09] MEDS ORDERED: LIDOCAINE 2% 100MG/5ML SDV (FOR ANES.) As Ordered ONE (09:22)
[2020-08-09] MEDS ORDERED: ONDANSETRON 4MG/2ML VIAL As Ordered ONE (09:22)
[2020-08-09] MEDS ORDERED: MIDAZOLAM INJ 2MG/2ML VIAL (J2250 PER 1MG) As Ordered ONE (09:23)
[2020-08-09] MEDS ORDERED: METOCLOPRAMIDE INJ 10MG/2ML VIAL (J2765 PER 1) As Ordered ONE (09:23)
[2020-08-09] MEDS ORDERED: fentaNYL 100 MCG/2 ML INJECTION (J3010) As Ordered ONE (09:23)
[2020-08-09] MEDS ORDERED: EPINEPHrine 1MG/ML INJ 30ML MD-VIAL As Ordered ONE (09:25)
[2020-08-09] MEDS ORDERED: SUGAMMADEX SODIUM 500 MG/5 ML VIAL (BRIDION) As Ordered ONE (10:36)
[2020-08-09] MEDS ORDERED: dexameTHASONE 4 MG/ML 1ML VIAL (J1100 PER 1MG) As Ordered ONE (10:36)
[2020-08-09] MEDS ORDERED: oxyCODONE 5MG TAB As Ordered ONE (11:49)
[2020-08-09] MEDS ORDERED: ACETAMINOPHEN TAB 650MG DOSE (2X325MG) PO PRN (12:00)
[2020-08-09] MEDS ORDERED: ONDANSETRON 4MG/2ML VIAL IV PRN ×2 (12:00)
[2020-08-09] MEDS ORDERED: HYDROMORPHONE HCL 0.5 MG/ 0.5 ML SYRINGE (J1170 PER 1) IV PRN (12:00)
[2020-08-09] MEDS ORDERED: LR 1,000 ML IV SCH ×2 (12:00)
[2020-08-09] MEDS ORDERED: oxyCODONE 5MG TAB PO PRN (12:00)
[2020-08-09 12:15] VITALS: BP 128/76
[2020-08-09] MEDS ORDERED: MORPHINE 2 MG/ML 1ML VIAL (J2270) IV PRN (12:15)
[2020-08-09] MEDS ORDERED: PERCOCET 5MG/325MG TAB PO PRN (12:15)
--- NOTE | 2020-08-09 13:55 | RO ---
OPERATIVE NOTE DATE OF OPERATION: 08/09/2020 PREOPERATIVE DIAGNOSIS: Right shoulder SLAP tear. POSTOPERATIVE DIAGNOSIS: Right shoulder SLAP tear plus type II. PLANNED PROCEDURE: Right shoulder arthroscopy, subpectoral biceps tenodesis. PROCEDURE PERFORMED: Right shoulder arthroscopy, subpectoral biceps tenodesis. SURGEON: Kobi Paul MD [employer]: ANESTHESIOLOGIST: Dr. Villanueva ANESTHESIA: General anesthetic and preoperative block. OPERATIVE PREAMBLE: This is a 44-year-old man with signs and symptoms and imaging findings consistent with a SLAP tear. We discussed right shoulder arthroscopy, subpectoral biceps tenodesis. He wished to go ahead. I reminded him of the risks and benefits, pros and cons of going ahead and marked the right upper extremity. The patient received a block prior to the surgery. DESCRIPTION OF PROCEDURE: The patient was brought to the operating theater. He was administered general anesthetic. He was placed right lateral decubitus with the bag positioner. All bony prominences were padded. An axillary roll was employed. SCDs were used on the legs. Sherie Hugger employed. 15 lb of traction with the arm in 45 degrees of abduction was applied. The limb was prepped and draped in the usual sterile fashion, allowing over three minutes a chlorhexidine base prep solution drying time prior to draping. A preoperative timeout was performed to confirm the site, the patient and the surgery. I began by using a standard posterior arthroscopy portal. There was grade 2-3 softening in the mid-aspect of the glenoid as well as humeral head. This was gently debrided with a shaving instrument brought in through the anterior portal through the rotator interval just posterior to the biceps tendon. The undersurface of the rotator cuff appeared normal as did the subscapularis. There was moderate anterior and posterior labral fraying. This was again gently debrided. There was an obvious type II SLAP tear with instability at the root of the biceps. I used radiofrequency ablator to perform a biceps tenotomy and then shaving instrument to gently debride the superior aspect of the labrum. An arthroscope was then inserted in the subacromial space. There was a moderate amount of inflammatory bursitis. I brought in a shaving instrument through a small lateral portal to perform a complete bursectomy. There was type 2 acromion. This was shaved down using a bur instrument by 5 mm down to flat margins to perform a subacromial decompression as well as tape down on the CA ligament. Again the rotator cuff was probed and found to have no obvious tears. I then turned my attention to the subpectoral biceps tenodesis. I made a longitudinal incision centered just distal to the insertion of the deltoid over the long head of the biceps. I carried dissection down through skin and subcutaneous tissue, achieving meticulous hemostasis. I incised the fascia longitudinally. I retracted the cephalic vein laterally. I identified the long head of the biceps. I used electrocautery to incise the transverse humeral ligament. I delivered the biceps through the incision. I used the Arthrex biceps button kit and technique. I used the FiberLoop suture with Eleazar needle to perform five throws in a locking running loop stitch fashion and then locked the suture distally. I removed 2 cm of the distal end of the biceps. I then passed the suture limbs in opposite fashion into the button for a locking sliding configuration. I then used a spade tip drill to drill bicortically at the biceps groove just proximal to the deltoid insertion. I then used a 7 mm reamer to create a bony socket. I thoroughly irrigated any bone dust. I then passed the button bicortically, flipped the button and then delivered the tendon to the bony socket with alternating pressure on each of the suture ends. I then passed one suture limb through the biceps tendon and then five alternating half-hitches with the sutures cut short to lock the tendon into place. Again, the wound was thoroughly irrigated. The subcutaneous tissue was closed with interrupted 2-0 Vicryl sutures and the skin with running 3-0 Monocryl. The skin was cleaned with wet-and-dry dressing followed by application of Steri-Strips, Adaptic, 4x8 gauze, ABD dressing and cloth tape. The patient's upper extremity was placed into a sling. The case was terminated. The patient was awoken up from general anesthetic, transferred off the operating table and taken to postanesthetic unit in stable condition. All sponge, instrument and needle counts were correct. No complications. Estimated blood loss: 50 mL. Plan is for the patient to be discharged home according to day surgery criteria. Start immediate pendulum exercises as well as hand, wrist, lumbar exercises but no heavy lifting, followup in the clinic in two weeks' time. Prescriptions will be sent to the pharmacy of choice, [facility]. I communicated to his chosen person after surgery as well.
== END 2020-08-09 12:50 | disposition home or self-care (01) ==
LOC: M SDC 06:41
PROVIDERS: ATTEND Orthopaedic Surgery Sports Medicine
DX: S43.431A Superior glenoid labrum lesion of right shoulder, initial encounter (principal); X50.0XXA Overexertion from strenuous movement or load, initial encounter; Y92.89 Other specified places as the place of occurrence of the external cause; Y93.B3 Activity, free weights; Y99.9 Unspecified external cause status; E11.9 Type 2 diabetes mellitus without complications; Z79.84 Long term (current) use of oral hypoglycemic drugs; Z91.030 Bee allergy status; Z88.5 Allergy status to narcotic agent; Z79.899 Other long term (current) drug therapy
CPT/HCPCS: 29828; 64415; 88304; C1713; J0690; J1100; J2250; J2405; J2765; J3010

== ENCOUNTER → 2020-08-21 | Outpatient (CLI) | payer OTHER, MEDICAID ==
[~2020-08-21] MED LIST changes: -LR 1,000 ML IV ONE; -ceFAZolin SOD 2 GM in IV 1 EA IV ONE
--- NOTE | 2020-08-26 23:42 | ECWPNPC ---
PATIENT NAME: MATT MIRZA : 1975 GENDER: MALE VISIT DATE: 08/21/2020 DISCHARGE DATE: 08/21/20 1515 VISIT LOCKED DATE TIME: PHYSICIAN: SHARRON OREILLY RESOURCE: SHARRON OREILLY REASON FOR APPOINTMENT 1. BACK/RIGHT HIP HISTORY OF PRESENT ILLNESS DEPRESSION SCREENING: PHQ-2 (2015 EDITION) LITTLE INTEREST OR PLEASURE IN DOING THINGS?NOT AT ALL FEELING DOWN, DEPRESSED, OR HOPELESS?NOT AT ALL TOTAL SCORE0 GENERAL: HERE FOR FOLLOW-UP OF RIGHT LOW BACK PAIN AND RIGHT HIP PAIN. LAST VISIT WAS IN SEPTEMBER FOR A TELEPHONE VISIT AND 2019. HE WAS DOING WELL AFTER HAVING RADIOFREQUENCY. STATES HE CONTINUED TO DO WELL WITH RIGHT LOW BACK PAIN AND RIGHT HIP PAIN UP UNTIL A FEW MONTHS AGO. DENIES PRECIPITATING EVENT. HAS HAD SOME INJURIES THAT REQUIRED CASTING OF HIS RIGHT FOOT .HE HAS HAD RIGHT SHOULDER SURGERY. REVIEWED MRI IMAGING OF THE LUMBAR SPINE AND DISCUSSED TREATMENT OPTIONS.-. FALL RISK SCREENING: SCREENING :NO FALLS REPORTED IN THE LAST YEAR PAIN SCREENING: PATIENT HAS A COMPLAINT OF ACUTE OR CHRONIC PAIN :YES LOCATION OF PAIN:LOW BACK, RIGHT HIP INTENSITY OF PAIN (SCALE OF 1 TO 10):7 WHAT DOES YOUR PAIN FEEL LIKE:SHARP DULL, FEELS LIKE SOMEONE IS PUSHING. DURATION:CONTINOUS, CONSTANT, AWAKENS FROM SLEEP PAIN IS INCREASED BY:ACTIVITIES, PROLONGED STANDING PAIN IS DECREASED BY:OTHERS NOTHING RELIEVES THE PAIN. MEDICATION DOES NOT EVEN TAKE THE EDGE OFF. NURSING NOTE: -. PAIN CENTER INTAKE QUESTIONS: DO YOU HAVE A HISTORY OF MRSA? :NO DO YOU TAKE A BLOOD THINNERS? :NO DO YOU HAVE ANY BLEEDING DISORDERS? :NO ANY NEW NUMBNESS OR WEAKNESS IN YOUR LEGS OR ARMS? :NO ANY PACEMAKER,DEFIBRILLATOR, OR DORSAL COLUMN STIMULATOR? :NO DO YOU HAVE ANY RASHES OR OPEN SORES? :NO ARE YOU ALLERGIC TO IV DYE? :NO ARE YOU DIABETIC? :YES TYPE II- DIAGNOSED 01/2020. ANY NEW PROBLEMS WITH YOUR MEDICATIONS? :NO HAVE YOU RECEIVED A VACCINE IN THE PAST 30 DAYS? :NO DO YOU PLAN TO RECEIVE A VACCINE IN THE NEXT 21 DAYS? :NO DO YOU NEED ANY PRESCRIPTION? :YES GABAPENTIN DO YOU TAKE ANY IMMUNOSUPPRESSIVE MEDICATIONS? :NO IS THERE A CHANCE YOU COULD BE ? :NO ARE YOU BREAST FEEDING? :NO CURRENT MEDICATIONS TAKING GABAPENTIN 800 MG TABLET 1 CAPSULE ORALLY TID TAKING EPINEPHRINE 0.3 MG/0.3ML SOLUTION PREFILLED SYRINGE DIRECTED INJECTION TAKING METFORMIN HCL ER 500 MG TABLET EXTENDED RELEASE 24 HOUR 2 TABLET WITH EVENING MEAL ORALLY BID TAKING NORTRIPTYLINE HCL 10 MG CAPSULE 1 CAPSULE ORALLY BID TAKING QUETIAPINE FUMARATE 100 MG TABLET 1 TAB ORALLY BID TAKING ROPINIROLE HCL 0.5 MG TABLET 1 TAB ORALLY TID TAKING TIZANIDINE HCL 2 MG CAPSULE 1 CAPSULE NEEDED ORALLY THREE TIMES A DAY TAKING VITAMIN D3 ADULT GUMMIES 25 MCG (1000 UT) TABLET CHEWABLE 1 TABLET ORALLY ONCE A DAY NOT-TAKING ESCITALOPRAM OXALATE 20 MG TABLET 1 TABLET ORALLY ONCE A DAY NOT-TAKING GEMFIBROZIL 600 MG TABLET 1 TABLET 30 MINUTES BEFORE MORNING AND EVENING MEALS ORALLY TWICE A DAY NOT-TAKING KETOROLAC TROMETHAMINE 10 MG TABLET 1 TABLET WITH FOOD OR MILK NEEDED ORALLY EVERY 6 HRS NOT-TAKING TAMSULOSIN HCL 0.4 MG CAPSULE 1 CAPSULE ORALLY ONCE A DAY, NOTES: FOR 7 DAYS NOT-TAKING SEROQUEL 100 MG TABLET 1 TABLET ORALLY BID NOT-TAKING TIZANIDINE HCL 4 MG TABLET 1 TABLET NEEDED ORALLY THREE TIMES A DAY NOT-TAKING ATORVASTATIN CALCIUM 10 MG TABLET 1 TABLET ORALLY ONCE A DAY NOT-TAKING PROZAC 20 MG CAPSULE 1 CAPSULE ORALLY TID NOT-TAKING IBUPROFEN 600 MG TABLET 1 TABLET WITH FOOD OR MILK NEEDED ORALLY THREE TIMES A DAY MEDICATION LIST REVIEWED AND RECONCILED WITH THE PATIENT PAST MEDICAL HISTORY SCHIZOPHRENIA ANXIETY DEPRESSION DDD BIPOLAR/ STRESS PANCREATITIS CONCUSSION HX HX BROKEN RIBS AND CRUSHED VERTEBRA HIGH CHOLESTEROL HX FRACTURED RIGHT ARM X 3 FRACTURED RIGHT ANKLE X 2 , LEFT X1 SONG BITE LEFT FOOT FRACTURED MANDIBLE DIVERTICULITIS KIDNEY STONES WEST NILE VIRUS DM TYPE2 HYPERGLCERIDEMIA IOPATHIC PERIPHERAL NEUROPATHY ALLERGIES TRAMADOL HCL: HIVES - ALLERGY SURGICAL HISTORY LEFT SHOULDER BROKEN JAW RIGHT WRIST GALLBLADDER REMOVAL 2015 RIGHT ANKLE X4 LEFT ANKLE LEFT PECTORAL TISSUE REMOVAL ESWL BROKEN RIGHT ARM X 5 RIGHT SHOULDER SURGERY 07/2020 SOCIAL HISTORY GENERAL: TOBACCO USE ARE YOU A:FORMER SMOKER HOW LONG HAS IT BEEN SINCE YOU LAST SMOKED?6-12 MONTHS LATEX QUESTIONNAIRE LATEX ALLERGY : HAVE YOU EVER DEVELOPED ANY TYPE OF REACTION AFTER HANDLING LATEX PRODUCTS SUCH RUBBER GLOVES, CONDOMS, DIAPHRAGMS, BALLOONS, SOCKS, OR UNDERWEAR?NO LATEX ALLERGY : HAVE YOU EVER DEVELOPED ANY TYPE OF REACTION DURING OR AFTER DENTAL APPOINTMENT, VAGINAL/RECTAL EXAMINATION, SURGICAL PROCEDURE, OR ANY OTHER EXPOSURE?NO LATEX RISK : HAVE YOU EVER HAD ANY DIFFICULTY BREATHING OR HIVES AFTER EATING OR HANDLING ANY FRUITS, OR VEGETABLES; SUCH KIWI, BANANAS, STONE FRUITS, OR CHESTNUTSNO LATEX RISK : DO YOU HAVE A PREVIOUS PERSONAL HISTORY OF MORE THAN NINE SURGERIES, SPINA BIFIDA, OR REPEATED CATHERIZATIONS? NO LATEX RISK : ARE YOU FREQUENTLY EXPOSED TO LATEX PRODUCTS IN YOUR OCCUPATION?NO DATE ASKED : 08/21/2020 ALCOHOL USE: OCCASIONAL. ALCOHOL SCREENING DID YOU HAVE A DRINK CONTAINING ALCOHOL IN THE PAST YEAR?YES HOW OFTEN DID YOU HAVE SIX OR MORE DRINKS ON ONE OCCASION IN THE PAST YEAR?NEVER (0 POINTS) HOW MANY DRINKS DID YOU HAVE ON A TYPICAL DAY WHEN YOU WERE DRINKING IN THE PAST YEAR?3 OR 4 (1 POINT) HOW OFTEN DID YOU HAVE A DRINK CONTAINING ALCOHOL IN THE PAST YEAR?TWO TO FOUR TIMES A MONTH (2 POINTS) POINTS3 INTERPRETATIONNEGATIVE RECREATIONAL DRUG USE DRUG USE?YES MEDICINAL MARIJUANA APPROVED DECEMBER 2020 PER PATIENT CAFFEINE CAFFEINE USE?YES SODA DAILY ORIENTAL ORTHODOX [id number] NONE LANGUAGE LANGUAGES SPOKEN:DANISH LEARNING BARRIERS / SPECIAL NEEDS BARRIERS TO LEARNING?NO HEARING IMPAIRED?YES CONSTANT RINGING IN RIGHT EAR VISION IMPAIRED?YES GLASSES FOR READING :CORRECTIVE LENSES COGNITIVELY IMPAIRED?NO READINESS TO LEARN?YES LEARNING PREFERENCES?NO LEARNING CAPABILITIES PRESENT?YES EMOTIONAL BARRIERS?NO SPECIAL DEVICES?NO BELT MAKER NEEDED?NO DOMESTIC VIOLENCE DO YOU FEEL SAFE IN YOUR ENVIRONMENT?YES OCCUPATION: [employer], [employer]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 MARITAL STATUS: . TODAY'S VISIT 10/01/2019 PATIENT DESCRIBES PAIN :ACHING FROM 0-10, WHAT LEVEL IS YOUR PAIN TODAY?4 IS THERE A CHANCE YOU COULD BE ?NO HAVE YOU BEEN SICK IN THE LAST WEEK (COLD, COUGH, FEVER, FLU, ETC)NO DO YOU TAKE ANY BLOOD THINNERS?NO DO YOU HAVE ANY RASHES OR OPEN SORES?NO ANY CHANGE IN BOWEL OR BLADDER CONTROL?YES PT STATES THAT HE IS TAKING NEW CHOLESTEROL MED, NOTICING DRY MOUTH AND MORE FREQUENT URINATION. ENCOURAGED PT TO REACH OUT TO PCP. ARE YOU ALLERGIC TO SHELLFISH OR IV DYE?NO ARE YOU DIABETIC?NO DO YOU HAVE A PACEMAKER OR DEFIBRILLATOR?NO ANY NEW PROBLEMS WITH MEDICINES OR NEW ALLERGIESNO ANY NEW PATTERNS OF PAIN OR NUMBNESS?NO ANY CHANGE IN YOUR MEDICAL CONDITION?NO HAVE YOU FALLEN IN THE LAST 6 MONTHS?NO DO YOU USE ANY TYPE OF TOBACCO (SMOKE, SMOKELESS, CHEW, ETC.)NO ARE YOU ABUSED, NEGLECTED, OR IN AN UNSAFE ENVIRONMENT?NO DO YOU HAVE THOUGHTS OF HURTING YOURSELF OR SOMEONE ELSE?NO DO YOU NEED ANY PRESCRIPTIONS?NO DO YOU HAVE ANY OTHER QUESTIONS OR CONCERNS?NO INTENSITY SCALE REVIEWEDNUMBER - PFS REFERRAL NEEDED?NO CLERGY REFERRAL NEEDED?NO PUBLIC HEALTH REFERRAL NEEDED?NO WAS THE PROVIDER NOTIFIED OF ANY PERTINENT INFO?YES N/A HAS THE PATIENT BEEN EDUCATED REGARDING HIS/HER PLAN OF CARE?YES HAS THE PATIENT BEEN EDUCATED REGARDING PAIN, THE RISK FOR PAIN, THE IMPORTANCE OF EFFECTIVE PAIN MANAGEMENT, AND THE PAIN ASSESSMENT PROCESS?YES ADVANCE DIRECTIVE ADVANCE DIRECTIVE DISCUSSED WITH PATIENT:YES PT DOES NOT HAVE ANY ADVANCED DIRECTIVES AND HE DECLINES INFORMATION ON HCP OR ASSISTANCE AT THIS TIME. HOSPITALIZATION/MAJOR DIAGNOSTIC PROCEDURE HOSPITALIZED FOR KIDNEY STONES 4 TIMES LEFT PECTORAL TISSUE REMOVAL DIVERTICULITIS 2010, 2011 REVIEW OF SYSTEMS CONSTITUTIONAL: ANY RECENT FEVER NO . CHILLS NO . WEIGHT CHANGE OF UNKNOWN REASONS NO . GASTROENTEROLOGY: NEW UNEXPLAINABLE CHANGES IN BOWEL CONTROL NO . CONSTIPATION NO . GENITOURINARY: ANY NEW CHANGE IN BLADDER CONTROL? NO . NEUROLOGY: NEW ONSET DIZZINESS OR NEUROLOGICAL CHANGES NOT MENTIONED NO . NEW NUMBNESS OR PAIN PATTERNS NOT MENTIONED AND PERTINENT TO TODAY'S VISIT NO . CARDIOLOGY: NEW CHEST PRESSURE NO . PATIENT DENIES NO . RESPIRATORY: UNEXPLAINABLE COUGH NO . NEW SHORTNESS OF BREATH NO . VITAL SIGNS WT 237.6 LBS, HT 69", BMI 35.08 INDEX, BP 133/86 MM HG, HR 90 /MIN, RR 18 /MIN, TEMP 98.3 F, OXYGEN SAT % 95%, SAFE IN ENV? (Y/N) YES, REVIEWED BY: MARCIN HULL MA. EXAMINATION GENERAL EXAMINATION: GENERAL ALERT,NO DISTRESS . PSYCH AFFECT NORMAL . LUNGS: LUNG SOUNDS ARE CLEAR . HEART: HEART RATE REGULAR . MUSCULOSKELETAL: MST 5/5 BILAT. LOWER EXTREMITIES . LUMBAR: TENDERNESS RIGHT SIJ .POSITIVE SHANDA'S TEST OVER RIGHT LEG. DIAGNOSTIC TESTS REVIEWED CT L/S [id number] . ASSESSMENTS SACROILIITIS - M46.1 (PRIMARY) TREATMENT SACROILIITIS REFILL GABAPENTIN TABLET, 800 MG, 1 CAPSULE, ORALLY, TID, 30 DAYS, 90 CAPSULE, REFILLS 2 REFILL TIZANIDINE HCL CAPSULE, 2 MG, 1 CAPSULE NEEDED, ORALLY, THREE TIMES A DAY, 30 DAYS, 90 CAPSULE, REFILLS 2 MEDICATION: OXYCODONE HCL TAB 5MG ORALLY (ORDERED FOR 08/30/2020) MEDICATION: VALIUM TAB 5MG ORALLY (DIAZEPAM) (ORDERED FOR 08/30/2020) NOTES: RIGHT SACROILIAC JOINT BLOCK. CLINICAL NOTES: PREPROCEDURE AND PRCEDURE INFORMATION PROVIDED TO PATIENT. MAEVE HULL MA. PROCEDURE CODES FA211 ESTABILISHED PATIENT [facility] CHARGE DISPOSITION & COMMUNICATION FOLLOW UP POST PROCEDURE (REASON: RIGHT SACROILIAC JOINT BLOCK ) ELECTRONICALLY SIGNED BY BLAIRE SMITH ON 08/26/2020 AT 08:35 PM EST DISCLAIMER : THIS IS A VISIT SUMMARY EXTRACTED FROM THE [employer] CHART. IT IS NOT A COPY OF THE [employer] PROGRESS NOTE. EMILIO
== END ==
LOC: M PAIN 14:15
PROVIDERS: ATTEND Nurse Practitioner Family
DX: M46.1 Sacroiliitis, not elsewhere classified (principal); F41.9 Anxiety disorder, unspecified; F32.9 Major depressive disorder, single episode, unspecified; E11.42 Type 2 diabetes mellitus with diabetic polyneuropathy; Z79.84 Long term (current) use of oral hypoglycemic drugs; Z79.899 Other long term (current) drug therapy; Z87.891 Personal history of nicotine dependence; Z88.5 Allergy status to narcotic agent

== ENCOUNTER → 2020-08-24 | Outpatient (CLI) | payer OTHER, MEDICAID | LOC: M LABSMTC 13:59 | PROVIDERS: ATTEND Anesthesiology | DX: Z20.822 Contact with and (suspected) exposure to COVID-19 (principal) ==

== ENCOUNTER → 2020-08-28 | Outpatient (CLI) | payer OTHER, MEDICAID ==
--- NOTE | 2020-08-28 16:52 | REP ---
INDICATION: PAIN. COMPARISON: 07/11/2020 TECHNIQUE: Axillary, internal rotation, external rotation, and Y-view of the right shoulder. FINDINGS: Moderate arthritic degenerative changes are appreciated including cortical irregularity and spurring at the acromioclavicular joint as well as cortical irregularity and blunting of the calcified glenoid rim and suspected subtle changes to the humeral head. There is a surgical clip along the posterior aspect of the humeral head which represents a new finding as compared to prior exam. No evidence for acute fracture or dislocation. IMPRESSION: Moderate arthritic changes. Question recent surgical intervention. <Electronically signed by Henok Shetty > 08/28/20 [id number]
== END ==
LOC: M SOG 15:02
PROVIDERS: ATTEND Orthopaedic Surgery Sports Medicine
DX: Z47.89 Encounter for other orthopedic aftercare (principal); M19.011 Primary osteoarthritis, right shoulder; M25.711 Osteophyte, right shoulder

== ENCOUNTER → 2020-08-28 | Outpatient (CLI) | payer OTHER, MEDICAID ==
[~2020-08-28] MED LIST changes: +PROHANCE 279.3MG/ML 15ML VIAL As Ordered ONE; +PROHANCE 279.3MG/ML 5ML VIAL As Ordered ONE
[2020-08-28 19:05] LABS: BASO # 0.1 10^3/uL (0.0-0.2); BASO % 0.9 % (0.0-1.0); EOS # 0.2 10^3/uL (0.0-0.5); HEMATOCRIT 45.2 % (42.0-52.0); HEMOGLOBIN 14.7 g/dl (13.5-17.5); LYMPH # 1.8 10^3/uL (1.5-5.0); MEAN CORPUSCULAR HEMOGLOBIN 30.2 pg (27.0-33.0); MEAN CORPUSCULAR HGB CONC 32.5 g/dl (32.0-36.5); MEAN CORPUSCULAR VOLUME 92.8 fl (80.0-96.0); MONO # 0.8 10^3/uL (0.0-0.8); MONO % 8.9 % (2.0-8.0); NEUTROPHILS # 6.2 10^3/uL (1.5-8.5); NEUTROPHILS % 67.4 % (36.0-66.0); PLATELET COUNT, AUTOMATED 292 10^3/uL (150-450); RED BLOOD COUNT 4.87 10^6/uL (4.30-6.10); WHITE BLOOD COUNT 9.2 10^3/uL (4.0-10.0)
[2020-08-28 19:46] LABS: ERYTHROCYTE SEDIMENTATION RATE 8 mm/hr (0-15)
--- NOTE | 2020-08-28 20:53 | REPVR ---
PROCEDURE INFORMATION: Exam: MR Right Upper Extremity Joint Without and With Contrast; Shoulder Exam date and time: 08/28/2020 7:50 PM Age: 44 years old Clinical indication: Other: Pain and swelling; Prior surgery; Surgery date: <1 month; Surgery type: Muscular repair and re-attachment; Additional info: Encounter for otherorthopedic after care TECHNIQUE: Imaging protocol: MR of the Right upper extremity without and with contrast. Exam focused on the shoulder. 3D rendering (Not supervised by radiologist): MIP and/or 3D reconstructed images were created by the technologist. Contrast material: PROHANCE; Contrast volume: 20 ml; Contrast route: INTRAVENOUS (IV); COMPARISON: MRI-Shoulder W/O CONTRAST 07/21/2020 10:58 AM FINDINGS: Bones and cartilage: Type 2 acromion. Postoperative changes demonstrated in the humeral head. Diffuse chondromalacia changes in the glenohumeral joint redemonstrated. Joint spaces: Moderate hypertrophic degenerative changes in the acromioclavicular joint. Glenoid labrum: Redemonstration of a complex SLAP tear extending into the posterior labrum. Marked degenerative changes with fraying in the inferior labrum. Bursae: Fluid demonstrated in the subacromial subdeltoid bursa most likely postprocedural. Supraspinatus tendon: Increased signal surrounds an intact supraspinatus tendon consistent with probable synovitis. Infraspinatus tendon: Unremarkable. No evidence of tear. Subscapularis tendon: Unremarkable. No evidence of tear. Teres minor tendon: Unremarkable. No evidence of tear. Tendon of biceps brachii: Status post repair of the long head of the biceps tendon using anchor screws. Glenohumeral ligaments: Unremarkable. Muscles: Inflammatory changes demonstrated in the deltoid muscle likely postprocedural. Soft tissues: Particulate material demonstrated in the axillary recess. IMPRESSION: 1. Status post repair of the long head of the biceps tendon using anchor screws. 2. Fluid demonstrated in the subacromial subdeltoid bursa most likely postprocedural. 3. Inflammatory changes demonstrated in the deltoid muscle likely postprocedural. 4. Redemonstration of a complex SLAP tear extending into the posterior labrum. 5. Diffuse chondromalacia changes in the glenohumeral joint redemonstrated. 6. Increased signal surrounds an intact supraspinatus tendon consistent with probable synovitis. Electronically signed by: Joey Poole On 08/28/2020 20:53:44 PM
== END ==
LOC: M LAB 17:45
PROVIDERS: ATTEND Orthopaedic Surgery Sports Medicine
DX: Z47.89 Encounter for other orthopedic aftercare (principal); M94.211 Chondromalacia, right shoulder; Z96.7 Presence of other bone and tendon implants
CPT/HCPCS: 36415; 73223; 85025; 85652; 86140; A9576

== ENCOUNTER → 2020-08-29 | Outpatient (CLI) | payer OTHER, MEDICAID ==
[~2020-08-29] MED LIST changes: +BUPIVACAINE HCL 0.25% 30ML VIAL As Ordered ONE; +ISOVUE-M 300 61% 15ML VIAL As Ordered ONE; +LIDOCAINE 1% SDV 30ML VIAL As Ordered ONE; -PROHANCE 279.3MG/ML 15ML VIAL As Ordered ONE; -PROHANCE 279.3MG/ML 5ML VIAL As Ordered ONE; +TRIAMCINOLONE ACETONIDE SUSP 40 MG/ML VIAL (J3301) As Ordered ONE; +diazePAM 5MG TABLET As Ordered ONE; +oxyCODONE 5MG TAB As Ordered ONE
--- NOTE | 2020-08-29 11:20 | REP ---
INDICATION: RIGHT SACROILIAC JOINT BLOCK. COMPARISON: None. TECHNIQUE: Single C-arm view right sacroiliac joint performed. FINDINGS: Needle overlies the right sacroiliac joint. IMPRESSION: 26 seconds fluoroscopy time utilized. <Electronically signed by Robbie Aguilar > 08/29/20 1114
--- NOTE | 2020-08-30 00:21 | ECWPNPC ---
PATIENT NAME: MATT MIRZA : 1975 GENDER: MALE VISIT DATE: 08/29/2020 DISCHARGE DATE: 08/29/20 1057 VISIT LOCKED DATE TIME: PHYSICIAN: WESLY GIRON MD RESOURCE: WESLY GIRON MD REASON FOR APPOINTMENT 1. RIGHT SACROILIAC JOINT BLOCK HISTORY OF PRESENT ILLNESS GENERAL: -. FALL RISK SCREENING: SCREENING :NO FALLS REPORTED IN THE LAST YEAR PAIN SCREENING: PATIENT HAS A COMPLAINT OF ACUTE OR CHRONIC PAIN :YES LOCATION OF PAIN: LOW BACK INTENSITY OF PAIN (SCALE OF 1 TO 10):7 WHAT DOES YOUR PAIN FEEL LIKE:ACHING, CONTINOUS DULL DURATION:CONSTANT, AWAKENS FROM SLEEP PAIN IS INCREASED BY:ACTIVITIES, PROLONGED STANDING PAIN IS DECREASED BY:USE OF PAIN MEDICATIONS, OTHERS HEAT/ICE NURSING NOTE: -. PAIN CENTER INTAKE QUESTIONS: DO YOU HAVE A HISTORY OF MRSA? :NO DO YOU TAKE A BLOOD THINNERS? :NO DO YOU HAVE ANY BLEEDING DISORDERS? :NO ANY NEW NUMBNESS OR WEAKNESS IN YOUR LEGS OR ARMS? :NO ANY PACEMAKER,DEFIBRILLATOR, OR DORSAL COLUMN STIMULATOR? :NO DO YOU HAVE ANY RASHES OR OPEN SORES? :NO ARE YOU ALLERGIC TO IV DYE? :NO ARE YOU DIABETIC? :YES TYPE II- DIAGNOSED 01/2020. FSBS 126 ANY NEW PROBLEMS WITH YOUR MEDICATIONS? :NO HAVE YOU RECEIVED A VACCINE IN THE PAST 30 DAYS? :NO DO YOU PLAN TO RECEIVE A VACCINE IN THE NEXT 21 DAYS? :NO DO YOU NEED ANY PRESCRIPTION? :NO DO YOU TAKE ANY IMMUNOSUPPRESSIVE MEDICATIONS? :NO ANY HISTORY OF SEIZURES? :NO ANY HISTORY OF CARDIAC ISSUES OR EVENTS? :NO DO YOU HAVE ANY KIDNEY OR LIVER DISEASE? :NO DO YOU HAVE SLEEP APNEA? :NO ANY RECENT HEAD INJURY? :NO IS THERE A CHANCE YOU COULD BE ? :NO ARE YOU BREAST FEEDING? :NO WHEN DID YOU LAST EAT? : 08/29/2020 0200 WHEN DID YOU LAST DRINK? : 08/29/2020 0630 WHAT DID YOU LAST DRINK? : WATER NAME OF PERSON DRIVING YOU HOME? : NEPHEW (GEOVANY) DO YOU HAVE ANY OTHER QUESTIONS OR CONCERNS? : NO CURRENT MEDICATIONS TAKING EPINEPHRINE 0.3 MG/0.3ML SOLUTION PREFILLED SYRINGE DIRECTED INJECTION TAKING METFORMIN HCL ER 500 MG TABLET EXTENDED RELEASE 24 HOUR 2 TABLET WITH EVENING MEAL ORALLY BID, NOTES: 08/28/20201999 TAKING NORTRIPTYLINE HCL 10 MG CAPSULE 1 CAPSULE ORALLY BID, NOTES: 08/29/2020 0630 TAKING QUETIAPINE FUMARATE 100 MG TABLET 1 TAB ORALLY BID, NOTES: 08/29/2020 0630 TAKING ROPINIROLE HCL 0.5 MG TABLET 1 TAB ORALLY TID TAKING VITAMIN D3 ADULT GUMMIES 25 MCG (1000 UT) TABLET CHEWABLE 1 TABLET ORALLY ONCE A DAY TAKING GABAPENTIN 800 MG TABLET 1 CAPSULE ORALLY TID, NOTES: 08/28/2020 TAKING TIZANIDINE HCL 2 MG CAPSULE 1 CAPSULE NEEDED ORALLY THREE TIMES A DAY, NOTES: 08/28/2020 NOT-TAKING ESCITALOPRAM OXALATE 20 MG TABLET 1 TABLET ORALLY ONCE A DAY NOT-TAKING GEMFIBROZIL 600 MG TABLET 1 TABLET 30 MINUTES BEFORE MORNING AND EVENING MEALS ORALLY TWICE A DAY NOT-TAKING KETOROLAC TROMETHAMINE 10 MG TABLET 1 TABLET WITH FOOD OR MILK NEEDED ORALLY EVERY 6 HRS NOT-TAKING TAMSULOSIN HCL 0.4 MG CAPSULE 1 CAPSULE ORALLY ONCE A DAY, NOTES: FOR 7 DAYS NOT-TAKING SEROQUEL 100 MG TABLET 1 TABLET ORALLY BID NOT-TAKING TIZANIDINE HCL 4 MG TABLET 1 TABLET NEEDED ORALLY THREE TIMES A DAY NOT-TAKING ATORVASTATIN CALCIUM 10 MG TABLET 1 TABLET ORALLY ONCE A DAY NOT-TAKING PROZAC 20 MG CAPSULE 1 CAPSULE ORALLY TID NOT-TAKING IBUPROFEN 600 MG TABLET 1 TABLET WITH FOOD OR MILK NEEDED ORALLY THREE TIMES A DAY MEDICATION LIST REVIEWED AND RECONCILED WITH THE PATIENT PAST MEDICAL HISTORY SCHIZOPHRENIA ANXIETY DEPRESSION DDD BIPOLAR/ STRESS PANCREATITIS CONCUSSION HX HX BROKEN RIBS AND CRUSHED VERTEBRA HIGH CHOLESTEROL HX FRACTURED RIGHT ARM X 3 FRACTURED RIGHT ANKLE X 2 , LEFT X1 SONG BITE LEFT FOOT FRACTURED MANDIBLE DIVERTICULITIS KIDNEY STONES WEST NILE VIRUS DM TYPE2 HYPERGLCERIDEMIA IOPATHIC PERIPHERAL NEUROPATHY ALLERGIES TRAMADOL HCL: HIVES - ALLERGY SURGICAL HISTORY LEFT SHOULDER BROKEN JAW RIGHT WRIST GALLBLADDER REMOVAL 2015 RIGHT ANKLE X4 LEFT ANKLE LEFT PECTORAL TISSUE REMOVAL ESWL BROKEN RIGHT ARM X 5 RIGHT SHOULDER SURGERY 07/2020 SOCIAL HISTORY GENERAL: TOBACCO USE ARE YOU A:FORMER SMOKER HOW LONG HAS IT BEEN SINCE YOU LAST SMOKED?6-12 MONTHS LATEX QUESTIONNAIRE LATEX ALLERGY : HAVE YOU EVER DEVELOPED ANY TYPE OF REACTION AFTER HANDLING LATEX PRODUCTS SUCH RUBBER GLOVES, CONDOMS, DIAPHRAGMS, BALLOONS, SOCKS, OR UNDERWEAR?NO LATEX ALLERGY : HAVE YOU EVER DEVELOPED ANY TYPE OF REACTION DURING OR AFTER DENTAL APPOINTMENT, VAGINAL/RECTAL EXAMINATION, SURGICAL PROCEDURE, OR ANY OTHER EXPOSURE?NO LATEX RISK : HAVE YOU EVER HAD ANY DIFFICULTY BREATHING OR HIVES AFTER EATING OR HANDLING ANY FRUITS, OR VEGETABLES; SUCH KIWI, BANANAS, STONE FRUITS, OR CHESTNUTSNO LATEX RISK : DO YOU HAVE A PREVIOUS PERSONAL HISTORY OF MORE THAN NINE SURGERIES, SPINA BIFIDA, OR REPEATED CATHERIZATIONS? NO LATEX RISK : ARE YOU FREQUENTLY EXPOSED TO LATEX PRODUCTS IN YOUR OCCUPATION?NO DATE ASKED : 08/28/2020 ALCOHOL USE: OCCASIONAL. ALCOHOL SCREENING DID YOU HAVE A DRINK CONTAINING ALCOHOL IN THE PAST YEAR?YES HOW OFTEN DID YOU HAVE SIX OR MORE DRINKS ON ONE OCCASION IN THE PAST YEAR?NEVER (0 POINTS) HOW MANY DRINKS DID YOU HAVE ON A TYPICAL DAY WHEN YOU WERE DRINKING IN THE PAST YEAR?3 OR 4 (1 POINT) HOW OFTEN DID YOU HAVE A DRINK CONTAINING ALCOHOL IN THE PAST YEAR?TWO TO FOUR TIMES A MONTH (2 POINTS) POINTS3 INTERPRETATIONNEGATIVE RECREATIONAL DRUG USE DRUG USE?YES MEDICINAL MARIJUANA APPROVED DECEMBER 2020 PER PATIENT CAFFEINE CAFFEINE USE?YES SODA DAILY MORMONISM [id number] NONE LANGUAGE LANGUAGES SPOKEN:LAO LEARNING BARRIERS / SPECIAL NEEDS BARRIERS TO LEARNING?NO HEARING IMPAIRED?YES CONSTANT RINGING IN RIGHT EAR VISION IMPAIRED?YES GLASSES FOR READING COGNITIVELY IMPAIRED?NO :CORRECTIVE LENSES READINESS TO LEARN?YES LEARNING PREFERENCES?NO LEARNING CAPABILITIES PRESENT?YES EMOTIONAL BARRIERS?NO SPECIAL DEVICES?NO VERIFICATION CLERK NEEDED?NO DOMESTIC VIOLENCE DO YOU FEEL SAFE IN YOUR ENVIRONMENT?YES OCCUPATION: [employer], [employer]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 MARITAL STATUS: . TODAY'S VISIT 10/01/2019 PATIENT DESCRIBES PAIN :ACHING FROM 0-10, WHAT LEVEL IS YOUR PAIN TODAY?4 IS THERE A CHANCE YOU COULD BE ?NO HAVE YOU BEEN SICK IN THE LAST WEEK (COLD, COUGH, FEVER, FLU, ETC)NO DO YOU TAKE ANY BLOOD THINNERS?NO DO YOU HAVE ANY RASHES OR OPEN SORES?NO ANY CHANGE IN BOWEL OR BLADDER CONTROL?YES PT STATES THAT HE IS TAKING NEW CHOLESTEROL MED, NOTICING DRY MOUTH AND MORE FREQUENT URINATION. ENCOURAGED PT TO REACH OUT TO PCP. ARE YOU ALLERGIC TO SHELLFISH OR IV DYE?NO ARE YOU DIABETIC?NO DO YOU HAVE A PACEMAKER OR DEFIBRILLATOR?NO ANY NEW PROBLEMS WITH MEDICINES OR NEW ALLERGIESNO ANY NEW PATTERNS OF PAIN OR NUMBNESS?NO ANY CHANGE IN YOUR MEDICAL CONDITION?NO HAVE YOU FALLEN IN THE LAST 6 MONTHS?NO DO YOU USE ANY TYPE OF TOBACCO (SMOKE, SMOKELESS, CHEW, ETC.)NO ARE YOU ABUSED, NEGLECTED, OR IN AN UNSAFE ENVIRONMENT?NO DO YOU HAVE THOUGHTS OF HURTING YOURSELF OR SOMEONE ELSE?NO DO YOU NEED ANY PRESCRIPTIONS?NO DO YOU HAVE ANY OTHER QUESTIONS OR CONCERNS?NO INTENSITY SCALE REVIEWEDNUMBER - PFS REFERRAL NEEDED?NO CLERGY REFERRAL NEEDED?NO PUBLIC HEALTH REFERRAL NEEDED?NO WAS THE PROVIDER NOTIFIED OF ANY PERTINENT INFO?YES N/A HAS THE PATIENT BEEN EDUCATED REGARDING HIS/HER PLAN OF CARE?YES HAS THE PATIENT BEEN EDUCATED REGARDING PAIN, THE RISK FOR PAIN, THE IMPORTANCE OF EFFECTIVE PAIN MANAGEMENT, AND THE PAIN ASSESSMENT PROCESS?YES ADVANCE DIRECTIVE ADVANCE DIRECTIVE DISCUSSED WITH PATIENT:YES PT DOES NOT HAVE ANY ADVANCED DIRECTIVES AND HE DECLINES INFORMATION ON HCP OR ASSISTANCE AT THIS TIME. HOSPITALIZATION/MAJOR DIAGNOSTIC PROCEDURE HOSPITALIZED FOR KIDNEY STONES 4 TIMES LEFT PECTORAL TISSUE REMOVAL DIVERTICULITIS 2011 VITAL SIGNS WT 231.8 LBS, HT 69", BMI 34.23 INDEX, BP 144/89 MM HG, HR 97 /MIN, RR 18 /MIN, TEMP 98.0 F, OXYGEN SAT % 98%, BLOOD GLUCOSE LEVEL 126, SAFE IN ENV? (Y/N) YES, NA INITIALS SC 09:48, REVIEWED BY: Last BURDICK RN. EXAMINATION GENERAL EXAMINATION: A HISTORY AND PHYSICAL EXAM ON THE PATIENT WAS DONE ON 08/21/2020 (DATE OF ORIGINAL ASSESSMENT) IN PREPARATION OF SURGERY/PROCEDURE. I HAVE NOW REASSESSED THIS PATIENT'S HEALTH STATUS AND PERFORMED AN UPDATED EXAM TODAY. ALL CHANGES IN THE PATIENT'S HISTORY, PHYSICAL EXAM, PRE-EXISTING CONDITONS, AND INDICATIONS/CONTRAINDICATIONS TO THE PLANNED PROCEDURE AND ANESTHESIA ARE DOCUMENTED AND EVALUATED BELOW. I ATTEST TO THE ADEQUACY AND APPROPRIATENESS OF MY ASSESSMENT, AND CONFIRM THE NECESSITY FOR THE PLANNED PROCEDURE. THE PATIENT IS ALERT, ORIENTED TIMES THREE AND COOPERATIVE. LUNGS ARE CLEAR TO AUSCULTATION. HEART SHOWS REGULAR RHYTHM, NO MURMURS AND NO GALLOPS. ASSESSMENTS SACROILIITIS - M46.1 (PRIMARY) TREATMENT SACROILIITIS [facility] FLUORO GUIDANCE (PAIN)[id number] COMPLETION OF PROCEDURAL VISIT WHEN MEETS CRITERIAJORGE WHITNEY 08/29/2020 10:57:48 AM > CRITERIA MET MEDICATION: VALIUM TAB 5MG ORALLY (DIAZEPAM)HERIBERTO SOLARES 08/29/2020 10:04:18 AM > VERIFIED. JORGE WHITNEY 08/29/2020 10:07:07 AM > ADMINISTERED MEDICATION: OXYCODONE HCL TAB 5MG ORALLY HERIBERTO SOLARES 08/29/2020 10:04:31 AM > VERIFIED. JORGE WHITNEY 08/29/2020 10:07:25 AM > ADMINISTERED OTHERS NOTES: 08/28/20 1520 PAT COMPLETED. Yariel HAQ SAP TECHNICAL DEVELOPER. PROCEDURES PAIN NURSING RECORD PROCEDURE IN ROOM 1023, PHYSICIAN IN ROOM 1032, START 1038, FINISH 1041, PHYSICIAN OUT OF ROOM 1044, OUT OF ROOM 1052 VIA STRECHER, ECG NORMAL SINUS, PATIENT SHIELDED YES, SAFETY STRAP YES, PREP CHLOROPREP BY Last BURDICK RN, DRESSING TEGADERM BY DR GIRON LOC: JORGE WHITNEY 08/29/2020 10:31:23 AM > , 1. ALERT, ORIENTED RESP: JORGE WHTINEY 08/29/2020 10:31:26 AM > , 1. REGULAR, NO DYSPNEA COLOR: JORGE WHITNEY 08/29/2020 10:31:33 AM > , 1. PINK SKIN: JORGE WHITNEY 08/29/2020 10:31:39 AM > , 1. WARM, DRY POSITION: JORGE WHITNEY 08/29/2020 10:31:43 AM > , 1. PRONE VITALS: JORGE WHITNEY 08/29/2020 10:31:47 AM > 144/96-92-18-94% , JORGE WHITNEY 08/29/2020 10:42:58 AM > 153/257-78-25-95% , JORGE WHITNEY 08/29/2020 10:58:09 AM > 142/86-90-18-98% NOTES Shanae BURDICK RN COMPLETION OF PROCEDURE APPOINTMENT: POST PAIN 2 RIGHT HIP, DRESSING SITE DRY AND INTACT RIGHT LOWER BACK, IV N/A, GAIT STEADY, TEACHING COMPLETED, PATIENT ACKNOWLEDGES UNDERSTANDING YES PATIENT VERBALIZES UNDERSTANDING OF POST PROCEDURE INSTRUCTIONS REVIEWED, PROCEDURE APPOINTMENT COMPLETED AT 1058 BY: Shanae BURDICK RN PRE PROCEDURE DIAGNOSIS SACROILITIS, SACROILIAC JOINT DYSFUNCTION POST PROCEDURE DIAGNOSIS SACROILIITIS, SACROILIAC JOINT DYSFUNCTION PROCEDURE RIGHT SACROILIAC JOINT BLOCK SURGEON DR. WESLY GIRON BOILING HOUSE HAND NONE ANESTHESIA LOCAL PRE PROCEDURE NOTE THE PATIENT HAS A HISTORY OF CHRONIC LOW BACK PAIN. I EVALUATED THE PATIENT AND REVIEWED THE CHART. I WENT OVER THE RISKS, BENEFITS AND ALTERNATIVES ASSOCIATED WITH THIS PROCEDURE. THE PATIENT WOULD LIKE TO PROCEED AND GIVES CONSENT TO PERFORM THE PROCEDURE. THE PATIENT DENIES UNEXPLAINABLE WEIGHT LOSS, FEVER, CHILLS OR NEW CHANGES IN URINARY OR BOWEL CONTROL. THE PATIENT IS COVID-19 NEGATIVE. DESCRIPTION OF PROCEDURE THE PATIENT WAS BROUGHT TO THE PROCEDURE ROOM AND PLACED IN THE PRONE POSITION. THE LUMBOSACRAL AREA WAS CLEANED WITH CHLORAPREP SOLUTION AND DRAPED ASEPTICALLY. THE PROCEDURE WAS DONE UNDER STERILE CONDITIONS. A TIMEOUT WAS PERFORMED WHERE THE CONSENTED SITE WAS VERIFIED WITH EVERYONE IN THE ROOM UNDER FLUOROSCOPIC GUIDANCE, THE TARGET POINT WAS SELECTED AT THE LOWER BORDER OF THE RIGHT SACROILIAC JOINT. TARGET POINT WAS SELECTED AFTER MEDIAL ROTATION AND TILT OF THE MAGNIFIER OR THE C-ARM. I CONFIRMED AGAIN THE SITE OF TARGET. LIDOCAINE 0.5% WAS USED TO NUMB THE SKIN AND THE SUBCUTANEOUS TISSUE BELOW IT. SPINAL NEEDLE, 22-GAUGE, WAS ADVANCED UNDER FLUOROSCOPIC GUIDANCE AND FOLLOWING PATIENT FEEDBACK UNTIL THE TARGET WAS TOUCHED. THE POSITION OF THE NEEDLE WAS VERIFIED WITH AP AND OBLIQUE VIEWS. AFTER PROPER POSITION OF THE NEEDLE WAS ACHIEVED, ISOVUE-M DYE 30%, 0.1 ML, WAS INJECTED SHOWING ADEQUATE SPREAD OF THE DYE. KENALOG 40 MG WAS INJECTED. THEN, A SOLUTION OF 3.0 ML OF BUPIVACAINE 0.125% WAS USED TO FLUSH THE NEEDLE. THE MEDICATIONS WERE VERIFIED WITH THE NURSE. THERE WAS NO EVIDENCE OF BLOOD, PARESTHESIA OR CEREBROSPINAL FLUID DURING THE PROCEDURE. THE PATIENT WAS SENT TO THE RECOVERY ROOM. THE PATIENT WAS MOVING THE EXTREMITIES AND DOING WELL. THERE WERE NO COMPLICATIONS DURING THE PROCEDURE. ESTIMATED BLOOD LOSS WAS LESS THAN 5 ML. FLUOROSCOPIC TIME WAS 25 SECONDS. POST PROCEDURE NOTE THE PATIENT WILL BE SEEN IN A FOLLOW UP IN THE NEXT FEW WEEKS. I AM LOOKING FOR LONG LASTING RELIEF FOR THE PATIENT WITH THIS INTERVENTION. INSTRUCTIONS WERE GIVEN, QUESTIONS WERE ANSWERED AND THE PATIENT EXPRESSED UNDERSTANDING AND AGREES WITH THE PAIN. I, AFSANEH STONER, DOCUMENTED THE ABOVE INFORMATION ACTING A SCRIBE FOR DR. GIRON. I HAVE REVIEWED THE ABOVE DOCUMENT WRITTEN BY AFSANEH DILEONARDO, SPORTS BOOKMAKER, AND I VERIFY THAT IT IS ACCURATE. PROCEDURE CODES 99843 INJECT SACROILIAC JOINT, MODIFIERS: RT DISPOSITION & COMMUNICATION FOLLOW UP FOLLOW UP WITH CHEMICAL DEPENDENCY NURSE (REASON: POST RIGHT SACROILIAC JOINT BLOCK) ELECTRONICALLY SIGNED BY WESLY GIRON MD, ON 08/29/2020 AT 12:33 PM EST DISCLAIMER : THIS IS A VISIT SUMMARY EXTRACTED FROM THE [employer] CHART. IT IS NOT A COPY OF THE [employer] PROGRESS NOTE. EMILIO
== END ==
LOC: M PAIN 10:20
PROVIDERS: ATTEND Anesthesiology
DX: M46.1 Sacroiliitis, not elsewhere classified (principal); F20.9 Schizophrenia, unspecified; F41.9 Anxiety disorder, unspecified; F32.9 Major depressive disorder, single episode, unspecified; E78.00 Pure hypercholesterolemia, unspecified; E11.42 Type 2 diabetes mellitus with diabetic polyneuropathy; Z79.84 Long term (current) use of oral hypoglycemic drugs; Z79.899 Other long term (current) drug therapy; Z87.891 Personal history of nicotine dependence; Z88.5 Allergy status to narcotic agent
CPT/HCPCS: 27096; J3301; Q9967

== ENCOUNTER → 2020-12-04 | Outpatient (REF) | payer OTHER ==
[~2020-12-04] MED LIST changes: -BUPIVACAINE HCL 0.25% 30ML VIAL As Ordered ONE; -ISOVUE-M 300 61% 15ML VIAL As Ordered ONE; -LIDOCAINE 1% SDV 30ML VIAL As Ordered ONE; -TRIAMCINOLONE ACETONIDE SUSP 40 MG/ML VIAL (J3301) As Ordered ONE; -diazePAM 5MG TABLET As Ordered ONE; -oxyCODONE 5MG TAB As Ordered ONE
== END ==
LOC: M WUC 21:21
PROVIDERS: ATTEND Physician Assistant
DX: R82.90 Unspecified abnormal findings in urine (principal)

== ENCOUNTER 2021-01-30 14:23 | Emergency (ER) | payer OTHER ==
[~2021-01-30] VITALS: Ht 175.3 cm; Wt 100.0 kg
[~2021-01-30 14:23] MED LIST changes: +ERGO500029; -VITA50005
[2021-01-30] MEDS ORDERED: methocarbamoL 500 MG TAB PO ONE (17:55)
[2021-01-30] MEDS ORDERED: LIDOCAINE 5% (LIDODERM) PATCH TD ONE (17:55)
[2021-01-30] MEDS ORDERED: KETOROLAC 30 MG/ML 1ML VIAL IM ONE (17:55)
--- NOTE | 2021-01-30 18:48 | REP ---
INDICATION: pain/ hx dislocation. COMPARISON: Abdomen/pelvis CT dated 08/07/2020. TECHNIQUE: There are two views, AP and frog-leg projections. FINDINGS: There is joint space narrowing and osteophytic formation compatible with osteoarthritis. This is seen to better advantage on the comparison CT. There is no fracture or dislocation. There no calcifications or foreign bodies. Mineralization is normal. IMPRESSION: Right hip osteoarthritis. No fracture or dislocation. No calcification or foreign body. <Electronically signed by Robbie Irving > 01/30/21 5124
[2021-01-30] MEDS ORDERED: LIDO5DIS41 TOP (19:07)
[2021-01-30] MEDS ORDERED: METH-1165 PO (19:07)
[2021-01-30 19:15] VITALS: BP 160/98
[2021-01-30] MEDS ORDERED: **NOTE PATIENT COMMENT** MISC XX SCH (21:00)
== END 2021-01-30 19:17 | disposition home or self-care (01) ==
LOC: M ED 14:23
DX: M16.51 Unilateral post-traumatic osteoarthritis, right hip (principal); M25.551 Pain in right hip; M54.9 Dorsalgia, unspecified; E11.9 Type 2 diabetes mellitus without complications; M72.2 Plantar fascial fibromatosis; M45.9 Ankylosing spondylitis of unspecified sites in spine; M10.9 Gout, unspecified; Z87.891 Personal history of nicotine dependence; Z88.5 Allergy status to narcotic agent; Z91.030 Bee allergy status; Z79.899 Other long term (current) drug therapy; Z79.84 Long term (current) use of oral hypoglycemic drugs
CPT/HCPCS: 73502; 96372; 99283; J1885

== ENCOUNTER → 2021-02-05 | Outpatient (REF) ==
[~2021-02-05] MED LIST changes: +LIDO5DIS41 TOP; +METH-1165 PO
[2021-02-05 21:16] LABS: RSV AMPLIFICATION NEGATIVE (NEGATIVE)
== END ==
LOC: M LAB REF 10:00